=== PATIENT | male | born 1940 | race Caucasian/White ===

== ENCOUNTER 2020-04-01 10:26 | Outpatient (CLI) | payer MEDICARE, SELFPAY ==
[2020-04-01 11:11] LABS: Anion Gap 7 mmol/L (8-16); Blood Urea Nitrogen 16 mg/dL (9-20); Calcium 9.1 mg/dL (8.4-10.2); Carbon Dioxide 24 mmol/L (22-30); Chloride 108 mmol/L (98-107); Estimated Glomerular Filt Rate > 60; Glucose 99 mg/dL (75-110); Potassium 4.5 mmol/L (3.4-5.0); Sodium 139 mmol/L (137-145)
== END 2020-04-01 10:27 | disposition home or self-care (01) ==
PROVIDERS: PCP Internal Medicine Endocrinology, Diabetes & Metabolism; Visit Provider Internal Medicine Cardiovascular Disease
DX: I10 Essential (primary) hypertension (principal); Z86.79 Personal history of other diseases of the circulatory system
CPT/HCPCS: 36415; 80048

== ENCOUNTER 2020-06-26 13:28 | Outpatient (CLI) | payer MEDICARE, SELFPAY ==
[2020-06-26 14:04] LABS: Anion Gap 6 mmol/L (8-16); Blood Urea Nitrogen 20 mg/dL (9-20); Calcium 9.5 mg/dL (8.4-10.2); Carbon Dioxide 30 mmol/L (22-30); Chloride 104 mmol/L (98-107); Estimated Glomerular Filt Rate 58; Glucose 80 mg/dL (75-110); Sodium 140 mmol/L (137-145)
== END 2020-06-26 13:29 | disposition home or self-care (01) ==
LOC: ANHLAB 13:33
PROVIDERS: PCP Internal Medicine Endocrinology, Diabetes & Metabolism; Visit Provider Internal Medicine Cardiovascular Disease
DX: I10 Essential (primary) hypertension (principal)
CPT/HCPCS: 36415; 80048

== ENCOUNTER 2020-12-20 11:22 | Outpatient (CLI) | payer MEDICARE, SELFPAY ==
--- NOTE | ~2020-12-20 | XR_ITS ---
EXAMINATION: XR cervical spine 4-5V EXAM DATE: 12/20/2020 11:45 INDICATION: Cervical radiculopathy. Neck pain, left shoulder pain. TECHNIQUE: Cervical spine frontal, lateral, lateral swimmers, and open-mouth odontoid projections. C orrelation is made to neck CT 05/21/2018. FINDINGS: Moderate to severe loss of the disc height from C3 through T1. Mild diffuse loss of verteb ral body height. The vertebral bodies are aligned in the AP dimension. The odontoid process is intact . The lateral masses of C1 line up with C2. Prevertebral soft tissue and pre-dens space are within n ormal limits. Mild cervical thoracic levoscoliosis. Overall moderate to severe cervical arthritis cau sing some amount of neural foraminal stenosis. There are no bony erosions identified. IMPRESSION: 1. Moderate to severe cervical spondylosis. 2. No acute findings. Reviewed, dictated and finalized at location A.
== END 2020-12-20 11:23 | disposition home or self-care (01) ==
DX: M47.892 Other spondylosis, cervical region (principal); M25.519 Pain in unspecified shoulder
CPT/HCPCS: 72050

== ENCOUNTER 2021-04-23 08:42 | Observation (INO) | payer MEDICARE, SELFPAY ==
[2021-04-23] VITALS (9 sets, daily range): BP systolic 155–186; BP diastolic 44–92; PULSE 43–83; RESP 16–24; TEMP 36.3–36.7; O2SAT 98–100; BMI 25.9
--- NOTE | ~2021-04-23 | MR_ITS ---
EXAMINATION: MR shoulder LT wo con DATE: 04/25/2021 07:12 INDICATION: Left shoulder pain TECHNIQUE: Magnetic resonance imaging (MRI) of the left shoulder was performed without intravenous co ntrast. Sequences included axial PD-weighted FS FSE, coronal oblique PD-weighted FS FSE, coronal obli que T2-weighted FS FSE, sagittal PD-weighted FS FSE, and sagittal T1-weighted SE. COMPARISON: None. FINDINGS: Coracoacromial arch: The acromion undersurface is curved in morphology (type II). The coracoacromial ligament is normal. M oderate acromioclavicular osteoarthritis. Rotator cuff: Mild tendinopathy along the anterior supraspinatus tendon and of the subscapularis tendon, both witho ut discrete tear. The more posterior supraspinatus, infraspinatus and teres minor tendons. There is m ild fatty atrophy of the teres minor muscle belly. Biceps tendon, glenoid labrum and glenohumeral cartilage: There is a split the long head biceps tendon occurring at the exit of the intertubercular groove pote ntially represent a split tear however appearance also suggests a potential secondary attachment cont iguous with the the anterior supraspinatus tendon. There is a relatively well-defined linear tear at the base of the posterior inferior labrum. More extensive irregular degenerative tearing extending in to the inferior and anteroinferior labrum and posterior, posterosuperior and superior labrum. Normal anterosuperior sublabral foramen. Partial-thickness cartilage loss with smooth chondral surface along the superior and posterosuperior glenoid. Chondral swelling and partial-thickness fissuring without degenerative subchondral changes at the inferior to anteroinferior glenoid. Partial-thickness chondra l ulceration along the inferomedial rim of the humeral head. Fluid: Physiologic amount of fluid in the glenohumeral joint and biceps tendon sheath. No loose osteochondra l bodies. No abnormally increased fluid in the subacromial/subdeltoid bursa to suggest bursitis. Bones: Normal marrow signal with no edema, fracture or abnormal marrow replacing process. Mild cystic change at the greater tuberosity. IMPRESSION: 1. Mild glenohumeral osteoarthritis with relatively diffuse labral tear/degeneration. 2. Moderate acromioclavicular osteoarthritis. 3. Mild subscapularis and anterior supraspinatus tendinopathy without discrete tear. 4. Possible longitudinal split tear of the intra-articular long head biceps tendon versus more likely separate attachment contiguous with the anterior supraspinatus tendon with Reviewed, dictated and finalized at location A. IMPRESSION: 1. Mild glenohumeral osteoarthritis with relatively diffuse labral tear/degener ation. 2. Moderate acromioclavicular osteoarthritis. 3. Mild subscapularis and anterior supraspinatus tendinopathy without discrete tear. 4. Possible longitudinal split tear of the intra-articular long head biceps ten don versus more likely separate attachment contiguous with the anterior suprasp inatus tendon with
--- NOTE | ~2021-04-23 | XR_ITS ---
EXAMINATION: XR shoulder LT min 2V INDICATION: Left shoulder pain TECHNIQUE: Four views of the left shoulder are submitted. COMPARISON: None FINDINGS: Normal alignment. No fracture. There is mild osteoarthritis of the glenohumeral and acromio clavicular joints. Soft tissues are unremarkable. IMPRESSION: 1. No acute osseous abnormality. Reviewed, dictated and finalized at location A.
--- NOTE | 2021-04-23 09:27 | ECG_ITS ---
Measurements Intervals [place] Rate: 60 P: -70 AK: 103 QRS: -20 QRSD: 105 T: 46 QT: 429 QTc: 430 Interpretive Statements SINUS WITH INTERMITTENT ECTOPIC ATRIAL RHYTHM INCOMPLETE RIGHT BUNDLE BRANCH BLOCK VOLTAGE CRITERIA FOR LVH BASELINE WANDER- V3-V6 ABNORMAL ECG Electronically Signed On 04-23-2021 10:00:12 CDT by Sarkis Wheeler D.O.
--- NOTE | 2021-04-23 09:45 | ED.GENADULT ---
HPI - General Adult General Chief complaint: Extremity Injury, Upper Stated complaint: burning pain L shoulder x 3 days Time Seen by Provider: 04/23/21 09:18 History of Present Illness HPI narrative: Patient 80-year-old gentleman who presents the emergency department with chief complaint of left arm burning. The patient reports that he saw his primary care physician on Wednesday after he started having symptoms and his primary ordered a plain film x-ray of the left shoulder that he is scheduled to have done at 1130 today patient states that the pain got excruciating and reports that it was not improved by anything patient reports that he was diagnosed with adhesive capsulitis by his primary and is supposed to start physical therapy. The patient denies rash denies focal neurological deficit denies chest pain denies shortness of breath denies fever. Related Data Allergies Allergy/AdvReac Type Severity Reaction Status Date / Time No Known Allergies Allergy Unverified 09/16/18 11:53 Review of Systems Review of Systems: A 10 system review of systems was completed on the patient and is negative except for what is stated in the HPI. Nursing and ancillary documentation was reviewed. Exam Narrative: GENERAL: Well-appearing, well-nourished, and in no acute distress. HEAD: Normocephalic, atraumatic. EYES: PERRLA and EOMI. ENT: Nares clear, no rhinorrhea or epistaxis. Mucous membranes moist. NECK: Supple. CHEST: Clear to auscultation. No respiratory distress. HEART: Regular rate and rhythm. No murmur heard. Normal peripheral pulses. ABDOMEN: Soft, nontender, nondistended, normal active bowel sounds. EXTREMITIES: Normal range of motion. No edema. SKIN: Warm, dry, no rash. NEURO: No focal deficits. Alert and oriented x3. PSYCH: Normal mood and affect. Course Vital Signs Vital signs: Vital Signs Temperature 36.6 C 04/23/21 08:50 Pulse Rate 71 04/23/21 08:50 Respiratory Rate 22 H 04/23/21 08:50 Blood Pressure 186/74 H 04/23/21 08:50 Pulse Oximetry 98 04/23/21 08:50 Temperature 36.6 C 04/23/21 08:50 Pulse Rate 52 L 04/23/21 11:36 Respiratory Rate 18 04/23/21 11:36 Blood Pressure 167/67 H 04/23/21 11:36 Pulse Oximetry 98 09/15/21 11:36 Medical Decision Making Vital Signs Vital Signs: Vital Signs Temperature 36.6 C 04/23/21 08:50 Pulse Rate 71 04/23/21 08:50 Respiratory Rate 22 H 04/23/21 08:50 Blood Pressure 186/74 H 04/23/21 08:50 Pulse Oximetry 98 04/23/21 08:50 Temperature 36.6 C 04/23/21 08:50 Pulse Rate 52 L 04/23/21 11:36 Respiratory Rate 18 04/23/21 11:36 Blood Pressure 167/67 H 04/23/21 11:36 Pulse Oximetry 98 04/23/21 11:36 Lab Data Result diagrams: 04/23/21 09:54 04/23/21 09:54 Labs: Lab Results 04/23/21 04/23/21 04/23/21 Range/Units 09:54 09:54 09:54 WBC 8.1 (4.5-10.0) K/mm3 RBC 4.23 L (4.6-6.20) M/mm3 Hgb 13.5 L (14.0-18.0) g/dL Hct 40.0 L (42.0-52.0) % MCV 94.6 (80-100) fl MCH 31.9 (26-34) pg MCHC 33.8 (32-36) g/dl RDW 14.1 (11.5-14.5) % Plt Count 189 (150-375) k/mm3 MPV 11.0 H (7.4-10.4) fl Immature Gran % (Auto) 1.4 H (0-0.5) % Neut % (Auto) 66.9 (45.5-73.1) % Lymph % (Auto) 16.9 L (18.3-44.2) % [place] % (Auto) 11.4 H (2.6-8.5) % Eos % (Auto) 2.5 (0-4.4) % Baso % (Auto) 0.9 (0.2-1.2) % Lymph # (Auto) 1.36 (0.9-3.2) K/mm3 [place] # (Auto) 0.9 H (0.1-0.6) K/mm3 Eos # (Auto) 0.2 (0-0.3) K/mm3 Baso # (Auto) 0.1 (0.0-0.1) K/mm3 Abs Immat Gran (auto) 0.11 H (0.00-0.031) K/mm3 Absolute Neuts (auto) 5.4 (1.3-6.7) K/mm3 Absolute Nucleated RBC 0.0 (0.0-0.012) K/mm3 Nucleated RBC % 0.0 (0.0-0.2) % D-Dimer Pending Sodium 144 (137-145) mmol/L Potassium 4.0 (3.4-5.0) mmol/L Chloride 111 H (98-107) mmol/L Carbon Dioxide 21 L (22-30) mmol/L Anion Gap 12 (8-16) mmol/L B
[2021-04-23] MEDS: HYDROcodone/acetaminophen (*CRX) 5-325 MG TABLET 1 TAB PO ×2 (09:51→23:08)
[2021-04-23 10:21] LABS: Basophils Absolute Auto 0.1 K/mm3 (0.0-0.1); Basophils Percent Auto 0.9 % (0.2-1.2); Eosinophils Absolute Auto 0.2 K/mm3 (0-0.3); Eosinophils Percent Auto 2.5 % (0-4.4); Hemoglobin 13.5 g/dL (14.0-18.0); Immature Granulocyte Absolute 0.11 K/mm3 (0.00-0.031); Immature Granulocyte Percent A 1.4 % (0-0.5); Lymphocytes Absolute Auto 1.36 K/mm3 (0.9-3.2); Lymphocytes Percent Auto 16.9 % (18.3-44.2); Mean Corpuscular HGB Conc 33.8 g/dl (32-36); Mean Corpuscular Hemoglobin 31.9 pg (26-34); Mean Corpuscular Volume 94.6 fl (80-100); Monocytes Absolute Auto 0.9 K/mm3 (0.1-0.6); Monocytes Percent Auto 11.4 % (2.6-8.5); Neutrophils Absolute Auto 5.4 K/mm3 (1.3-6.7); Neutrophils Percent Auto 66.9 % (45.5-73.1); Platelet Count Result 189 k/mm3 (150-375); Red Blood Count 4.23 M/mm3 (4.6-6.20); Red Cell Distribution Width 14.1 % (11.5-14.5); White Blood Count 8.1 K/mm3 (4.5-10.0)
[2021-04-23 10:24] LABS: Alanine Aminotransferase 20 U/L (4-50); Albumin Level 4.2 g/dL (3.5-5.1); Alkaline Phosphatase 67 U/L (38-126); Anion Gap 12 mmol/L (8-16); Aspartate Amino Transferase 31 U/L (17-59); Bilirubin,Total 0.4 mg/dL (0.2-1.3); Blood Urea Nitrogen 27 mg/dL (9-20); Calcium 9.5 mg/dL (8.4-10.2); Carbon Dioxide 21 mmol/L (22-30); Chloride 111 mmol/L (98-107); Estimated CRCL calculation 49 ml/min; Estimated Glomerular Filt Rate 58; Glucose 112 mg/dL (65-110); Magnesium 2.1 mg/dL (1.6-2.3); Sodium 144 mmol/L (137-145)
[2021-04-23 10:35] LABS: Troponin I < 0.012 ng/mL (0.000-0.034)
[2021-04-23] MEDS: SODIUM CHLORIDE 0.9% IV 1,000 ML 999 ML IV CONT (10:55)
--- NOTE | 2021-04-23 10:55 | PC.NURSE ---
Patients BP and heart rate dropped down to 83/58 and 43, EDP aware and requested normal saline bolus at this time.
--- NOTE | 2021-04-23 11:24 | ECG_ITS ---
Measurements Intervals [place] Rate: 49 P: 50 DE: 155 QRS: -18 QRSD: 105 T: 37 QT: 493 QTc: 447 Interpretive Statements SINUS BRADYCARDIA WITH SINUS ARRHYTHMIA INCOMPLETE RIGHT BUNDLE BRANCH BLOCK LEFT VENTRICULAR HYPERTROPHY AND ST-T CHANGE BASELINE ARTIFACT- II, III , AVF, V2-V6 ABNORMAL ECG Electronically Signed On 04-23-2021 11:51:17 CDT by Sarkis Wheeler D.O.
[2021-04-23] MEDS: SODIUM CHLORIDE 0.9% IV 1,000 ML 125 ML IV CONT ×2 (15:02→23:07)
--- NOTE | 2021-04-23 15:18 | ADMGEN ---
This patient, Pawan Martinez, was admitted to [facility]. Patient oriented to hospital policies and general routines including ID bracelet, bed and alarms, visiting hours, pain management, procedures, bathroom and other care routines, personal items, smoking policy, room service/diet, and visiting hours. Information on how to activate the Rapid Response Team has been discussed. Patient are encouraged to report perceived risks to care and to ask questions if they do not understand what they are told or what they should do.
--- NOTE | 2021-04-23 15:33 | PM.IMHP ---
H&P: HPI History of Present Illness Date/Time: 04/23/21 15:33 this is a 80-year-old male patient who has a past medical history of atrial flutter with a cardioversion and ablation. The patient came to the emergency room with some complaints of left arm burning. The patient saw his primary care doctor on Wednesday and then his primary care physician sent him to have a an x-ray of his left shoulder that was scheduled to be done at 11:30 a.m. today. But the patient was having some excruciating pain to the left arm that he decided to come to the emergency room instead. The patient had been diagnosed with adhesive capsulitis. The patient was supposed to start physical therapy. The patient stated that he was having so much pain that he could not move the left arm. However once the received a pain pill he was able to have full range of motion to that left arm. The patient has no rash noted to the left shoulder. The patient is having point tenderness to the proximal posterior scapula area. The patient's heart rate was dropping down in the 40s. According to the ED physician the patient became dizzy and diaphoretic during that event. The patient stated that he is not on any beta-terence. The is at the bedside answering questions as she states that the patient has problems with short-term memory. He was diagnosed with dementia but was not able to tolerate Aricept. The was answer questions for me who the emergency room. The patient was falling asleep during the interview as he just received a pain pill. The patient stated that he took Tylenol at home and it did not work. The patient received Cuney and IV fluids in the emergency room. The patient is being admitted to observation status on the date of service of 04/23/2021 Chief Complaint: Left shoulder pain Review of Systems Review of Systems: ROS unobtainable: Yes unobtainable due to mental status (Patient has poor memory and the was answering questions in the emergen) [facility] Past Medical History Medical History (Updated 04/23/21 @ 15:53 by Margot Mae NP) Anxiety and depression Atrial flutter Resolved with cardioversion and ablation Dementia Unable to tolerate Aricept Hypertension TIA (transient ischemic attack) Surgical History Surgical History (Updated 04/23/21 @ 15:42 by Margot Mae NP) H/O cardiac radiofrequency ablation H/O local excision of skin lesion Family History Family History (Updated 04/23/21 @ 15:43 by Margot Mae NP) Father Kidney disease Mother Dementia Sibling Pericarditis Social History Social History (Updated 04/23/21 @ 15:44 by Margot Mae NP) Social History: The patient lives with his who is the durable power civil litigation attorney for healthcare. The tells me that they do have a living will in that the patient is a DNR she believes that this is on file here. 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 The patient is a lifelong nonsmoker does not use any alcohol or illicit drugs. They have 1 child. Smoking status: Unknown if ever smoked Alcohol intake: never Substance use: never Living arrangements: with family Occupation/Education: retired Gender identity (if verbalized by the patient): Male Sexual Orientation (if Verbalized by the Patient): Straight or Heterosexual Meds Home Medications and Allergies Home Medications Medication Instructions Recorded Confirmed Type duloxetine 60 mg PO DAILY 04/23/21 04/23/21 History gabapentin 300 mg PO DAILY 04/23/21 04/23/21 History mirtazapine 30 mg PO DAILY 04/23/21 04/23/21 History vdnpcjjkucst-iofjjvyh-xshztl 1 tablet PO DAILY 04/23/21 04/23/21 History [Centrum Silver] olanzapine 5 mg PO DAILY 04/23/21 04/23/21 History omeprazole magnesium [Acid Mortgage Clerk 20 mg PO DAILY 04/23/21 04/23/21 History (omeprazole)] rivaroxaban [Xarelto] 20 mg PO DAILY 04/23/21 04/23/21 History valsartan 40 mg PO DAILY 04/23/21 04/23/21 H
[2021-04-23] MEDS: hydrALAZINE HCL 20 MG/ML VIAL 10 MG IV PUSH ×2 (15:56→17:47)
[2021-04-23 16:00] LABS: Troponin I < 0.012 ng/mL (0.000-0.034)
--- NOTE | 2021-04-23 16:14 | PM.CNCAR ---
Assessment and Plan Assessment and plan (1) Hypertension: Code(s): I10 - Essential (primary) hypertension Status: Chronic Assessment and Plan: Continue valsartan. Avoid AV veronika agents because of his history of bradycardia although he would likely tolerate these medications at low doses. Regardless would use other agents such as amlodipine, hydralazine, hydrochlorothiazide etc. if need be. (2) Bradycardia: Code(s): R00.1 - Bradycardia, unspecified Status: Acute Assessment and Plan: He is not significantly bradycardic. He has some ectopic atrial beating. Not clearly symptomatic. Certainly episode ER can not been related to pain. Will check a 2D echocardiogram Doppler to evaluate for any structural abnormalities. Will also check a TSH and free T4 level. (3) Left shoulder pain: Code(s): M25.512 - Pain in left shoulder Status: Acute Assessment and Plan: Will defer to Orthopedic surgery/hospitalist service (4) Chronic anticoagulation: Code(s): Z79.01 - MCFP (current) use of anticoagulants Status: Acute Assessment and Plan: No bleeding problems (5) History of TIA (transient ischemic attack): Code(s): Z86.73 - Personal history of transient ischemic attack (TIA), and cerebral infarction without residual deficits Status: Acute Assessment and Plan: Presumably related to atrial flutter. On anticoagulation (6) History of atrial flutter: Code(s): Z86.79 - Personal history of other diseases of the circulatory system Status: Acute Assessment and Plan: Status post ablation History of Present Illness History of Present Illness Consult date/time: 04/23/21 16:14 Requesting physician: Domenic Wick MD Consult reason: Other (Bradycardia) Reason For Visit: burning pain L shoulder x 3 days Narrative: Reason for consultation: Bradycardia Date of service 04/23/[address] Wick History: Patient is an 80-year-old male who came to hospital because of left shoulder/burning pain in his left shoulder. It is quite severe. It is in his posterior aspect of his shoulder. It hurts to move his shoulder. It is not exertional in nature. And in fact he has no cardiac symptoms including no chest pain, shortness of breath, syncope, presyncope, paroxysmal nocturnal dyspnea, orthopnea, edema or palpitations. Reportedly though while the patient was in the ER he did have some bradycardic spells into the 30s and 40s. Review of Systems Review of Systems: All systems reviewed & are unremarkable except as noted in HPI and below Constitutional: Constitutional: Denies weakness Eyes: Eyes: Denies blurry vision ENT: Reports Normal hearing present Cardiovascular: Cardiovascular: Denies chest pain Respiratory: Respiratory: Denies dyspnea Gastrointestinal: Gastrointestinal: Denies abdominal pain Genitourinary: Genitourinary: Denies dysuria Musculoskeletal: Musculoskeletal: Reports arthralgias and Denies neck pain Integumentary/Breasts: Skin/Breast: Denies dry skin Neurologic: Denies headache(s) Psychiatric: Psychiatric: Denies anxiety Endocrine: Endocrine: Denies fatigue Hematologic/Lymphatic: Hematologic/Lymphatic: Denies easy bleeding Allergic/Immunologic: Allergic/Immunologic: Denies GI upset with certain foods PMFSH Past Medical History Medical History Anxiety and depression Atrial flutter Resolved with cardioversion and ablation Dementia Unable to tolerate Aricept Hypertension TIA (transient ischemic attack) Surgical History Surgical History H/O cardiac radiofrequency ablation H/O local excision of skin lesion Family History Family History Father Kidney disease Mother Dementia Sibling Pericarditis
[2021-04-23] MEDS: VALSARTAN 40 MG TABLET PO (16:46)
[2021-04-23] MEDS: KETOROLAC 15 MG/ML VIAL (*BKC) IV PUSH (17:09)
[2021-04-23] MEDS: RIVAROXABAN 20 MG TABLET PO (17:59)
[2021-04-23 18:49] LABS: Troponin I < 0.012 ng/mL (0.000-0.034)
[2021-04-23] MEDS: MIRTAZAPINE 30 MG TABLET PO (21:10)
[2021-04-24] VITALS (15 sets, daily range): BP systolic 143–184; BP diastolic 67–122; PULSE 61–93; RESP 13–21; TEMP 36.1–36.4; O2SAT 95–97
--- NOTE | 2021-04-24 | ECHO_ITS ---
Patient Info Name: Pawan Martinez Age: 80 years : 1940 Gender: Male Ht: 73 in Wt: 196 lbs BSA: 2.15 m2 HR: 72 bpm BP: 177 / 87 mmHg Heart Rhythm: Sinus Rhythm Technical Quality: Good Exam Date: 04/24/2021 1:23 PM Exam Location: [facility] Patient Status: Outpatient Admit Date: 04/23/2021 Staff Ordering Physician: Tamir Marcial MD Marketing Education Teacher: Brenda Joseph RDCS Attending Provider: Aashish Alberts MD Referring Physician: Aggie CHERY; Exam Type: CA echo doppler color flow Study Info Indications R00.1 - Bradycardia, unspecified Complete two-dimensional, color flow and Doppler transthoracic echocardiogram is performed. Summary 1. Complete two-dimensional, color flow and Doppler transthoracic echocardiogram is performed. 2. Left ventricular chamber dimension is normal. 3. Left ventricular systolic function is normal, estimated at 55-60%. 4. There is mildly increased left ventricular wall thickness. 5. The left ventricular diastolic function is grade I diastolic dysfunction. 6. Left atrial chamber dimension is moderately enlarged. 7. Right atrial chamber dimension is moderately enlarged. 8. There is mild aortic valve stenosis with a peak velocity of 208 cm/s, mean gradient of 10 mmHg, and aortic valve area of 1.6 cm2. 9. There is mild aortic valve regurgitation. 10. There is moderate aortic valve calcification. 11. There is mild mitral valve regurgitation. 12. There is moderate tricuspid valve regurgitation. 13. Moderate pulmonary hypertension, estimated pulmonary arterial systolic pressure is 53 mmHg. Left Ventricle Left ventricular chamber dimension is normal. Left ventricular systolic function is normal, estimated at 55-60%. There is mildly increased left ventricular wall thickness. The left ventricular diastolic function is grade I diastolic dysfunction. Right Ventricle Right ventricular chamber dimension is normal. Right ventricular systolic function is normal. Left Atria Left atrial chamber dimension is moderately enlarged. Right Atria Right atrial chamber dimension is moderately enlarged. Atrial Septum Intact interatrial septum visualized by color flow imaging. Aortic Valve The aortic valve is trileaflet. There is mild aortic valve stenosis with a peak velocity of 208 cm/s, mean gradient of 10 mmHg, and aortic valve area of 1.6 cm2. There is mild aortic valve regurgitation. There is moderate aortic valve calcification. Pulmonic Valve The pulmonic valve is normal. There is no pulmonic valve stenosis. There is trace pulmonic regurgitation. Mitral Valve The mitral valve has normal leaflets. There is no mitral valve stenosis. There is mild mitral valve regurgitation. Tricuspid Valve The tricuspid valve leaflets are normal. There is no significant tricuspid valve stenosis. There is moderate tricuspid valve regurgitation. Moderate pulmonary hypertension, estimated pulmonary arterial systolic pressure is 53 mmHg. Pericardium/Pleural The pericardium appears normal. There is no pericardial effusion. Inferior Vena Cava Normal inferior vena cava with <50% collapse upon inspiration consistent with elevated right atrial pressure, 10 mmHg. Aorta The aortic root size at the sinus of Valsalva is borderline dilated. The prox ascending aorta size is normal. Left Ventricular Outflow Tract Name Value
--- NOTE | 2021-04-24 01:34 | PC.NURSE ---
2216-Pt having difficulty urinating. HR up in the 150-160s with activity. Margot Mae RESISTOR TESTING MACHINE OPERATOR notified. Orders received.
[2021-04-24] MEDS: HYDROcodone/acetaminophen (*CRX) 5-325 MG TABLET 1 TAB PO ×3 (04:27→18:40)
[2021-04-24 06:09] LABS: Basophils Percent Auto 0.4 % (0.2-1.2); Eosinophils Percent Auto 0.4 % (0-4.4); Hematocrit 35.9 % (42.0-52.0); Immature Granulocyte Absolute 0.11 K/mm3 (0.00-0.031); Lymphocytes Absolute Auto 0.96 K/mm3 (0.9-3.2); Lymphocytes Percent Auto 8.8 % (18.3-44.2); Mean Corpuscular HGB Conc 33.4 g/dl (32-36); Mean Corpuscular Hemoglobin 31.6 pg (26-34); Mean Corpuscular Volume 94.5 fl (80-100); Mean Platelet Volume 11.2 fl (7.4-10.4); Monocytes Percent Auto 8.8 % (2.6-8.5); Neutrophils Absolute Auto 8.8 K/mm3 (1.3-6.7); Neutrophils Percent Auto 80.6 % (45.5-73.1); Platelet Count Result 187 k/mm3 (150-375); Red Cell Distribution Width 13.9 % (11.5-14.5); White Blood Count 10.9 K/mm3 (4.5-10.0)
[2021-04-24 06:36] LABS: Alanine Aminotransferase 16 U/L (4-50); Albumin Level 3.2 g/dL (3.5-5.1); Alkaline Phosphatase 56 U/L (38-126); Anion Gap 9 mmol/L (8-16); Aspartate Amino Transferase 24 U/L (17-59); Bilirubin,Total 0.5 mg/dL (0.2-1.3); Blood Urea Nitrogen 22 mg/dL (9-20); CRP 1.2 mg/dL (<1.0); Calcium 8.4 mg/dL (8.4-10.2); Carbon Dioxide 20 mmol/L (22-30); Chloride 112 mmol/L (98-107); Estimated CRCL calculation 58 ml/min; Estimated Glomerular Filt Rate > 60; Glucose 95 mg/dL (65-110); Phosphorus 2.8 mg/dL (2.5-4.5); Potassium 3.6 mmol/L (3.4-5.0); Sodium 141 mmol/L (137-145)
[2021-04-24 06:41] LABS: Lactic Acid Reflex 0.7 mmol/L (0.7-2.1)
[2021-04-24] MEDS: SODIUM CHLORIDE 0.9% IV 1,000 ML 125 ML IV CONT (08:55)
[2021-04-24] MEDS: OLANZapine 5 MG TABLET PO (08:56)
[2021-04-24] MEDS: DULoxetine HCL 60 MG CAPSULE.DR PO (08:56)
[2021-04-24] MEDS: VALSARTAN 40 MG TABLET PO (08:56)
[2021-04-24] MEDS: OPTI-GEN TAB 1 TABLET PO (08:56)
[2021-04-24] MEDS: GABAPENTIN 300 MG CAPSULE PO (08:57)
[2021-04-24] MEDS: PANTOPRAZOLE 40 MG TABLET PO (08:57)
--- NOTE | 2021-04-24 11:09 | PM.PNCARD ---
Progress Note: A&P Assessment and Plan (1) Hypertension: Code(s): I10 - Essential (primary) hypertension Status: Chronic Assessment and Plan: Continue valsartan. Avoid AV veronika agents because of his history of bradycardia although he would likely tolerate these medications at low doses. Will start amlodipine 5 mg p.o. daily (2) Bradycardia: Code(s): R00.1 - Bradycardia, unspecified Status: Acute Assessment and Plan: He is not significantly bradycardic. He has some ectopic atrial beating. Not clearly symptomatic. Certainly episode ER can not been related to pain. 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 On anticoagulation (6) History of atrial flutter: Code(s): Z86.79 - Personal history of other diseases of the circulatory system Status: Acute Assessment and Plan: Status post ablation (7) SVT (supraventricular tachycardia): Code(s): I47.1 - Supraventricular tachycardia Status: Acute Assessment and Plan: brief episodes but asymptomatic. self-limited Subjective Date/time seen: 04/24/21 11:09 Interval history: 80-year-old admitted because of left shoulder pain. He also had transient bradycardia Date of service 04/24/2021: He denies any cardiac symptoms including no chest pain, shortness breath, syncope, presyncope. He did have few bursts of SVT overnight that was asymptomatic Review of Systems Review of Systems: All systems reviewed & are unremarkable except as noted in HPI and below Constitutional: Constitutional: Denies fatigue, Denies headache(s) and Denies weakness Eyes: Eyes: Denies blurry vision ENT: Reports Normal hearing present, Denies headache(s) and Denies neck pain Cardiovascular: Cardiovascular: Denies chest pain and Denies dyspnea Respiratory: Respiratory: Denies dyspnea Gastrointestinal: Gastrointestinal: Denies abdominal pain Genitourinary: Genitourinary: Denies dysuria Musculoskeletal: Musculoskeletal: Reports arthralgias and Denies neck pain Integumentary/Breasts: Skin/Breast: Denies dry skin Neurologic: Reports Normal hearing present, Denies headache(s) and Denies weakness Psychiatric: Psychiatric: Denies anxiety Endocrine: Endocrine: Denies fatigue Hematologic/Lymphatic: Hematologic/Lymphatic: Denies easy bleeding Allergic/Immunologic: Allergic/Immunologic: Denies GI upset with certain foods Exam Narrative: Alert and oriented appears stated age Const: General: comfortable and no acute distress HENMT: General nose exam: Normal nares present Eyes: Sclera: sclerae normal Neck: Neck: supple and no JVD Chest: Other: No reproducible chest wall pain to palpation Resp: Auscultation: clear to auscultation bilaterally Cardio: Rate: regular rate Rhythm: regular rhythm GI: Inspection: normal to inspection Skin: General skin exam: normal color Neuro: Cranial nerves: Yes Normal hearing present Cognition (Neuro): normal cognition Speech: normal speech Extrem: General: normal to inspection and no edema Psych: Mental Status: mental status grossly normal Objective Data Vital Signs Vital Signs: Vital Signs - 24 hr 04/23/21 11:36 04/23/21 13:42 04/23/21 15:09 Temperature 36.7 C Pulse Rate 52 L 62 62 Respiratory Rate 18 18 16 Blood Pressure 167/67 H 179/81 H 185/92 H Pulse Oximetry 98 100 99 04/23/21 17:10 04/23/21 20:00
[2021-04-24] MEDS: amLODIPine BESYLATE 2.5 MG TABLET PO (12:28)
--- NOTE | 2021-04-24 16:19 | PM.IMPN ---
Progress Note: A&P Assessment and Plan (1) Bradycardia: Code(s): R00.1 - Bradycardia, unspecified Status: Acute Assessment and Plan: In ER the patient became symptomatic with his bradycardia and became diaphoretic and dizzy. cardiology has been consulted thank you for your recommendations Patient did have an episode of bradycardia in the 40s, and SVT asymptomatic Continue valsartan 40 mg p.o. daily add amlodipine 5 mg p.o. daily DNR but she would allow pacemaker if needed. (2) Dementia: Code(s): F03.90 - Unspecified dementia without behavioral disturbance Status: Chronic Assessment and Plan: Unable to tolerate Aricept. Remeron 30 mg p.o. at night (3) Left shoulder pain: Code(s): M25.512 - Pain in left shoulder Status: Acute Assessment and Plan: lidocaine patch. shingles without an outbreak above the skin. gabapentin 300 mg p.o. daily could consider a dosage change MRI of the left shoulder pending (4) Anxiety and depression: Code(s): F41.9 - Anxiety disorder, unspecified; F32.9 - Major depressive disorder, single episode, unspecified Status: Chronic Assessment and Plan: Continue with his home medication of duloxetine and mirtazapine Trend mood (5) Atrial flutter: Code(s): I48.92 - Unspecified atrial flutter Status: Inactive Assessment and Plan: cardioversion and ablation in the past. Continue home Xarelto Cardiology following (6) Hypertension: Code(s): I10 - Essential (primary) hypertension Status: Chronic Assessment and Plan: Current blood pressure 143/67 Continue with valsartan Trend blood pressure Blood pressures a.m. (7) DNR (do not resuscitate): Code(s): Z66 - Do not resuscitate Status: Acute Assessment and Plan: The stated that he has a son record here. Subjective Date/time seen: 04/24/21 16:19 Interval history: Mr. Lester is an 80-year-old male who is here for arm pain and bradycardia. Patient states today that he feels okay he should see frustrated with the [place] catheter. I said I can have it taken out however he stated that he did want have to have another bathroom too much with the fluids running. I did have the fluids turned off since the patient is eating okay and states that he is able to tolerate food. Patient denies having a fall. Patient is also been out of bed and doing well on his feet. Patient can move his arm with no pain and states that he had does not have any pain in it currently. Patient is currently awake and for an MRI of his shoulder. Patient denies chest pain, shortness of breath, sweats, fevers, chills. Review of Systems Review of Systems: All systems reviewed & are unremarkable except as noted in HPI and below Exam Const: General: cooperative, comfortable, no acute distress, alert, awake, Physically active, ill appearing and tired appearing Nutritional Appearance: average body habitus, thin and underweight Orientation/consciousness: oriented to person Limitations: no limitations HENMT: Head: normal to inspection, No palpable skull fracture present, normocephalic and atraumatic Ears: hearing grossly normal bilaterally and external ears normal General nose exam: Normal external nose present and Normal nares present Eyes: General: appearance normal, both eyes and all related structures Alignment and Position: alignment normal Periorbital: periorbital findings normal Eyelids: eyelids normal Conjunctivae: conjunctivae normal Pupils: Equal, round and reactive pupils present EOM: EOMs intact bilaterally Neck: Neck: normal visual inspection and full ROM Chest: Chest palpation & inspection: normal inspection of the chest Resp: Effort & Inspection: normal respiratory effort Auscultation: clear to auscultation bilaterally Percussion: percussion normal
[2021-04-24] MEDS: RIVAROXABAN 20 MG TABLET PO (17:15)
[2021-04-24] MEDS: MIRTAZAPINE 30 MG TABLET PO (21:41)
--- NOTE | 2021-04-24 22:05 | PC.NURSE ---
Day shift RN Frankie Calhoun forgot to put in order to saline lock patients IVF per PIG FURNACE OPERATOR Martin Crouch. I dc'd the IVF as ordered
[2021-04-25] VITALS (13 sets, daily range): BP systolic 126–189; BP diastolic 57–95; PULSE 58–83; RESP 12–21; TEMP 36.2–37.1; O2SAT 95–96
[2021-04-25] MEDS: HYDROcodone/acetaminophen (*CRX) 5-325 MG TABLET 1 TAB PO ×3 (01:33→14:15)
[2021-04-25 06:18] LABS: Basophils Absolute Auto 0.1 K/mm3 (0.0-0.1); Basophils Percent Auto 0.5 % (0.2-1.2); Eosinophils Absolute Auto 0.2 K/mm3 (0-0.3); Eosinophils Percent Auto 1.6 % (0-4.4); Hematocrit 34.3 % (42.0-52.0); Hemoglobin 11.9 g/dL (14.0-18.0); Immature Granulocyte Absolute 0.11 K/mm3 (0.00-0.031); Immature Granulocyte Percent A 1.1 % (0-0.5); Lymphocytes Absolute Auto 2.14 K/mm3 (0.9-3.2); Lymphocytes Percent Auto 20.6 % (18.3-44.2); Mean Corpuscular HGB Conc 34.7 g/dl (32-36); Mean Corpuscular Hemoglobin 31.9 pg (26-34); Monocytes Absolute Auto 1.1 K/mm3 (0.1-0.6); Neutrophils Absolute Auto 6.8 K/mm3 (1.3-6.7); Neutrophils Percent Auto 65.2 % (45.5-73.1); Platelet Count Result 179 k/mm3 (150-375); Red Blood Count 3.73 M/mm3 (4.6-6.20); Red Cell Distribution Width 13.8 % (11.5-14.5); White Blood Count 10.4 K/mm3 (4.5-10.0)
--- NOTE | 2021-04-25 06:42 | PC.NURSE ---
0635-Pt transported down to MRI via wheelchair
[2021-04-25 08:45] LABS: Alanine Aminotransferase 18 U/L (4-50); Albumin Level 3.4 g/dL (3.5-5.1); Alkaline Phosphatase 58 U/L (38-126); Anion Gap 7 mmol/L (8-16); Aspartate Amino Transferase 32 U/L (17-59); Bilirubin,Total 0.6 mg/dL (0.2-1.3); Blood Urea Nitrogen 20 mg/dL (9-20); Calcium 8.7 mg/dL (8.4-10.2); Carbon Dioxide 22 mmol/L (22-30); Chloride 110 mmol/L (98-107); Estimated CRCL calculation 58 ml/min; Estimated Glomerular Filt Rate > 60; Glucose 95 mg/dL (65-110); Magnesium 1.8 mg/dL (1.6-2.3); Potassium 3.4 mmol/L (3.4-5.0); Sodium 139 mmol/L (137-145)
[2021-04-25] MEDS: GABAPENTIN 300 MG CAPSULE PO (08:52)
[2021-04-25] MEDS: DULoxetine HCL 60 MG CAPSULE.DR PO (08:52)
[2021-04-25] MEDS: OLANZapine 5 MG TABLET PO (08:52)
[2021-04-25] MEDS: PANTOPRAZOLE 40 MG TABLET PO (08:52)
[2021-04-25] MEDS: amLODIPine BESYLATE 2.5 MG TABLET PO (08:52)
[2021-04-25] MEDS: OPTI-GEN TAB 1 TABLET PO (08:52)
[2021-04-25] MEDS: VALSARTAN 40 MG TABLET PO (08:52)
[2021-04-25] MEDS: LIDOCAINE 5% PATCH 1 PATCH TRANSDERM (08:52)
--- NOTE | 2021-04-25 09:14 | PM.PNCARD ---
Progress Note: A&P Assessment and Plan (1) Hypertension: Code(s): I10 - Essential (primary) hypertension Status: Chronic Assessment and Plan: Continue valsartan. Avoid AV veronika agents because of his history of bradycardia although he would likely tolerate these medications at low doses. Will start amlodipine 5 mg p.o. daily (2) Bradycardia: Code(s): R00.1 - Bradycardia, unspecified Status: Acute Assessment and Plan: He is not significantly bradycardic. He has some ectopic atrial beating. Not clearly symptomatic. Certainly episode ER could have been related to pain. 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 On anticoagulation (6) History of atrial flutter: Code(s): Z86.79 - Personal history of other diseases of the circulatory system Status: Acute Assessment and Plan: Status post ablation (7) SVT (supraventricular tachycardia): Code(s): I47.1 - Supraventricular tachycardia Status: Acute Assessment and Plan: brief episodes but asymptomatic. self-limited. None noted on telemetry last night Subjective Date/time seen: 04/25/21 09:14 Interval history: 80-year-old admitted because of left shoulder pain. He also had transient bradycardia Date of service 04/24/2021: He denies any cardiac symptoms including no chest pain, shortness breath, syncope, presyncope. He did have few bursts of SVT overnight that was asymptomatic Date of service 04/25/2021: Complaining of worsening shoulder pain. No cardiac complaints - denies palpitations, syncope, presyncope, chest pain. No shortness of breath. Review of Systems Review of Systems: All systems reviewed & are unremarkable except as noted in HPI and below Constitutional: Constitutional: Denies fatigue, Denies headache(s) and Denies weakness Eyes: Eyes: Denies blurry vision ENT: Reports Normal hearing present, Denies headache(s) and Denies neck pain Cardiovascular: Cardiovascular: Denies chest pain and Denies dyspnea Respiratory: Respiratory: Denies dyspnea Gastrointestinal: Gastrointestinal: Denies abdominal pain Genitourinary: Genitourinary: Denies dysuria Musculoskeletal: Musculoskeletal: Reports arthralgias and Denies neck pain Integumentary/Breasts: Skin/Breast: Denies dry skin Neurologic: Reports Normal hearing present, Denies headache(s) and Denies weakness Psychiatric: Psychiatric: Denies anxiety Endocrine: Endocrine: Denies fatigue Hematologic/Lymphatic: Hematologic/Lymphatic: Denies easy bleeding Allergic/Immunologic: Allergic/Immunologic: Denies GI upset with certain foods Exam Narrative: Alert and oriented appears stated age Const: General: comfortable and no acute distress HENMT: General nose exam: Normal nares present Eyes: Sclera: sclerae normal Neck: Neck: supple and no JVD Resp: Auscultation: clear to auscultation bilaterally Cardio: Rate: regular rate Rhythm: regular rhythm GI: Inspection: normal to inspection Skin: General skin exam: normal color Neuro: Cranial nerves: Yes Normal hearing present Cognition (Neuro): normal cognition Speech: normal speech Extrem: General: normal to inspection and no edema Psych: Mental Status: mental status grossly normal Objective Data Vital Signs Vital Signs: Vital Signs - 24 hr 04/24/21 10:00 04/24/21 11:51 04/24/21 12:00 Temperature 36.1 C L
[2021-04-25] MEDS: amLODIPine BESYLATE 5 MG TABLET 10 MG PO (12:25)
--- NOTE | 2021-04-25 13:07 | P.PNIM_ITS ---
Progress Note: A&P Assessment and Plan (1) Bradycardia: Code(s): R00.1 - Bradycardia, unspecified Status: Acute Assessment and Plan: * In ER the patient became symptomatic with his bradycardia and became diaphor etic and dizzy. * cardiology has been consulted thank you for your recommendations * Patient did have an episode of bradycardia in the 40s, and SVT asymptomatic * Continue valsartan 40 mg p.o. daily add amlodipine 5 mg p.o. daily * DNR but she would allow pacemaker if needed. (2) Dementia: Code(s): F03.90 - Unspecified dementia without behavioral disturbance Status: Chronic Assessment and Plan: * Unable to tolerate Aricept. * Remeron 30 mg p.o. at night (3) Left shoulder pain: Code(s): M25.512 - Pain in left shoulder Status: Acute Assessment and Plan: * lidocaine patch. * shingles without an outbreak above the skin. * gabapentin 300 mg p.o. daily could consider a dosage change * MRI of the left shoulder, showed arthritic shoulder. Talked to Dr. Lewis about findings. Patient will need to follow up with him outpatient. (4) Anxiety and depression: Code(s): F41.9 - Anxiety disorder, unspecified; F32.9 - Major depressive disorder, single episode, unspecified Status: Chronic Assessment and Plan: * Continue with his home medication of duloxetine and mirtazapine * Trend mood (5) Atrial flutter: Code(s): I48.92 - Unspecified atrial flutter Status: Inactive Assessment and Plan: * cardioversion and ablation in the past. * Continue home Xarelto * Cardiology following (6) Hypertension: Code(s): I10 - Essential (primary) hypertension Status: Chronic Assessment and Plan: * Current blood pressure 143/67 * Continue with valsartan, amlodipine upped to 5mg Daily * Trend blood pressure * Blood pressures a.m. (7) DNR (do not resuscitate): Code(s): Z66 - Do not resuscitate Status: Acute Assessment and Plan: * The stated that he has a son record here. (8) Nausea: Code(s): R11.0 - Nausea Status: Acute Assessment and Plan: * Complaints of nausea * Will add Zofran for comfort Subjective Date/time seen: 04/25/21 12:00 Interval history: Patient 80 year old male who is here for bradycardia and left shoulder pain.Patient stated that he does not feel very good today and that he just disoriented. He stated that it could be that he just getting up. He still has not been out of bed and mom was in the PT came in to get him out of bed and he refused at this time. He states that he does is given he is nauseated and his stomach hurts. They did say that he ate a little bit of food but not too much. He is weak and fatigued his appetite is good. He did state that he was not ready for his [place] catheter come out however he needs to get it out to perform a voiding trial. re-evaluation at 1:00 p.m. patient was lying in bed PT was in there again trying to get him out of bed however patient stated he just really would like to lay in bed. He said he just does not feel good he does not know why. Patient was alert oriented x3 with equal strength bilaterally. Patient denies sweats, fevers, chills, shortness of breath and chest pain. I did talk to Dr. Lewis about patient's left shoulder MRI which he said was just arthritic shoulder and that he would be ab
--- NOTE | 2021-04-25 13:07 | PM.IMPN ---
Progress Note: A&P Assessment and Plan (1) Bradycardia: Code(s): R00.1 - Bradycardia, unspecified Status: Acute Assessment and Plan: In ER the patient became symptomatic with his bradycardia and became diaphoretic and dizzy. cardiology has been consulted thank you for your recommendations Patient did have an episode of bradycardia in the 40s, and SVT asymptomatic Continue valsartan 40 mg p.o. daily add amlodipine 5 mg p.o. daily DNR but she would allow pacemaker if needed. (2) Dementia: Code(s): F03.90 - Unspecified dementia without behavioral disturbance Status: Chronic Assessment and Plan: Unable to tolerate Aricept. Remeron 30 mg p.o. at night (3) Left shoulder pain: Code(s): M25.512 - Pain in left shoulder Status: Acute Assessment and Plan: lidocaine patch. shingles without an outbreak above the skin. gabapentin 300 mg p.o. daily could consider a dosage change MRI of the left shoulder, showed arthritic shoulder. Talked to Dr. Lewis about findings. Patient will need to follow up with him outpatient. (4) Anxiety and depression: Code(s): F41.9 - Anxiety disorder, unspecified; F32.9 - Major depressive disorder, single episode, unspecified Status: Chronic Assessment and Plan: Continue with his home medication of duloxetine and mirtazapine Trend mood (5) Atrial flutter: Code(s): I48.92 - Unspecified atrial flutter Status: Inactive Assessment and Plan: cardioversion and ablation in the past. Continue home Xarelto Cardiology following (6) Hypertension: Code(s): I10 - Essential (primary) hypertension Status: Chronic Assessment and Plan: Current blood pressure 143/67 Continue with valsartan, amlodipine upped to 5mg Daily Trend blood pressure Blood pressures a.m. (7) DNR (do not resuscitate): Code(s): Z66 - Do not resuscitate Status: Acute Assessment and Plan: The stated that he has a son record here. (8) Nausea: Code(s): R11.0 - Nausea Status: Acute Assessment and Plan: Complaints of nausea Will add Zofran for comfort Subjective Date/time seen: 04/25/21 12:00 Interval history: Patient 80 year old male who is here for bradycardia and left shoulder pain.Patient stated that he does not feel very good today and that he just disoriented. He stated that it could be that he just getting up. He still has not been out of bed and mom was in the PT came in to get him out of bed and he refused at this time. He states that he does is given he is nauseated and his stomach hurts. They did say that he ate a little bit of food but not too much. He is weak and fatigued his appetite is good. He did state that he was not ready for his [place] catheter come out however he needs to get it out to perform a voiding trial. re-evaluation at 1:00 p.m. patient was lying in bed PT was in there again trying to get him out of bed however patient stated he just really would like to lay in bed. He said he just does not feel good he does not know why. Patient was alert oriented x3 with equal strength bilaterally. Patient denies sweats, fevers, chills, shortness of breath and chest pain. I did talk to Dr. Lewis about patient's left shoulder MRI which he said was just arthritic shoulder and that he would be able to see him outpatient for cortisone shots. Review of Systems Review of Systems: All systems reviewed & are unremarkable except as noted in HPI and below Exam Const: General: cooperative, comfortable, no acute distress, alert, awake, Physically active, ill appearing and tired appearing Nutritional Appearance: average body habitus, thin and underweight Orientation/consciousness: oriented to person Limitations: no limitations HENMT: Head: normal to inspection, No palpable skull fracture
[2021-04-25] MEDS: RIVAROXABAN 20 MG TABLET PO (16:45)
[2021-04-25] MEDS: MIRTAZAPINE 30 MG TABLET PO (20:51)
[2021-04-26] VITALS (14 sets, daily range): BP systolic 131–178; BP diastolic 60–82; PULSE 66–90; RESP 12–18; TEMP 36.1–36.9; O2SAT 93–97
[2021-04-26 06:26] LABS: Basophils Absolute Auto 0.1 K/mm3 (0.0-0.1); Basophils Percent Auto 0.5 % (0.2-1.2); Eosinophils Absolute Auto 0.1 K/mm3 (0-0.3); Eosinophils Percent Auto 1.4 % (0-4.4); Hematocrit 35.6 % (42.0-52.0); Hemoglobin 12.4 g/dL (14.0-18.0); Immature Granulocyte Absolute 0.09 K/mm3 (0.00-0.031); Immature Granulocyte Percent A 0.9 % (0-0.5); Lymphocytes Absolute Auto 1.96 K/mm3 (0.9-3.2); Lymphocytes Percent Auto 20.1 % (18.3-44.2); Mean Corpuscular HGB Conc 34.8 g/dl (32-36); Mean Corpuscular Hemoglobin 31.5 pg (26-34); Mean Corpuscular Volume 90.4 fl (80-100); Mean Platelet Volume 10.5 fl (7.4-10.4); Monocytes Percent Auto 10.6 % (2.6-8.5); Neutrophils Absolute Auto 6.5 K/mm3 (1.3-6.7); Neutrophils Percent Auto 66.5 % (45.5-73.1); Platelet Count Result 183 k/mm3 (150-375); Red Blood Count 3.94 M/mm3 (4.6-6.20); Red Cell Distribution Width 13.7 % (11.5-14.5); White Blood Count 9.7 K/mm3 (4.5-10.0)
[2021-04-26 06:41] LABS: Alanine Aminotransferase 24 U/L (4-50); Albumin Level 3.4 g/dL (3.5-5.1); Alkaline Phosphatase 60 U/L (38-126); Anion Gap 7 mmol/L (8-16); Aspartate Amino Transferase 43 U/L (17-59); Bilirubin,Total 0.6 mg/dL (0.2-1.3); Blood Urea Nitrogen 18 mg/dL (9-20); Calcium 8.7 mg/dL (8.4-10.2); Carbon Dioxide 25 mmol/L (22-30); Chloride 108 mmol/L (98-107); Estimated CRCL calculation 53 ml/min; Estimated Glomerular Filt Rate > 60; Glucose 95 mg/dL (65-110); Magnesium 1.9 mg/dL (1.6-2.3); Potassium 3.6 mmol/L (3.4-5.0); Sodium 140 mmol/L (137-145)
[2021-04-26] MEDS: HYDROcodone/acetaminophen (*CRX) 5-325 MG TABLET 1 TAB PO ×3 (07:29→21:20)
[2021-04-26] MEDS: LIDOCAINE 5% PATCH 1 PATCH TRANSDERM (08:30)
[2021-04-26] MEDS: OPTI-GEN TAB 1 TABLET PO (08:30)
[2021-04-26] MEDS: amLODIPine BESYLATE 5 MG TABLET PO (08:30)
[2021-04-26] MEDS: OLANZapine 5 MG TABLET PO (08:31)
[2021-04-26] MEDS: VALSARTAN 40 MG TABLET PO (08:31)
[2021-04-26] MEDS: GABAPENTIN 300 MG CAPSULE PO (08:31)
[2021-04-26] MEDS: DULoxetine HCL 60 MG CAPSULE.DR PO (08:31)
[2021-04-26] MEDS: PANTOPRAZOLE 40 MG TABLET PO (08:31)
[2021-04-26] MEDS: RIVAROXABAN 20 MG TABLET PO (17:12)
--- NOTE | 2021-04-26 17:52 | P.PNIM_ITS ---
Progress Note: A&P Assessment and Plan (1) Bradycardia: Code(s): R00.1 - Bradycardia, unspecified Status: Acute Assessment and Plan: * In ER the patient became symptomatic with his bradycardia and became diaphor etic and dizzy. * cardiology has been consulted thank you for your recommendations * Patient did have an episode of bradycardia in the 40s, and SVT asymptomatic * Continue valsartan 40 mg p.o. daily add amlodipine 5 mg p.o. daily * DNR but she would allow pacemaker if needed. * STABLE TIDAY, ASYMPTOMATIC. (2) Dementia: Code(s): F03.90 - Unspecified dementia without behavioral disturbance Status: Chronic Assessment and Plan: * Unable to tolerate Aricept. * Remeron 30 mg p.o. at night (3) Left shoulder pain: Code(s): M25.512 - Pain in left shoulder Status: Acute Assessment and Plan: * lidocaine patch. * shingles without an outbreak above the skin. * gabapentin 300 mg p.o. daily could consider a dosage change * MRI of the left shoulder pending (4) Anxiety and depression: Code(s): F41.9 - Anxiety disorder, unspecified; F32.9 - Major depressive disorder, single episode, unspecified Status: Chronic Assessment and Plan: * Continue with his home medication of duloxetine and mirtazapine * Trend mood (5) Atrial flutter: Code(s): I48.92 - Unspecified atrial flutter Status: Inactive Assessment and Plan: * cardioversion and ablation in the past. * Continue home Xarelto * Cardiology following (6) Hypertension: Code(s): I10 - Essential (primary) hypertension Status: Chronic Assessment and Plan: * Current blood pressure 140/82. * Continue with valsartan * Trend blood pressure * Blood pressures a.m. (7) DNR (do not resuscitate): Code(s): Z66 - Do not resuscitate Status: Acute Assessment and Plan: * The stated . (8) Nausea: Code(s): R11.0 - Nausea Status: Acute Assessment and Plan: compazine PRN. Subjective Date/time seen: 04/26/21 17:52 Interval history: Patient 80 year old male who is here for bradycardia and left shoulder pain. HE was diagnosed with arthritic shoulder and would benefit from cortisone shots. Review of Systems Review of Systems: All systems reviewed & are unremarkable except as noted in HPI and below ROS unobtainable: Yes unobtainable due to mental status (Patient has poor memory and the was answering questions in the emergen) ENT: Reports Normal hearing present Neurologic: Reports Normal hearing present Exam Const: General: cooperative, comfortable, no acute distress, alert, awake, Physically active, ill appearing and tired appearing Nutritional Appearance: average body habitus, thin and underweight Orientation/consciousness: oriented to person Limitations: no limitations HENMT: Head: normal to inspection, No palpable skull fracture present, normocephalic and atraumatic Ears: hearing grossly normal bilaterally and external ears normal General nose exam: Normal external nose present and Normal nares present Eyes: General: appearance normal, both eyes and all related structures Alignment and Position: alignment normal Periorbital: periorbital findings normal Eyelids: eyelids normal Conjunct
--- NOTE | 2021-04-26 17:52 | PM.IMPN ---
Progress Note: A&P Assessment and Plan (1) Bradycardia: Code(s): R00.1 - Bradycardia, unspecified Status: Acute Assessment and Plan: In ER the patient became symptomatic with his bradycardia and became diaphoretic and dizzy. cardiology has been consulted thank you for your recommendations Patient did have an episode of bradycardia in the 40s, and SVT asymptomatic Continue valsartan 40 mg p.o. daily add amlodipine 5 mg p.o. daily DNR but she would allow pacemaker if needed. STABLE TIDAY, ASYMPTOMATIC. (2) Dementia: Code(s): F03.90 - Unspecified dementia without behavioral disturbance Status: Chronic Assessment and Plan: Unable to tolerate Aricept. Remeron 30 mg p.o. at night (3) Left shoulder pain: Code(s): M25.512 - Pain in left shoulder Status: Acute Assessment and Plan: lidocaine patch. shingles without an outbreak above the skin. gabapentin 300 mg p.o. daily could consider a dosage change MRI of the left shoulder pending (4) Anxiety and depression: Code(s): F41.9 - Anxiety disorder, unspecified; F32.9 - Major depressive disorder, single episode, unspecified Status: Chronic Assessment and Plan: Continue with his home medication of duloxetine and mirtazapine Trend mood (5) Atrial flutter: Code(s): I48.92 - Unspecified atrial flutter Status: Inactive Assessment and Plan: cardioversion and ablation in the past. Continue home Xarelto Cardiology following (6) Hypertension: Code(s): I10 - Essential (primary) hypertension Status: Chronic Assessment and Plan: Current blood pressure 140/82. Continue with valsartan Trend blood pressure Blood pressures a.m. (7) DNR (do not resuscitate): Code(s): Z66 - Do not resuscitate Status: Acute Assessment and Plan: The stated . (8) Nausea: Code(s): R11.0 - Nausea Status: Acute Assessment and Plan: compazine PRN. Subjective Date/time seen: 04/26/21 17:52 Interval history: Patient 80 year old male who is here for bradycardia and left shoulder pain. HE was diagnosed with arthritic shoulder and would benefit from cortisone shots. Review of Systems Review of Systems: All systems reviewed & are unremarkable except as noted in HPI and below ROS unobtainable: Yes unobtainable due to mental status (Patient has poor memory and the was answering questions in the emergen) ENT: Reports Normal hearing present Neurologic: Reports Normal hearing present Exam Const: General: cooperative, comfortable, no acute distress, alert, awake, Physically active, ill appearing and tired appearing Nutritional Appearance: average body habitus, thin and underweight Orientation/consciousness: oriented to person Limitations: no limitations HENMT: Head: normal to inspection, No palpable skull fracture present, normocephalic and atraumatic Ears: hearing grossly normal bilaterally and external ears normal General nose exam: Normal external nose present and Normal nares present Eyes: General: appearance normal, both eyes and all related structures Alignment and Position: alignment normal Periorbital: periorbital findings normal Eyelids: eyelids normal Conjunctivae: conjunctivae normal Sclera: sclerae normal Cornea: corneas normal Pupils: Equal, round and reactive pupils present EOM: EOMs intact bilaterally Neck: Neck: normal visual inspection and full ROM Chest: Chest palpation & inspection: normal inspection of the chest Resp: Effort & Inspection: normal respiratory effort Auscultation: clear to auscultation bilaterally Percussion: percussion normal Cardio: Palpation: normal PMI Rate: bradycardic Rhythm: regular rhythm Heart sounds: S1 normal heart sound present and S2 normal heart sound present Peripheral pulses: Peripheral pulses 2+ throu
[2021-04-26] MEDS: MIRTAZAPINE 30 MG TABLET PO (21:20)
[2021-04-27] VITALS (7 sets, daily range): BP systolic 157–168; BP diastolic 80–102; PULSE 66–88; RESP 14; TEMP 36.4–36.8; O2SAT 98–99
[2021-04-27] MEDS: hydrALAZINE HCL 20 MG/ML VIAL 10 MG IV PUSH (04:55)
[2021-04-27] MEDS: HYDROcodone/acetaminophen (*CRX) 5-325 MG TABLET 1 TAB PO ×2 (04:55→07:55)
[2021-04-27] MEDS: LIDOCAINE 5% PATCH 1 PATCH TRANSDERM (08:00)
[2021-04-27] MEDS: OLANZapine 5 MG TABLET PO (08:01)
[2021-04-27] MEDS: PANTOPRAZOLE 40 MG TABLET PO (08:01)
[2021-04-27] MEDS: VALSARTAN 40 MG TABLET PO (08:01)
[2021-04-27] MEDS: DULoxetine HCL 60 MG CAPSULE.DR PO (08:01)
[2021-04-27] MEDS: OPTI-GEN TAB 1 TABLET PO (08:01)
[2021-04-27] MEDS: amLODIPine BESYLATE 5 MG TABLET PO (08:01)
[2021-04-27] MEDS: GABAPENTIN 300 MG CAPSULE PO (08:02)
--- NOTE | 2021-04-27 16:56 | PM.DS ---
DS: Admitting Diagnosis Discharge Date 04/27/21 Admitting Diagnosis Left shoulder pain DS: Discharge Diagnosis Discharge Diagnosis (1) Acute pain of left shoulder: Code(s): M25.512 - Pain in left shoulder Status: Acute (2) Bradycardia: Code(s): R00.1 - Bradycardia, unspecified Status: Acute (3) SVT (supraventricular tachycardia): Code(s): I47.1 - Supraventricular tachycardia Status: Acute DS: Summary Hospital Course Reason for hospitalization: Left shoulder pain. Hospital Course: This is a 80-year-old male patient who has a past medical history of atrial flutter with a cardioversion and ablation. The patient came to the emergency room with some complaints of left arm burning. The patient saw his primary care doctor on Wednesday prior to admission and then his primary care physician sent him to have a an x-ray of his left shoulder that was scheduled to be done at 11:30 a.m. today. But the patient was having some excruciating pain to the left arm that he decided to come to the emergency room instead. The patient had been diagnosed with adhesive capsulitis. The patient was supposed to start physical therapy. The patient stated that he was having so much pain that he could not move the left arm. However once the received a pain pill he was able to have full range of motion to that left arm. The patient has no rash noted to the left shoulder. The patient is having point tenderness to the proximal posterior scapula area. The patient's heart rate was dropping down in the 40s. According to the ED physician the patient became dizzy and diaphoretic during that event. The patient stated that he is not on any beta-terence. The is at the bedside answering questions as she states that the patient has problems with short-term memory. He was diagnosed with dementia but was not able to tolerate Aricept. The was answer questions for me who the emergency room. The patient was falling asleep during the interview as he just received a pain pill. The patient stated that he took Tylenol at home and it did not work. The patient received [place] and IV fluids in the emergency room. The patient was being admitted to observation status on the date of service of 04/23/2021. The patient was evaluated by cardiology for bradycardia in the 40s. He carries a diagnosis of atrial flutter ; he was cardioverted and ablated. HIs home xarelto was continued. Recommendation was made for his asymptomatic SVT: valsartan 40 mg p.o. daily was continued and amlodipine 5 mg p.o. daily was added. In regards to his dementia, he is unable to tolerate Aricept and was treated with remeron 30 mg p.o. at night. Left shoulder pain:he was treated with a lidocaine patch, gabapentin 300 mg p.o. daily could consider a dosage change. MRI of the shoulder was reviewed. Patient has sever arthritis and adhesive capsulitis; he will benefit from intraarticular injections. In regards to his anxiety and depression, he was started on his home medication of duloxetine and mirtazapine. HIs code status was DNR during this admission. PAtient is discharged home with pain management and after his BP regimen was updated. Status at Discharge Overall status at discharge: patient is not back to baseline Time Spent with Patient Time attestation: Total time spent providing and/or coordinating discharge services: Time spent: Less than 30 minutes Exam Const: General: cooperative, comfortable, no acute distress, alert, awake, Physically active, ill appearing and tired appearing Nutritional Appearance: average body habitus, thin and underweight Orientation/consciousness: oriented to person Limitations: no limitations HENMT: Head: normal to inspection, No palpable skull fracture present, normocephalic and atraumatic Ears: hearing grossly normal bilaterally and external ears normal General nose exam: Normal external nose present and Normal nares present Eyes: Gen
== END 2021-04-27 13:05 | disposition home health service (06) ==
LOC: ANHED 12:39 → ANHCPC 04-24 09:20
PROVIDERS: Internal Medicine Cardiovascular Disease; Nurse Practitioner; Admitting Provider Internal Medicine; Emergency Provider Emergency Medicine; PCP Internal Medicine Endocrinology, Diabetes & Metabolism; Visit Provider Internal Medicine
DX: M25.512 Pain in left shoulder (principal); M75.02 Adhesive capsulitis of left shoulder; I47.1 Supraventricular tachycardia; R00.1 Bradycardia, unspecified; I48.92 Unspecified atrial flutter; F03.90 Unspecified dementia, unspecified severity, without behavioral disturbance, psychotic disturbance, mood disturbance, and anxiety; I10 Essential (primary) hypertension; F41.8 Other specified anxiety disorders; Z79.01 Long term (current) use of anticoagulants; Z66 Do not resuscitate; Z86.73 Personal history of transient ischemic attack (TIA), and cerebral infarction without residual deficits
CPT/HCPCS: 36415; 73030; 73221; 80053; 83605; 83735; 84100; 84436; 84443; 84484; 85025; 86140; 93005; 93306; 96361; 96374; 96375; 96376; 97110; 97161; 97165; 99285; A9270; G0378; J0360; J1885; J7030

== ENCOUNTER 2022-01-08 08:19 | Outpatient (CLI) | payer MEDICARE, SELFPAY ==
--- NOTE | ~2022-01-08 | CT_ITS ---
EXAMINATION: CT abdomen pelvis wo con DATE: 01/08/2022 08:45 INDICATION: Periumbilical pain TECHNIQUE: Computed tomography (CT) of the abdomen and pelvis was performed without intravenous contr ast. The dose-length product was 557.41 mGy-cm. Automated exposure control and iterative reconstructi on technique were employed. COMPARISON: No prior studies for comparison. . FINDINGS: There is a partially calcified left lower lobe nodule measuring 2.4 x 2 cm which abuts the pleural surface. There is wedge-shaped soft tissue which is partially calcified in the right lower lo be. There are multiple areas of pleural thickening with calcifications, most likely secondary to prio r asbestos exposure. The areas of soft tissue consolidation in the lower lobes most likely represent rounded atelectasis. Borderline heart size. The liver, spleen, pancreas, adrenal glands and liver are unremarkable. There are multiple bilateral renal cysts, largest in the right kidney at the lower pole measuring 7.7 cm. T here is atherosclerosis of the aorta without aneurysm. Prostate gland is enlarged. Gallbladder is pre sent. No renal stones or hydronephrosis. No free air or free fluid. No lymphadenopathy. Nonobstructiv e bowel gas pattern. There is a fat-containing left inguinal hernia. There is a small fat-containing umbilical hernia. Mild osteoarthritis of the hips. There is moderate lumbar spondylosis with grade 1 degenerative spondylolisthesis at L4-5 secondary to facet hypertrophy. There is disc narrowing at all lumbar levels. There is a sclerotic lesion of L5, nonspecific, although statistically likely benign bone island. Recommend attention in this on subsequent examination. IMPRESSION: 1. 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 Soft tissue locali zed in the lower lobes bilaterally most likely represents rounded atelectasis, although malignancy is not entirely excluded. Follow-up CT chest and 3 months recommended. Alternatively, pet/CT scan may b e performed to assess for abnormal uptake. 2: Small fat-containing umbilical hernia present. Fat-containing left inguinal hernia. 3: Severe lumbar spondylosis with focal sclerotic lesion of L5. This is most likely benign bone [place] nd, although metastatic disease is not excluded, particularly if there is a known history of malignan cy. 4: Markedly enlarged prostate gland. Reviewed, dictated and finalized at location A. IMPRESSION: 1. Bilateral calcified pleural plaques consistent with previous asbestos exposu re. Soft tissue localized in the lower lobes bilaterally most likely represents rounded atelectasis, although malignancy is not entirely excluded. Follow-up C T chest and 3 months recommended. Alternatively, pet/CT scan may be performed t o assess for abnormal uptake. 2: Small fat-containing umbilical hernia present. Fat-containing left inguinal hernia. 3: Severe lumbar spondylosis with focal sclerotic lesion of L5. This is most l ikely benign bone island, although metastatic disease is not excluded, particul val if there is a known history of malignancy. 4: Markedly enlarged prostate gland.
== END 2022-01-08 08:20 | disposition home or self-care (01) ==
PROVIDERS: PCP Family Medicine; Visit Provider Nurse Practitioner
DX: K42.9 Umbilical hernia without obstruction or gangrene (principal); K40.90 Unilateral inguinal hernia, without obstruction or gangrene, not specified as recurrent; M47.816 Spondylosis without myelopathy or radiculopathy, lumbar region; N40.0 Benign prostatic hyperplasia without lower urinary tract symptoms
CPT/HCPCS: 74176

== ENCOUNTER 2022-02-25 00:40 | Day surgery (SDC) | payer MEDICARE, SELFPAY ==
[2022-02-13 14:00] VITALS: BMI 24.7
[2022-02-25 11:10] VITALS: BP 150/70; PULSE 75; RESP 18; TEMP 36.1; O2SAT 97; BMI 23.8
[2022-02-25] MEDS: LACTATED RINGERS 1,000 ML 150 ML IV CONT (11:24)
--- NOTE | 2022-02-25 11:44 | WPDANESEPPF ---
Anes - Initial Pre Proc Eval Procedure: Operation Date: 02/25/22 12:30 Proposed Procedures p Esophagogastroduodenoscopy & Screening Colonoscopy - Uri Cunningham MD Date/Time: 02/25/22 11:44 Surgeon: Uri Cunningham MD Pre Op Diagnosis: neoplasm screening, periumbilical pain Patient Data Age: 81 Gender: M Height: 1.85 m Weight: 82.1 kg Last Vital Signs Temp 97 F L 02/25/22 11:10 Pulse 75 02/25/22 11:10 Resp 18 02/25/22 11:10 BP 150/70 H 02/25/22 11:10 Pulse Ox 97 02/25/22 11:10 O2 Del Method Room Air 02/25/22 11:10 Allergies Allergy/AdvReac Type Severity Reaction Status Date / Time donepezil [From Aricept] AdvReac Diarrhea Verified 02/25/22 11:07 Home Medications Medication Instructions Recorded Confirmed Type duloxetine 60 mg capsule,delayed 60 mg PO DAILY 04/23/21 02/25/22 History release sprinkle gabapentin 300 mg tablet 300 mg PO DAILY 04/23/21 02/25/22 History mirtazapine 30 mg tablet 30 mg PO DAILY 04/23/21 02/25/22 History zqhieotqorbh-jycbmonn-elxaua tablet 1 tablet PO DAILY 04/23/21 02/25/22 History olanzapine 5 mg tablet 5 mg PO DAILY 04/23/21 02/25/22 History rivaroxaban 20 mg tablet (Xarelto) 20 mg PO DAILY 04/23/21 02/25/22 History amlodipine 5 mg tablet 5 mg PO DAILY #30 tabs 04/27/21 02/25/22 Rx losartan 25 mg tablet 25 mg PO DAILY 12/31/21 02/25/22 History acetaminophen 650 mg 1,300 mg PO HS 02/13/22 02/25/22 History tablet,extended release Patient hx anesthesia problems: none Family hx anesthesia problems: none Results Review: All pre-operative results and documents have been reviewed as part of the pre-operative evaluation. [facility] Past Medical History Medical History (Updated 12/31/21 @ 11:06 by Jeanette Saavedra APRN) Anxiety and depression Atrial flutter Resolved with cardioversion and ablation Dementia Unable to tolerate Aricept Hypertension Periumbilical pain TIA (transient ischemic attack) Surgical History Surgical History H/O cardiac radiofrequency ablation H/O local excision of skin lesion Family History Family History Father Kidney disease Mother Dementia Sibling Pericarditis Social History Social History Social History: The patient lives with his who is the durable power mergers and acquisitions attorney for healthcare. The tells me that they do have a living will in that the patient is a DNR she believes that this is on file here. 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 The patient is a lifelong nonsmoker does not use any alcohol or illicit drugs. They have 1 child. Smoking status: Never smoker Alcohol intake: never Substance use: never Substance use type: does not use Living arrangements: with family Gender identity (if verbalized by the patient): Male Sexual Orientation (if Verbalized by the Patient): Straight or Heterosexual Spiritual care concerns: No Anes - Eval Final PreProcedure Day of Procedure 02/25/22 11:44 Patient weight: normal Heart: regular rate and rhythm Lungs: clear to auscultation Airway: Mallampati scale class II Neurological: alert and oriented Last oral intake: >/= 8 hours ASA classification: III Emergent: no Anesthetic plan: proceed Anesthesia type and monitoring: general GIVS and standard monitoring Results Review: All pre-operative results and documents have been reviewed as part of the pre-operative evaluation. Informed Consent: The patient's anesthetic plan and its attendant risks and benefits were discussed with the patient/family/POA. Questions were solicited and answers provided to the satisfaction of the patient/family/POA.
--- NOTE | 2022-02-25 11:47 | WPDANESEPPF ---
Anes - Initial Pre Proc Eval Procedure: Operation Date: 02/25/22 12:30 Proposed Procedures p Esophagogastroduodenoscopy & Screening Colonoscopy - Uri Cunningham MD Date/Time: 02/25/22 11:47 Surgeon: rUi Cunningham MD Pre Op Diagnosis: neoplasm screening, periumbilical pain Patient Data Age: 81 Gender: M Height: 1.85 m Weight: 82.1 kg Last Vital Signs Temp 97 F L 02/25/22 11:10 Pulse 75 02/25/22 11:10 Resp 18 02/25/22 11:10 BP 150/70 H 02/25/22 11:10 Pulse Ox 97 02/25/22 11:10 O2 Del Method Room Air 02/25/22 11:10 Allergies Allergy/AdvReac Type Severity Reaction Status Date / Time donepezil [From Aricept] AdvReac Diarrhea Verified 02/25/22 11:07 Home Medications Medication Instructions Recorded Confirmed Type duloxetine 60 mg capsule,delayed 60 mg PO DAILY 04/23/21 02/25/22 History release sprinkle gabapentin 300 mg tablet 300 mg PO DAILY 04/23/21 02/25/22 History mirtazapine 30 mg tablet 30 mg PO DAILY 04/23/21 02/25/22 History aibrreeionel-duobjgou-tjbtlp tablet 1 tablet PO DAILY 04/23/21 02/25/22 History olanzapine 5 mg tablet 5 mg PO DAILY 04/23/21 02/25/22 History rivaroxaban 20 mg tablet (Xarelto) 20 mg PO DAILY 04/23/21 02/25/22 History amlodipine 5 mg tablet 5 mg PO DAILY #30 tabs 04/27/21 02/25/22 Rx losartan 25 mg tablet 25 mg PO DAILY 12/31/21 02/25/22 History acetaminophen 650 mg 1,300 mg PO HS 02/13/22 02/25/22 History tablet,extended release Patient hx anesthesia problems: none Family hx anesthesia problems: none Results Review: All pre-operative results and documents have been reviewed as part of the pre-operative evaluation. [facility] Past Medical History Medical History (Updated 12/31/21 @ 11:06 by Jeanette Saavedra APRN) Anxiety and depression Atrial flutter Resolved with cardioversion and ablation Dementia Unable to tolerate Aricept Hypertension Periumbilical pain TIA (transient ischemic attack) Surgical History Surgical History H/O cardiac radiofrequency ablation H/O local excision of skin lesion Family History Family History Father Kidney disease Mother Dementia Sibling Pericarditis Social History Social History Social History: The patient lives with his who is the durable power automatic clipper and stripper for healthcare. The tells me that they do have a living will in that the patient is a DNR she believes that this is on file here. 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 They have 1 child. Smoking status: Never smoker Alcohol intake: never Substance use: never Substance use type: does not use Living arrangements: with family Gender identity (if verbalized by the patient): Male Sexual Orientation (if Verbalized by the Patient): Straight or Heterosexual Spiritual care concerns: No Anes - Eval Final PreProcedure Day of Procedure 02/25/22 11:47 Patient weight: normal Heart: regular rate and rhythm Lungs: clear to auscultation Airway: Mallampati scale class II Neurological: alert and oriented Last oral intake: >/= 8 hours ASA classification: III Emergent: no Anesthetic plan: proceed Anesthesia type and monitoring: general GIVS and standard monitoring Results Review: All pre-operative results and documents have been reviewed as part of the pre-operative evaluation. Informed Consent: The patient's anesthetic plan and its attendant risks and benefits were discussed with the patient/family/POA. Questions were solicited and answers provided to the satisfaction of the patient/family/POA.
--- NOTE | 2022-02-25 12:00 | PM.HPGS ---
History of Present Illness History of Present Illness Consent: Risks, benefits, and alternatives have been discussed and questions answered. Patient agrees to proceed with procedure. Chief complaint: neoplasm screening, periumbilical pain Narrative: Pawan Martinez is a 81 year old male with intermittent abdominal pain, used omeprazole without much of difference, CT Scan negative to explain gi symptoms (he had other incidental findings). Last colonoscopy 12 years ago. Review of Systems Constitutional: Constitutional: Denies headache(s) and Denies weakness Eyes: Eyes: Denies blurry vision ENT: Reports Normal hearing present, Denies headache(s) and Denies neck pain Cardiovascular: Cardiovascular: Denies chest pain and Denies dyspnea Respiratory: Respiratory: Denies dyspnea Gastrointestinal: Gastrointestinal: Reports no additional gastrointestinal complaints Genitourinary: Genitourinary: Denies dysuria Musculoskeletal: Musculoskeletal: Denies neck pain Integumentary/Breasts: Skin/Breast: Denies dry skin Neurologic: Reports Normal hearing present, Denies headache(s) and Denies weakness Psychiatric: Psychiatric: Denies anxiety Endocrine: Endocrine: Denies change in body appearance Hematologic/Lymphatic: Hematologic/Lymphatic: Denies easy bleeding Allergic/Immunologic: Allergic/Immunologic: Denies urticaria PMF Past Medical History Medical History (Updated 02/25/22 @ 12:01 by Uri Cunningham MD) Anxiety and depression Atrial flutter Resolved with cardioversion and ablation Colon cancer screening Dementia Unable to tolerate Aricept Hypertension Periumbilical pain TIA (transient ischemic attack) Surgical History Surgical History H/O cardiac radiofrequency ablation H/O local excision of skin lesion Family History Family History Father Kidney disease Mother Dementia Sibling Pericarditis Social History Social History Social History: The patient lives with his who is the durable power prosecuting attorney for healthcare. The tells me that they do have a living will in that the patient is a DNR she believes that this is on file here. 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 The patient is a lifelong nonsmoker does not use any alcohol or illicit drugs. They have 1 child. Smoking status: Never smoker Alcohol intake: never Substance use: never Substance use type: does not use Living arrangements: with family Gender identity (if verbalized by the patient): Male Sexual Orientation (if Verbalized by the Patient): Straight or Heterosexual Spiritual care concerns: No Meds Home Medications and Allergies Home Medications Medication Instructions Recorded Confirmed Type duloxetine 60 mg capsule,delayed 60 mg PO DAILY 04/23/21 02/25/22 History release sprinkle gabapentin 300 mg tablet 300 mg PO DAILY 04/23/21 02/25/22 History mirtazapine 30 mg tablet 30 mg PO DAILY 04/23/21 02/25/22 History eaqdafisknnw-aoqytgva-mvoqrt tablet 1 tablet PO DAILY 04/23/21 02/25/22 History olanzapine 5 mg tablet 5 mg PO DAILY 04/23/21 02/25/22 History rivaroxaban 20 mg tablet (Xarelto) 20 mg PO DAILY 04/23/21 02/25/22 History amlodipine 5 mg tablet 5 mg PO DAILY #30 tabs 04/27/21 02/25/22 Rx losartan 25 mg tablet 25 mg PO DAILY 12/31/21 02/25/22 History acetaminophen 650 mg 1,300 mg PO HS 02/13/22 02/25/22 History tablet,extended release Allergies Allergy/AdvReac Type Severity Reaction Status Date / Time donepezil [From Aricept] AdvReac Diarrhea Verified 02/25/22 11:07 Vital Signs Vital Signs - 24 hr 02/25/22 11:10 Temperature 97 F L Pulse Rate 75 Respiratory Rate 18 Blood Pressure 150/70 H Pulse Oximetry 97 Oxygen Delivery Room Air Exam Const: Genera
--- NOTE | 2022-02-25 12:17 | SUR.OPER ---
EGD procedure completed at 1209, Colonoscopy started at 1213
[2022-02-25 12:32] VITALS: BP 111/60; PULSE 59; RESP 17; O2SAT 97
[2022-02-25 12:42] VITALS: BP 163/72; PULSE 68; RESP 23; O2SAT 100
[2022-02-25 12:52] VITALS: BP 163/72; PULSE 71; RESP 27; O2SAT 99
== END 2022-02-25 13:20 | disposition home or self-care (01) ==
PROVIDERS: PCP Family Medicine; Visit Provider Internal Medicine Gastroenterology
PROC: 0DJ08ZZ Inspection of Upper Intestinal Tract, Via Natural or Artificial Opening Endoscopic (ICD-10-PCS; CPT 43235; principal; 2022-02-25 12:30)
DX: Z12.11 Encounter for screening for malignant neoplasm of colon (principal); K64.8 Other hemorrhoids; K29.70 Gastritis, unspecified, without bleeding; F41.9 Anxiety disorder, unspecified; F32.A Depression, unspecified; I10 Essential (primary) hypertension; Z86.73 Personal history of transient ischemic attack (TIA), and cerebral infarction without residual deficits
CPT/HCPCS: 43239; G0121; 88305; J7120

== ENCOUNTER 2022-08-03 02:19 | Inpatient (IN) | payer MEDICARE, SELFPAY ==
[2022-08-03] VITALS (24 sets, daily range): BP systolic 102–138; BP diastolic 50–82; PULSE 75–164; RESP 13–20; TEMP 36.4–36.9; O2SAT 90–97; BMI 25.0; BMI 19.8
--- NOTE | ~2022-08-03 | XR_ITS ---
EXAMINATION: [id number] DATE: 08/05/2022 17:32 INDICATION: Left pleural effusion postthoracentesis TECHNIQUE: frontal view of the chest was obtained. COMPARISON: Chest CT dated 08/03/2022 FINDINGS: Persistent airspace opacities throughout the majority the left hemithorax with residual aerated porti on of the lung most prominent in the lateral mid and upper lung zones. Mild primarily reticular opaci ties at the right lower lung zone. No pneumothorax or right-sided pleural effusion. Cardiomegaly. IMPRESSION: 1. Persistent opacification of much of the left hemithorax corresponding to a still large left pleura l effusion with associated atelectasis and/or pneumonia. Only a small amount of fluid was able to be aspirated during the thoracentesis due to the complex multiloculated nature of the likely exudative l eft pleural effusion. 2. Mild reticular opacities at the right lung base which could represent atelectasis, mild pulmonary edema or pneumonia. 3. Cardiomegaly. Reviewed, dictated and finalized at location A. NO ACCOUNTANT IMPRESSION: 1. Persistent opacification of much of the left hemithorax corresponding to a s till large left pleural effusion with associated atelectasis and/or pneumonia. Only a small amount of fluid was able to be aspirated during the thoracentesis due to the complex multiloculated nature of the likely exudative left pleural e ffusion. 2. Mild reticular opacities at the right lung base which could represent atelec tasis, mild pulmonary edema or pneumonia. 3. Cardiomegaly.
--- NOTE | ~2022-08-03 | CT_ITS ---
EXAMINATION: CT cervical spine wo con DATE: 08/03/2022 03:05 INDICATION: Head injury TECHNIQUE: Computed tomography (CT) of the cervical spine was performed without intravenous contrast. Automated exposure control and iterative reconstruction technique were employed. The dose-length pro duct was 451.89 mGy-cm. COMPARISON: Cervical spine radiographs dated 12/20/[address] dated 05/21/2018 FINDINGS: 2 mm anterolisthesis C7 on T1. Normal alignment of the more cephalad cervical spine. Vertebral body h eights are normal. No fracture. Moderate to severe disc height loss at and C3-C4 and C5-C6. Severe di sc height loss at the remaining levels from C4-C5 through T2-T3. Moderate disc height loss at T3-T4 a nd mild disc height loss at C2-C3. There is multilevel moderate to severe facet and uncovertebral ost eoarthritis throughout the cervical spine at the cervicothoracic junction. This contributes to modera te neural foraminal stenosis bilaterally at C3-C4, mild to moderate severity bilaterally at C4-C5 and on the right at C5-C6 and mild at the remaining cervical levels. There is also posterior disc osteop hyte complexes resulting in mild central canal stenosis at C3-C4 through C6-C7. At the right calcaneu s at the bilateral carotid bulbs, left greater than right. Cervical soft tissues are otherwise unrema rkable. A left pleural effusion surrounds the left apex. IMPRESSION: 1. Severe cervical spondylosis without acute osseous abnormality. 2. Left pleural effusion. See separate chest CT report for further detail. Reviewed, dictated and finalized at location A. LOCK WAISTLINE JOINER
--- NOTE | ~2022-08-03 | CT_ITS ---
EXAMINATION: CT diagnostic chest wo con DATE: 08/03/2022 05:49 INDICATION: possible pneumothorax, loculated pleural effusion TECHNIQUE: Computed tomography (CT) of the chest was performed without intravenous contrast. Addition al 3D reconstructions utilizing coronal maximum intensity projection (MIP) were performed. Automated exposure control and iterative reconstruction technique were employed. The dose-length product was 23 6.10 mGy-cm. COMPARISON: CT abdomen and pelvis dated 01/08/2022 FINDINGS: Numerous foci of high attenuation in the left lower lobe and lingula and dependent aspect of the righ t lower lobe which could represent sequela of old granulomatous disease or potentially aspirated katherine um. There is a large multiloculated likely exudative left pleural effusion. There is partial collapse of each of the lobes of the left lung. There is also round atelectasis at the posterior right lower lobe with associated architectural distortion demonstrating the volume loss. No pulmonary edema, righ t pleural effusion or pneumothorax. Cardiomegaly. Prominent aortic valve calcific lesion. No pericard ial effusion. Mildly aneurysmal ascending thoracic aorta which measures up to 4.2 x 4.0 cm and tapers to 4.0 x 3.8 cm at the distal arch and 3.3 x 3.2 cm at the thoracic hiatus. Enlargement of the centr al pulmonary arteries consistent with pulmonary arterial hypertension. There is dilation of arch of t he azygos vein. No evident pathologically enlarged thoracic lymphadenopathy although evaluation is so mewhat limited by the absence of intravenous contrast. Mild bilateral gynecomastia. Bilateral renal c ysts, the largest measuring 6.5 similar at the upper pole of the right kidney. Moderate to severe tho racic spondylosis. IMPRESSION: 1. Large multiloculated likely exudative left pleural effusion with partial collapse of the left lung . 2. Small region of round atelectasis at the posterior right lower lobe. 3. Cardiomegaly with enlargement of the central pulmonary arteries consistent with pulmonary arterial hypertension. 4. Prominent aortic valve calcification with mildly aneurysmal ascending thoracic aorta measuring up to 4.2 x 4.0 cm. Reviewed, dictated and finalized at location A. STRIAL EDITOR IMPRESSION: 1. Large multiloculated likely exudative left pleural effusion with partial col lapse of the left lung. 2. Small region of round atelectasis at the posterior right lower lobe. 3. Cardiomegaly with enlargement of the central pulmonary arteries consistent w ith pulmonary arterial hypertension. 4. Prominent aortic valve calcification with mildly aneurysmal ascending thorac ic aorta measuring up to 4.2 x 4.0 cm.
--- NOTE | ~2022-08-03 | CT_ITS ---
EXAMINATION: CT brain wo con DATE: 08/03/2022 03:04 INDICATION: Fall with head injury TECHNIQUE: Computed tomography (CT) of the head was performed without intravenous contrast. Sagittal and coronal reconstructions were performed. The mA was adjusted according to patient size. Iterative reconstruction technique was employed. The dose-length product was 681.00 mGy-cm. COMPARISON: head CT dated 09/16/2018 FINDINGS: No acute intracranial hemorrhage, acute infarction or abnormal extra axial fluid collection. Symmetri c prominence of the sulci and subarachnoid spaces overlying the convexities consistent with mild to m oderate age-appropriate diffuse cerebral volume loss. Ventricles are normal and symmetric. No mass/m ass effect. Mild mucosal thickening in the paranasal sinuses. The orbits and mastoid air cells are no rmal. IMPRESSION: 1. No fracture or acute intracranial process. 2. Age-related changes including mild to moderate diffuse volume loss. Reviewed, dictated and finalized at location A. FITTER
--- NOTE | ~2022-08-03 | XR_ITS ---
Portable chest x-ray Comparison: 08/05/2022 Clinical History: Shortness of breath Findings: Extensive left lung consolidation is again present, sparing the left upper lobe/apex. Righ t lung remains essentially clear. Cardiomediastinal silhouette is stable. Bones and soft tissues are unremarkable. Impression: Extensive left lung consolidation is similar to yesterday's exam, consistent with large, loculated pl eural effusion is seen on CT dated 08/03/2022. Reviewed, dictated and finalized at [facility]. ALTY UNDERWRITER Impression: Extensive left lung consolidation is similar to yesterday's exam, consistent wi th large, loculated pleural effusion is seen on CT dated 08/03/2022.
--- NOTE | ~2022-08-03 | US_ITS ---
EXAMINATION: US thoracentesis DATE: 08/05/2022 17:38 INDICATION: Left pleural effusion TECHNIQUE: The procedure and its risks and benefits were discussed with the patient in the patient's . Potential risks discussed included bleeding, infection, and pneumothorax. The patient and the p atient's understood the risks and agreed to proceed. The skin was prepped and draped in sterile fashion. 1% lidocaine was used for local anesthesia. Under ultrasound guidance, a 5 Fr catheter with trochar was advanced into the left pleural effusion. Fluid was aspirated. The catheter was removed, a nd a dressing was applied. There were no immediate complications. FINDINGS: Ultrasound images demonstrate a large multiloculated left pleural effusion and the catheter within th e fluid. Subtly visible are multiple nearly indiscernible thin internal septations which limited the amount of fluid able to be aspirated. IMPRESSION: 1. Successful ultrasound-guided thoracentesis yielding 70 mL of opaque yellowish fluid. Reviewed, dictated and finalized at location A. ENGINEER IMPRESSION: 1. Successful ultrasound-guided thoracentesis yielding 70 mL of opaque yellowi sh fluid.
--- NOTE | 2022-08-03 03:06 | ED.FALL ---
HPI - Fall General Chief Complaint: Fall Stated Complaint: GLF, HEAD INJURY Time Seen by Provider: 08/03/22 02:24 History of Present Illness HPI Narrative: 82-year-old male who is normally alert and oriented to person presents to the emergency department for evaluation after ground-level fall. states that the patient was using his walker and his walker got caught on a rug causing the patient to fall in the hallway. states she did hear the patient fall and she called out to him and he immediately replied. Patient does not recall the fall but this is not unusual for him per his . Patient denies any pain or injury. Patient does take Xarelto and has a history of atrial flutter. Related Data Home Medications Medication Instructions Recorded Confirmed duloxetine 60 mg capsule,delayed 60 mg PO DAILY 04/23/21 02/25/22 release sprinkle gabapentin 300 mg tablet 300 mg PO DAILY 04/23/21 02/25/22 mirtazapine 30 mg tablet 30 mg PO DAILY 04/23/21 02/25/22 wvaxdrsjdfuf-ndcjtslv-oxxhvb tablet 1 tablet PO DAILY 04/23/21 02/25/22 olanzapine 5 mg tablet 5 mg PO DAILY 04/23/21 02/25/22 rivaroxaban 20 mg tablet (Xarelto) 20 mg PO DAILY 04/23/21 02/25/22 losartan 25 mg tablet 25 mg PO DAILY 12/31/21 02/25/22 acetaminophen 650 mg 1,300 mg PO HS 02/13/22 02/25/22 tablet,extended release Allergies Allergy/AdvReac Type Severity Reaction Status Date / Time donepezil [From Aricept] AdvReac Diarrhea Verified 08/03/22 02:26 Review of Systems Review of Systems: CONSTITUTIONAL: Denies fever, chills, or sweats. EYES: Denies visual changes, redness, or discharge. ENT: Denies rhinorrhea, congestion, sore throat, or otalgia. CARDIOVASCULAR: Denies chest pain, palpitations, or edema. RESPIRATORY: Denies cough or dyspnea. GASTROINTESTINAL: Denies abdominal pain, nausea, vomiting, or diarrhea. GENITOURINARY: Denies dysuria or hematuria. SKIN: Denies rash or itching. MUSCULOSKELETAL: Denies back pain, joint pain, or myalgia. NEUROLOGIC: Denies headache, numbness, or weakness. PMFSH Past Medical History Medical History (Updated 08/03/22 @ 07:38 by Estela Pappas DO) Anxiety and depression Atrial flutter Resolved with cardioversion and ablation Dementia Unable to tolerate Aricept GERD (gastroesophageal reflux disease) Hypertension TIA (transient ischemic attack) Surgical History Surgical History H/O cardiac radiofrequency ablation H/O local excision of skin lesion Family History Family History Father Kidney disease Mother Dementia Sibling Pericarditis Social History Social History Social History: The patient lives with his who is the durable power collections attorney for healthcare. The tells me that they do have a living will in that the patient is a DNR she believes that this is on file here. 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 The patient is a lifelong nonsmoker does not use any alcohol or illicit drugs. They have 1 child. Smoking status: Never smoker Alcohol intake: never Substance use: never Substance use type: does not use Gender identity (if verbalized by the patient): Male Sexual Orientation (if Verbalized by the Patient): Straight or Heterosexual Spiritual care concerns: No Exam Narrative: APPEARANCE: Somnolent but no distress HEAD: normocephalic, atraumatic. EYES: PERRLA/EOMI, conjunctivae clear. NOSE: Normal no drainage THROAT: Pharynx clear, no exudate. NECK: Supple. No adenopathy, no masses. RESPIRATORY: Airway patent, respirations nonlabored. CARDIOVASCULAR: Regular rate and rhythm without murmurs rubs or gallops. ABDOMINAL: Soft, nontender, nondistended, normal bowel sounds MUSCULOSKELETAL: Moves all extremities. Strength/ROM intact, No edema, No calf tenderness.
[2022-08-03 04:27] LABS: Basophils Absolute Auto 0.1 K/mm3 (0.0-0.1); Basophils Percent Auto 0.2 % (0.2-1.2); Eosinophils Percent Auto 0.1 % (0-4.4); Hemoglobin 10.3 g/dL (14.0-18.0); Immature Granulocyte Absolute 0.43 K/mm3 (0.00-0.031); Immature Granulocyte Percent A 1.5 % (0-0.5); Lymphocytes Percent Auto 2.5 % (18.3-44.2); Mean Corpuscular HGB Conc 33.2 g/dl (32-36); Mean Corpuscular Volume 93.4 fl (80-100); Mean Platelet Volume 9.8 fl (7.4-10.4); Monocytes Absolute Auto 1.9 K/mm3 (0.1-0.6); Monocytes Percent Auto 6.7 % (2.6-8.5); Neutrophils Absolute Auto 24.7 K/mm3 (1.3-6.7); Platelet Count Result 317 k/mm3 (150-375); Red Blood Count 3.32 M/mm3 (4.6-6.20); Red Cell Distribution Width 14.3 % (11.5-14.5); White Blood Count 27.8 K/mm3 (4.5-10.0)
[2022-08-03 04:52] LABS: Alanine Aminotransferase 23 U/L (6-50); Albumin Level 3.2 g/dL (3.5-5.1); Alkaline Phosphatase 98 U/L (38-126); Anion Gap 8 mmol/L (8-16); Aspartate Amino Transferase 39 U/L (17-59); Bilirubin,Total 0.6 mg/dL (0.2-1.3); Blood Urea Nitrogen 64 mg/dL (9-20); Calcium 8.8 mg/dL (8.4-10.2); Carbon Dioxide 20 mmol/L (22-30); Chloride 101 mmol/L (98-107); Estimated CRCL calculation 22 ml/min; Estimated Glomerular Filt Rate 23; Glucose 115 mg/dL (65-110); Potassium 4.4 mmol/L (3.4-5.0); Sodium 129 mmol/L (137-145)
[2022-08-03] MEDS: SODIUM CHLORIDE 0.9% IV 1,000 ML 999 ML IV CONT ×2 (05:19)
--- NOTE | 2022-08-03 07:34 | PM.IMHP ---
H&P: HPI History of Present Illness Date/Time: 08/03/22 07:34 Chief Complaint: s/p fall Narrative: 82 y/o M with PMH of dementia, atrial flutter on Xarelto, he uses a walker and has frequent mechanical falls, depression and anxiety, history of TIA is p/w ground level fall after he tripped over a rug with his walker and fell. He denies any pain from the fall. No chest pain or shortness of breath. No nausea, vomiting or diarrhea. No fevers or chills. In the ER, chest x-ray showed possible pneumonia versus empyema. CT scan was ordered and was concerning for loculated empyema. Vancomycin and Zosyn as well as blood cultures were all initiated. Patient did have an episode of atrial flutter and was given a dose of Cardizem. He appeared to convert into normal sinus rhythm after this, however, shortly after he was back in atrial fibrillation. A thoracentesis was recommended from the ER, however, Interventional Radiology states they were unable to do the thoracentesis because the patient is on anticoagulation. Review of Systems Review of Systems: ROS unobtainable: Yes unobtainable due to mental status PMFSH Past Medical History Medical History Anxiety and depression Atrial flutter Resolved with cardioversion and ablation Dementia Unable to tolerate Aricept GERD (gastroesophageal reflux disease) Hypertension TIA (transient ischemic attack) Surgical History Surgical History H/O cardiac radiofrequency ablation H/O local excision of skin lesion Family History Family History Father Kidney disease Mother Dementia Sibling Pericarditis Social History Social History Social History: The patient lives with his who is the durable power admitted attorneys for healthcare. The tells me that they do have a living will in that the patient is a DNR she believes that this is on file here. 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 The patient is a lifelong nonsmoker does not use any alcohol or illicit drugs. They have 1 child. Smoking status: Never smoker Second hand tobacco smoke exposure: No Alcohol intake: never Substance use: never Substance use type: does not use Lack of Transportation: No Lack of Food: Never True Current Housing: I Have Housing Concerned About Future Housing: No Difficulty Paying Gas/Electric Bills: No Difficulty Paying for Meds: No Currently Unemployed: No Education: High School Diploma/GED Difficulty w/ Childcare or Family Care: No Gender identity (if verbalized by the patient): Male Sexual Orientation (if Verbalized by the Patient): Straight or Heterosexual Spiritual care concerns: No Meds Home Medications and Allergies Home Medications Medication Instructions Recorded Confirmed Type duloxetine 60 mg capsule,delayed 60 mg PO DAILY 04/23/21 08/03/22 History release sprinkle gabapentin 300 mg tablet 300 mg PO DAILY 04/23/21 08/03/22 History mirtazapine 30 mg tablet 30 mg PO DAILY 04/23/21 08/03/22 History olanzapine 5 mg tablet 5 mg PO DAILY 04/23/21 08/03/22 History rivaroxaban 20 mg tablet (Xarelto) 20 mg PO DAILY 04/23/21 08/03/22 History amlodipine 5 mg tablet 5 mg PO DAILY #30 tabs 04/27/21 08/03/22 Rx losartan 25 mg tablet 25 mg PO DAILY 12/31/21 08/03/22 History acetaminophen 650 mg 1,300 mg PO HS 02/13/22 08/03/22 History tablet,extended release Centrum Silver 250 mcg PO DAILY 08/03/22 08/03/22 History Allergies Allergy/AdvReac Type Severity Reaction Status Date / Time donepezil [From Aricept] AdvReac Diarrhea Verified 08/03/22 02:26 Vital Signs Vital Signs - 24 hr 08/03/22 02:18 08/03/22 02:37 08/03/22 03:00 Temperature 97.9 F Pulse Rate 86 84 84 Respiratory Rate 14 14 16 Blood Press
--- NOTE | 2022-08-03 07:49 | ECG_ITS ---
Measurements Intervals [place] Rate: 141 P: OR: 0 QRS: -25 QRSD: 98 T: 36 QT: 295 QTc: 452 Interpretive Statements ATRIAL FIBRILLATION WITH RAPID VENTRICULAR RESPONSE INCOMPLETE RIGHT BUNDLE BRANCH BLOCK NONSPECIFIC ST & T-WAVE ABNORMALITY ABNORMAL ECG COMPARED TO ECG 04/23/2021 11:21:12 ATRIAL FIBRILLATION NOW PRESENT Electronically Signed On 08-03-2022 16:54:51 GUEST SERVICE HOST by Zeke Hernandez M.D.
[2022-08-03 08:03] LABS: Lactic Acid Reflex 1.8 mmol/L (0.7-2.0)
[2022-08-03 08:07] LABS: Influenza A QL RT-PCR Negative (Negative); Influenza B QL RT-PCR Negative (Negative); SARS-CoV-2 RNA PCR Negative
--- NOTE | 2022-08-03 08:10 | PC.NURSE ---
EDP Roberto notified of patient's heart rate, EKG completed.
[2022-08-03 08:21] LABS: Erythrocyte Sedimentation Rate 1 mm/hr (0-20)
[2022-08-03 08:27] LABS: INR 2.7; Prothrombin Time 27.6 Seconds (11.1-14.7)
[2022-08-03 08:28] LABS: Partial Thromboplastin Time 62.1 SECONDS (22.3-36.8)
[2022-08-03] MEDS: dilTIAZem HCl INJ 25 MG/5 ML VIAL 10 MG IV PUSH (08:34)
[2022-08-03 08:36] LABS: CRP 35.2 mg/dL (<1.0)
[2022-08-03 08:39] LABS: Amylase 39 U/L (30-110); Cholesterol 122 mg/dL (0-200); Lactate Dehydrogenase 133 U/L (120-246); Triglycerides 87 mg/dL (<150)
[2022-08-03] MEDS: SODIUM CHLORIDE 0.9% IV 1,000 ML 100 ML IV CONT ×2 (08:45→21:01)
--- NOTE | 2022-08-03 09:00 | PC.NURSE ---
Per EDP Bolaños, hold cardizem drip. Patient's heart rate 86.
--- NOTE | 2022-08-03 10:44 | PC.NURSE ---
This patient, Pawan Martinez, was admitted to IMU Room 205-02. at 09:50am Patient/family oriented to hospital policies and general routines including ID bracelet, bed and alarms, visiting hours, pain management, procedures, bathroom and other care routines, personal items, smoking policy, room service/diet, and visiting hours. Information on how to activate the Rapid Response Team has been discussed. Patient/Family are encouraged to report perceived risks to care and to ask questions if they do not understand what they are told or what they should do.
--- NOTE | 2022-08-03 11:09 | PC.NURSE ---
Ultra sound caled and stated PT PTT is to high to do thoracentesis today. Dr. Pappas notified.
--- NOTE | 2022-08-03 11:29 | PC.NURSE ---
Patient came to floor on 2L nasal canula. A&O x 4. Patient denies pain or SOB. Patient left forearm IV access was accidently removed during transport from ER by tech. Patient still has IV access in left wrist
--- NOTE | 2022-08-03 12:01 | PC.NURSE ---
Elli HR [address] Pappas. Order to start ene corbin.
[2022-08-03] MEDS: dilTIAZem 100 MG/100 ML 100 MG/100 ML BAG IV CONT (12:22)
--- NOTE | 2022-08-03 16:52 | PC.NURSE ---
Patient converted to Sinus rhythm at approximately 13:40 EKG ordered STAT. Patient converted to AFIB RVR 16:29. Dr Powell notified. New orders placed. EKG ordered STAT.
[2022-08-03] MEDS: METOPROLOL TARTRATE INJ 5 MG/5 ML VIAL IV PUSH (17:06)
--- NOTE | 2022-08-03 17:34 | PC.NURSE ---
Dr. Powell on floor. Ordered 25 Metoprolol Tartrate Q12 to start tonight. If patient HR sustains above 120 turn Cardizem drip up to 15
[2022-08-03 17:39] LABS: Basophils Percent Auto 0.1 % (0.2-1.2); Hematocrit 35.6 % (42.0-52.0); Hemoglobin 11.6 g/dL (14.0-18.0); Immature Granulocyte Percent A 1.2 % (0-0.5); Lymphocytes Absolute Auto 0.53 K/mm3 (0.9-3.2); Lymphocytes Percent Auto 2.2 % (18.3-44.2); Mean Corpuscular HGB Conc 32.6 g/dl (32-36); Mean Corpuscular Volume 95.2 fl (80-100); Mean Platelet Volume 9.9 fl (7.4-10.4); Monocytes Absolute Auto 1.8 K/mm3 (0.1-0.6); Monocytes Percent Auto 7.4 % (2.6-8.5); Neutrophils Absolute Auto 21.9 K/mm3 (1.3-6.7); Neutrophils Percent Auto 89.1 % (45.5-73.1); Nucleated Red Blood Cells Perc 0.1 % (0.0-0.2); Platelet Count Result 371 k/mm3 (150-375); Red Blood Count 3.74 M/mm3 (4.6-6.20); Red Cell Distribution Width 14.6 % (11.5-14.5); White Blood Count 24.6 K/mm3 (4.5-10.0)
[2022-08-03 17:57] LABS: Ovalocytes 1+ (NORMAL); Platelet Estimate Adequate (Adequate); Schistocytes None Seen (NORMAL)
[2022-08-03 18:03] LABS: Alanine Aminotransferase 69 U/L (6-50); Albumin Level 3.3 g/dL (3.5-5.1); Alkaline Phosphatase 293 U/L (38-126); Anion Gap 8 mmol/L (8-16); Aspartate Amino Transferase 124 U/L (17-59); Bilirubin,Total 0.6 mg/dL (0.2-1.3); Blood Urea Nitrogen 48 mg/dL (9-20); Calcium 8.6 mg/dL (8.4-10.2); Carbon Dioxide 19 mmol/L (22-30); Chloride 107 mmol/L (98-107); Estimated CRCL calculation 29 ml/min; Estimated Glomerular Filt Rate 39; Glucose 134 mg/dL (65-110); Potassium 3.8 mmol/L (3.4-5.0); Sodium 134 mmol/L (137-145)
[2022-08-03] MEDS: METOPROLOL TARTRATE 25 MG TABLET PO (21:01)
[2022-08-03] MEDS: ACETAMINOPHEN 325 MG TABLET 1300 MG PO (21:01)
[2022-08-04] VITALS (20 sets, daily range): BP systolic 114–169; BP diastolic 51–87; PULSE 68–144; RESP 20–36; TEMP 36.3–37.1; O2SAT 87–93
[2022-08-04 05:08] LABS: Basophils Absolute Auto 0.1 K/mm3 (0.0-0.1); Basophils Percent Auto 0.2 % (0.2-1.2); Hematocrit 32.2 % (42.0-52.0); Hemoglobin 10.5 g/dL (14.0-18.0); Immature Granulocyte Absolute 0.28 K/mm3 (0.00-0.031); Immature Granulocyte Percent A 1.3 % (0-0.5); Lymphocytes Absolute Auto 0.62 K/mm3 (0.9-3.2); Lymphocytes Percent Auto 2.9 % (18.3-44.2); Mean Corpuscular HGB Conc 32.6 g/dl (32-36); Mean Corpuscular Hemoglobin 30.7 pg (26-34); Mean Corpuscular Volume 94.2 fl (80-100); Monocytes Absolute Auto 1.9 K/mm3 (0.1-0.6); Monocytes Percent Auto 8.8 % (2.6-8.5); Neutrophils Absolute Auto 18.8 K/mm3 (1.3-6.7); Neutrophils Percent Auto 86.8 % (45.5-73.1); Platelet Count Result 300 k/mm3 (150-375); Red Blood Count 3.42 M/mm3 (4.6-6.20); Red Cell Distribution Width 14.4 % (11.5-14.5); White Blood Count 21.7 K/mm3 (4.5-10.0)
[2022-08-04 05:21] LABS: Alanine Aminotransferase 67 U/L (6-50); Albumin Level 2.8 g/dL (3.5-5.1); Alkaline Phosphatase 253 U/L (38-126); Anion Gap 6 mmol/L (8-16); Aspartate Amino Transferase 73 U/L (17-59); Bilirubin,Total 0.6 mg/dL (0.2-1.3); Blood Urea Nitrogen 41 mg/dL (9-20); Calcium 8.2 mg/dL (8.4-10.2); Carbon Dioxide 19 mmol/L (22-30); Chloride 110 mmol/L (98-107); Estimated CRCL calculation 41 ml/min; Estimated Glomerular Filt Rate 48; Glucose 109 mg/dL (65-110); Potassium 3.9 mmol/L (3.4-5.0); Sodium 135 mmol/L (137-145)
[2022-08-04] MEDS: dilTIAZem 100 MG/100 ML 100 MG/100 ML BAG 10 MG IV CONT (06:24)
--- NOTE | 2022-08-04 07:20 | ECG_ITS ---
Measurements Intervals [place] Rate: 111 P: DE: 0 QRS: -18 QRSD: 99 T: 31 QT: 325 QTc: 442 Interpretive Statements ATRIAL FIBRILLATION WITH RAPID VENTRICULAR RESPONSE BASELINE ARTIFACT INCOMPLETE RIGHT BUNDLE BRANCH BLOCK ABNORMAL ECG COMPARED TO ECG 08/03/2022 07:58:37 NO SIGNIFICANT CHANGES Electronically Signed On 08-04-2022 17:48:33 RANCH SUPERVISOR by Zeke Hernandez M.D.
[2022-08-04 09:15] LABS: INR 1.6; Prothrombin Time 18.2 Seconds (11.1-14.7)
[2022-08-04 09:16] LABS: Partial Thromboplastin Time 43.9 SECONDS (22.3-36.8)
[2022-08-04] MEDS: METOPROLOL TARTRATE 25 MG TABLET PO ×2 (10:04→20:43)
[2022-08-04] MEDS: amLODIPine BESYLATE 5 MG TABLET PO (10:04)
[2022-08-04] MEDS: LOSARTAN POTASSIUM 25 MG TABLET PO (10:04)
[2022-08-04] MEDS: DULoxetine HCL 60 MG CAPSULE.DR PO (10:07)
[2022-08-04] MEDS: MULTIVITAMINS /C LUTEIN (CENTRUM SILVER) TABLET *BKC 1 TAB PO (10:08)
[2022-08-04] MEDS: GABAPENTIN 300 MG CAPSULE PO (10:08)
[2022-08-04] MEDS: MIRTAZAPINE 30 MG TABLET PO (10:08)
--- NOTE | 2022-08-04 10:40 | PM.CNPUL ---
Assessment and Plan Assessment and plan (1) Loculated pleural effusion: Code(s): J90 - Pleural effusion, not elsewhere classified Status: Acute Assessment and Plan: this 82-year-old man admitted to the hospital after he fell at home. Diagnostic studies have shown leukocytosis and a large loculated pleural effusion suggestive of empyema. Patient is currently on treatment with 2 antibiotics, Zosyn and vancomycin. Patient does not look septic. He has had history of falls and an alternative diagnosis is loculated pleural effusion due to hemothorax. Review of CBC showed some drop in his hemoglobin recently. Plan: Patient will need thoracentesis regarding left loculated pleural effusion. I would discontinue both antibiotics and start the patient on Unasyn. Further recommendations depending upon the results of pleural fluid analysis. (2) Anemia: Code(s): D64.9 - Anemia, unspecified Status: Acute (3) Atrial flutter: Code(s): I48.92 - Unspecified atrial flutter Status: Chronic (4) [place] (acute kidney injury): Code(s): N17.9 - Acute kidney failure, unspecified Status: Acute (5) History of TIA (transient ischemic attack): Code(s): Z86.73 - Personal history of transient ischemic attack (TIA), and cerebral infarction without residual deficits Status: Acute (6) Anxiety and depression: Code(s): F41.9 - Anxiety disorder, unspecified; F32.9 - Major depressive disorder, single episode, unspecified Status: Chronic History of Present Illness History of Present Illness Consult date: 08/04/22 Chief complaint: [place]/Head Injury/Pneumonia/Empyema Narrative: This 82-year-old man was admitted to the hospital after he fell at home. The patient has multiple medical problems including dementia, history of atrial fibrillation on a direct anticoagulant, history of TIA, depression anxiety. Reportedly the patient who lives at home with his he fell. Prior to his fall he had no symptoms such as fever chills or increasing shortness of breath. the patient is a poor historian and also because of dementia he could not recall events that precipitated current admission. When evaluated in the emergency room he was found to have a large loculated pleural effusion on left. In addition a chest CT showed partial collapse of the left lung, small region of round atelectasis at the posterior right lower lobe, cardiomegaly with enlargement of the central pulmonary arteries consistent with pulmonary arterial hypertension. the patient also had leukocytosis with left shift and hypoxemia. He is currently on treatment with Zosyn and vancomycin. patient is a never smoker. Review of Systems Review of Systems: ROS unobtainable: Yes unobtainable due to mental status PMFSH Past Medical History Medical History Anxiety and depression Atrial flutter Resolved with cardioversion and ablation Dementia Unable to tolerate Aricept GERD (gastroesophageal reflux disease) Hypertension TIA (transient ischemic attack) Surgical History Surgical History H/O cardiac radiofrequency ablation H/O local excision of skin lesion Family History Family History Father Kidney disease Mother Dementia Sibling Pericarditis Social History Social History Social History: The patient lives with his who is the durable power managing attorney for healthcare. The tells me that they do have a living will in that the patient is a DNR she believes that this is on file here. 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 The patient is a lifelong nonsmoker does not use any alcohol or illicit drugs. They have 1 child. Smoking status: Never smoker Second hand tobacco smoke exp
--- NOTE | 2022-08-04 11:11 | PC.NURSE ---
Patient , Sara is at bedside and is requesting patient be transferred to [place], Patient medical care is primarily at [place], Contacted Dr. Pappas and spoke with family. Charge nurse notified.
--- NOTE | 2022-08-04 11:19 | PM.IMPN ---
Progress Note: A&P Assessment and Plan (1) Loculated pleural effusion: Code(s): J90 - Pleural effusion, not elsewhere classified Status: Acute Assessment and Plan: Continue antibiotics 08/04: Transfer pending to [facility] cardiothoracic surgery support due to loculated pleural effusion concerning for malignant effusion versus empyema (2) [place] (acute kidney injury): Code(s): N17.9 - Acute kidney failure, unspecified Status: Acute Assessment and Plan: likely 2/2 hypoperfusion from afib and possible infection and dehydration, monitor, cont IVF (3) Hyponatremia: Code(s): E87.1 - Hypo-osmolality and hyponatremia Status: Acute Assessment and Plan: Likely hypovolemic, reassess after IV hydration (4) Chronic anticoagulation: Code(s): Z79.01 - [facility] (current) use of anticoagulants Status: Acute Assessment and Plan: Continue Xarelto (5) GERD (gastroesophageal reflux disease): Code(s): K21.9 - Gastro-esophageal reflux disease without esophagitis Status: Acute (6) Dementia: Code(s): F03.90 - Unspecified dementia, unspecified severity, without behavioral disturbance, psychotic disturbance, mood disturbance, and anxiety Status: Chronic Assessment and Plan: Continue home meds (7) Atrial flutter: Code(s): I48.92 - Unspecified atrial flutter Status: Chronic Assessment and Plan: Monitor, appreciate cardiology consultation Diltiazem discontinued in favor of amiodarone (8) Hypertension: Code(s): I10 - Essential (primary) hypertension Status: Chronic (9) Anxiety and depression: Code(s): F41.9 - Anxiety disorder, unspecified; F32.9 - Major depressive disorder, single episode, unspecified Status: Chronic (10) Anemia: Code(s): D64.9 - Anemia, unspecified Status: Acute Assessment and Plan: Stable, monitor Plan DVT prophylaxis with xarelto GI prophylaxis not indicated Code status DNR Subjective Date/time seen: 08/04/22 11:19 Interval history: Patient is somewhat confused today. Difficult to get history. 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 He was given 5 rounds of radiation through the [facility] system. Last CT scan showed that the spots on his lungs had enlarged. At that time, a repeat CT scan in 6 weeks was ordered. No overnight events noted. No fevers. No emesis. Review of Systems Review of Systems: ROS unobtainable: Yes unobtainable due to mental status Exam Narrative: General: No acute distress, alert and oriented per baseline HEENT: Atraumatic, normocephalic, mucous membranes moist CV: Irregular irregular, S1, S2 Lungs: Clear to auscultation bilaterally, no rales or crackles noted, no wheezes, good air entry Abdomen: Soft, nontender, nondistended Extremities: Normal to inspection Skin: No rashes noted, no lesions or wounds seen Objective Data Vital Signs Vital Signs: Vital Signs - 24 hr 08/03/22 12:22 08/03/22 12:00 08/03/22 12:51 Temperature 98.3 F Pulse Rate 154 H 92 139 H Respiratory Rate 18 Blood Pressure 138/64 Pulse Oximetry 96 Oxygen Delivery Oxygen Flow Rate 08/03/22 12:00 08/03/22 12:00 08/03/22 14:00 Temperature Pulse Rate 164 H 88 Respiratory Rate Blood Pressure Pulse Oximetry 96 Oxygen Delivery Nasal Cannula Oxygen Flow Rate 3 08/03/22 16:00 08/03/22 16:00 08/03/22 16:00 Temperature 98.4 F Pulse Rate 110 H 83 Respiratory Rate 18 Blood Pressure 128/50 L Pulse Oximetry 93 96 Oxygen Delivery Nasal Cannula Oxygen Flow Rate 3 08/03/22 17:06 08/03/22 18:00 08/03/22 20:00 Temperature 98 F Pulse Rate 146 H 78 118 H Respiratory Rate 20 Blood Pressure 121/67 Pulse Oximetry 93 Oxygen Delivery Oxygen Flow Rate 08/03/22 21:01 08/03/22 20:00 08/03/22 20:00
--- NOTE | 2022-08-04 11:27 | PC.NURSE ---
Vanc Discontimued by Dr. Taylor. spoke to Ed. in pharmacy and Dr. Taylor to confirm Vancomycin is not to be given because of medication change.
--- NOTE | 2022-08-04 12:24 | PM.CNCAR ---
Assessment and Plan Assessment and plan (1) Atrial fibrillation with rapid ventricular response: Code(s): I48.91 - Unspecified atrial fibrillation Status: Acute Plan Remains in RVR on Dilt drip. Will stop Diltiazem drip and start Amiodarone. Patient needs thoracentesis, anticoagulation on hold for procedure. Since patient has a history of frequent falls and had a fall prior to presentation, would re-evaluate long-term anticoagulation in this patient. History of Present Illness History of Present Illness Consult date/time: 08/04/22 12:24 Requesting physician: Estela Pappas DO Consult reason: atrial fibrillation Reason For Visit: [place]/Head Injury/Pneumonia/Empyema Narrative: We are being consulted for atrial fibrillation with RVR. This is an 82-year-old male with a history of dementia, atrial flutter s/p ablation in the past on Xarelto, history of frequent falls, depression/anxiety, history of TIA. Patient presented with a ground level fall after tripping over a rug. Patient found to have significant leukocytosis in the ED. CT scan showing loculated empyema. Patient reportedly had an episode of atrial flutter and was given dose of Cardizem, and then converted to sinus, however, has been back in AFIB with RVR since then. Anticoagulation on hold for thoracentesis. Patient reports he is feeling short of breath. Feels palpitations. Denies chest pain. Family is at bedside, and they state they have already requested transfer to [place] since that is where he receives his care. Review of Systems Review of Systems: 12-point ROS obtained. Negative, unless stated in HPI. [facility] Past Medical History Medical History Anxiety and depression Atrial flutter Resolved with cardioversion and ablation Dementia Unable to tolerate Aricept GERD (gastroesophageal reflux disease) Hypertension TIA (transient ischemic attack) Surgical History Surgical History H/O cardiac radiofrequency ablation H/O local excision of skin lesion Family History Family History Father Kidney disease Mother Dementia Sibling Pericarditis Social History Social History Social History: The patient lives with his who is the durable power corporate attorney for healthcare. The tells me that they do have a living will in that the patient is a DNR she believes that this is on file here. 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 The patient is a lifelong nonsmoker does not use any alcohol or illicit drugs. They have 1 child. Smoking status: Never smoker Second hand tobacco smoke exposure: No Alcohol intake: never Substance use: never Substance use type: does not use Lack of Transportation: No Lack of Food: Never True Current Housing: I Have Housing Concerned About Future Housing: No Difficulty Paying Gas/Electric Bills: No Difficulty Paying for Meds: No Currently Unemployed: No Education: High School Diploma/GED Difficulty w/ Childcare or Family Care: No Gender identity (if verbalized by the patient): Male Sexual Orientation (if Verbalized by the Patient): Straight or Heterosexual Spiritual care concerns: No Meds Home Medications and Allergies Home Medications Medication Instructions Recorded Confirmed Type duloxetine 60 mg capsule,delayed 60 mg PO DAILY 04/23/21 08/03/22 History release sprinkle gabapentin 300 mg tablet 300 mg PO DAILY 04/23/21 08/03/22 History mirtazapine 30 mg tablet 30 mg PO DAILY 04/23/21 08/03/22 History olanzapine 5 mg tablet 5 mg PO DAILY 04/23/21 08/03/22 History rivaroxaban 20 mg tablet (Xarelto) 20 mg PO DAILY 04/23/21 08/03/22 History amlodipine 5 mg tablet 5 mg PO DAILY #30 tabs 04/27/21 08/03/22 Rx losartan 25 mg tablet 25 mg PO DAILY
--- NOTE | 2022-08-04 12:43 | PC.NURSE ---
Notified ultra sound thst patient is on wait list for [facility]. Dr. Pappas wants to wait on Thoracentesis until patient is transferred. Patient is Stable at this time.
[2022-08-04] MEDS: AMIODARONE 360 MG/D5W 200 ML 360 MG/200 ML BAG 33.33 MG IV CONT (13:13)
--- NOTE | 2022-08-04 16:15 | PC.NURSE ---
Spoke to patient , Sara who is the POA about transferring patient to [facility] and Sara gives consent to transport patient to [facility].
[2022-08-04] MEDS: SODIUM CHLORIDE 0.9% IV 1,000 ML 100 ML IV CONT (17:00)
[2022-08-04] MEDS: AMPICILLIN SULB 3 GM/NS 100 ML 3 GM/100 ML VIAL IVPB (18:48)
[2022-08-04] MEDS: OLANZapine 5 MG TABLET PO (18:49)
[2022-08-04] MEDS: AMIODARONE 360 MG/D5W 200 ML 360 MG/200 ML BAG 16.67 MG IV CONT (18:50)
[2022-08-04] MEDS: ACETAMINOPHEN 325 MG TABLET 1300 MG PO (20:43)
[2022-08-05] VITALS (19 sets, daily range): BP systolic 127–178; BP diastolic 50–106; PULSE 71–141; RESP 16–28; TEMP 36.3–37.2; O2SAT 89–95
[2022-08-05 05:07] LABS: Basophils Absolute Auto 0.1 K/mm3 (0.0-0.1); Basophils Percent Auto 0.2 % (0.2-1.2); Hematocrit 34.8 % (42.0-52.0); Hemoglobin 11.3 g/dL (14.0-18.0); Immature Granulocyte Absolute 0.28 K/mm3 (0.00-0.031); Immature Granulocyte Percent A 1.3 % (0-0.5); Lymphocytes Absolute Auto 0.67 K/mm3 (0.9-3.2); Lymphocytes Percent Auto 3.1 % (18.3-44.2); Mean Corpuscular HGB Conc 32.5 g/dl (32-36); Mean Corpuscular Hemoglobin 30.9 pg (26-34); Mean Corpuscular Volume 95.1 fl (80-100); Mean Platelet Volume 9.9 fl (7.4-10.4); Monocytes Percent Auto 9.1 % (2.6-8.5); Neutrophils Absolute Auto 18.9 K/mm3 (1.3-6.7); Neutrophils Percent Auto 86.3 % (45.5-73.1); Platelet Count Result 295 k/mm3 (150-375); Red Blood Count 3.66 M/mm3 (4.6-6.20); Red Cell Distribution Width 14.7 % (11.5-14.5); White Blood Count 21.9 K/mm3 (4.5-10.0)
[2022-08-05 05:24] LABS: Alanine Aminotransferase 54 U/L (6-50); Albumin Level 2.9 g/dL (3.5-5.1); Alkaline Phosphatase 232 U/L (38-126); Anion Gap 5 mmol/L (8-16); Aspartate Amino Transferase 37 U/L (17-59); Bilirubin,Total 0.4 mg/dL (0.2-1.3); Blood Urea Nitrogen 32 mg/dL (9-20); Calcium 8.2 mg/dL (8.4-10.2); Carbon Dioxide 20 mmol/L (22-30); Chloride 117 mmol/L (98-107); Estimated CRCL calculation 51 ml/min; Estimated Glomerular Filt Rate > 60; Glucose 120 mg/dL (65-110); Potassium 3.9 mmol/L (3.4-5.0); Sodium 142 mmol/L (137-145)
[2022-08-05] MEDS: AMPICILLIN SULB 3 GM/NS 100 ML 3 GM/100 ML VIAL IVPB ×4 (05:42→18:15)
[2022-08-05] MEDS: METOPROLOL TARTRATE 25 MG TABLET PO ×2 (09:24→20:30)
[2022-08-05] MEDS: GABAPENTIN 300 MG CAPSULE PO (09:24)
[2022-08-05] MEDS: LOSARTAN POTASSIUM 25 MG TABLET PO (09:24)
[2022-08-05] MEDS: amLODIPine BESYLATE 5 MG TABLET PO (09:24)
[2022-08-05] MEDS: MULTIVITAMINS /C LUTEIN (CENTRUM SILVER) TABLET *BKC 1 TAB PO (09:24)
[2022-08-05] MEDS: DULoxetine HCL 60 MG CAPSULE.DR PO (09:25)
[2022-08-05] MEDS: MIRTAZAPINE 30 MG TABLET PO (09:25)
[2022-08-05] MEDS: OLANZapine 5 MG TABLET PO (10:40)
--- NOTE | 2022-08-05 11:24 | PM.PNCARD ---
Progress Note: A&P Assessment and Plan (1) Atrial fibrillation with rapid ventricular response: Code(s): I48.91 - Unspecified atrial fibrillation Status: Acute Plan Since patient now in sinus rhythm, will stop Amiodarone drip and start oral Amiodarone 200mg QD. Continue with Metoprolol. Cardiology will sign off at this time. Call us back if needed. Subjective Date/time seen: 08/05/22 11:24 Interval history: Reason for visit: Atrial fibrillation with RVR Patient now in sinus rhythm this morning. Awaiting transfer to [place]. Still feels short of breath. Review of Systems Review of Systems: 8-point ROS obtained. Negative, unless stated in HPI. Exam Const: Other: Ill-appearing. In no acute distress. HENMT: Mouth: Yes moist mucous membranes Eyes: General: appearance normal, both eyes and all related structures Neck: Neck: supple Resp: Effort & Inspection: normal respiratory effort Other: On supplemental oxygen. Decreased breath sounds. Cardio: Rate: regular rate and tachycardic Rhythm: regular rhythm Heart sounds: no murmurs GI: GI Palp: Yes Soft to palpation and No Tenderness to palpation present (GI) Neuro: Speech: normal speech Extrem: General: normal to inspection Psych: Mental Status: mental status grossly normal Affect: normal affect Objective Data Vital Signs Vital Signs: Vital Signs - 24 hr 08/04/22 12:00 08/04/22 12:30 08/04/22 12:55 Temperature 36.7 C Pulse Rate 110 H Respiratory Rate 36 H Blood Pressure 114/59 L 114/59 L 114/59 L Pulse Oximetry 93 Oxygen Delivery Oxygen Flow Rate 08/04/22 13:13 08/04/22 12:00 08/04/22 12:00 Temperature Pulse Rate 102 H 108 H Respiratory Rate Blood Pressure 114/64 Pulse Oximetry 93 Oxygen Delivery Nasal Cannula Oxygen Flow Rate 4 08/04/22 14:00 08/04/22 16:00 08/04/22 16:00 Temperature Pulse Rate 110 H 92 Respiratory Rate Blood Pressure Pulse Oximetry 93 Oxygen Delivery Nasal Cannula Oxygen Flow Rate 4 08/04/22 16:00 08/04/22 18:00 08/04/22 18:50 Temperature 36.4 C Pulse Rate 95 96 108 H Respiratory Rate 32 H Blood Pressure 169/70 H Pulse Oximetry 87 L Oxygen Delivery Oxygen Flow Rate 08/04/22 20:00 12/27/22 20:43 08/04/22 20:00 Temperature 36.4 C Pulse Rate 114 H 114 H 92 Respiratory Rate 26 H Blood Pressure 162/87 H Pulse Oximetry 91 Oxygen Delivery Oxygen Flow Rate 08/04/22 20:00 08/04/22 22:00 08/04/22 23:54 Temperature 37.1 C Pulse Rate 98 76 106 H Respiratory Rate 26 H 20 Blood Pressure 149/51 H Pulse Oximetry 91 89 L Oxygen Delivery Nasal Cannula Oxygen Flow Rate 4 08/05/22 00:00 08/05/22 00:00 08/05/22 02:00 Temperature Pulse Rate 89 106 H 100 Respiratory Rate 20 Blood Pressure Pulse Oximetry 89 L Oxygen Delivery Nasal Cannula Oxygen Flow Rate 4 08/05/22 03:16 08/05/22 04:00 08/05/22 04:00 Temperature 37.2 C Pulse Rate 105 H 85 92 Respiratory Rate 26 H 26 H Blood Pressure 168/79 H Pulse Oximetry 91 91 Oxygen Delivery Nasal Cannula Oxygen Flow Rate 5 08/05/22 06:00 08/05/22 08:00 08/05/22 09:24 Temperature 36.3 C L Pulse Rate 92 71 141 H Respiratory Rate 24 H Blood Pressure 171/94 H Pulse Oximetry 95 Oxygen Delivery Oxygen Flow Rate 08/05/22 06:50 08/05/22 08:00 08/05/22 10:00 Temperature Pulse Rate 92 85 81 Respiratory Rate Blood Pressure 171/94 H Pulse Oximetry Oxygen Delivery Oxygen Flow Rate Intake/Output Intake/Output: Intake & Output 08/02/22 08/03/22 08/04/22 08/05/22 23:59 23:59 23:59 23:59 Intake Total 3880 1460 1300 Output Total 1140 1295 850 Balance 2740 165 450 Meds/Results Medications: Active Medications Generic Name Dose Route Start Last Admin Trade Name Freq PRN Reason Stop Dose Admin Acetaminophen 1,300 mg 08/03/22 21:00 08/04/22 20:43 Acetaminophen 325
[2022-08-05] MEDS: AMIODARONE HCL 200 MG TABLET PO (12:00)
--- NOTE | 2022-08-05 13:47 | PC.NURSE ---
Sara Martinez, of patient, reports she would like us to request records from [place] and proceed with thoracentesis here since patient is still waiting for transfer. Message left with Dr. Louis. Records request sent.
--- NOTE | 2022-08-05 14:27 | PM.IMPN ---
Progress Note: A&P Assessment and Plan (1) Loculated pleural effusion: Code(s): J90 - Pleural effusion, not elsewhere classified Status: Acute Assessment and Plan: Continue antibiotics 08/04: Transfer pending to [facility] cardiothoracic surgery support due to loculated pleural effusion concerning for malignant effusion versus empyema awaiting bed placement INR is down. While awaiting will do thoracentesis today. (2) [place] (acute kidney injury): Code(s): N17.9 - Acute kidney failure, unspecified Status: Acute Assessment and Plan: likely 2/2 hypoperfusion from afib and possible infection and dehydration, monitor, cont IVF Creatinine of 1.7 at admission improving. (3) Hyponatremia: Code(s): E87.1 - Hypo-osmolality and hyponatremia Status: Acute Assessment and Plan: Likely hypovolemic, reassess after IV hydration (4) Chronic anticoagulation: Code(s): Z79.01 - [facility] (current) use of anticoagulants Status: Acute Assessment and Plan: Continue Xarelto currently on hold for thoracentesis planned (5) GERD (gastroesophageal reflux disease): Code(s): K21.9 - Gastro-esophageal reflux disease without esophagitis Status: Acute (6) Dementia: Code(s): F03.90 - Unspecified dementia, unspecified severity, without behavioral disturbance, psychotic disturbance, mood disturbance, and anxiety Status: Chronic Assessment and Plan: Continue home meds (7) Atrial flutter: Code(s): I48.92 - Unspecified atrial flutter Status: Chronic Assessment and Plan: Elevated LFTs: Improving Monitor, appreciate cardiology consultation Diltiazem discontinued in favor of amiodarone On amiodarone drip which is being switched to oral amiodarone Back to sinus rhythm (8) Hypertension: Code(s): I10 - Essential (primary) hypertension Status: Chronic (9) Anxiety and depression: Code(s): F41.9 - Anxiety disorder, unspecified; F32.9 - Major depressive disorder, single episode, unspecified Status: Chronic (10) Anemia: Code(s): D64.9 - Anemia, unspecified Status: Acute Assessment and Plan: Stable, monitor Plan DVT prophylaxis with xarelto GI prophylaxis not indicated Code status DNR Subjective Date/time seen: 08/05/22 14:27 Interval history: Chart reviewed. Planned to be transferred to [facility] facility for CTS intervention. tachycardic this am. no fever, chils. confused. Feels about the same Review of Systems Review of Systems: All systems reviewed & are unremarkable except as noted in HPI and below Exam Narrative: General: No acute distress, alert and awake oriented to place and person not to time HEENT: Atraumatic, normocephalic, mucous membranes moist CV: Irregular irregular, S1, S2 Lungs: Coarse breath sounds bilaterally, decreased breath sound on left side Abdomen: Soft, nontender, nondistended Extremities: Normal to inspection Skin: No rashes noted, no lesions or wounds seen Objective Data Vital Signs Vital Signs: Vital Signs - 24 hr 08/04/22 16:00 08/04/22 16:00 08/04/22 16:00 Temperature 97.6 F Pulse Rate 92 95 Respiratory Rate 32 H Blood Pressure 169/70 H Pulse Oximetry 93 87 L Oxygen Delivery Nasal Cannula Oxygen Flow Rate 4 08/04/22 18:00 08/04/22 18:50 08/04/22 20:00 Temperature 97.6 F Pulse Rate 96 108 H 114 H Respiratory Rate 26 H Blood Pressure 162/87 H Pulse Oximetry 91 Oxygen Delivery Oxygen Flow Rate 08/04/22 20:43 08/04/22 20:00 08/04/22 20:00 Temperature Pulse Rate 114 H 92 98 Respiratory Rate 26 H Blood Pressure Pulse Oximetry 91 Oxygen Delivery Nasal Cannula Oxygen Flow Rate 4 08/04/22 22:00 08/04/22 23:54 08/05/22 00:00 Temperature 98.8 F Pulse Rate 76 106 H 89 Respiratory Rate 20 Blood Pressure 149/51 H Pulse Oximetry 89 L Oxygen Delivery Oxyg
[2022-08-05] MEDS: ACETAMINOPHEN 325 MG TABLET 1300 MG PO (20:30)
[2022-08-05] MEDS: SODIUM CHLORIDE 0.9% IV 1,000 ML 50 ML IV CONT (20:46)
[2022-08-05 21:58] LABS: Appearance Pleural Fluid Turbid (Clear); Color Pleural Fluid Yellow (Colorless); Pleural fluid source Pleural fluid
[2022-08-05 21:59] LABS: Lymphocytes Pleural Fluid 8 %; Macrophages Pleural Fluid 62 %; Neutrophils Pleural Fluid 30 % (0-25); RBC Pleural Fluid 865 /uL (0-0)
[2022-08-05 22:01] LABS: Nucleated Cell Pleural Fluid 36227 /uL (0-1000)
[2022-08-06] VITALS (15 sets, daily range): BP systolic 114–157; BP diastolic 60–95; PULSE 68–131; RESP 18–32; TEMP 36.3–36.8; O2SAT 90–97
[2022-08-06] MEDS: AMPICILLIN SULB 3 GM/NS 100 ML 3 GM/100 ML VIAL IVPB ×2 (00:35→05:03)
[2022-08-06 05:17] LABS: Basophils Absolute Auto 0.1 K/mm3 (0.0-0.1); Basophils Percent Auto 0.3 % (0.2-1.2); Eosinophils Percent Auto 0.1 % (0-4.4); Hematocrit 32.9 % (42.0-52.0); Hemoglobin 10.9 g/dL (14.0-18.0); Immature Granulocyte Percent A 3.2 % (0-0.5); Lymphocytes Absolute Auto 0.84 K/mm3 (0.9-3.2); Lymphocytes Percent Auto 3.8 % (18.3-44.2); Mean Corpuscular HGB Conc 33.1 g/dl (32-36); Mean Corpuscular Hemoglobin 30.9 pg (26-34); Mean Corpuscular Volume 93.2 fl (80-100); Mean Platelet Volume 10.1 fl (7.4-10.4); Monocytes Absolute Auto 1.9 K/mm3 (0.1-0.6); Monocytes Percent Auto 8.8 % (2.6-8.5); Neutrophils Absolute Auto 18.5 K/mm3 (1.3-6.7); Neutrophils Percent Auto 83.8 % (45.5-73.1); Platelet Count Result 324 k/mm3 (150-375); Red Blood Count 3.53 M/mm3 (4.6-6.20); Red Cell Distribution Width 14.8 % (11.5-14.5); White Blood Count 22.1 K/mm3 (4.5-10.0)
[2022-08-06 05:29] LABS: Alanine Aminotransferase 49 U/L (6-50); Alkaline Phosphatase 211 U/L (38-126); Anion Gap 6 mmol/L (8-16); Aspartate Amino Transferase 34 U/L (17-59); Bilirubin,Total 0.7 mg/dL (0.2-1.3); Blood Urea Nitrogen 26 mg/dL (9-20); Calcium 8.5 mg/dL (8.4-10.2); Carbon Dioxide 22 mmol/L (22-30); Chloride 114 mmol/L (98-107); Estimated CRCL calculation 51 ml/min; Estimated Glomerular Filt Rate > 60; Glucose 114 mg/dL (65-110); Magnesium 2.1 mg/dL (1.6-2.3); Potassium 3.2 mmol/L (3.4-5.0); Sodium 142 mmol/L (137-145)
[2022-08-06] MEDS: RIVAROXABAN 20 MG TABLET PO (08:07)
[2022-08-06] MEDS: MULTIVITAMINS /C LUTEIN (CENTRUM SILVER) TABLET *BKC 1 TAB PO (08:07)
[2022-08-06] MEDS: OLANZapine 5 MG TABLET PO (08:07)
[2022-08-06] MEDS: MIRTAZAPINE 30 MG TABLET PO (08:07)
[2022-08-06] MEDS: GABAPENTIN 300 MG CAPSULE PO (08:08)
[2022-08-06] MEDS: AMIODARONE HCL 200 MG TABLET PO (08:08)
[2022-08-06] MEDS: DULoxetine HCL 60 MG CAPSULE.DR PO (08:08)
[2022-08-06] MEDS: amLODIPine BESYLATE 5 MG TABLET PO (08:08)
[2022-08-06] MEDS: LOSARTAN POTASSIUM 25 MG TABLET PO (08:08)
[2022-08-06] MEDS: METOPROLOL TARTRATE 25 MG TABLET PO ×2 (08:08→20:04)
--- NOTE | 2022-08-06 10:00 | PC.NURSE ---
Respirations 32, O2 sat 92% on 7L via high flow NC. Lung sounds clear and diminished. Able to speak in sentences. Message left with Dr. Louis.
[2022-08-06 12:01] LABS: Alveolar/Arterial O2 Gradient 219.8 mmHg; Base Excess ABG -0.9 mEq/l (+/-2.0); Fractional Inspired Oxygen 45 %; PCO2 ABG 31.6 mmHg (35.0-45.0); PO2 ABG 65.1 mmHg (80.0-100.0); PO2 FiO2 Ratio Arterial Blood 1.45 %
[2022-08-06 12:03] LABS: Device NASAL CANNULA; Modified Allen's Test Pass; Site Drawn LEFT RADIAL
--- NOTE | 2022-08-06 12:15 | PM.PNPUL ---
Progress Note: A&P Assessment and Plan (1) [place] (acute kidney injury): Code(s): N17.9 - Acute kidney failure, unspecified Status: Acute (2) Atrial fibrillation with rapid ventricular response: Code(s): I48.91 - Unspecified atrial fibrillation Status: Acute (3) Dementia: Code(s): F03.90 - Unspecified dementia, unspecified severity, without behavioral disturbance, psychotic disturbance, mood disturbance, and anxiety Status: Chronic (4) Empyema: Code(s): J86.9 - Pyothorax without fistula Status: Acute Assessment and Plan: 82-year-old man with a history of dementia, atrial fibrillation presented with shortness of breath. He was found to have a large loculated pleural effusion on left, which on thoracentesis had many white cells. Fluid pH not ordered. Other fluid tests pending. Patient's oxygen needs have increased over the last 24 hours. Chest x-ray done today essentially unchanged over the last 2 days. Plan:Will switch patient to ceftriaxone 2 g, metronidazole IV and also vancomycin IV. Continue to monitor respiratory status while waiting transfer to tertiary center for thoracic evaluation and drainage of empyema. Subjective Date/time seen: 08/06/22 12:15 Patient not doing any better. Still complaining of shortness of breath. Afebrile, oxygen flow increased to 7 liters/minute via high-flow nasal cannula. Underwent left thoracentesis earlier today. Leukocytosis persist while on Unasyn IV Review of Systems Review of Systems: All systems reviewed & are unremarkable except as noted in HPI and below Exam Narrative: GENERAL APPEARANCE: Well developed, well nourished, alert and cooperative, and appears to be in [id number] respiratory distress while on supplemental oxygen SKIN: Inspection of the skin reveals no rashes, ulcerations or petechiae. HEENT: Sclerae anicteric and conjunctivae pink and moist. Extraocular movements were intact and pupils were equal, round. The oral mucosa, hard and soft palate, tongue and posterior pharynx were normal. NECK: Supple. There was no thyroid enlargement, and no tenderness, or masses were felt. CHEST: Normal AP diameter and normal contour without any kyphoscoliosis. LUNGS: Auscultation of the lungs revealed decreased breath sounds at left base posteriorly CARDIAC: There was a irregular rate and rhythm without any murmurs. ABDOMEN: Soft and nontender with normal bowel sounds. There was no organomegaly. LYMPH NODES: No lymphadenopathy was appreciated in the neck. EXTREMITIES: No cyanosis, clubbing or edema. NEUROLOGIC: Alert and oriented to time and place. Objective Data Vital Signs Vital Signs: Vital Signs - 24 hr 08/05/22 14:00 08/05/22 16:00 08/05/22 17:33 Temperature 36.3 C L Pulse Rate 86 78 104 H Respiratory Rate 22 H 16 Blood Pressure 147/61 H 144/83 H Pulse Oximetry 89 L 93 Oxygen Delivery Oxygen Flow Rate 08/05/22 17:34 08/05/22 16:00 08/05/22 18:00 Temperature Pulse Rate 108 H 109 H 116 H Respiratory Rate 17 Blood Pressure 178/106 H Pulse Oximetry 91 Oxygen Delivery Oxygen Flow Rate 08/05/22 16:00 08/05/22 20:30 08/05/22 20:00 Temperature 36.7 C Pulse Rate 90 135 H Respiratory Rate 20 Blood Pressure 138/72 Pulse Oximetry 91 90 Oxygen Delivery Nasal Cannula Oxygen Flow Rate 5 08/05/22 20:00 08/05/22 20:00 08/05/22 22:00 Temperature Pulse Rate 90 90 90 Respiratory Rate 20 Blood Pressure Pulse Oximetry 90 Oxygen Delivery Nasal Cannula Oxygen Flow Rate 5 08/05/22 23:50 08/06/22 00:00 08/06/22 00:00 Temperature 36.8 C Pulse Rate 80 80 80 Respiratory Rate 20 20 Blood Pressure 127/74 Pulse Oximetry 90 90 Oxygen Delivery Nasal Cannula Oxygen Flow Rate 5 08/06/22 04:00 08/06/22 02:00 08/06/22 04:00 Temperature 36.8 C Pulse Rate 101 H 101 H 101 H Respiratory Rate 20 Blood Pressure 157/67 H Pulse Oximetry 91 Ox
[2022-08-06] MEDS: cefTRIAXone 2 GM in SODIUM CHLORIDE 0.9% IV 100 ML 200 ML IVPB (13:31)
[2022-08-06] MEDS: metroNIDAZOLE 500 MG/ISO 100ML 500 MG/100 ML BAG 100 MG IVPB ×2 (15:50→23:55)
[2022-08-06] MEDS: WATER FOR IRRIGATION, STERILE 1,000 ML BOTTLE 1000 ML (16:51)
--- NOTE | 2022-08-06 17:47 | PM.IMPN ---
Progress Note: A&P Assessment and Plan (1) Loculated pleural effusion: Code(s): J90 - Pleural effusion, not elsewhere classified Status: Acute Assessment and Plan: Continue antibiotics 08/04: Transfer pending to [facility] for cardiothoracic surgery support due to loculated pleural effusion concerning for malignant effusion versus empyema awaiting bed placement INR is down. Status post thoracentesis with WBC count 36,000 30% neutrophils 62% macrophages. Multiple loculation was able to get opaque yellow fluid. Suggestive of empyema or complicated parapneumonic effusion. Antibiotics switched to ceftriaxone and metronidazole as discussed with Pulmonary. Discussed with radiologist Await culture Needs specific treatment with VATS needs to see CT surgery Awaiting transfer bed at outside hospital (2) [place] (acute kidney injury): Code(s): N17.9 - Acute kidney failure, unspecified Status: Acute Assessment and Plan: likely 2/2 hypoperfusion from afib and possible infection and dehydration, monitor, cont IVF Creatinine of 1.7 at admission improving. (3) Hyponatremia: Code(s): E87.1 - Hypo-osmolality and hyponatremia Status: Acute Assessment and Plan: Likely hypovolemic, reassess after IV hydration (4) Chronic anticoagulation: Code(s): Z79.01 - [facility] (current) use of anticoagulants Status: Acute Assessment and Plan: Continue Xarelto currently on hold for thoracentesis planned (5) GERD (gastroesophageal reflux disease): Code(s): K21.9 - Gastro-esophageal reflux disease without esophagitis Status: Acute (6) Dementia: Code(s): F03.90 - Unspecified dementia, unspecified severity, without behavioral disturbance, psychotic disturbance, mood disturbance, and anxiety Status: Chronic Assessment and Plan: Continue home meds (7) Atrial flutter: Code(s): I48.92 - Unspecified atrial flutter Status: Chronic Assessment and Plan: Elevated LFTs: Improving Monitor, appreciate cardiology consultation Diltiazem discontinued in favor of amiodarone On amiodarone drip which is being switched to oral amiodarone Back to sinus rhythm (8) Hypertension: Code(s): I10 - Essential (primary) hypertension Status: Chronic (9) Anxiety and depression: Code(s): F41.9 - Anxiety disorder, unspecified; F32.9 - Major depressive disorder, single episode, unspecified Status: Chronic (10) Anemia: Code(s): D64.9 - Anemia, unspecified Status: Acute Assessment and Plan: Stable, monitor Plan DVT prophylaxis with xarelto GI prophylaxis not indicated Code status DNR Subjective Date/time seen: 08/06/22 17:47 Interval history: no overnight events. still feels unwell. he feels sob. remains afebrile. heart rate fluctuating. still awaitng bed. dsicussed with over the phone. Review of Systems Review of Systems: All systems reviewed & are unremarkable except as noted in HPI and below Exam Narrative: General: No acute distress, alert and awake oriented to place and person not to time HEENT: Atraumatic, normocephalic, mucous membranes moist CV: Irregular irregular, S1, S2 Lungs: Coarse breath sounds bilaterally, decreased breath sound on left side Abdomen: Soft, nontender, nondistended Extremities: Normal to inspection Skin: No rashes noted, no lesions or wounds seen Objective Data Vital Signs Vital Signs: Vital Signs - 24 hr 08/05/22 18:00 08/05/22 20:30 08/05/22 20:00 Temperature 98.1 F Pulse Rate 116 H 90 135 H Respiratory Rate 20 Blood Pressure 138/72 Pulse Oximetry 90 Oxygen Delivery Oxygen Flow Rate Fraction of Inspired Oxygen 08/05/22 20:00 08/05/22 20:00 08/05/22 22:00 Temperature Pulse Rate 90 90 90 Respiratory Rate 20 Blood Pressure Pulse Oximetry 90 Oxygen Delivery Nasal Cannula Oxygen Flow Rate 5 Frac
[2022-08-06] MEDS: ACETAMINOPHEN 325 MG TABLET 1300 MG PO (20:03)
[2022-08-06] MEDS: SODIUM CHLORIDE 0.9% IV 1,000 ML 50 ML IV CONT (20:06)
[2022-08-07] VITALS (10 sets, daily range): BP systolic 137–155; BP diastolic 64–83; PULSE 68–133; RESP 16–24; TEMP 36.6–37; O2SAT 91–94
[2022-08-07 04:58] LABS: Basophils Absolute Auto 0.1 K/mm3 (0.0-0.1); Basophils Percent Auto 0.3 % (0.2-1.2); Eosinophils Percent Auto 0.1 % (0-4.4); Hematocrit 30.9 % (42.0-52.0); Hemoglobin 10.6 g/dL (14.0-18.0); Immature Granulocyte Absolute 0.69 K/mm3 (0.00-0.031); Immature Granulocyte Percent A 3.4 % (0-0.5); Lymphocytes Absolute Auto 0.95 K/mm3 (0.9-3.2); Lymphocytes Percent Auto 4.7 % (18.3-44.2); Mean Corpuscular HGB Conc 34.3 g/dl (32-36); Mean Corpuscular Hemoglobin 31.6 pg (26-34); Mean Corpuscular Volume 92.2 fl (80-100); Mean Platelet Volume 10.1 fl (7.4-10.4); Monocytes Absolute Auto 1.8 K/mm3 (0.1-0.6); Monocytes Percent Auto 8.7 % (2.6-8.5); Neutrophils Absolute Auto 16.9 K/mm3 (1.3-6.7); Neutrophils Percent Auto 82.8 % (45.5-73.1); Platelet Count Result 330 k/mm3 (150-375); Red Blood Count 3.35 M/mm3 (4.6-6.20); Red Cell Distribution Width 14.7 % (11.5-14.5); White Blood Count 20.4 K/mm3 (4.5-10.0)
[2022-08-07] MEDS: metroNIDAZOLE 500 MG/ISO 100ML 500 MG/100 ML BAG 100 MG IVPB ×3 (05:07→17:24)
[2022-08-07 05:09] LABS: Alanine Aminotransferase 40 U/L (6-50); Albumin Level 2.9 g/dL (3.5-5.1); Alkaline Phosphatase 185 U/L (38-126); Anion Gap 6 mmol/L (8-16); Aspartate Amino Transferase 34 U/L (17-59); Bilirubin,Total 0.6 mg/dL (0.2-1.3); Blood Urea Nitrogen 25 mg/dL (9-20); Calcium 8.3 mg/dL (8.4-10.2); Carbon Dioxide 22 mmol/L (22-30); Chloride 112 mmol/L (98-107); Estimated CRCL calculation 62 ml/min; Estimated Glomerular Filt Rate > 60; Glucose 112 mg/dL (65-110); Sodium 140 mmol/L (137-145)
[2022-08-07] MEDS: OLANZapine 5 MG TABLET PO (08:40)
[2022-08-07] MEDS: AMIODARONE HCL 200 MG TABLET PO (08:40)
[2022-08-07] MEDS: LOSARTAN POTASSIUM 25 MG TABLET PO (08:40)
[2022-08-07] MEDS: RIVAROXABAN 20 MG TABLET PO (08:40)
[2022-08-07] MEDS: MIRTAZAPINE 30 MG TABLET PO (08:40)
[2022-08-07] MEDS: METOPROLOL TARTRATE 25 MG TABLET PO (08:40)
[2022-08-07] MEDS: MULTIVITAMINS /C LUTEIN (CENTRUM SILVER) TABLET *BKC 1 TAB PO (08:40)
[2022-08-07] MEDS: GABAPENTIN 300 MG CAPSULE PO (08:40)
[2022-08-07] MEDS: DULoxetine HCL 60 MG CAPSULE.DR PO (08:40)
[2022-08-07] MEDS: amLODIPine BESYLATE 5 MG TABLET PO (08:40)
--- NOTE | 2022-08-07 11:33 | PM.PNPUL ---
Progress Note: A&P Assessment and Plan (1) CAROLINA (acute kidney injury): Code(s): N17.9 - Acute kidney failure, unspecified Status: Acute (2) Atrial fibrillation with rapid ventricular response: Code(s): I48.91 - Unspecified atrial fibrillation Status: Acute (3) Dementia: Code(s): F03.90 - Unspecified dementia, unspecified severity, without behavioral disturbance, psychotic disturbance, mood disturbance, and anxiety Status: Chronic (4) Empyema: Code(s): J86.9 - Pyothorax without fistula Status: Acute Assessment and Plan: 82-year-old man with history of dementia, atrial fibrillation presented with shortness of breath. He was found to have a large loculated pleural effusion on left, which on thoracentesis had many white cells. Fluid pH not ordered. Other fluid tests pending. Patient's oxygen needs have increased over the last 48 hours. Chest x-ray essentially unchanged. on new antibiotics since yesterday, white cell count unchanged Plan: Continue to monitor respiratory status while waiting transfer to tertiary center for evaluation by thoracic surgery and drainage of empyema. case was discussed with the hospitalist. Unclear whether General surgery could help with chest tube drainage of empyema. Subjective Date/time seen: 08/07/22 11:33 Respiratory status unchanged. Patient has no change in shortness of breath. Has been afebrile. On new antibiotics since yesterday. Leukocytosis persists. Waiting transfer to tertiary center for empyema drainage. Review of Systems Review of Systems: All systems reviewed & are unremarkable except as noted in HPI and below Exam Narrative: GENERAL APPEARANCE: Well developed, well nourished, alert and cooperative, and appears to be in [id number] respiratory distress while on supplemental oxygen SKIN: Inspection of the skin reveals no rashes, ulcerations or petechiae. HEENT: Sclerae anicteric and conjunctivae pink and moist. Extraocular movements were intact and pupils were equal, round. The oral mucosa, hard and soft palate, tongue and posterior pharynx were normal. NECK: Supple. There was no thyroid enlargement, and no tenderness, or masses were felt. CHEST: Normal AP diameter and normal contour without any kyphoscoliosis. LUNGS: Auscultation of the lungs revealed decreased breath sounds at left base posteriorly CARDIAC: There was a irregular rate and rhythm without any murmurs. ABDOMEN: Soft and nontender with normal bowel sounds. There was no organomegaly. LYMPH NODES: No lymphadenopathy was appreciated in the neck. EXTREMITIES: No cyanosis, clubbing or edema. NEUROLOGIC: Alert and oriented to time and place. Objective Data Vital Signs Vital Signs: Vital Signs - 24 hr 08/06/22 12:00 08/06/22 12:00 08/06/22 14:00 Temperature 36.3 C L Pulse Rate 84 106 H 112 H Respiratory Rate 24 H Blood Pressure 115/68 Pulse Oximetry 90 Oxygen Delivery Oxygen Flow Rate Fraction of Inspired Oxygen 08/06/22 16:00 08/06/22 12:00 08/06/22 16:00 Temperature Pulse Rate 125 H Respiratory Rate Blood Pressure Pulse Oximetry 95 96 Oxygen Delivery Nasal Cannula Nasal Cannula Oxygen Flow Rate 7 7 Fraction of Inspired Oxygen 08/06/22 16:00 08/06/22 18:00 08/06/22 20:04 Temperature 36.6 C Pulse Rate 110 H 110 H 99 Respiratory Rate 22 H Blood Pressure 137/65 Pulse Oximetry 97 Oxygen Delivery Oxygen Flow Rate Fraction of Inspired Oxygen 08/06/22 20:00 08/06/22 20:00 08/06/22 20:00 Temperature 36.5 C Pulse Rate 70 99 99 Respiratory Rate 18 18 Blood Pressure 114/84 Pulse Oximetry 93 93 Oxygen Delivery Nasal Cannula Oxygen Flow Rate 7 Fraction of Inspired Oxygen 40 08/06/22 22:00 08/06/22 23:49 08/07/22 00:00 Temperature 36.4 C Pulse Rate 99 68 87 Respiratory Rate 18 Blood Pressure 136/60 Pulse Oximetry 93 Oxygen Delivery Oxygen Flow Rate
[2022-08-07] MEDS: POTASSIUM CHLORIDE INJ 40 MEQ in SODIUM CHLORIDE 0.9% IV 500 ML 130 MEQ IVPB (11:35)
[2022-08-07] MEDS: cefTRIAXone 2 GM in SODIUM CHLORIDE 0.9% IV 100 ML 200 ML IVPB (11:42)
--- NOTE | 2022-08-07 16:48 | PC.NURSE ---
Report given to EDEL Jones at [facility]. All questions were answered. Awaiting ambulance transport.
--- NOTE | 2022-08-07 17:51 | PC.NURSE ---
Report given to [facility]. All questions were answered. Updated [facility].
--- NOTE | 2022-08-07 18:54 | PM.TDS ---
Transfer Discharge Sum: Prov Provider Date of admission: 08/03/22 06:46 Primary care physician: Uri Victor, MD Admitting clinician: Aisha Richey DO Consults: 08/03/22 Consult to Physician Routine Comment: spoke rosanna chou @ [phone]; said he'll see pt in am Consulting Provider: Brian Taylor manager call center/MD group to consult: Pulmonology Reason for consultation: Pleural effusion/empyema Has provider been notified: Yes Consult to Physician Routine Comment: spoke w office @ [phone] Consulting Provider: Zeke Hernandez manager call center/MD group to consult: hebert Reason for consultation: AFIB RVR Has provider been notified: Yes 08/04/22 Consult to Physician Routine Comment: Spoke with the and notified him of consult Consulting Provider: Kwesi Chowdhury I. manager call center/MD group to consult: oncology Reason for consultation: lung cancer with radiation? Has provider been notified: Yes 08/06/22 10:47 Consult to Respiratory Therapy PRN Reason for Consult:: Please place on Airvo prn. DS: Admitting Diagnosis Discharge Date 08/07/22 Admitting Diagnosis Shortness of breath DS: Discharge Diagnosis Discharge Diagnosis (1) Loculated pleural effusion: Code(s): J90 - Pleural effusion, not elsewhere classified Status: Acute (2) CAROL[place] (acute kidney injury): Code(s): N17.9 - Acute kidney failure, unspecified Status: Acute (3) Hyponatremia: Code(s): E87.1 - Hypo-osmolality and hyponatremia Status: Acute (4) Chronic anticoagulation: Code(s): Z79.01 - predatory animal exterminator (current) use of anticoagulants Status: Acute (5) GERD (gastroesophageal reflux disease): Code(s): K21.9 - Gastro-esophageal reflux disease without esophagitis Status: Acute (6) Dementia: Code(s): F03.90 - Unspecified dementia, unspecified severity, without behavioral disturbance, psychotic disturbance, mood disturbance, and anxiety Status: Chronic (7) Atrial flutter: Code(s): I48.92 - Unspecified atrial flutter Status: Chronic (8) Hypertension: Code(s): I10 - Essential (primary) hypertension Status: Chronic (9) Anxiety and depression: Code(s): F41.9 - Anxiety disorder, unspecified; F32.9 - Major depressive disorder, single episode, unspecified Status: Chronic (10) Anemia: Code(s): D64.9 - Anemia, unspecified Status: Acute Transfer Discharge Sum: Med Medications Active and Home Medications: Home Medications duloxetine 60 mg capsule,delayed release sprinkle 60 mg PO DAILY 04/23/21 [History Confirmed 08/03/22] gabapentin 300 mg tablet 300 mg PO DAILY 04/23/21 [History Confirmed 08/03/22] mirtazapine 30 mg tablet 30 mg PO DAILY 04/23/21 [History Confirmed 08/03/22] olanzapine 5 mg tablet 5 mg PO DAILY 04/23/21 [History Confirmed 08/03/22] rivaroxaban 20 mg tablet (Xarelto) 20 mg PO DAILY 04/23/21 [History Confirmed 08/03/22] amlodipine 5 mg tablet 5 mg PO DAILY #30 tabs 04/27/21 [Rx Confirmed 08/03/22] losartan 25 mg tablet 25 mg PO DAILY 12/31/21 [History Confirmed 08/03/22] acetaminophen 650 mg tablet,extended release 1,300 mg PO HS 02/13/22 [History Confirmed 08/03/22] Centrum Silver 250 mcg PO DAILY 08/03/22 [History Confirmed 08/03/22] Transfer Discharge Sum: Hosp Hospital Course Hospital course: Pawan Martinez is a 82 year old male who presented with ground level fall after tripped over a rock with walker. On evaluation in the ER was found to have chest x-ray with possible pneumonia versus empyema CT scan concerning for loculated effusion. He was initiated on broad-spectrum antibiotics # loculated pleural effusion: Status post thoracentesis with WBC count 36,000 30% neutrophils 62% macrophages.? Multiple loculation was able to get opaque yellow fluid.? Suggestive of empyema or complicated parapneumonic effusion.? Antibiotics switched to ceftriaxone and metronidazole as discussed with Pulmonary.? Discusse
[2022-08-09 11:46] LABS: Albumin Pleural Fluid 1.7 g/dL
[2022-08-12 18:46] LABS: Amylase, Pleural Fluid 11 U/L
[2022-08-14 21:52] LABS: Glucose Pleural Fluid <10 mg/dL; LDH Pleural Fluid 9320 U/L; Total Protein Pleural Fluid 4.2 g/dL
== END 2022-08-07 17:48 | disposition short-term general hospital (02) | DRG 178 ==
LOC: ANHED 06:46 → ANHIMU 09:10
PROVIDERS: Internal Medicine Pulmonary Disease; Student in an Organized Health Care Education/Training Program; Admitting Provider Internal Medicine; Emergency Provider Emergency Medicine; PCP Family Medicine; Visit Provider Internal Medicine
DX: J86.9 Pyothorax without fistula (principal); E87.1 Hypo-osmolality and hyponatremia; N17.9 Acute kidney failure, unspecified; I48.92 Unspecified atrial flutter; I48.91 Unspecified atrial fibrillation; I10 Essential (primary) hypertension; D64.9 Anemia, unspecified; K21.9 Gastro-esophageal reflux disease without esophagitis; R29.6 Repeated falls; F41.9 Anxiety disorder, unspecified; F32.A Depression, unspecified; F03.90 Unspecified dementia, unspecified severity, without behavioral disturbance, psychotic disturbance, mood disturbance, and anxiety; Z20.822 Contact with and (suspected) exposure to COVID-19; Z79.01 Long term (current) use of anticoagulants; Z86.73 Personal history of transient ischemic attack (TIA), and cerebral infarction without residual deficits
CPT/HCPCS: 32555; 36415; 36600; 70450; 71045; 71250; 72125; 80053; 82042; 82150; 82465; 82805; 82945; 83605; 83615; 83735; 83986; 84157; 84311; 84478; 85025; 85610; 85652; 85730; 86140; 87015; 87040; 87070; 87075; 87102; 87116; 87205; 87206; 87636; 88108; 88184; 88305; 89051; 93005; 96360; 99285; A9270; J0282; J0295; J0696; J2543; J3370; J3480; J7030; J7040

== ENCOUNTER 2022-08-28 21:32 | Inpatient (IN) | payer MEDICARE, SELFPAY ==
--- NOTE | ~2022-08-28 | XR_ITS ---
EXAMINATION: XR chest 1V portable DATE: 09/04/2022 15:40 INDICATION: Shortness of breath TECHNIQUE: frontal view of the chest was obtained. COMPARISON: Chest radiograph dated 08/28/2022 FINDINGS: Opacities in the bilateral lower lung zones. This includes small bilateral pleural effusions with flu id tracking along the right major fissure and resulting in blunting at the left costophrenic angle as well as capping the left apex. No pneumothorax. Cardiomegaly. IMPRESSION: 1. Opacities in bilateral lower lung zones which could represent atelectasis, pneumonia, pulmonary ed dean or some combination thereof. 2. Small bilateral pleural effusions, left greater than right. 3. Cardiac megalies. Reviewed, dictated and finalized at location B. TRICAL CONTROLS ENGINEER IMPRESSION: 1. Opacities in bilateral lower lung zones which could represent atelectasis, p neumonia, pulmonary edema or some combination thereof. 2. Small bilateral pleural effusions, left greater than right. 3. Cardiac megalies.
--- NOTE | ~2022-08-28 | CT_ITS ---
EXAMINATION: CT brain wo con DATE: 08/28/2022 22:36 INDICATION: Unresponsive. TECHNIQUE: Computed tomography (CT) of the head was performed without intravenous contrast. The mA wa s adjusted according to patient size. Iterative reconstruction technique was employed. The dose-lengt h product was 605.33 mGy-cm. COMPARISON: Head CT 08/03/2022, brain MRI 06/03/2018 FINDINGS: There is diffuse brain volume loss. There are scattered areas of low attenuation in the cer ebral white matter, which is within normal limits for the patient's age. There is no intracranial hem orrhage, acute infarction, or abnormal intracranial mass lesion. The ventricles are normal in size. T here is mild mucosal thickening in the paranasal sinuses. The orbits are normal. The mastoid air cell s are normal. IMPRESSION: 1. Normal aging brain. Reviewed, dictated and finalized at location A. RVISOR ORDER TAKERS IMPRESSION: 1. Normal aging brain.
--- NOTE | ~2022-08-28 | XR_ITS ---
EXAMINATION: XR chest 1V portable DATE: 08/28/2022 22:17 INDICATION: Weakness. TECHNIQUE: A single frontal view of the chest was obtained on 2 radiographs. COMPARISON: Chest single view 08/06/2022, chest CT 08/03/2022 FINDINGS: The patient is rotated to his left. There are airspace opacities in all left lung zones wit h a medial and lower lung predominance. There is a small loculated left pleural effusion. There are m ild airspace opacities in right mid and lower lung zones. There are calcified pleural plaques bilater ally, which may be seen with asbestosis exposure. No pneumothorax. Cardiomegaly is noted. IMPRESSION: 1. Small loculated left pleural effusion with interval improvement. 2. Diffuse lung disease with improvement on the left, likely predominantly atelectasis and scarring. Pneumonia cannot be excluded. 3. Cardiomegaly. Reviewed, dictated and finalized at location A. RESS DEVELOPER IMPRESSION: 1. Small loculated left pleural effusion with interval improvement. 2. Diffuse lung disease with improvement on the left, likely predominantly atel ectasis and scarring. Pneumonia cannot be excluded. 3. Cardiomegaly.
--- NOTE | ~2022-08-28 | MR_ITS ---
EXAMINATION: MR brain/brain stem wo/w con DATE: 09/02/2022 08:09 INDICATION: Altered mental status. TECHNIQUE: Magnetic resonance imaging (MRI) of the brain and brainstem was performed without and with 17 mL MultiHance intravenous contrast. COMPARISON: Head CT 09/01/2022, brain MRI 06/03/2018 FINDINGS: There is diffuse brain volume loss. There are scattered areas of nonspecific increased T2-w eighted signal intensity in the cerebral white matter, which is within normal limits for the patient' s age. There is no intracranial hemorrhage, acute infarction, or abnormal intracranial mass lesion. T he ventricles are normal in size. There is mild mucosal thickening in the ethmoid sinuses. The orbits are normal. The mastoid air cells are normal. IMPRESSION: 1. Normal aging brain. Reviewed, dictated and finalized at location A. ATRIC SOCIAL WORKER IMPRESSION: 1. Normal aging brain.
--- NOTE | ~2022-08-28 | CT_ITS ---
EXAMINATION: CT brain wo con DATE: 09/01/2022 09:29 INDICATION: Unresponsive. TECHNIQUE: Computed tomography (CT) of the head was performed without intravenous contrast. The mA wa s adjusted according to patient size. Iterative reconstruction technique was employed. The dose-lengt h product was 681.00 mGy-cm. COMPARISON: Head CT 08/28/2022 FINDINGS: There are scattered areas of low attenuation in the cerebral white matter, which is within normal limits for the patient's age. There is no intracranial hemorrhage, acute infarction, or abnorm al intracranial mass lesion. The ventricles are normal in size. The orbits are normal. There is mild mucosal thickening in the paranasal sinuses. The mastoid air cells are normal. IMPRESSION: 1. Normal aging brain. Reviewed, dictated and finalized at location A. ULAR NURSE IMPRESSION: 1. Normal aging brain.
[2022-08-28 21:32] VITALS: BP 142/66; PULSE 72; RESP 25; O2SAT 100
--- NOTE | 2022-08-28 21:38 | ECG_ITS ---
Measurements Intervals Sims Rate: 78 P: 32 NV: 152 QRS: -24 QRSD: 104 T: 47 QT: 432 QTc: 495 Interpretive Statements SINUS RHYTHM ATRIAL TRIPLET AND ATRIAL PREMATURE COMPLEX INCOMPLETE RIGHT BUNDLE BRANCH BLOCK LEFT VENTRICULAR HYPERTROPHY ABNORMAL ECG COMPARED TO ECG 08/04/2022 07:20:04 SINUS RHYTHM NOW PRESENT Electronically Signed On 08-29-2022 9:56:29 TENTMAKER by Sarkis Wheeler D.O.
[2022-08-28 21:45] VITALS: BP 134/66; PULSE 74; RESP 24; O2SAT 100
[2022-08-28 21:52] LABS: Basophils Absolute Auto 0.1 K/mm3 (0.0-0.1); Basophils Percent Auto 0.6 % (0.2-1.2); Eosinophils Percent Auto 0.4 % (0-4.4); Hematocrit 28.5 % (42.0-52.0); Hemoglobin 8.7 g/dL (14.0-18.0); Immature Granulocyte Absolute 0.16 K/mm3 (0.00-0.031); Immature Granulocyte Percent A 1.4 % (0-0.5); Lymphocytes Absolute Auto 1.54 K/mm3 (0.9-3.2); Lymphocytes Percent Auto 13.7 % (18.3-44.2); Mean Corpuscular HGB Conc 30.5 g/dl (32-36); Mean Corpuscular Hemoglobin 30.3 pg (26-34); Mean Corpuscular Volume 99.3 fl (80-100); Mean Platelet Volume 9.9 fl (7.4-10.4); Monocytes Absolute Auto 1.5 K/mm3 (0.1-0.6); Monocytes Percent Auto 13.3 % (2.6-8.5); Neutrophils Absolute Auto 7.9 K/mm3 (1.3-6.7); Neutrophils Percent Auto 70.6 % (45.5-73.1); Platelet Count Result 363 k/mm3 (150-375); Red Blood Count 2.87 M/mm3 (4.6-6.20); Red Cell Distribution Width 17.1 % (11.5-14.5); White Blood Count 11.2 K/mm3 (4.5-10.0)
[2022-08-28 21:55] LABS: Appearance Urine Cloudy (Clear); Bilirubin Urine Negative (Negative); Blood Urine 2+ (Negative); Color Urine Amber (Yellow); Glucose Urine UA Negative (Negative); Ketones Urine Negative (Negative); Leukocyte Esterase Ur 1+ LEU/UL (Negative); Nitrate Urine Negative (Negative); Protein Urine 2+ mg/dL (Negative); Specific Grav Ur 1.025 (1.001-1.035); Urobilinogen Urine 0.2 mg/dL (<2.0)
[2022-08-28 22:02] LABS: Alanine Aminotransferase 24 U/L (6-50); Alkaline Phosphatase 92 U/L (38-126); Anion Gap 2 mmol/L (8-16); Aspartate Amino Transferase 31 U/L (17-59); Bilirubin,Total 0.4 mg/dL (0.2-1.3); Blood Urea Nitrogen 25 mg/dL (9-20); Calcium 8.1 mg/dL (8.4-10.2); Carbon Dioxide 30 mmol/L (22-30); Chloride 102 mmol/L (98-107); Estimated CRCL calculation 53 ml/min; Estimated Glomerular Filt Rate > 60; Glucose 130 mg/dL (65-110); Potassium 3.8 mmol/L (3.4-5.0); Sodium 134 mmol/L (137-145)
[2022-08-28 22:12] LABS: Bacteria Urine Trace /hpf; Budding Yeast Urine Present /hpf; Mucus Urine Rare /lpf; RBC Urine >75 /hpf (0-2); WBC Urine 51-75 /hpf
[2022-08-28 22:14] LABS: Add Urine Microscopic? YES
[2022-08-28] MEDS: SODIUM CHLORIDE 0.9% IV 1,000 ML 999 ML IV CONT (22:14)
[2022-08-28 22:15] VITALS: BP 129/63; PULSE 67; RESP 24; O2SAT 100
[2022-08-28 22:29] LABS: Lactic Acid Reflex 1.7 mmol/L (0.7-2.0); Magnesium 2.3 mg/dL (1.6-2.3)
[2022-08-28 22:39] LABS: Base Excess ABG 2.4 mEq/l (+/-2.0); Fractional Inspired Oxygen 28 %; HCO3 ABG 26.9 mEq/l (22.0-26.0); Oxygen Content ABG 13.2 %vol (16.0-22.0); Oxygen Saturation ABG 97.8 % (95.0-100.0); Oxyhemoglobin 96.3 % THb (90.0-100.0); PCO2 ABG 41.3 mmHg (35.0-45.0); PO2 ABG 100.9 mmHg (80.0-100.0); Total Hemoglobin 9.6 g/dL (12.0-18.0); pH ABG 7.432 (7.350-7.450)
[2022-08-28 22:40] LABS: Device NASAL CANNULA; Modified Allen's Test Unable to perform; Site Drawn LEFT RADIAL
[2022-08-28 22:42] LABS: Troponin I < 0.012 ng/mL (0.000-0.034)
[2022-08-28 22:47] LABS: INR 1.3; Prothrombin Time 16.1 Seconds (11.1-14.7)
--- NOTE | 2022-08-28 23:05 | ED.GENADULT ---
HPI - General Adult General Chief complaint: Altered Mental Status Stated complaint: UNRESPONSIVE Time Seen by Provider: 08/28/22 21:38 History of Present Illness HPI narrative: Patient 82-year-old gentleman who presents to the emergency department with chief complaint of altered mental status. Per the nursing facility the patient is on Eliquis and was last seen normal around 6 PM this evening. They found the patient less responsive than normal and they could not really get him to wake up. They report no trauma report no fever history is limited due to patient's decreased responsive state. Related Data Home Medications Medication Instructions Recorded Confirmed duloxetine 60 mg capsule,delayed 60 mg PO DAILY 04/23/21 08/03/22 release sprinkle gabapentin 300 mg tablet 300 mg PO DAILY 04/23/21 08/03/22 mirtazapine 30 mg tablet 30 mg PO DAILY 04/23/21 08/03/22 olanzapine 5 mg tablet 5 mg PO DAILY 04/23/21 08/03/22 rivaroxaban 20 mg tablet (Xarelto) 20 mg PO DAILY 04/23/21 08/03/22 losartan 25 mg tablet 25 mg PO DAILY 12/31/21 08/03/22 acetaminophen 650 mg 1,300 mg PO HS 02/13/22 08/03/22 tablet,extended release Centrum Silver 250 mcg PO DAILY 08/03/22 08/03/22 Allergies Allergy/AdvReac Type Severity Reaction Status Date / Time donepezil [From Aricept] AdvReac Diarrhea Verified 08/03/22 02:26 Review of Systems Review of Systems: ROS unobtainable: Yes unobtainable due to medical condition PMFSH Past Medical History Medical History Anxiety and depression Atrial flutter Resolved with cardioversion and ablation Dementia Unable to tolerate Aricept GERD (gastroesophageal reflux disease) Hypertension TIA (transient ischemic attack) Surgical History Surgical History H/O cardiac radiofrequency ablation H/O local excision of skin lesion Family History Family History Father Kidney disease Mother Dementia Sibling Pericarditis Social History Social History Social History: The patient lives with his who is the durable power search engine marketing strategist for healthcare. The tells me that they do have a living will in that the patient is a DNR she believes that this is on file here. 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 The patient is a lifelong nonsmoker does not use any alcohol or illicit drugs. They have 1 child. Smoking status: Never smoker Second hand tobacco smoke exposure: No Alcohol intake: never Substance use: never Substance use type: does not use Lack of Transportation: No Lack of Food: Never True Current Housing: I Have Housing Concerned About Future Housing: No Difficulty Paying Gas/Electric Bills: No Difficulty Paying for Meds: No Currently Unemployed: No Education: High School Diploma/GED Difficulty w/ Childcare or Family Care: No Living arrangements: with family Occupation/Education: retired Gender identity (if verbalized by the patient): Male Sexual Orientation (if Verbalized by the Patient): Straight or Heterosexual Spiritual care concerns: No Exam Narrative: GENERAL: Well-appearing, well-nourished, and in no acute distress. HEAD: Normocephalic, atraumatic. EYES: PERRLA and EOMI. ENT: Nares clear, no rhinorrhea or epistaxis. Mucous membranes moist. NECK: Supple. CHEST: Clear to auscultation. No respiratory distress. HEART: Regular rate and rhythm. No murmur heard. Normal peripheral pulses. ABDOMEN: Soft, nontender, nondistended, normal active bowel sounds. EXTREMITIES: Normal range of motion. No edema. SKIN: Warm, dry, no rash. NEURO: Extremely slow to respond. Not talking he will. PSYCH: Normal mood and affect. Course Course Emergency Course: Patient is currently afebril
[2022-08-28 23:27] VITALS: BP 144/74; PULSE 69; RESP 18; O2SAT 100
[2022-08-28 23:29] LABS: Procalcitonin 0.1 ng/mL
[2022-08-28 23:31] VITALS: BP 141/64; PULSE 72; RESP 15; O2SAT 100
[2022-08-29] VITALS (7 sets, daily range): BP systolic 141–159; BP diastolic 55–75; PULSE 63–117; RESP 16–18; TEMP 36.5–36.8; O2SAT 95–100; BMI 23.5
[2022-08-29 01:15] LABS: Influenza A QL RT-PCR Negative (Negative); Influenza B QL RT-PCR Negative (Negative); RSV RNA, RT-PCR Negative (Negative); SARS-CoV-2 RNA PCR Negative
--- NOTE | 2022-08-29 02:59 | ADMGEN ---
This patient, Pawan Martinez, was admitted to Medical Room 252-01. Patient/family oriented to hospital policies and general routines including ID bracelet, bed and alarms, visiting hours, pain management, procedures, bathroom and other care routines, personal items, smoking policy, room service/diet, and visiting hours. Information on how to activate the Rapid Response Team has been discussed. Patient/Family are encouraged to report perceived risks to care and to ask questions if they do not understand what they are told or what they should do.
[2022-08-29 03:25] LABS: Troponin I < 0.012 ng/mL (0.000-0.034)
--- NOTE | 2022-08-29 04:04 | PC.NURSE ---
Pt admitted to [facility] from ER via cart at 0206 Pt nonverbal. Unresponsive. 2LNC lungs diminished. Hampton dark yellow urine...; spine redness upper back noted .. ELAINE Left upper back healing scabbed incision from front side to back with 2 sutures noted. 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 GLOBAL HEAD ADVERTISER [employer]UT[employer] no drainage- surgical incision? Called [facility] for medication/ history. Per nurse there, pt up with walker, fell x3 in past 3 couple of weeks. Poor po intake. Baseline A/O x2, lived with spouse prior to [facility] then [facility]. DNR order. Hampton was placed at [facility] for retention. Hampton removed and replaced on 2N . NPO. Safety/ fall precautions. Turn/ reposition. Hourly rounding.
--- NOTE | 2022-08-29 07:55 | PM.IMHP ---
H&P: HPI History of Present Illness Date/Time: 08/29/22 05:50 Chief Complaint: Unresponsive Narrative: 82-year-old male with past medical history of paroxysmal atrial fibrillation, advanced dementia, hypertension, depression and peripheral neuropathy who presented to the ER via EMS from [facility] due to unresponsive episode. Patient last known well was at 18:30 when nursing staff of but the patient to bed. When the rounded to give evening meds at 20:30 they found the patient unresponsive. According to residential report the patient has had increased number of falls over the last week. At the time of my evaluation the patient would not wake up. I pulled patient's eyelids up and his pupils were reactive but he still did not arouse. Patient also did not grimace or localized to noxious stimuli. Review of Systems Review of Systems: ROS unobtainable: Yes unobtainable due to mental status PMFSH Past Medical History Medical History (Updated 08/29/22 @ 08:39 by Aisha Richey DO) Anxiety and depression With history of ECT in the distant past Ascending aortic aneurysm Atrial flutter Resolved with cardioversion and ablation Dementia Unable to tolerate Aricept Empyema GERD (gastroesophageal reflux disease) Hypertension Paroxysmal atrial fibrillation On chronic anticoagulation with Eliquis Pulmonary hypertension TIA (transient ischemic attack) (2018) Surgical History Surgical History H/O cardiac radiofrequency ablation H/O local excision of skin lesion Family History Family History Father Kidney disease Mother Dementia Sibling Pericarditis Social History Social History (Updated 08/29/22 @ 08:12 by Aisha Richey DO) Social History: The patient lives with his who is the durable power family law attorney for healthcare. The tells me that they do have a living will in that the patient is a DNR she believes that this is on file here. 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 The patient is a lifelong nonsmoker does not use any alcohol or illicit drugs. They have 1 child. He now resides at [facility]. Smoking status: Never smoker Second hand tobacco smoke exposure: No Alcohol intake: never Substance use: never Substance use type: does not use Lack of Transportation: No Lack of Food: Never True Current Housing: I Have Housing Concerned About Future Housing: No Difficulty Paying Gas/Electric Bills: No Difficulty Paying for Meds: No Currently Unemployed: No Education: High School Diploma/GED Difficulty w/ Childcare or Family Care: No Living arrangements: with family Occupation/Education: retired Gender identity (if verbalized by the patient): Male Sexual Orientation (if Verbalized by the Patient): Straight or Heterosexual Spiritual care concerns: No Meds Home Medications and Allergies Home Medications Medication Instructions Recorded Confirmed Type duloxetine 60 mg capsule,delayed 60 mg PO BID 04/23/21 08/29/22 History release sprinkle gabapentin 300 mg tablet 300 mg PO TID 04/23/21 08/29/22 History mirtazapine 30 mg tablet 45 mg PO HS 04/23/21 08/29/22 History olanzapine 5 mg tablet 5 mg PO DAILY 04/23/21 08/29/22 History losartan 25 mg tablet 25 mg PO DAILY 12/31/21 08/29/22 History Centrum Silver 250 mcg PO DAILY 08/03/22 08/29/22 History acetaminophen 325 mg tablet 325 mg PO Q6H PRN Pain (Scale 08/29/22 08/29/22 History Score 1-3) amiodarone 200 mg tablet 200 mg PO DAILY 08/29/22 08/29/22 History amoxicillin 875 mg tablet 875 mg PO Q12H 08/29/22 08/29/22 History apixaban 5 mg tablet (Eliquis) 5 mg PO BID 08/29/22 08/29/22 History benzonatate 200 mg capsule 200 mg PO TID PRN Cough 08/29/22 08/29/22 History furosemide 40 mg tablet 40 mg PO DAILY 08/29/22 08/29/22 History metoprolo
[2022-08-29] MEDS: SODIUM CHLORIDE 0.9% IV 1,000 ML 100 ML IV CONT ×2 (08:39→19:09)
[2022-08-29 08:54] LABS: Hematocrit 28.4 % (42.0-52.0); Hemoglobin 8.6 g/dL (14.0-18.0); Mean Corpuscular HGB Conc 30.3 g/dl (32-36); Mean Platelet Volume 9.7 fl (7.4-10.4); Platelet Count Result 329 k/mm3 (150-375); Red Blood Count 2.87 M/mm3 (4.6-6.20); Red Cell Distribution Width 16.9 % (11.5-14.5); White Blood Count 10.1 K/mm3 (4.5-10.0)
[2022-08-29 09:05] LABS: Ammonia < 9 umol/L (9-30)
[2022-08-29 09:06] LABS: Anion Gap 1 mmol/L (8-16); Blood Urea Nitrogen 19 mg/dL (9-20); Calcium 7.9 mg/dL (8.4-10.2); Carbon Dioxide 28 mmol/L (22-30); Chloride 105 mmol/L (98-107); Estimated CRCL calculation 63 ml/min; Estimated Glomerular Filt Rate > 60; Glucose 99 mg/dL (65-110); Potassium 4.1 mmol/L (3.4-5.0); Sodium 134 mmol/L (137-145)
--- NOTE | 2022-08-29 16:45 | PM.IMPN ---
Progress Note: A&P Assessment and Plan (1) Acute alteration in mental status: Code(s): R41.82 - Altered mental status, unspecified Status: Acute Assessment and Plan: Likely due to metabolic encephalopathy from UTI complicating dementia. But currently given patient's history of paroxysmal AFib CVA could also be a possibility. CT of brain did not demonstrate any acute intracranial process. Consider related to medications. -treat for probable UTI -continue IV fluids and monitor. -f/u with EEG results -hold olanzapine (2) Acute UTI: Code(s): N39.0 - Urinary tract infection, site not specified Status: Acute Assessment and Plan: UA noted. Concerning for UTI given pyuria and encephalopathy in the setting of leukocytosis. -empiric antibiotic therapy with Rocephin. -Blood cultures and urine cultures are pending (3) Loculated pleural effusion: Code(s): J90 - Pleural effusion, not elsewhere classified Status: Acute Assessment and Plan: Patient had been transferred to [facility] for loculated pleural effusion and underwent VATS procedure -family state that the fluid was infectious -he remains on Amoxicillin for this (4) Prolonged QT interval: Code(s): R94.31 - Abnormal electrocardiogram [ECG] [EKG] Status: Acute Assessment and Plan: EKG with prolonged QTc to 495. New since last EKG. Avoid QT prolonging medications. Will hold Remeron. Repeat EKG in the morning. Discussed with Cardiology who felt Amio okay to give. Monitor. (5) Atrial fibrillation: Code(s): I48.91 - Unspecified atrial fibrillation Status: Acute Assessment and Plan: Patient does have history of AFib but is currently in sinus rhythm. EKG showing sinus mechanism. Resume home medications. Subjective Date/time seen: 08/29/22 16:45 Interval history: 82yo male with dementia and HTN here after being found unresponsive. Patient is awake, alert and mostly oriented. Hx obatined from him and family in the room. He has been having trouble standing and feels very weak; his legs give out at times. He is at rehab and making slow progress. He complains of right foot numbness and tingling. No new mediacations per family. He is still on abx for the left empyema. Exam Narrative: AF 98.2 146/55 68 16 98% ra Gen - NARD lying almost flat in bed Chest - CTA bilaterally, nml RR CV - RRR S1/S2 Abd - Soft, NT/ND, Positive BS Back - left mid back horizontal raised incision covered with thin dried eschar without drainage. Ext - No pedal edema Neuro - Alert, oriented x3 (not location). Nonfocal exam. normal sensation to the right foot but proprioception difficult to assess. Heel-nguyen dysmetric on the right. Psych - Nml mood and affect Skin - Warm and dry Objective Data Vital Signs Vital Signs: Vital Signs - 24 hr 08/28/22 21:32 08/28/22 21:45 08/28/22 22:15 Temperature Pulse Rate 72 74 67 Respiratory Rate 25 H 24 H 24 H Blood Pressure 142/66 H 134/66 129/63 Pulse Oximetry 100 100 100 Oxygen Delivery Nasal Cannula Oxygen Flow Rate 2 08/28/22 23:27 08/28/22 23:31 08/29/22 00:01 Temperature Pulse Rate 69 72 117 H Respiratory Rate 18 15 17 Blood Pressure 144/74 H 141/64 H 141/61 H Pulse Oximetry 100 100 100 Oxygen Delivery Oxygen Flow Rate 08/29/22 02:15 08/29/22 05:00 08/29/22 08:39 Temperature 98.0 F 97.7 F Pulse Rate 83 65 Respiratory Rate 18 17 18 Blood Pressure 159/64 H 151/62 H Pulse Oximetry 95 100 96 Oxygen Delivery Nasal Cannula Oxygen Flow Rate 2 08/29/22 14:00 Temperature 98.2 F Pulse Rate 68 Respiratory Rate 16 Blood Pressure 146/55 H Pulse Oximetry 98 Oxygen Delivery Oxygen Flow Rate Intake/Output Intake/Output: Intake & Output 08/26/22 08/27/22 08/28/22 08/29/22 23:59 23:59 23:59 23:59 Intake Total 1000 50 Output Total 350 Balance 1000 -300 Meds/Results Medic
[2022-08-29] MEDS: AMOXICILLIN/CLAVULANATE K 875-125 MG TAB 1 TABLET PO (19:10)
[2022-08-29] MEDS: APIXABAN 5 MG TABLET PO (19:10)
[2022-08-29] MEDS: METOPROLOL TARTRATE 25 MG TABLET PO (19:11)
[2022-08-29] MEDS: polyethylene glycoL 3350 17 GM POWD.PACK PO (20:50)
[2022-08-29] MEDS: ACETAMINOPHEN 325 MG TABLET PO (20:50)
[2022-08-30] VITALS (14 sets, daily range): BP systolic 113–154; BP diastolic 49–82; PULSE 61–94; RESP 14–20; TEMP 36.4–36.7; O2SAT 94–99
--- NOTE | 2022-08-30 03:33 | PC.NURSE ---
Pt noted to have heart rate in 130's, went to pt room, pt sweaty. Pt states he trying to have a BM. Pt turned to put on bedpan, noted hard stool at anus, unable to push out. This nurse removed several hard large impacted stool pieces. Then extremely large amount of unformed stool came out. Pt relieved, heart rate decreased. Continue to monitor
[2022-08-30] MEDS: ACETAMINOPHEN 325 MG TABLET PO (04:43)
[2022-08-30] MEDS: SODIUM CHLORIDE 0.9% IV 1,000 ML 100 ML IV CONT ×2 (04:43→14:50)
[2022-08-30 05:47] LABS: Basophils Absolute Auto 0.1 K/mm3 (0.0-0.1); Basophils Percent Auto 0.6 % (0.2-1.2); Eosinophils Percent Auto 0.1 % (0-4.4); Hematocrit 27.8 % (42.0-52.0); Hemoglobin 8.6 g/dL (14.0-18.0); Immature Granulocyte Absolute 0.15 K/mm3 (0.00-0.031); Immature Granulocyte Percent A 1.4 % (0-0.5); Lymphocytes Absolute Auto 1.05 K/mm3 (0.9-3.2); Lymphocytes Percent Auto 9.9 % (18.3-44.2); Mean Corpuscular HGB Conc 30.9 g/dl (32-36); Mean Corpuscular Volume 96.9 fl (80-100); Mean Platelet Volume 10.2 fl (7.4-10.4); Monocytes Absolute Auto 1.2 K/mm3 (0.1-0.6); Monocytes Percent Auto 11.3 % (2.6-8.5); Neutrophils Absolute Auto 8.1 K/mm3 (1.3-6.7); Neutrophils Percent Auto 76.7 % (45.5-73.1); Platelet Count Result 302 k/mm3 (150-375); Red Blood Count 2.87 M/mm3 (4.6-6.20); Red Cell Distribution Width 16.5 % (11.5-14.5); White Blood Count 10.6 K/mm3 (4.5-10.0)
[2022-08-30 06:06] LABS: Alanine Aminotransferase 29 U/L (6-50); Albumin Level 2.7 g/dL (3.5-5.1); Alkaline Phosphatase 78 U/L (38-126); Anion Gap 4 mmol/L (8-16); Aspartate Amino Transferase 32 U/L (17-59); Bilirubin,Total 0.6 mg/dL (0.2-1.3); Blood Urea Nitrogen 14 mg/dL (9-20); Carbon Dioxide 26 mmol/L (22-30); Chloride 107 mmol/L (98-107); Estimated CRCL calculation 71 ml/min; Estimated Glomerular Filt Rate > 60; Glucose 98 mg/dL (65-110); Magnesium 1.9 mg/dL (1.6-2.3); Phosphorus 2.6 mg/dL (2.5-4.5); Potassium 3.8 mmol/L (3.4-5.0); Sodium 137 mmol/L (137-145)
[2022-08-30] MEDS: AMOXICILLIN/CLAVULANATE K 875-125 MG TAB 1 TABLET PO ×2 (06:15→17:00)
[2022-08-30 06:16] LABS: Iron 42 ug/dL (49-181)
[2022-08-30 06:26] LABS: Percent Iron Saturation 25 % (20-50)
[2022-08-30 07:05] LABS: Folic Acid 15.2 ng/mL (2.76->20)
--- NOTE | 2022-08-30 08:00 | ECG_ITS ---
Measurements Intervals [place] Rate: 72 P: 37 NC: 155 QRS: -18 QRSD: 107 T: 60 QT: 458 QTc: 503 Interpretive Statements SINUS RHYTHM ATRIAL PREMATURE COMPLEXES INCOMPLETE RIGHT BUNDLE BRANCH BLOCK VOLTAGE CRITERAL FOR LVH BORDERLINE ECG COMPARED TO ECG 08/28/2022 21:46:45 NO SIGNIFICANT CHANGES Electronically Signed On 08-30-2022 9:07:55 [employer]OR [employer] by Sarkis Wheeler D.O.
[2022-08-30] MEDS: FUROSEMIDE 40 MG TABLET PO (08:07)
[2022-08-30] MEDS: APIXABAN 5 MG TABLET PO ×2 (08:07→16:54)
[2022-08-30] MEDS: SENNOSIDES 8.6 MG TABLET PO ×2 (08:07→16:56)
[2022-08-30] MEDS: GABAPENTIN 300 MG CAPSULE PO ×3 (08:08→16:54)
[2022-08-30] MEDS: AMIODARONE HCL 200 MG TABLET PO (08:08)
[2022-08-30] MEDS: DULoxetine HCL 60 MG CAPSULE.DR PO ×2 (08:08→16:54)
[2022-08-30] MEDS: MULTIVITAMINS /C LUTEIN (CENTRUM SILVER) TABLET *BKC 1 TAB PO (08:08)
[2022-08-30] MEDS: LOSARTAN POTASSIUM 25 MG TABLET PO (08:09)
[2022-08-30] MEDS: METOPROLOL TARTRATE 25 MG TABLET PO ×2 (08:09→16:54)
--- NOTE | 2022-08-30 15:33 | PM.IMPN ---
Progress Note: A&P Assessment and Plan (1) Acute alteration in mental status: Code(s): R41.82 - Altered mental status, unspecified Status: Acute Assessment and Plan: Patient found to be poorly responsive prompting this admission. Likely due to metabolic encephalopathy from UTI complicating underlying dementia. Given patient's history of paroxysmal AFib, CVA could also be a possibility. CT of brain did not demonstrate any acute intracranial process. Consider related to medications. -continue treatment for probable UTI; consider also left sided PNA -stop IV fluids and monitor. -f/u with EEG results -hold olanzapine and remeron (2) Acute UTI: Code(s): N39.0 - Urinary tract infection, site not specified Status: Acute Assessment and Plan: UA noted. Concerning for UTI given pyuria and encephalopathy in the setting of leukocytosis. -Blood cultures and urine cultures are pending -no fevers and WBC about the same -continue empiric antibiotic therapy with Rocephin. (3) Loculated pleural effusion: Code(s): J90 - Pleural effusion, not elsewhere classified Status: Acute Assessment and Plan: Patient was transferred to [facility] for loculated pleural effusion and underwent VATS procedure -family state that the fluid was infectious -CXR reviewed personally and showing a small loculated effusion -he remains on Amoxicillin for this (4) Prolonged QT interval: Code(s): R94.31 - Abnormal electrocardiogram [ECG] [EKG] Status: Acute Assessment and Plan: EKG with prolonged QTc to 495. New since last EKG. Avoid QT prolonging medications such as Remeron. Repeat EKG again showing prolonged QTc but manual measurement showing QTc more likely 440. Discussed with Cardiology who felt Amio was okay to give. No significant dysrhythmias on telemetry. Continue to monitor on telemetry for now. (5) Atrial fibrillation: Code(s): I48.91 - Unspecified atrial fibrillation Status: Acute Assessment and Plan: Patient does have history of AFib but is currently in sinus rhythm. EKG showing sinus mechanism. Continue home medications. Subjective Date/time seen: 08/30/22 15:33 Interval history: 82yo male with dementia and HTN here after being found unresponsive. No issues overnight. No chest pain or shortness breath. No nausea or vomiting. Exam Narrative: AF 126/49 63 14 99% 2L Gen - NARD lying almost flat in bed Chest - mild diffuse inspiratory and expiratory rhonchi, nml RR CV - RRR S1/S2. Tele showing occasional brief runs of probable AFib Abd - Soft, NT/ND, Positive BS GI - [place] secured draining clear yellow urine Ext - No pedal edema Neuro - Alert and approrpiate. Psych - Nml mood and affect Skin - Warm and dry Objective Data Vital Signs Vital Signs: Vital Signs - 24 hr 08/29/22 19:11 08/29/22 21:37 08/30/22 00:00 Temperature 98.2 F Pulse Rate 68 63 71 Respiratory Rate 18 Blood Pressure 141/75 H Pulse Oximetry 98 Oxygen Delivery Oxygen Flow Rate 08/30/22 04:00 08/30/22 05:10 08/30/22 08:08 Temperature 98.0 F Pulse Rate 71 94 70 Respiratory Rate 20 Blood Pressure 154/67 H Pulse Oximetry 97 Oxygen Delivery Oxygen Flow Rate 08/30/22 08:09 08/30/22 11:21 08/30/22 11:47 Temperature Pulse Rate 70 Respiratory Rate Blood Pressure Pulse Oximetry 94 Oxygen Delivery Nasal Cannula Nasal Cannula Oxygen Flow Rate 2 2 08/30/22 08:00 08/30/22 12:00 08/30/22 13:53 Temperature Pulse Rate 84 74 Respiratory Rate Blood Pressure Pulse Oximetry Oxygen Delivery Nasal Cannula Oxygen Flow Rate 2 08/30/22 08:00 08/30/22 15:11 Temperature 97.6 F Pulse Rate 63 Respiratory Rate 14 Blood Pressure 126/49 L Pulse Oximetry 99 99 Oxygen Delivery Nasal Cannula Oxygen Flow Rate 2 Intake/Output Intake/Output: Intake & Output 08/27/22
[2022-08-31] VITALS (8 sets, daily range): BP systolic 116–150; BP diastolic 57–66; PULSE 61–78; RESP 14–18; TEMP 36.3–36.7; O2SAT 94–95
[2022-08-31] MEDS: AMOXICILLIN/CLAVULANATE K 875-125 MG TAB 1 TABLET PO ×2 (05:17→17:33)
[2022-08-31 05:20] LABS: Basophils Absolute Auto 0.1 K/mm3 (0.0-0.1); Basophils Percent Auto 0.6 % (0.2-1.2); Eosinophils Percent Auto 0.3 % (0-4.4); Hematocrit 28.2 % (42.0-52.0); Immature Granulocyte Absolute 0.18 K/mm3 (0.00-0.031); Immature Granulocyte Percent A 1.8 % (0-0.5); Lymphocytes Percent Auto 10.9 % (18.3-44.2); Mean Corpuscular HGB Conc 31.9 g/dl (32-36); Mean Corpuscular Hemoglobin 30.9 pg (26-34); Mean Corpuscular Volume 96.9 fl (80-100); Monocytes Absolute Auto 1.1 K/mm3 (0.1-0.6); Neutrophils Absolute Auto 7.6 K/mm3 (1.3-6.7); Neutrophils Percent Auto 75.4 % (45.5-73.1); Platelet Count Result 289 k/mm3 (150-375); Red Blood Count 2.91 M/mm3 (4.6-6.20); Red Cell Distribution Width 16.3 % (11.5-14.5); White Blood Count 10.1 K/mm3 (4.5-10.0)
[2022-08-31 05:24] LABS: Albumin Level 2.7 g/dL (3.5-5.1); Anion Gap 5 mmol/L (8-16); Blood Urea Nitrogen 12 mg/dL (9-20); Carbon Dioxide 25 mmol/L (22-30); Chloride 103 mmol/L (98-107); Estimated CRCL calculation 71 ml/min; Estimated Glomerular Filt Rate > 60; Glucose 87 mg/dL (65-110); Magnesium 1.8 mg/dL (1.6-2.3); Potassium 3.5 mmol/L (3.4-5.0); Sodium 133 mmol/L (137-145)
--- NOTE | 2022-08-31 08:00 | ECG_ITS ---
Measurements Intervals [place] Rate: 71 P: 54 MO: 168 QRS: -24 QRSD: 108 T: 55 QT: 467 QTc: 511 Interpretive Statements SINUS RHYTHM ATRIAL AND VENTRICULAR PREMATURE COMPLEXES INCOMPLETE RIGHT BUNDLE BRANCH BLOCK DELAYED PRECORDIAL R/S TRANSITION VOLTAGE CRITERIA FOR LVH BASELINE ARTIFACT- I, III, AVR, V3 BORDERLINE ECG COMPARED TO ECG 08/30/2022 08:32:41 NO SIGNIFICANT CHANGES Electronically Signed On 08-31-2022 11:02:39 CLINICAL DOCUMENTATION SPEC by Sarkis Wheeler D.O.
[2022-08-31] MEDS: APIXABAN 5 MG TABLET PO ×2 (09:01→17:33)
[2022-08-31] MEDS: DULoxetine HCL 60 MG CAPSULE.DR PO ×2 (09:01→17:33)
[2022-08-31] MEDS: MULTIVITAMINS /C LUTEIN (CENTRUM SILVER) TABLET *BKC 1 TAB PO (09:01)
[2022-08-31] MEDS: METOPROLOL TARTRATE 25 MG TABLET PO ×2 (09:01→17:33)
[2022-08-31] MEDS: GABAPENTIN 300 MG CAPSULE PO ×3 (09:01→17:33)
[2022-08-31] MEDS: SENNOSIDES 8.6 MG TABLET PO ×2 (09:02→17:33)
[2022-08-31] MEDS: LOSARTAN POTASSIUM 25 MG TABLET PO (09:02)
[2022-08-31] MEDS: AMIODARONE HCL 200 MG TABLET PO (09:02)
--- NOTE | 2022-08-31 10:04 | PCSTNOTE ---
Please refer to the Bedside Swallow Evaluation in the EMR. Please note, silent aspiration cannot be ruled out at bedside.
--- NOTE | 2022-08-31 11:26 | PM.IMPN ---
Progress Note: A&P Assessment and Plan (1) Acute alteration in mental status: Code(s): R41.82 - Altered mental status, unspecified Status: Acute Assessment and Plan: Patient found to be poorly responsive prompting this admission. Likely due to metabolic encephalopathy from UTI complicating underlying dementia. Given patient's history of paroxysmal AFib, CVA could also be a possibility. CT of brain did not demonstrate any acute intracranial process. Consider related to medications or occult seizures. Speech therapy evaluation without concerns. Discussed with therapist. -UCx growing sandra so felt to be contaminant; consider also left sided PNA but felt less likely -EEG pending. f/u with EEG results -holding olanzapine and remeron (2) Acute UTI: Code(s): N39.0 - Urinary tract infection, site not specified Status: Acute Assessment and Plan: UA noted. Concerning for UTI given pyuria and encephalopathy in the setting of leukocytosis and chronic [place]. -Blood cultures NGTD and urine culture growing sandra albicans felt to be contaminant or colonizer -no fevers and WBC about the same -stop Rocephin. (3) Loculated pleural effusion: Code(s): J90 - Pleural effusion, not elsewhere classified Status: Acute Assessment and Plan: Patient was transferred to [facility] for loculated pleural effusion and underwent VATS procedure -family state that the fluid was infectious -CXR reviewed personally and showing a small loculated effusion -he remains on Amoxicillin for this (4) Prolonged QT interval: Code(s): R94.31 - Abnormal electrocardiogram [ECG] [EKG] Status: Acute Assessment and Plan: EKG with prolonged QTc to 495. New since last EKG. Avoid QT prolonging medications such as Remeron. Repeat EKG again showing prolonged QTc but manual measurement showing QTc more likely 440. Discussed with Cardiology who felt Amio was okay to give. No significant dysrhythmias on telemetry. Continue to monitor on telemetry for now. Hold Amio and discuss with Cards (5) Atrial fibrillation: Code(s): I48.91 - Unspecified atrial fibrillation Status: Acute Assessment and Plan: Patient does have history of AFib but is currently in sinus rhythm. EKG showing sinus mechanism. Eliquis continued. Will hold Amio. Continue home medications. Subjective Date/time seen: 08/31/22 11:26 Interval history: 82yo male with dementia and HTN here after being found unresponsive. Complains of buttock pain from lying in bed. No chest pain or shortness of breath. No nausea or vomiting. Eating okay. Denies cough. Has been weaned to room air. Exam Narrative: AF 150/59 69 16 94% ra Gen - NARD lying semi recumbent in bed Chest -scattered rhonchi otherwise clear. CV - RRR S1/S2. Tele showing PVCs Abd - Soft, NT/ND, Positive BS GI - [place] secured draining clear yellow urine Ext - No pedal edema Neuro -alert and oriented x4. Psych - Nml mood and affect Skin - Warm and dry Objective Data Vital Signs Vital Signs: Vital Signs - 24 hr 08/30/22 11:47 08/30/22 12:00 08/30/22 13:53 Temperature Pulse Rate 74 Respiratory Rate Blood Pressure Pulse Oximetry Oxygen Delivery Nasal Cannula Nasal Cannula Oxygen Flow Rate 2 2 08/30/22 15:11 08/30/22 16:54 08/30/22 16:00 Temperature 97.6 F Pulse Rate 63 76 75 Respiratory Rate 14 Blood Pressure 126/49 L Pulse Oximetry 99 Oxygen Delivery Oxygen Flow Rate 08/30/22 21:50 08/30/22 21:30 08/30/22 20:00 Temperature 98.0 F Pulse Rate 62 61 Respiratory Rate 18 Blood Pressure 113/82 Pulse Oximetry 97 97 Oxygen Delivery Nasal Cannula Oxygen Flow Rate 2 08/31/22 00:00 08/31/22 04:00 08/31/22 06:00 Temperature 98.0 F Pulse Rate 78 66 69 Respiratory Rate 16 Blood Pressure 150/59 H Pulse Oximetry 94 Oxygen Delivery Oxygen Flow Rate Intake
[2022-09-01] VITALS (10 sets, daily range): BP systolic 115–155; BP diastolic 64–87; PULSE 69–136; RESP 16–24; TEMP 36.3–36.8; O2SAT 93–97
[2022-09-01] MEDS: AMOXICILLIN/CLAVULANATE K 875-125 MG TAB 1 TABLET PO (05:21)
--- NOTE | 2022-09-01 08:53 | ECG_ITS ---
Measurements Intervals [place] Rate: 114 P: MO: 0 QRS: -20 QRSD: 102 T: 104 QT: 365 QTc: 504 Interpretive Statements ATRIAL FLUTTER/TACHYCARDIA WITH RAPID VENTRICULAR RESPONSE INCOMPLETE RIGHT BUNDLE BRANCH BLOCK NONSPECIFIC ST & T-WAVE ABNORMALITY- ANTEROLAT/HIGH LAT LEADS BASELINE ARTIFACT- I, III, AVL, AVF, V1 ABNORMAL ECG COMPARED TO ECG 08/31/2022 09:39:59 ATRIAL FLUTTER NOW PRESENT T-WAVE ABNORMALITY NOW PRESENT Electronically Signed On 09-01-2022 10:13:34 [employer]NAGER [employer] by Sarkis Wheeler D.O.
[2022-09-01 08:56] LABS: Glucose Point of Care 101 mg/dl (65-105)
--- NOTE | 2022-09-01 09:07 | PCOTNOTE ---
Pt is unavailable to be seen at this time per nursing, due to recent rapid response called and being assessed by medical staff. Will continue per POC duration/frequency tomorrow.
[2022-09-01 09:20] LABS: Basophils Absolute Auto 0.1 K/mm3 (0.0-0.1); Basophils Percent Auto 0.6 % (0.2-1.2); Eosinophils Percent Auto 0.2 % (0-4.4); Hematocrit 31.4 % (42.0-52.0); Hemoglobin 10.1 g/dL (14.0-18.0); Immature Granulocyte Absolute 0.12 K/mm3 (0.00-0.031); Immature Granulocyte Percent A 1.2 % (0-0.5); Lymphocytes Absolute Auto 1.13 K/mm3 (0.9-3.2); Lymphocytes Percent Auto 11.5 % (18.3-44.2); Mean Corpuscular HGB Conc 32.2 g/dl (32-36); Mean Corpuscular Hemoglobin 30.6 pg (26-34); Mean Corpuscular Volume 95.2 fl (80-100); Mean Platelet Volume 9.8 fl (7.4-10.4); Monocytes Absolute Auto 1.2 K/mm3 (0.1-0.6); Monocytes Percent Auto 11.8 % (2.6-8.5); Neutrophils Absolute Auto 7.3 K/mm3 (1.3-6.7); Neutrophils Percent Auto 74.7 % (45.5-73.1); Nucleated Red Blood Cells Perc 0.2 % (0.0-0.2); Platelet Count Result 324 k/mm3 (150-375); Red Cell Distribution Width 16.6 % (11.5-14.5); White Blood Count 9.8 K/mm3 (4.5-10.0)
[2022-09-01 09:21] LABS: Alveolar/Arterial O2 Gradient 49.6 mmHg; Base Excess ABG 0.8 mEq/l (+/-2.0); Device ROOM AIR; Fractional Inspired Oxygen 21 %; HCO3 ABG 23.9 mEq/l (22.0-26.0); Methemoglobin ABG 0.3 %THb (0-1.5); Modified Allen's Test Pass; Oxygen Content ABG 13.5 %vol (16.0-22.0); Oxygen Saturation ABG 93.2 % (95.0-100.0); Oxyhemoglobin 91.1 % THb (90.0-100.0); PCO2 ABG 32.8 mmHg (35.0-45.0); PO2 ABG 60.9 mmHg (80.0-100.0); Reduced Hemoglobin 8.6 %THb (0-5.0); Site Drawn RIGHT RADIAL; Total Hemoglobin 10.5 g/dL (12.0-18.0)
[2022-09-01 09:33] LABS: Lactic Acid Reflex 0.9 mmol/L (0.7-2.0)
[2022-09-01 09:33] LABS: Alanine Aminotransferase 41 U/L (6-50); Albumin Level 3.1 g/dL (3.5-5.1); Alkaline Phosphatase 95 U/L (38-126); Anion Gap 6 mmol/L (8-16); Aspartate Amino Transferase 41 U/L (17-59); Bilirubin,Total 0.6 mg/dL (0.2-1.3); Blood Urea Nitrogen 9 mg/dL (9-20); CRP 6.3 mg/dL (<1.0); Calcium 8.4 mg/dL (8.4-10.2); Carbon Dioxide 25 mmol/L (22-30); Chloride 103 mmol/L (98-107); Estimated CRCL calculation 71 ml/min; Estimated Glomerular Filt Rate > 60; Glucose 103 mg/dL (65-110); Potassium 3.8 mmol/L (3.4-5.0); Sodium 134 mmol/L (137-145)
[2022-09-01 09:36] LABS: INR 1.4; Prothrombin Time 16.8 Seconds (11.1-14.7)
[2022-09-01 09:37] LABS: Partial Thromboplastin Time 39.5 SECONDS (22.3-36.8)
[2022-09-01 09:41] LABS: Troponin I 0.018 ng/mL (0.000-0.034)
--- NOTE | 2022-09-01 09:42 | PCPTNOTE ---
RN requested for patient not to be seen today for Physical Therapy today due to him being unresponsive.
--- NOTE | 2022-09-01 10:55 | WPDNEUROLOGY ---
Neurology EEG Report General Information Date of Study: 08/31/22 TEST eeg DIAGNOSIS Altered mental status CONDITION OF RECORDING drowsy and sleep EEG NUMBER [id number] CLINICAL HISTORY patient unable to give any history EEG DESCRIPTION background rhythm consists of low to medium voltage 2 to 3 hertz per 2nd delta activity admixed with low-voltage 15 to 18 hertz per 2nd beta activity. Hyperventilation not done. Photic stimulation not done. Non paroxysmal. Nonfocal. Nonlateralizing. IMPRESSION Abnormal record due to the absence of normal background rhythm and the presence of excessive amount of delta activity , although there is no evidence of any focal slow activity or any paroxysmal discharge. Clinical correlation recommended these abnormalities are suggestive of organic or metabolic encephalopathy or else neuro degenerative process.
--- NOTE | 2022-09-01 12:50 | PM.IMPN ---
Progress Note: A&P Assessment and Plan (1) Acute alteration in mental status: Code(s): R41.82 - Altered mental status, unspecified Status: Acute Assessment and Plan: Patient found to be poorly responsive prompting this admission. Patient having probably a recurrence of these symptoms. Odd he does not respond to pain but he definitely resists eye exam. [place] most likely psych related with catatonia. -EEG on 08/31 showing abnormal record due to the absence of normal background rhythm and presence of excessive amount of delta activity, although no evidence of any focal slow activity or any paroxysmal discharge.?? -Repeat labs reviewed showing no concerning findings. -CT of brain did not demonstrate any acute intracranial process nor did the repeat CT brain today. -consider seizure with post-ictal encephalopathy but suspect more likely this is psychiatric -holding olanzapine and remeron currently -Neuro consult. Repeat exam showing no significant change. RN states she is able to fish bait picker his arm and he will hold it up. Discussed with Neuro who recommended holding Antiepileptic medications. Will check MRI of the brain. Will check EEG. IV fluids. NPO. (2) Loculated pleural effusion: Code(s): J90 - Pleural effusion, not elsewhere classified Status: Acute Assessment and Plan: Patient was transferred to [facility] for loculated pleural effusion and underwent VATS procedure -family state that the fluid was infectious -CXR reviewed personally and showing a small loculated effusion -he remains on Augmentin for this (3) Atrial fibrillation: Code(s): I48.91 - Unspecified atrial fibrillation Status: Acute Assessment and Plan: Patient does have history of AFib and is now in AFib/RVR. EKG reviewed personally showing AFib/flutter. (cardiology agrees with this assessment). Continue eliquis. Will resume Amio (hasn't missed a dose so this is not the etiology of recurrent AFib) . Continue home medications. (4) Prolonged QT interval: Code(s): R94.31 - Abnormal electrocardiogram [ECG] [EKG] Status: Acute Assessment and Plan: EKG with prolonged QTc to 495. New since last EKG. Avoid QT prolonging medications such as Remeron. Repeat EKG showing AFib and prolonged QTc but manual measurement showing QTc more likely 420. Resume telemetry since now in AFib. (5) Acute UTI: Code(s): N39.0 - Urinary tract infection, site not specified Status: Acute Assessment and Plan: UA noted. Concerning for UTI given pyuria and encephalopathy in the setting of leukocytosis and chronic [place]. -Blood cultures NGTD and urine culture growing sandra albicans felt to be contaminant or colonizer -no fevers and WBC about the same -Rocephin stopped Subjective Date/time seen: 09/01/22 12:50 Interval history: 82yo male with dementia and HTN here after being found unresponsive. Called to the room for rapid response due to patient being unresponsive. Patient was sitting in the chair became unresponsive. Eyes were open but unfocused. He was moved to the bed which is where I found the patient on my arrival. He was sitting at the side of the bed unassisted. He was able to follow commands to lay down. He would not respond to pain or voice when supine. He did resist the pupil exam however. Review of Systems Review of Systems: ROS unobtainable: Yes unobtainable due to mental status Exam Narrative: AF 128/86 119 24 93% ra Gen - NARD lying semi recumbent in bed Chest - L>R inspiratory crackles in the flanks. CV - tachycardic and irregular. Abd - Soft. Nondistended. Positive bowel sounds. No apparent tenderness. GI - [place] secured draining clear yellow urine Ext - No pedal edema Neuro - up going toes. pupils reactive. He resists eye exam. when eyes slightly open, he responds to confrontation. no response to pain. delayed gag. 1+ patella DTRs Skin - Warm
--- NOTE | 2022-09-01 13:08 | WPDNEURCNPN ---
Assessment and Plan Assessment and plan (1) Seizures: Code(s): R56.9 - Unspecified convulsions Status: Acute Plan 1 rule out seizures 2 general medical problems with UTI cardiac abnormalities, with atrial fibrillation, hypertension and on dementia. Repeat CT scan is negative and negative for RSV and a SARS-CoV-2 it also negative for influenza a and continue the medication as such and obtain the EEG for further recommendations Consult date: 09/02/22 HPI: Pawan Martinez is a 82 year old male admitted to [facility] through the emergency room on August 29, 2022 where he was brought with chief complaints of change in the mental status from the detention. Patient had been on Eliquis was seen normal around 6:00 p.m. in the evening they were having difficulties in getting him awake though there was no documented trauma and his medications included duloxetine 60 mg daily gabapentin 300 mg daily mirtazapine 30 mg daily or lens a pain 5 mg daily rivaroxaban 20 mg daily losartan 25 mg daily, documented to be allergic to donepezil and documented to have the diagnosis of anxiety with depression, atrial flutter, dementia, and hypertension, also history of radiofrequency ablation, no history of smoking, drinking, and initial exam in the ER otherwise nonfocal, found to have abnormal UA, negative CT scan of the head, small loculated pleural effusion on chest x-ray negative except cardiomegaly and patient has been continued on apixaban 5 mg twice a day with initiation of the augment PMFSH Past Medical History Medical History (Updated 09/02/22 @ 09:14 by Henry Foy MD) Anxiety and depression With history of ECT in the distant past Ascending aortic aneurysm Atrial flutter Resolved with cardioversion and ablation Dementia Unable to tolerate Aricept Empyema GERD (gastroesophageal reflux disease) Hypertension Paroxysmal atrial fibrillation On chronic anticoagulation with Eliquis Pulmonary hypertension TIA (transient ischemic attack) (2018) Surgical History Surgical History H/O cardiac radiofrequency ablation H/O local excision of skin lesion Family History Family History Father Kidney disease Mother Dementia Sibling Pericarditis Social History Social History (Updated 08/29/22 @ 08:12 by Aisha Richey DO) Social History: The patient lives with his who is the durable power deputy commonwealth's attorney for healthcare. The tells me that they do have a living will in that the patient is a DNR she believes that this is on file here. The patient is retired from working in the [employer] for [employer] The patient is a lifelong nonsmoker does not use any alcohol or illicit drugs. They have 1 child. He now resides at [facility]. Smoking status: Never smoker Second hand tobacco smoke exposure: No Alcohol intake: never Substance use: never Substance use type: does not use Lack of Transportation: No Lack of Food: Never True Current Housing: I Have Housing Concerned About Future Housing: No Difficulty Paying Gas/Electric Bills: No Difficulty Paying for Meds: No Currently Unemployed: No Education: High School Diploma/GED Difficulty w/ Childcare or Family Care: No Living arrangements: with family Occupation/Education: retired Gender identity (if verbalized by the patient): Male Sexual Orientation (if Verbalized by the Patient): Straight or Heterosexual Spiritual care concerns: No Meds Home Medications and Allergies Home Medications Medication Instructions Recorded Confirmed Type duloxetine 60 mg capsule,delayed 60 mg PO BID 04/23/21 08/29/22 History release sprinkle gabapentin 300 mg tablet 300 mg PO TID 04/23/21 08/29/22 History mirtazapine 30 mg tablet 45 mg PO HS 04/23/21 08/29/22 History olanzapine 5 mg tablet 5 mg PO DAILY 04/23/2108/10
[2022-09-01] MEDS: DEXTROSE 5%/0.9% SOD CHL 1,000 ML 70 ML IV CONT (18:40)
[2022-09-02] VITALS (19 sets, daily range): BP systolic 110–178; BP diastolic 63–102; PULSE 58–150; RESP 16–44; TEMP 36.4–36.9; O2SAT 94–96
--- NOTE | 2022-09-02 03:37 | PC.NURSE ---
Dr. Cobb was up on the floor and I asked if he could take a look at the patient due to his elevated HR in 130s and a sepsis alert that appeared. Provider looked at the pt and reviewed his rhythm on the compliance monitor. He said findings are expected and no further intervention is needed. Will continue to monitor vitals.
--- NOTE | 2022-09-02 08:25 | PM.IMPN ---
Progress Note: A&P Assessment and Plan (1) Acute alteration in mental status: Code(s): R41.82 - Altered mental status, unspecified Status: Acute Assessment and Plan: Appreciate neuro consult, possible psych etiology to symptoms, catatonia? MRI, EEG Check TSH, B12, folate, vitamin D (2) Loculated pleural effusion: Code(s): J90 - Pleural effusion, not elsewhere classified Status: Acute Assessment and Plan: Continue Augmentin, records pending from [place] (3) Atrial fibrillation: Code(s): I48.91 - Unspecified atrial fibrillation Status: Acute Assessment and Plan: Rate controlled AFib, continue Eliquis, monitor (4) Prolonged QT interval: Code(s): R94.31 - Abnormal electrocardiogram [ECG] [EKG] Status: Acute Assessment and Plan: Monitor telemetry, repeat EKG pending (5) Acute UTI: Code(s): N39.0 - Urinary tract infection, site not specified Status: Acute Assessment and Plan: Currently on Augmentin, do not suspect current UTI Plan DVT prophylaxis with Eliquis GI prophylaxis not indicated Code status DNR Subjective Date/time seen: 09/02/22 08:25 Interval history: 82yo male with dementia and HTN here after being found unresponsive. No overnight events noted. No chest pain or shortness of breath. No nausea, vomiting or diarrhea. No fevers or chills. Patient is still somewhat confused. Review of Systems Review of Systems: 12 point review of systems was assessed and was negative except as noted in the HPI Exam Narrative: General: No acute distress, slowed cognition noted HEENT: Atraumatic, normocephalic, mucous membranes moist CV: Regular rate and rhythm, S1, S2 Lungs: Clear to auscultation bilaterally, no rales or crackles noted, no wheezes, good air entry Abdomen: Soft, nontender, nondistended Extremities: Normal to inspection Skin: No rashes noted, no lesions or wounds seen Objective Data Vital Signs Vital Signs: Vital Signs - 24 hr 09/01/22 08:45 09/01/22 09:08 09/01/22 13:32 Temperature 97.6 F 98.3 F Pulse Rate 131 H 119 H 73 Respiratory Rate 24 H 20 Blood Pressure 115/86 128/86 148/68 H Pulse Oximetry 94 93 96 Oxygen Delivery 09/01/22 14:26 09/01/22 16:00 09/01/22 12:00 Temperature 97.3 F L Pulse Rate 136 H 80 Respiratory Rate 20 Blood Pressure 115/86 142/87 H Pulse Oximetry 96 Oxygen Delivery 09/01/22 16:00 09/01/22 19:48 09/01/22 21:00 Temperature 97.7 F Pulse Rate 69 71 Respiratory Rate 16 Blood Pressure 150/84 H Pulse Oximetry 95 Oxygen Delivery Room Air 09/01/22 23:24 09/01/22 20:00 09/02/22 00:00 Temperature 97.8 F Pulse Rate 98 71 95 Respiratory Rate 20 Blood Pressure 155/64 H Pulse Oximetry 97 Oxygen Delivery 09/02/22 02:05 09/02/22 03:49 09/02/22 04:00 Temperature 98.4 F 97.8 F Pulse Rate 130 H 150 H 125 H Respiratory Rate 24 H 16 Blood Pressure 144/88 H 140/96 H Pulse Oximetry 94 96 Oxygen Delivery Room Air Intake/Output Intake/Output: Intake & Output 08/30/22 08/31/22 09/01/22 09/02/22 23:59 23:59 23:59 23:59 Intake Total 2510 780 420 0 Output Total 1900 1500 1750 150 Balance 610 -720 -1330 -150 Meds/Results Medications: Active Medications Generic Name Dose Route Start Last Admin Trade Name Juanq PRN Reason Stop Dose Admin Acetaminophen 325 mg 08/29/22 18:02 08/30/22 04:43 Acetaminophen 325 Mg Tablet PO 325 mg Q6H PRN Administration Pain (Scale Score 1-3) Amiodarone HCl 200 mg 08/30/22 09:00 08/31/22 09:02 Amiodarone Hcl 200 Mg Tablet PO 200 mg DAILY ZANDER Administration Amoxicillin/Clavulanate Potassium 1 tablet 08/29/22 18:00 09/02/22 06:13 Amoxicillin/Clavulanate K 875-125 Mg Tab PO 09/06/22 18:01 Not Given Q12H ZANDER Apixaban 5 mg 08/29/22 18:05 09/01/22 17:59 Apixaban 5 Mg Tablet PO Not Given BID ZANDER Duloxetine HCl 60
--- NOTE | 2022-09-02 08:28 | PCPTNOTE ---
Attempted to see patient for PT, however patient's blood pressure manually 178/102 and heart rate increasing to 130s supine in bed. Patient not appropriate for therapy at this time.
[2022-09-02] MEDS: AMIODARONE HCL 200 MG TABLET PO (09:41)
[2022-09-02] MEDS: APIXABAN 5 MG TABLET PO ×2 (09:41→17:08)
[2022-09-02] MEDS: GABAPENTIN 300 MG CAPSULE PO ×3 (09:41→17:08)
[2022-09-02] MEDS: DULoxetine HCL 60 MG CAPSULE.DR PO ×2 (09:41→17:07)
[2022-09-02] MEDS: LOSARTAN POTASSIUM 25 MG TABLET PO (09:41)
[2022-09-02] MEDS: OLANZapine 5 MG TABLET PO (09:42)
[2022-09-02] MEDS: METOPROLOL TARTRATE 25 MG TABLET PO ×2 (09:42→17:07)
[2022-09-02] MEDS: MULTIVITAMINS /C LUTEIN (CENTRUM SILVER) TABLET *BKC 1 TAB PO (09:42)
[2022-09-02] MEDS: SENNOSIDES 8.6 MG TABLET PO ×2 (09:42→17:08)
--- NOTE | 2022-09-02 10:26 | WPDNEUROPN ---
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 and his speech was not dysphasic and not dysarthric follow the instructions fairly well will cancel the EEG start him on Keppra 500 mg q.12 hours and fall Objective Data Vital Signs Vital Signs: Vital Signs - 24 hr 09/01/22 13:32 09/01/22 14:26 09/01/22 16:00 Temperature 36.8 C 36.3 C L Pulse Rate 73 136 H Respiratory Rate 20 20 Blood Pressure 148/68 H 115/86 142/87 H Pulse Oximetry 96 96 Oxygen Delivery 09/01/22 12:00 09/01/22 16:00 09/01/22 19:48 Temperature 36.5 C Pulse Rate 80 69 71 Respiratory Rate 16 Blood Pressure 150/84 H Pulse Oximetry 95 Oxygen Delivery 09/01/22 21:00 09/01/22 23:24 09/01/22 20:00 Temperature 36.6 C Pulse Rate 98 71 Respiratory Rate 20 Blood Pressure 155/64 H Pulse Oximetry 97 Oxygen Delivery Room Air 09/02/22 00:00 09/02/22 02:05 09/02/22 03:49 Temperature 36.9 C 36.6 C Pulse Rate 95 130 H 150 H Respiratory Rate 24 H 16 Blood Pressure 144/88 H 140/96 H Pulse Oximetry 94 96 Oxygen Delivery Room Air 09/02/22 04:00 09/02/22 08:30 09/02/22 09:41 Temperature 36.7 C Pulse Rate 125 H 126 H 135 H Respiratory Rate 20 Blood Pressure 178/102 H Pulse Oximetry 95 Oxygen Delivery 09/02/22 09:42 09/02/22 09:30 Temperature Pulse Rate 135 H Respiratory Rate 44 H Blood Pressure Pulse Oximetry Oxygen Delivery Room Air Intake/Output Intake/Output: Intake & Output 08/30/22 08/31/22 09/01/22 09/02/22 23:59 23:59 23:59 23:59 Intake Total 2510 780 420 0 Output Total 1900 1500 1750 150 Balance 610 -687 -2640 -150 Meds/Results Medications: Active Medications Generic Name Dose Route Start Last Admin Trade Name Freq PRN Reason Stop Dose Admin Acetaminophen 325 mg 08/29/22 18:02 08/30/22 04:43 Acetaminophen 325 Mg Tablet PO 325 mg Q6H PRN Administration Pain (Scale Score 1-3) Amiodarone HCl 200 mg 08/30/22 09:00 09/02/22 09:41 Amiodarone Hcl 200 Mg Tablet PO 200 mg DAILY ZANDER Administration Amoxicillin/Clavulanate Potassium 1 tablet 08/29/22 18:00 09/02/22 06:13 Amoxicillin/Clavulanate K 875-125 Mg Tab PO 09/06/22 18:01 Not Given Q12H ZANDER Apixaban 5 mg 08/29/22 18:05 09/02/22 09:41 Apixaban 5 Mg Tablet PO 5 mg BID ZANDER Administration Duloxetine HCl 60 mg 08/30/22 09:00 09/02/22 09:41 Duloxetine Hcl 60 Mg Capsule.Dr PO 60 mg BID ZANDER Administration Gabapentin 300 mg 08/30/22 09:00 09/02/22 09:41 Gabapentin 300 Mg Capsule PO 09/29/22 08:59 300 mg TID ZANDER Administration Dextrose/Sodium Chloride 1,000 mls @ 70 mls/hr 09/01/22 17:30 09/01/22 18:40 Dextrose 5% Sodium Chloride 0.9% IV CONT 70 mls/hr .[id number] ZANDER Administration Losartan Potassium 25 mg 08/30/22 09:00 09/02/22 09:41 Losartan Potassium 25 Mg Tablet PO 25 mg DAILY ZANDER Administration Metoprolol Tartrate 25 mg 08/29/22 18:05 09/02/22 09:42 Metoprolol Tartrate 25 Mg Tablet PO 25 mg BID ZANDER Administration Multivitamins/Minerals 1 tab 08/30/22 09:00 09/02/22 09:42 Multivitamins /C Lutein (Centrum Silver) Tablet *Bkc PO 09/29/22 08:59 1 tab DAILY ZANDER Administration Olanzapine 5 mg 09/02/22 09:00 09/02/22 09:42 Olanzapine 5 Mg Tablet PO 5 mg DAILY ZANDER Administration Polyethylene Glycol 17 gm 08/29/22 18:02 08/29/22 20:50 Polyethylene Glycol 3350 17 Gm Powd.Pack PO 17 gm DAILY PRN Administration Constipation Senna 8.6 mg 08/30/22 09:00 09/02/22 09:42 Sennosides 8.6 Mg Tablet PO 09/29/22 08:59 8.6 mg BID ZANDER Administration Radiology Results: ITS Impressions Chest X-Ray 08/28/22 22:18 IMPRESSION: 1. Small loculated left pleural effusion with interval improvement. 2. Diffuse lung disease with improvement on the left, li
[2022-09-02] MEDS: DEXTROSE 5%/0.9% SOD CHL 1,000 ML 70 ML IV CONT (11:53)
--- NOTE | 2022-09-02 12:13 | ECG_ITS ---
Measurements Intervals [place] Rate: 76 P: 27 [place]: 129 QRS: -17 QRSD: 101 T: 43 QT: 485 QTc: 548 Interpretive Statements SINUS RHYTHM FREQUENT ATRIAL PREMATURE COMPLEXES INCOMPLETE RIGHT BUNDLE BRANCH BLOCK LEFT VENTRICULAR HYPERTROPHY PROLONGED QT INTERVAL ABNORMAL ECG COMPARED TO ECG 09/01/2022 08:59:02 SINUS RHYTHM NOW PRESENT PROLONGED QT INTERVAL NOW PRESENT Electronically Signed On 09-02-2022 14:59:40 BUSINESS CONTINUITY SPECIALIST by Sarkis Wheeler D.O.
[2022-09-02 12:32] LABS: Basophils Percent Auto 0.3 % (0.2-1.2); Eosinophils Percent Auto 0.1 % (0-4.4); Hematocrit 32.4 % (42.0-52.0); Hemoglobin 10.5 g/dL (14.0-18.0); Immature Granulocyte Percent A 1.6 % (0-0.5); Lymphocytes Absolute Auto 1.02 K/mm3 (0.9-3.2); Lymphocytes Percent Auto 8.3 % (18.3-44.2); Mean Corpuscular HGB Conc 32.4 g/dl (32-36); Mean Corpuscular Hemoglobin 30.6 pg (26-34); Mean Corpuscular Volume 94.5 fl (80-100); Mean Platelet Volume 9.9 fl (7.4-10.4); Monocytes Absolute Auto 1.1 K/mm3 (0.1-0.6); Monocytes Percent Auto 9.3 % (2.6-8.5); Neutrophils Absolute Auto 9.9 K/mm3 (1.3-6.7); Neutrophils Percent Auto 80.4 % (45.5-73.1); Nucleated Red Blood Cells Perc 0.2 % (0.0-0.2); Platelet Count Result 391 k/mm3 (150-375); Red Blood Count 3.43 M/mm3 (4.6-6.20); Red Cell Distribution Width 16.9 % (11.5-14.5); White Blood Count 12.3 K/mm3 (4.5-10.0)
[2022-09-02 12:42] LABS: Alanine Aminotransferase 46 U/L (6-50); Albumin Level 3.2 g/dL (3.5-5.1); Alkaline Phosphatase 91 U/L (38-126); Anion Gap 3 mmol/L (8-16); Aspartate Amino Transferase 44 U/L (17-59); Bilirubin,Total 0.7 mg/dL (0.2-1.3); Blood Urea Nitrogen 8 mg/dL (9-20); Calcium 8.3 mg/dL (8.4-10.2); Carbon Dioxide 26 mmol/L (22-30); Chloride 101 mmol/L (98-107); Estimated CRCL calculation 80 ml/min; Estimated Glomerular Filt Rate > 60; Glucose 136 mg/dL (65-110); Potassium 3.9 mmol/L (3.4-5.0); Sodium 130 mmol/L (137-145)
[2022-09-02] MEDS: AMOXICILLIN/CLAVULANATE K 875-125 MG TAB 1 TABLET PO (17:08)
--- NOTE | 2022-09-02 22:20 | PC.NURSE ---
PT TALKING AND MOVING ALL EXTREMITIES AT THIS TIME. FOLLOWS COMMANDS.
[2022-09-03] VITALS (13 sets, daily range): BP systolic 137–151; BP diastolic 65–87; PULSE 62–114; RESP 16–22; TEMP 35.9–37.1; O2SAT 93–98
[2022-09-03] MEDS: DEXTROSE 5%/0.9% SOD CHL 1,000 ML 70 ML IV CONT ×2 (02:30→17:38)
[2022-09-03 05:28] LABS: Basophils Absolute Auto 0.1 K/mm3 (0.0-0.1); Basophils Percent Auto 0.7 % (0.2-1.2); Eosinophils Percent Auto 0.3 % (0-4.4); Hemoglobin 9.6 g/dL (14.0-18.0); Mean Corpuscular Hemoglobin 30.8 pg (26-34); Mean Corpuscular Volume 96.2 fl (80-100); Mean Platelet Volume 9.9 fl (7.4-10.4); Monocytes Absolute Auto 1.1 K/mm3 (0.1-0.6); Monocytes Percent Auto 10.5 % (2.6-8.5); Neutrophils Absolute Auto 7.3 K/mm3 (1.3-6.7); Neutrophils Percent Auto 72.5 % (45.5-73.1); Platelet Count Result 342 k/mm3 (150-375); Red Blood Count 3.12 M/mm3 (4.6-6.20); Red Cell Distribution Width 16.9 % (11.5-14.5)
[2022-09-03] MEDS: AMOXICILLIN/CLAVULANATE K 875-125 MG TAB 1 TABLET PO ×2 (05:44→17:40)
[2022-09-03 05:48] LABS: Alanine Aminotransferase 42 U/L (6-50); Albumin Level 3.2 g/dL (3.5-5.1); Alkaline Phosphatase 86 U/L (38-126); Anion Gap 2 mmol/L (8-16); Aspartate Amino Transferase 35 U/L (17-59); Bilirubin,Total 0.5 mg/dL (0.2-1.3); Blood Urea Nitrogen 7 mg/dL (9-20); Calcium 8.3 mg/dL (8.4-10.2); Carbon Dioxide 27 mmol/L (22-30); Chloride 103 mmol/L (98-107); Estimated CRCL calculation 71 ml/min; Estimated Glomerular Filt Rate > 60; Glucose 109 mg/dL (65-110); Potassium 3.2 mmol/L (3.4-5.0); Sodium 132 mmol/L (137-145)
[2022-09-03 06:25] LABS: Vitamin D 25 Hydroxy 26.6 ng/mL
--- NOTE | 2022-09-03 07:47 | PM.IMPN ---
Progress Note: A&P Assessment and Plan (1) Acute alteration in mental status: Code(s): R41.82 - Altered mental status, unspecified Status: Acute Assessment and Plan: Appreciate neuro consult, possible psych etiology to symptoms, catatonia? MRI WNL EEG pending TSH WNL, B12 and folate pending Could be 2/2 fungal UTI? (2) Loculated pleural effusion: Code(s): J90 - Pleural effusion, not elsewhere classified Status: Acute Assessment and Plan: Continue Augmentin, records pending from [place] (3) Atrial fibrillation: Code(s): I48.91 - Unspecified atrial fibrillation Status: Acute Assessment and Plan: Rate controlled AFib, continue Eliquis, monitor (4) Prolonged QT interval: Code(s): R94.31 - Abnormal electrocardiogram [ECG] [EKG] Status: Acute Assessment and Plan: Monitor telemetry, still with prolonged QT on repeat ECG Cardio consult pending (5) Acute UTI: Code(s): N39.0 - Urinary tract infection, site not specified Status: Acute Assessment and Plan: Currently on Augmentin, do not suspect current UTI Urine culture came back positive for CFU >100K for sandra, start fluconazole 200 mg daily x 2 weeks (6) Hypokalemia: Code(s): E87.6 - Hypokalemia Status: Acute Assessment and Plan: 3.2 this morning, replete with 40 mEq po and recheck (7) Hyponatremia: Code(s): E87.1 - Hypo-osmolality and hyponatremia Status: Acute Assessment and Plan: improved to 132 from 130 yesterday (8) Vitamin D deficiency: Code(s): E55.9 - Vitamin D deficiency, unspecified Status: Acute Assessment and Plan: replete with vitamin D3 1000 IU daily and recheck in 6-12 weeks outpatient Plan DVT prophylaxis with Eliquis GI prophylaxis not indicated Code status DNR Subjective Date/time seen: 09/03/22 07:47 Interval history: 82yo male with dementia and HTN here after being found unresponsive. No overnight events noted. No chest pain or shortness of breath. No nausea, vomiting or diarrhea. No fevers or chills. Patient is still slowed a bit and states he still feels weak and tired. Review of Systems Review of Systems: 12 point review of systems was assessed and was negative except as noted in the HPI Exam Narrative: General: No acute distress, frail, chronically ill appearance, somewhat confused HEENT: Atraumatic, normocephalic, mucous membranes moist CV: Regular rate and rhythm, S1, S2, no murmur Lungs: Clear to auscultation bilaterally, no rales or crackles noted, no wheezes, good air entry Abdomen: Soft, nontender, nondistended Extremities: Normal to inspection Skin: No rashes noted, no lesions or wounds seen Objective Data Vital Signs Vital Signs: Vital Signs - 24 hr 09/02/22 08:30 09/02/22 09:41 09/02/22 09:42 Temperature 98.1 F Pulse Rate 126 H 135 H 135 H Respiratory Rate 20 Blood Pressure 178/102 H Pulse Oximetry 95 Oxygen Delivery 09/02/22 09:30 09/02/22 10:55 09/02/22 11:57 Temperature 97.5 F L Pulse Rate 113 H Respiratory Rate 44 H 38 H 32 H Blood Pressure 122/80 Pulse Oximetry 96 Oxygen Delivery Room Air 09/02/22 08:31 09/02/22 08:25 09/02/22 08:37 Temperature Pulse Rate 134 H 120 H 145 H Respiratory Rate Blood Pressure Pulse Oximetry Oxygen Delivery 09/02/22 12:04 09/02/22 16:00 09/02/22 16:00 Temperature 98.0 F Pulse Rate 118 H 73 74 Respiratory Rate 28 H Blood Pressure 137/63 Pulse Oximetry 95 Oxygen Delivery 09/02/22 17:07 09/02/22 19:49 09/02/22 23:46 Temperature 97.5 F L 97.7 F Pulse Rate 80 74 58 L Respiratory Rate 20 17 Blood Pressure 140/68 110/69 Pulse Oximetry 95 94 Oxygen Delivery 09/02/22 20:00 09/03/22 00:00 09/03/22 03:46 Temperature 98.1 F Pulse Rate 74 104 H 84 Respiratory Rate 18 Blood Pressure 150/68 H Pulse Oximetry 94 Oxygen
[2022-09-03] MEDS: LOSARTAN POTASSIUM 25 MG TABLET PO (08:22)
[2022-09-03] MEDS: AMIODARONE HCL 200 MG TABLET PO (08:22)
[2022-09-03] MEDS: SENNOSIDES 8.6 MG TABLET PO ×2 (08:22→17:40)
[2022-09-03] MEDS: METOPROLOL TARTRATE 25 MG TABLET PO ×2 (08:22→17:40)
[2022-09-03] MEDS: MULTIVITAMINS /C LUTEIN (CENTRUM SILVER) TABLET *BKC 1 TAB PO (08:22)
[2022-09-03] MEDS: GABAPENTIN 300 MG CAPSULE PO ×3 (08:22→17:40)
[2022-09-03] MEDS: APIXABAN 5 MG TABLET PO ×2 (08:22→17:39)
[2022-09-03] MEDS: DULoxetine HCL 60 MG CAPSULE.DR PO ×2 (08:22→17:39)
[2022-09-03] MEDS: FLUCONAZOLE 100 MG TABLET 200 MG PO (08:33)
[2022-09-03] MEDS: POTASSIUM CHLORIDE 20 MEQ TABLET 40 MEQ PO (08:33)
[2022-09-03] MEDS: CHOLECALCIFEROL 1,000 UNITS TABLET 1000 UNITS PO (08:33)
[2022-09-03] MEDS: CALCIUM CARBONATE (TUMS) 500 MG (200 MG ELEMENTAL) PO (09:10)
--- NOTE | 2022-09-03 09:45 | PCSTNOTE ---
Attempted to perform bedside swallow eval; pt refused. Will try again.
--- NOTE | 2022-09-03 10:35 | PM.CNCAR ---
Assessment and Plan Assessment and plan (1) Atrial fibrillation: Code(s): I48.91 - Unspecified atrial fibrillation Status: Acute (2) Acute alteration in mental status: Code(s): R41.82 - Altered mental status, unspecified Status: Acute (3) Atrial flutter: Code(s): I48.92 - Unspecified atrial flutter Status: Chronic (4) History of TIA (transient ischemic attack): Code(s): Z86.73 - Personal history of transient ischemic attack (TIA), and cerebral infarction without residual deficits Status: Acute Plan EKG obtained 09/02 showed QTc of 548, however, upon manual calculation of his QT, it is appropriate at around 458msec. At this time, there is no concern for significant QT prolongation. Would continue with Amiodarone 200mg QD for now to maintain his atrial fibrillation. If patient does develop significant QT prolongation, then would need to stop his Amiodarone. He is on antibiotics, which would also predispose him to QT prolongation. Recommend to keep his electrolytes optimized. Will obtain another EKG tomorrow morning to follow up on his QT. History of Present Illness History of Present Illness Consult date/time: 09/03/22 10:35 Requesting physician: Estela Pappas, Consult reason: Other (QT prolongation) Reason For Visit: UTI,Altered Mental Status Narrative: We are consulted for QT prolongation. This is an 82-year-old male with a history of paroxysmal atrial fibrillation, history of atrial flutter s/p ablation in the past, advanced dementia, hypertension, depression, history of non-small cell lung cancer s/p radiation therapy in the past, history of TIA. Patient was admitted here back in July for loculated pleural effusion and ended up being transferred to [facility] for VATs evaluation. We had seen him at that time for atrial fibrillation with RVR and started him on Amiodarone which controlled his AFIB and converted him back to sinus. Over at [place], he underwent thoractomy with decortication pleural biopsy and bronchoscopy. They did obtain cardiology consult over there, who did continue his Amiodarone. Echocardiogram over there showed normal LV systolic function, no pericardial effusion, mdoerate aortic valve stenosis, mild mtiral regurgitation, and mild tricuspid regurgitation. His RVSF was normal. He was discharged from [place] on 08/24. Of note, his biopsy results showed no evidence of malignancy. Did show inflammation. Patient was admitted here on 08/29 after an unresponsive episode at his care home. He is currently being worked up for altered mental status. EKG obtained yesterday showed prolonged QTc, for which we are consulted. Patient gives very limited history. He says he feels bad overall. Denies any chest pain, palpitations, shortness of breath. Telemetry showed he had some atrial fibrillation earlier in the hospital, but now in sinus rhythm with PACs. Review of Systems Review of Systems: 12-point ROS obtained. Negative, unless stated in HPI. [facility] Past Medical History Medical History Anxiety and depression With history of ECT in the distant past Ascending aortic aneurysm Atrial flutter Resolved with cardioversion and ablation Dementia Unable to tolerate Aricept Empyema GERD (gastroesophageal reflux disease) Hypertension Paroxysmal atrial fibrillation On chronic anticoagulation with Eliquis Pulmonary hypertension TIA (transient ischemic attack) (2018) Surgical History Surgical History H/O cardiac radiofrequency ablation H/O local excision of skin lesion Family History Family History Father Kidney disease Mother Dementia Sibling Pericarditis Social History Social History Social History: The patient lives with his w
--- NOTE | 2022-09-03 12:31 | WPDNEUROPN ---
Subjective Date/time seen: 09/03/22 12:31 Interval history: 82 years old being followed for encephalopathy since yesterday has made significant improvement awake alert follow the instruction moves upper and lower extremities and there is no obvious cranial nerves deficits treatment will be continued as such Objective Data Vital Signs Vital Signs: Vital Signs - 24 hr 09/02/22 16:00 09/02/22 16:00 09/02/22 17:07 Temperature 36.7 C Pulse Rate 73 74 80 Respiratory Rate 28 H Blood Pressure 137/63 Pulse Oximetry 95 Oxygen Delivery 09/02/22 19:49 09/02/22 23:46 09/02/22 20:00 Temperature 36.4 C L 36.5 C Pulse Rate 74 58 L 74 Respiratory Rate 20 17 Blood Pressure 140/68 110/69 Pulse Oximetry 95 94 Oxygen Delivery 09/03/22 00:00 09/03/22 03:46 09/03/22 04:00 Temperature 36.7 C Pulse Rate 104 H 84 114 H Respiratory Rate 18 Blood Pressure 150/68 H Pulse Oximetry 94 Oxygen Delivery 09/03/22 08:00 09/03/22 08:00 09/03/22 08:00 Temperature 36.5 C Pulse Rate 114 H 79 79 Respiratory Rate 16 16 Blood Pressure 149/82 H Pulse Oximetry 96 96 Oxygen Delivery Room Air 09/03/22 09:17 09/03/22 12:00 09/03/22 12:00 Temperature 36.2 C L 36.3 C L Pulse Rate 68 65 76 Respiratory Rate 18 22 H Blood Pressure 139/65 147/86 H Pulse Oximetry 98 97 Oxygen Delivery Intake/Output Intake/Output: Intake & Output 08/31/22 09/01/22 09/02/22 09/03/22 23:59 23:59 23:59 23:59 Intake Total 957 278 1800 1000 Output Total 1500 1412 498 6414 Balance -720 -9000 440 -150 Meds/Results Medications: Active Medications Generic Name Dose Route Start Last Admin Trade Name Freq PRN Reason Stop Dose Admin Acetaminophen 325 mg 08/29/22 18:02 08/30/22 04:43 Acetaminophen 325 Mg Tablet PO 325 mg Q6H PRN Administration Pain (Scale Score 1-3) Amiodarone HCl 200 mg 08/30/22 09:00 09/03/22 08:22 Amiodarone Hcl 200 Mg Tablet PO 200 mg DAILY ZANDER Administration Amoxicillin/Clavulanate Potassium 1 tablet 08/29/22 18:00 09/03/22 05:44 Amoxicillin/Clavulanate K 875-125 Mg Tab PO 09/06/22 18:01 1 tablet Q12H ZANDER Administration Apixaban 5 mg 08/29/22 18:05 09/03/22 08:22 Apixaban 5 Mg Tablet PO 5 mg BID ZANDER Administration Calcium Carbonate 200 mg 09/02/22 16:51 09/03/22 09:10 Calcium Carbonate (Tums) 500 Mg (200 Mg Elemental) PO 200 mg Q6H PRN Administration Indigestion Duloxetine HCl 60 mg 08/30/22 09:00 09/03/22 08:22 Duloxetine Hcl 60 Mg Capsule.Dr PO 60 mg BID ZANDER Administration Fluconazole 200 mg 09/03/22 09:00 09/03/22 08:33 Fluconazole 100 Mg Tablet PO 09/17/22 09:00 200 mg QAM ZANDER Administration Gabapentin 300 mg 08/30/22 09:00 09/03/22 08:22 Gabapentin 300 Mg Capsule PO 09/29/22 08:59 300 mg TID ZANDER Administration Dextrose/Sodium Chloride 1,000 mls @ 70 mls/hr 09/01/22 17:30 09/03/22 02:30 Dextrose 5% Sodium Chloride 0.9% IV CONT 70 mls/hr .[id number] ZANDER Administration Losartan Potassium 25 mg 08/30/22 09:00 09/03/22 08:22 Losartan Potassium 25 Mg Tablet PO 25 mg DAILY ZANDER Administration Metoprolol Tartrate 25 mg 08/29/22 18:05 09/03/22 08:22 Metoprolol Tartrate 25 Mg Tablet PO 25 mg BID ZANDER Administration Multivitamins/Minerals 1 tab 08/30/22 09:00 09/03/22 08:22 Multivitamins /C Lutein (Centrum Silver) Tablet *Bkc PO 09/29/22 08:59 1 tab DAILY ZANDER Administration Olanzapine 5 mg 09/02/22 09:00 09/02/22 09:42 Olanzapine 5 Mg Tablet PO 5 mg DAILY ZANDER Administration Polyethylene Glycol 17 gm 08/29/22 18:02 08/29/22 20:50 Polyethylene Glycol 3350 17 Gm Powd.Pack PO 17 gm DAILY PRN Administration Constipation Senna 8.6 mg 08/30/22 09:00 09/03/22 08:22 Sennosides 8.6 Mg Tablet PO 09/29/22 08:59 8.6 mg BID ZANDER Administration Vitamin D 1,000 units 09/03/22 09:00 09/03/22 08:33 Cholecalciferol 1,000
--- NOTE | 2022-09-03 13:31 | PC.NURSE ---
On 09/03/22, the student, [Marya Gould], provided care and completed [facility] documentation on this patient. I have reviewed the student's documentation and agree with the findings.
--- NOTE | 2022-09-03 13:41 | PCSTNOTE ---
Please refer to the Bedside Swallow Evaluation in the EMR. Please note, silent aspiration cannot be ruled out at bedside.
[2022-09-03 14:56] LABS: Folic Acid 17.6 ng/mL (2.76->20)
[2022-09-04] VITALS (14 sets, daily range): BP systolic 124–139; BP diastolic 45–96; PULSE 58–114; RESP 16–18; TEMP 36.4–36.7; O2SAT 95–97
[2022-09-04] MEDS: AMOXICILLIN/CLAVULANATE K 875-125 MG TAB 1 TABLET PO ×2 (05:43→17:08)
[2022-09-04] MEDS: DEXTROSE 5%/0.9% SOD CHL 1,000 ML 70 ML IV CONT ×2 (05:43→20:24)
[2022-09-04 06:08] LABS: Basophils Absolute Auto 0.1 K/mm3 (0.0-0.1); Basophils Percent Auto 0.6 % (0.2-1.2); Eosinophils Percent Auto 0.3 % (0-4.4); Hematocrit 30.2 % (42.0-52.0); Hemoglobin 9.6 g/dL (14.0-18.0); Immature Granulocyte Absolute 0.14 K/mm3 (0.00-0.031); Immature Granulocyte Percent A 1.4 % (0-0.5); Lymphocytes Absolute Auto 1.43 K/mm3 (0.9-3.2); Lymphocytes Percent Auto 14.3 % (18.3-44.2); Mean Corpuscular HGB Conc 31.8 g/dl (32-36); Mean Corpuscular Hemoglobin 30.6 pg (26-34); Mean Corpuscular Volume 96.2 fl (80-100); Mean Platelet Volume 10.4 fl (7.4-10.4); Monocytes Absolute Auto 1.1 K/mm3 (0.1-0.6); Monocytes Percent Auto 10.9 % (2.6-8.5); Neutrophils Absolute Auto 7.2 K/mm3 (1.3-6.7); Neutrophils Percent Auto 72.5 % (45.5-73.1); Nucleated Red Blood Cells Perc 0.2 % (0.0-0.2); Platelet Count Result 307 k/mm3 (150-375); Red Blood Count 3.14 M/mm3 (4.6-6.20); Red Cell Distribution Width 17.1 % (11.5-14.5)
[2022-09-04 06:40] LABS: Alanine Aminotransferase 36 U/L (6-50); Albumin Level 2.8 g/dL (3.5-5.1); Alkaline Phosphatase 83 U/L (38-126); Anion Gap 4 mmol/L (8-16); Aspartate Amino Transferase 28 U/L (17-59); Bilirubin,Total 0.5 mg/dL (0.2-1.3); Blood Urea Nitrogen 5 mg/dL (9-20); Calcium 8.1 mg/dL (8.4-10.2); Carbon Dioxide 24 mmol/L (22-30); Chloride 108 mmol/L (98-107); Estimated CRCL calculation 80 ml/min; Estimated Glomerular Filt Rate > 60; Glucose 106 mg/dL (65-110); Potassium 3.6 mmol/L (3.4-5.0); Sodium 136 mmol/L (137-145)
--- NOTE | 2022-09-04 07:00 | ECG_ITS ---
Measurements Intervals [place] Rate: 69 P: 13 [place]: 178 QRS: -20 QRSD: 104 T: 92 QT: 465 QTc: 501 Interpretive Statements SINUS RHYTHM ATRIAL COUPLET AND ATRIAL PREMATURE COMPLEX INCOMPLETE RIGHT BUNDLE BRANCH BLOCK NONSPECIFIC ST & T-WAVE ABNORMALITY- HIGH LATERAL LEADS PROLONGED QT INTERVAL BASELINE ARTIFACT- I, II, III, AVF ABNORMAL ECG COMPARED TO ECG 09/02/2022 14:38:33 ST-WAVE ABNORMALITY NOW PRESENT Electronically Signed On 09-04-2022 11:01:21 [employer] SPRINKL[employer] INSTALLER by Sarkis Wheeler D.O.
[2022-09-04] MEDS: GABAPENTIN 300 MG CAPSULE PO ×3 (08:24→16:14)
[2022-09-04] MEDS: DULoxetine HCL 60 MG CAPSULE.DR PO ×2 (08:24→16:14)
[2022-09-04] MEDS: METOPROLOL TARTRATE 25 MG TABLET PO ×2 (08:24→16:14)
[2022-09-04] MEDS: FLUCONAZOLE 100 MG TABLET 200 MG PO (08:24)
[2022-09-04] MEDS: LOSARTAN POTASSIUM 25 MG TABLET PO (08:24)
[2022-09-04] MEDS: APIXABAN 5 MG TABLET PO ×2 (08:25→16:13)
[2022-09-04] MEDS: SENNOSIDES 8.6 MG TABLET PO ×2 (08:25→16:14)
[2022-09-04] MEDS: AMIODARONE HCL 200 MG TABLET PO (08:25)
[2022-09-04] MEDS: CHOLECALCIFEROL 1,000 UNITS TABLET 1000 UNITS PO (08:25)
[2022-09-04] MEDS: MULTIVITAMINS /C LUTEIN (CENTRUM SILVER) TABLET *BKC 1 TAB PO (08:25)
--- NOTE | 2022-09-04 10:53 | PM.IMPN ---
Progress Note: A&P Assessment and Plan (1) Acute alteration in mental status: Code(s): R41.82 - Altered mental status, unspecified Status: Acute Assessment and Plan: Appreciate neuro consult, possible psych etiology to symptoms, catatonia? MRI WNL EEG pending TSH WNL, B12 and folate pending Could be 2/2 fungal UTI? (2) Loculated pleural effusion: Code(s): J90 - Pleural effusion, not elsewhere classified Status: Acute Assessment and Plan: Continue Augmentin, records pending from [place] Repeat CXR prior to d/c, f/u with pulm/CT surgery for empyema monitoring (3) Atrial fibrillation: Code(s): I48.91 - Unspecified atrial fibrillation Status: Acute Assessment and Plan: Rate controlled AFib, continue Eliquis, monitor (4) Prolonged QT interval: Code(s): R94.31 - Abnormal electrocardiogram [ECG] [EKG] Status: Acute Assessment and Plan: Appreciate cardio consult, no further workup needed (5) Acute UTI: Code(s): N39.0 - Urinary tract infection, site not specified Status: Acute Assessment and Plan: Urine culture came back positive for CFU >100K for sandra, start fluconazole 200 mg daily x 2 weeks Indwelling carranza from urinary retention during admission at [place], will leave carranza in and f/u urology outpatient (6) Hypokalemia: Code(s): E87.6 - Hypokalemia Status: Acute Assessment and Plan: 3.2 this morning, replete with 40 mEq po and recheck (7) Hyponatremia: Code(s): E87.1 - Hypo-osmolality and hyponatremia Status: Acute Assessment and Plan: Improved to 132 from 130 yesterday (8) Vitamin D deficiency: Code(s): E55.9 - Vitamin D deficiency, unspecified Status: Acute Assessment and Plan: Replete with vitamin D3 1000 IU daily and recheck in 6-12 weeks outpatient Plan DVT prophylaxis with Eliquis GI prophylaxis not indicated Code status DNR Subjective Date/time seen: 09/04/22 10:53 Interval history: 82yo male with dementia and HTN here after being found unresponsive. No overnight events noted. No chest pain or shortness of breath. No nausea, vomiting or diarrhea. No fevers or chills. Patient is still slowed a bit and states he still feels weak and tired. Review of Systems Review of Systems: 12 point review of systems was assessed and was negative except as noted in the HPI Exam Narrative: General: No acute distress, frail, chronically ill appearance, somewhat confused HEENT: Atraumatic, normocephalic, mucous membranes moist CV: Regular rate and rhythm, S1, S2, no murmur Lungs: Clear to auscultation bilaterally, no rales or crackles noted, no wheezes, good air entry Abdomen: Soft, nontender, nondistended Extremities: Normal to inspection Skin: No rashes noted, no lesions or wounds seen Objective Data Vital Signs Vital Signs: Vital Signs - 24 hr 09/03/22 12:00 09/03/22 12:00 09/03/22 12:51 Temperature 97.4 F L 96.7 F L Pulse Rate 65 76 66 Respiratory Rate 22 H 18 Blood Pressure 147/86 H 137/73 Pulse Oximetry 97 97 Oxygen Delivery 09/03/22 15:57 09/03/22 16:00 09/03/22 17:32 Temperature 97.8 F Pulse Rate 69 80 Respiratory Rate 17 Blood Pressure 151/73 H Pulse Oximetry 93 96 Oxygen Delivery Room Air 09/03/22 19:40 09/03/22 20:00 09/03/22 20:00 Temperature 97.9 F Pulse Rate 62 64 Respiratory Rate 16 Blood Pressure 145/66 H Pulse Oximetry 97 Oxygen Delivery Room Air 09/03/22 23:58 09/04/22 00:00 09/04/22 04:00 Temperature 98.7 F Pulse Rate 64 68 68 Respiratory Rate 16 Blood Pressure 141/87 H Pulse Oximetry 96 Oxygen Delivery 09/04/22 04:55 09/04/22 08:24 09/04/22 08:25 Temperature 97.9 F Pulse Rate 67 110 H 110 H Respiratory Rate 16 Blood Pressure 133/75 Pulse Oximetry 95 Oxygen Delivery 09/04/22 08:20 09/04/22 08:20 Temperature Pulse Rate
--- NOTE | 2022-09-04 13:54 | PCPTNOTE ---
Attempted to see patient for PT, however patient refused due to patient reporting left arm pain at 3/10. RN aware.
--- NOTE | 2022-09-04 15:52 | PM.DS ---
DS: Admitting Diagnosis Discharge Date 09/04/22 Admitting Diagnosis Unresponsive episode DS: Discharge Diagnosis Discharge Diagnosis (1) Acute alteration in mental status: Code(s): R41.82 - Altered mental status, unspecified Status: Acute Assessment and Plan: Appreciate neuro consult, possible psych etiology to symptoms, catatonia? MRI WNL EEG pending TSH WNL, B12 and folate pending Could be 2/2 fungal UTI? (2) Loculated pleural effusion: Code(s): J90 - Pleural effusion, not elsewhere classified Status: Acute Assessment and Plan: Continue Augmentin, records pending from [facility] Repeat CXR prior to d/c, f/u with pulm/CT surgery for empyema monitoring (3) Atrial fibrillation: Code(s): I48.91 - Unspecified atrial fibrillation Status: Acute Assessment and Plan: Rate controlled AFib, continue Eliquis, monitor (4) Prolonged QT interval: Code(s): R94.31 - Abnormal electrocardiogram [ECG] [EKG] Status: Acute Assessment and Plan: Appreciate cardio consult, no further workup needed (5) Acute UTI: Code(s): N39.0 - Urinary tract infection, site not specified Status: Acute Assessment and Plan: Urine culture came back positive for CFU >100K for sandra, start fluconazole 200 mg daily x 2 weeks Indwelling carranza from urinary retention during admission at [facility], will leave carranza in and f/u urology outpatient (6) Hypokalemia: Code(s): E87.6 - Hypokalemia Status: Acute Assessment and Plan: 3.2 this morning, replete with 40 mEq po and recheck (7) Hyponatremia: Code(s): E87.1 - Hypo-osmolality and hyponatremia Status: Acute Assessment and Plan: Improved to 132 from 130 yesterday (8) Vitamin D deficiency: Code(s): E55.9 - Vitamin D deficiency, unspecified Status: Acute Assessment and Plan: Replete with vitamin D3 1000 IU daily and recheck in 6-12 weeks outpatient Plan DVT prophylaxis with Eliquis GI prophylaxis not indicated Code status DNR DS: Summary Hospital Course Hospital Course: 82-year-old male with past medical history of paroxysmal atrial fibrillation, advanced dementia, hypertension, depression and peripheral neuropathy who presented to the ER via EMS from [facility] due to unresponsive episode.? Patient last known well was at 18:30 when nursing staff of but the patient to bed.? When the rounded to give evening meds at 20:30 they found the patient unresponsive.? According to [facility]p report the patient has had increased number of falls over the last week.? At the time of my evaluation the patient would not wake up.? I pulled patient's eyelids up and his pupils were reactive but he still did not arouse.? Patient also did not grimace or localized to noxious stimuli. TSH, B12 and folate were all within normal limits. Urinalysis was abnormal and culture ended up showing yeast. The patient was started on course of fluconazole 200 mg daily for 2 weeks. LFTs within normal limits. He did have some hypokalemia, this was repleted and normalized. His hyponatremia improved during his stay as well with little intervention. This was thought to be secondary to hypovolemia due to decreased p.o. intake. Patient also noted to have vitamin-D deficiency and was started on daily D3 at a 1000 IU daily, this will need to be rechecked in 6-12 weeks outpatient. Neurology was consulted and an EEG and MRI were ordered and unremarkable. Neurology thought the etiology of the patient's unresponsive episode was secondary to possible infection. Patient did recently have an extensive stay for a loculated pleural effusion/empyema where he had 2 chest tubes placed at [facility] and was discharged with a Carranza catheter due to urinary retention and Augmentin for the empyema. Cardiology was consulted for QT prolongation noted on EKG. They recommended continuing his am
[2022-09-05] VITALS (11 sets, daily range): BP systolic 112–164; BP diastolic 50–88; PULSE 57–94; RESP 18–28; TEMP 36.7–36.9; O2SAT 95–96
[2022-09-05 05:16] LABS: Basophils Absolute Auto 0.1 K/mm3 (0.0-0.1); Basophils Percent Auto 0.9 % (0.2-1.2); Eosinophils Percent Auto 0.3 % (0-4.4); Hematocrit 29.1 % (42.0-52.0); Hemoglobin 9.1 g/dL (14.0-18.0); Immature Granulocyte Absolute 0.13 K/mm3 (0.00-0.031); Immature Granulocyte Percent A 1.3 % (0-0.5); Lymphocytes Absolute Auto 1.84 K/mm3 (0.9-3.2); Lymphocytes Percent Auto 18.2 % (18.3-44.2); Mean Corpuscular HGB Conc 31.3 g/dl (32-36); Mean Corpuscular Hemoglobin 30.3 pg (26-34); Mean Platelet Volume 10.1 fl (7.4-10.4); Monocytes Absolute Auto 1.2 K/mm3 (0.1-0.6); Monocytes Percent Auto 12.1 % (2.6-8.5); Neutrophils Absolute Auto 6.8 K/mm3 (1.3-6.7); Neutrophils Percent Auto 67.2 % (45.5-73.1); Platelet Count Result 283 k/mm3 (150-375); Red Cell Distribution Width 17.2 % (11.5-14.5); White Blood Count 10.1 K/mm3 (4.5-10.0)
[2022-09-05 05:33] LABS: Alanine Aminotransferase 34 U/L (6-50); Albumin Level 2.8 g/dL (3.5-5.1); Alkaline Phosphatase 86 U/L (38-126); Anion Gap 3 mmol/L (8-16); Aspartate Amino Transferase 26 U/L (17-59); Bilirubin,Total 0.5 mg/dL (0.2-1.3); Blood Urea Nitrogen 6 mg/dL (9-20); Calcium 7.9 mg/dL (8.4-10.2); Carbon Dioxide 22 mmol/L (22-30); Chloride 106 mmol/L (98-107); Estimated CRCL calculation 71 ml/min; Estimated Glomerular Filt Rate > 60; Glucose 101 mg/dL (65-110); Potassium 3.4 mmol/L (3.4-5.0); Sodium 131 mmol/L (137-145)
[2022-09-05] MEDS: AMOXICILLIN/CLAVULANATE K 875-125 MG TAB 1 TABLET PO (05:46)
[2022-09-05] MEDS: SENNOSIDES 8.6 MG TABLET PO (08:43)
[2022-09-05] MEDS: METOPROLOL TARTRATE 25 MG TABLET PO (08:43)
[2022-09-05] MEDS: MULTIVITAMINS /C LUTEIN (CENTRUM SILVER) TABLET *BKC 1 TAB PO (08:43)
[2022-09-05] MEDS: APIXABAN 5 MG TABLET PO (08:43)
[2022-09-05] MEDS: LOSARTAN POTASSIUM 25 MG TABLET PO (08:43)
[2022-09-05] MEDS: CHOLECALCIFEROL 1,000 UNITS TABLET 1000 UNITS PO (08:44)
[2022-09-05] MEDS: AMIODARONE HCL 200 MG TABLET PO (08:44)
[2022-09-05] MEDS: FLUCONAZOLE 100 MG TABLET 200 MG PO (08:44)
[2022-09-05] MEDS: DULoxetine HCL 60 MG CAPSULE.DR PO (08:44)
[2022-09-05] MEDS: GABAPENTIN 300 MG CAPSULE PO ×2 (08:44→12:03)
[2022-09-05 11:53] LABS: EDCOVIDSCREEN Negative (Negative)
== END 2022-09-05 16:37 | DRG 698 ==
LOC: ANHED 23:26 → ANH2MED 08-29 00:48
PROVIDERS: Internal Medicine; Admitting Provider Internal Medicine; Emergency Provider Emergency Medicine; PCP Family Medicine; Visit Provider Student in an Organized Health Care Education/Training Program
DX: T83.511A Infection and inflammatory reaction due to indwelling urethral catheter, initial encounter (principal); G93.41 Metabolic encephalopathy; B37.49 Other urogenital candidiasis; J90 Pleural effusion, not elsewhere classified; E87.1 Hypo-osmolality and hyponatremia; I48.20 Chronic atrial fibrillation, unspecified; I10 Essential (primary) hypertension; I71.40 Abdominal aortic aneurysm, without rupture, unspecified; I27.20 Pulmonary hypertension, unspecified; E87.6 Hypokalemia; E55.9 Vitamin D deficiency, unspecified; K21.9 Gastro-esophageal reflux disease without esophagitis; G62.9 Polyneuropathy, unspecified; R40.4 Transient alteration of awareness; R29.6 Repeated falls; R94.31 Abnormal electrocardiogram [ECG] [EKG]; F03.90 Unspecified dementia, unspecified severity, without behavioral disturbance, psychotic disturbance, mood disturbance, and anxiety; F41.9 Anxiety disorder, unspecified; F32.A Depression, unspecified; Z20.822 Contact with and (suspected) exposure to COVID-19; Z66 Do not resuscitate; Z86.73 Personal history of transient ischemic attack (TIA), and cerebral infarction without residual deficits; Z79.01 Long term (current) use of anticoagulants
CPT/HCPCS: 36415; 36600; 70450; 70553; 71045; 80048; 80053; 80069; 81001; 82140; 82306; 82375; 82607; 82728; 82746; 82805; 82948; 83050; 83540; 83550; 83605; 83735; 84100; 84145; 84443; 84484; 85025; 85027; 85610; 85730; 86140; 87040; 87086; 87088; 87106; 87426; 87637; 92610; 93005; 95816; 96361; 96365; 97110; 97116; 97161; 97165; 97530; 97535; 99285; A9270; A9577; C9803; G0378; J0696; J7030; J7042

== ENCOUNTER 2022-12-14 14:17 | Outpatient (NON) | payer MEDICARE, SELFPAY | END 2022-12-14 14:18 | disposition home or self-care (01) | LOC: ANHLAB 14:18 | PROVIDERS: PCP Family Medicine; Visit Provider Nurse Practitioner | DX: C44.329 Squamous cell carcinoma of skin of other parts of face (principal) | CPT/HCPCS: 88305; 88331 ==

== ENCOUNTER 2023-02-12 16:57 | Emergency (ER) | payer MEDICARE, SELFPAY ==
[2023-02-12] VITALS (10 sets, daily range): BP systolic 173–215; BP diastolic 57–84; PULSE 52–71; RESP 15–19; TEMP 36.6; O2SAT 98–100
--- NOTE | 2023-02-12 17:40 | ED.GENADULT ---
HPI - General Adult General Chief complaint: Urogenital-Male Stated complaint: no urinary output after carranza cath in place Time Seen by Provider: 02/12/23 17:22 Source: patient Mode of arrival: EMS Limitations: no limitations History of Present Illness HPI narrative: This is a 82-year-old male with PMH of A-fib, HTN who presents to the ED via EMS from [place] with Carranza catheter problems. Apparently he has been having urinary retention ever since a Carranza catheter was placed around 11 AM today. Patient states that he has had a burning pain in the penis for the past 2 to 3 weeks. When asked about scrotal pain he states he is unable to tell me. Denies scrotal swelling. Denies penile swelling. Denies hematuria. He states it does burn when he pees. He is unable to tell me why they placed a Carranza catheter at the [facility] today. Denies fevers, chills, abdominal pain, nausea, vomiting, flank pain. Related Data Home Medications Medication Instructions Recorded Confirmed duloxetine 60 mg capsule,delayed 60 mg PO BID 04/23/21 08/29/22 release sprinkle gabapentin 300 mg tablet 300 mg PO TID 04/23/21 08/29/22 losartan 25 mg tablet 25 mg PO DAILY 12/31/21 08/29/22 Centrum Silver 250 mcg PO DAILY 08/03/22 08/29/22 acetaminophen 325 mg tablet 325 mg PO Q6H PRN Pain (Scale 08/29/22 08/29/22 Score 1-3) amiodarone 200 mg tablet 200 mg PO DAILY 08/29/22 08/29/22 apixaban 5 mg tablet (Eliquis) 5 mg PO BID 08/29/22 08/29/22 benzonatate 200 mg capsule 200 mg PO TID PRN Cough 08/29/22 08/29/22 metoprolol tartrate 25 mg tablet 25 mg PO BID 08/29/22 08/29/22 polyethylene glycol 3350 17 gram 17 g PO DAILY PRN Constipation 08/29/22 08/29/22 oral powder packet sennosides 8.6 mg capsule (senna) 8.6 mg PO BID 08/29/22 08/29/22 Allergies Allergy/AdvReac Type Severity Reaction Status Date / Time donepezil [From Aricept] AdvReac Diarrhea Verified 08/03/22 02:26 PMFSH Past Medical History Medical History Anxiety and depression With history of ECT in the distant past Ascending aortic aneurysm Atrial flutter Resolved with cardioversion and ablation Dementia Unable to tolerate Aricept Empyema GERD (gastroesophageal reflux disease) Hypertension Paroxysmal atrial fibrillation On chronic anticoagulation with Eliquis Pulmonary hypertension TIA (transient ischemic attack) (2018) Surgical History Surgical History H/O cardiac radiofrequency ablation H/O local excision of skin lesion Family History Family History Father Kidney disease Mother Dementia Sibling Pericarditis Social History Social History Social History: The patient lives with his who is the durable power contracts attorney for healthcare. The tells me that they do have a living will in that the patient is a DNR she believes that this is on file here. 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 The patient is a lifelong nonsmoker does not use any alcohol or illicit drugs. They have 1 child. He now resides at [facility]. Smoking status: Never smoker Second hand tobacco smoke exposure: No Alcohol intake: never Substance use: never Substance use type: does not use Lack of Transportation: No Lack of Food: Never True Current Housing: I Have Housing Concerned About Future Housing: No Difficulty Paying Gas/Electric Bills: No Difficulty Paying for Meds: No Currently Unemployed: No Education: High School Diploma/GED Difficulty w/ Childcare or Family Care: No Living arrangements: with family Occupation/Education: retired Gender identity (if verbalized by the patient): Male Sexual Orientation (if Verbalized by the Patient): Straight or Heterosexual Spiritual care concerns: No
[2023-02-12 18:40] LABS: Basophils Absolute Auto 0.1 K/mm3 (0.0-0.1); Basophils Percent Auto 0.6 % (0.2-1.2); Eosinophils Absolute Auto 0.1 K/mm3 (0-0.3); Eosinophils Percent Auto 0.5 % (0-4.4); Hematocrit 34.1 % (42.0-52.0); Hemoglobin 10.9 g/dL (14.0-18.0); Immature Granulocyte Absolute 0.06 K/mm3 (0.00-0.031); Immature Granulocyte Percent A 0.5 % (0-0.5); Lymphocytes Absolute Auto 1.66 K/mm3 (0.9-3.2); Lymphocytes Percent Auto 13.6 % (18.3-44.2); Mean Corpuscular Hemoglobin 32.2 pg (26-34); Mean Corpuscular Volume 100.6 fl (80-100); Mean Platelet Volume 10.7 fl (7.4-10.4); Monocytes Absolute Auto 1.5 K/mm3 (0.1-0.6); Monocytes Percent Auto 11.8 % (2.6-8.5); Neutrophils Absolute Auto 8.9 K/mm3 (1.3-6.7); Platelet Count Result 189 k/mm3 (150-375); Red Blood Count 3.39 M/mm3 (4.6-6.20); Red Cell Distribution Width 15.2 % (11.5-14.5); White Blood Count 12.2 K/mm3 (4.5-10.0)
[2023-02-12 18:56] LABS: Alanine Aminotransferase 24 U/L (6-50); Albumin Level 3.6 g/dL (3.5-5.1); Alkaline Phosphatase 62 U/L (38-126); Anion Gap 6 mmol/L (8-16); Aspartate Amino Transferase 31 U/L (17-59); Bilirubin,Total 0.3 mg/dL (0.2-1.3); Blood Urea Nitrogen 22 mg/dL (9-20); Calcium 8.8 mg/dL (8.4-10.2); Carbon Dioxide 29 mmol/L (22-30); Chloride 105 mmol/L (98-107); Estimated CRCL calculation 35 ml/min; Estimated Glomerular Filt Rate 45; Glucose 85 mg/dL (65-110); Potassium 4.4 mmol/L (3.4-5.0); Sodium 140 mmol/L (137-145)
--- NOTE | 2023-02-12 19:05 | PC.NURSE ---
Pt's systolic blood pressure right around 200. RN to bedside to check on patient, calm and at rest. Pt denies any headache or chest pain. Reports he is still having some pain to genital area but that it is much better than it was. Visitors at bedside state patient is at his baseline mental status. Pt unsure of home meds, on med list it appears he takes metoprolol in the evenings. Provider made aware of patient's asymptomatic HTN. Plan to medicate.
[2023-02-12 19:09] LABS: Appearance Urine Clear (Clear); Bacteria Urine None Seen /hpf; Bilirubin Urine Negative (Negative); Blood Urine 3+ (Negative); Color Urine Dark Yellow (Yellow); Glucose Urine UA Negative (Negative); Hyaline Casts Urine Present /lpf; Ketones Urine Trace mg/dL (Negative); Leukocyte Esterase Ur 2+ LEU/UL (Negative); Nitrate Urine Negative (Negative); Protein Urine Trace mg/dL (Negative); RBC Urine >100 /hpf (0-2); Specific Grav Ur 1.026 (1.001-1.035); Squamous Epithelial Cell Urine None seen /hpf (Few); WBC Urine 51-100 /hpf; pH Urine 5.5 (5.0-9.0)
[2023-02-12 19:13] LABS: Add Urine Microscopic? YES
--- NOTE | 2023-02-12 19:26 | PC.NURSE ---
Report received from EDEL Lee. Assumed care of patient at this time.
[2023-02-12] MEDS: METOPROLOL TARTRATE 25 MG TABLET PO (19:38)
[2023-02-12] MEDS: CEFDINIR 300 MG CAPSULE PO (19:38)
== END 2023-02-12 20:10 ==
PROVIDERS: Emergency Provider Physician Assistant; PCP Family Medicine
DX: T83.098A Other mechanical complication of other urinary catheter, initial encounter (principal); N39.0 Urinary tract infection, site not specified; I48.0 Paroxysmal atrial fibrillation; I10 Essential (primary) hypertension; F03.90 Unspecified dementia, unspecified severity, without behavioral disturbance, psychotic disturbance, mood disturbance, and anxiety; J43.9 Emphysema, unspecified; I27.20 Pulmonary hypertension, unspecified; K21.9 Gastro-esophageal reflux disease without esophagitis; F41.9 Anxiety disorder, unspecified; F32.A Depression, unspecified; Z86.73 Personal history of transient ischemic attack (TIA), and cerebral infarction without residual deficits; Z79.01 Long term (current) use of anticoagulants; Y84.6 Urinary catheterization as the cause of abnormal reaction of the patient, or of later complication, without mention of misadventure at the time of the procedure
CPT/HCPCS: 36415; 51702; 80053; 81001; 85025; 87086; 99283; A9270

== ENCOUNTER 2023-02-13 08:08 | Emergency (ER) | payer MEDICARE, SELFPAY ==
--- NOTE | 2023-02-13 08:05 | PC.NURSE ---
dried blood cleansed from penis and scrotum. new depends placed. pt redressed. waiting ems arrival for transport back to [facility]. pt sleeping on stretcher with no distress noted.
[2023-02-13 08:07] VITALS: BP 182/64; PULSE 55; RESP 16; TEMP 36.7; O2SAT 97
--- NOTE | 2023-02-13 08:15 | ED.MALEGU ---
HPI - Male Genitourinary General Chief complaint: Urogenital-Male Stated complaint: penile pain Time Seen by Provider: 02/13/23 08:08 History of Present Illness HPI Narrative: Patient is an 82-year-old male presenting with pain in his penis. Patient is coming from a nursing facility. Patient was seen here yesterday with Hampton catheter problems. He was noted at that time that the nursing facility had inserted a Hampton catheter and inflated the balloon inside his urethra. The Hampton was exchanged yesterday and was draining clear urine. Patient states that he woke up in the middle of the night tonight with pain in his penis. States it took the nursing facility 2 hours to give him a pain pill though once he took it he states his pain was significantly improved and he was able to sleep. Sounds like they would not give him another pain pill so EMS was called. On arrival, he complains of some blood in his depends and penile burning. No abdominal pain or vomiting or fevers. Denies further complaints. Related Data Home Medications Medication Instructions Recorded Confirmed duloxetine 60 mg capsule,delayed 60 mg PO BID 04/23/21 08/29/22 release sprinkle gabapentin 300 mg tablet 300 mg PO TID 04/23/21 08/29/22 losartan 25 mg tablet 25 mg PO DAILY 12/31/21 08/29/22 Centrum Silver 250 mcg PO DAILY 08/03/22 08/29/22 acetaminophen 325 mg tablet 325 mg PO Q6H PRN Pain (Scale 08/29/22 08/29/22 Score 1-3) amiodarone 200 mg tablet 200 mg PO DAILY 08/29/22 08/29/22 apixaban 5 mg tablet (Eliquis) 5 mg PO BID 08/29/22 08/29/22 benzonatate 200 mg capsule 200 mg PO TID PRN Cough 08/29/22 08/29/22 metoprolol tartrate 25 mg tablet 25 mg PO BID 08/29/22 08/29/22 polyethylene glycol 3350 17 gram 17 g PO DAILY PRN Constipation 08/29/22 08/29/22 oral powder packet sennosides 8.6 mg capsule (senna) 8.6 mg PO BID 08/29/22 08/29/22 Allergies Allergy/AdvReac Type Severity Reaction Status Date / Time donepezil [From Aricept] AdvReac Diarrhea Verified 02/13/23 08:42 Review of Systems Review of Systems: All systems reviewed & are unremarkable except as noted in HPI and below PMFSH Past Medical History Medical History Anxiety and depression With history of ECT in the distant past Ascending aortic aneurysm Atrial flutter Resolved with cardioversion and ablation Dementia Unable to tolerate Aricept Empyema GERD (gastroesophageal reflux disease) Hypertension Paroxysmal atrial fibrillation On chronic anticoagulation with Eliquis Pulmonary hypertension TIA (transient ischemic attack) (2018) Surgical History Surgical History H/O cardiac radiofrequency ablation H/O local excision of skin lesion Family History Family History Father Kidney disease Mother Dementia Sibling Pericarditis Social History Social History Social History: The patient lives with his who is the durable power personal injury attorney for healthcare. The tells me that they do have a living will in that the patient is a DNR she believes that this is on file here. 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 The patient is a lifelong nonsmoker does not use any alcohol or illicit drugs. They have 1 child. He now resides at [facility]. Smoking status: Never smoker Second hand tobacco smoke exposure: No Alcohol intake: never Substance use: never Substance use type: does not use Lack of Transportation: No Lack of Food: Never True Current Housing: I Have Housing Concerned About Future Housing: No Difficulty Paying Gas/Electric Bills: No Difficulty Paying for Meds: No Currently Unemployed: No Education: High School Diploma/GED Difficulty w/ Childcare or Family Care: No Living arra
[2023-02-13 10:28] VITALS: BP 182/73; PULSE 54; RESP 16
== END 2023-02-13 11:06 | disposition home or self-care (01) ==
PROVIDERS: Emergency Provider Emergency Medicine; PCP Family Medicine
DX: N39.0 Urinary tract infection, site not specified (principal); S37.30XA Unspecified injury of urethra, initial encounter; T83.028A Displacement of other urinary catheter, initial encounter; F03.90 Unspecified dementia, unspecified severity, without behavioral disturbance, psychotic disturbance, mood disturbance, and anxiety; I10 Essential (primary) hypertension; I48.0 Paroxysmal atrial fibrillation; Z86.73 Personal history of transient ischemic attack (TIA), and cerebral infarction without residual deficits; Z79.01 Long term (current) use of anticoagulants; X58.XXXA Exposure to other specified factors, initial encounter
CPT/HCPCS: 99282

== ENCOUNTER 2024-11-06 18:48 | Inpatient (IN) | payer MEDICARE, SELFPAY ==
--- NOTE | ~2024-11-06 | CT_ITS ---
History: Fall. Head injury PROCEDURE: CT head without contrast. COMPARISON: 09/01/2022 TECHNIQUE: Axial imaging of the head performed from the skull base to the vertex without IV contrast. Sagittal a nd coronal reformations obtained. DLP: 605 mGy-cm FINDINGS: The ventricles are enlarged. The dilatation of the ventricles is proportional to the degree of sulcal prominence, not uncommon in the senescent brain. Decreased attenuation is identified within the periventricular white matter, likely secondary to micr ovascular ischemic disease, in a patient of this age. There is no mass, mass effect or midline shift. There is no abnormal extra-axial fluid collection or intracranial hemorrhage. Visualized paranasal sinuses are clear. The mastoid air cells are well aerated. No acute displaced fractures within the overlying cranium. Impression: No acute intracranial hemorrhage or suspicious mass effect. Reviewed, dictated and finalized at location A. Impression: No acute intracranial hemorrhage or suspicious mass effect.
--- NOTE | ~2024-11-06 | XR_ITS ---
CHEST RADIOGRAPH, PA AND LATERAL CLINICAL HISTORY: dizziness . COMPARISON: 09/04/2022 TECHNIQUE: PA and lateral views of the chest. FINDINGS The cardiomediastinal silhouette is obscured. Patchy opacification of the right middle lobe for which an early infiltrate is suspected. Significant air opacification of the (likely) stomach beneath the left hemidiaphragm, an interval judd nge from prior. The remainder of the lungs are otherwise clear. IMPRESSION: Possible early infiltrate within the right middle lobe. Additional findings, as detailed above. Reviewed, dictated and finalized at location A.
[2024-11-06 18:49] VITALS: BP 91/56; PULSE 56; RESP 16; TEMP 36.7; O2SAT 97
--- OUTSIDE RECORDS SUMMARY | 2024-11-06 18:50 | XMS_ITS | Continuity of Care Document ---
Author Name Auto Generated, Auto Generated Organization [employer] Support Name Relationship Address Phone Sara Martinez [employer] [address] [place] [address] MartinezAlanon Emergency Contact [address] [place] [address] MartinezSolo oswald Son [address] [place] [address] JuanDimpleAna Paula Sister [address] [place] [id number] Pawan Martinez [employer] Responsible Democrat c/o Sara Hernandez, [address] [place] [address] Unavailable Pawan Martinez Self c/o Sara Lester [address], [address] [place] [address] Unavailable Sara Martinez Emergency Contact [address] [place] [address] Sara Martinez [facility] [address] [place] [address] Juan Sara Spouse [address] [place] [address] Ana Paula Martinez Emergency Contact [address] [place] [address] Summary Purpose Consult/Referral Allergies, Adverse Reactions, Alerts Type Description/Agent Code Date Allergy Active Date Allergy Inactivated Date of Last Reaction Adverse Reactions Severity Status Comments Source of Information [facility] Medic ation Ingre dient donepezil Active Patient History Medications Medications Prescription Date Begun Date Discontinued Status Associated Diagnoses Ordering Provider Auvelity 45 mg-105 mg tablet, extended release 1 tablet 1 Time Daily 10/11/19 25 Active MD Jean Claude Oneil gabapentin 400 mg capsule 1 capsule 4 Times Daily 09/21/19 25 Active MD Jean Claude Oneil acetaminophen 325 mg tablet 2 TABLETS 3 Times Daily 09/13/19 25 Active MD Travon Rojas acetaminophen 325 mg tablet 2 TABLETS PRN Every 6 Hours 09/11/19 25 Active MD Travon Rojas OLANZapine 10 mg tablet 1 tab 1 Time Daily 07/04/20 24 Active MD Travon Rojas polyethylene glycoL 3350 17 gram/dose oral powder 17 gram PRN 1 Time Daily 04/16/20 24 Active MD Travon Rojas Eliquis 5 mg tablet 1 tablet 2 Times Daily 03/24/20 24 Active MD Travon Rojas tamsulosin 0.4 mg capsule 1 cap 2 Times Daily 03/12/20 24 Active MD Travon Rojas lisinopriL 10 mg tablet 1 tab 1 Time Daily 12/21/19 24 Active MD Travon Rojas senna 8.6 mg tablet 1 tablet 1 Time Daily 10/01/19 24 Active MD Travon Rojas Blood Pressure Kit 1 2 Times Monthly 08/09/19 24 Active MD Travon Rojas atorvastatin 40 mg tablet 1 tab 1 Time Daily 08/07/20 23 Active MD Travon Rojas DULoxetine 60 mg capsule,delayed release 1 CAP 2 Times Daily 08/06/20 23 Active MD Travon Rojas finasteride 5 mg tablet 1 tab 1 Time Daily 08/06/20 23 Active MD Travon Rojas amiodarone 100 mg tablet 1 tablet 1 Time Daily 08/06/20 23 Active MD Travon Rojas mirtazapine 30 mg tablet 1 tab 1 Time Daily 08/06/20 23 Active MD Travon Rojas ergocalciferol (vitamin D2) 1,250 mcg (50,000 unit) capsule 1 1 Time Weekly 08/06/20 23 Active MD Travon Rojas Conditions/Problems Problem/Diagnosis Awareness of Diagnosis Code (ICD-10) Onset Date (Start Date) Resolution Date (End Date) Status Source Comments 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 11/15/19 24 Active MD Travon Duncan GENERALIZED ANXIETY DISORDER F41.1 11/10/19 24 Active MD Travon Duncan UNSPECIFIED DEMENTIA, UNSPECIFIED SEVERITY, WITH ANXIETY F03.94 11/10/19 24 07/25/2024 Resolved Marshal garza MD Travon HEMOTHORAX J94.2 11/02/19 24 07/25/2024 Resolved Marshal garza MD Travon BENIGN PROSTATIC HYPERPLASIA WITH LOWER URINARY TRACT SYMPTOMS N40.1 10/29/19 24 Active Marshal garza MD Travon SPONDYLOSIS WITHOUT MYELOPATHY OR RADICULOPATHY, CERVICAL REGION M47.812 08/06/20 23 Active Marshal garza MD Travon MAJOR DEPRESSIVE DISORDER, SINGLE EPISODE, UNSPECIFIED F32.9 08/06/20 23 08/10/2023 Resolved MD Travon Duncan CANDIDIASIS OF SKIN AND NAIL B37.2 07/13/20 23 Active Marshal garza MD Travon MUSCLE WEAKNESS (GENERALIZED) M62.81 04/09/20 23 08/10/2023 Resolved MD Travon Duncan WEAKNESS R53.1 04/08/20 23 08/10/2023 Resolved MD Travon Duncan VITAMIN D DEFICIENCY, UNSPECIFIED E55.9 03/23/20 23 Active Marshal garza MD Travon MIXED HYPERLIPIDEMIA E78.2 03/20/20 23 Active Marshal garza MD Travon BENIGN PROSTATIC HYPERPLASIA WITHOUT LOWER URINARY TRACT SYMPTOMS N40.0 03/20/20 23 11/26/2023 Resolved MD Travon Duncan UNSPECIFIED DEMENTIA, UNSPECIFIED SEVERITY, WITH OTHER BEHAVIORAL DISTURBANCE F03.918 03/20/20 23 08/10/2023 Resolved MD Travon Duncan MAJOR DEPRESSIVE DISORDER, RECURRENT, SEVERE WITH PSYCHOTIC SYMPTOMS F33.3 03/05/20 23 11/26/2023 Resolved Marshal garza MD Travon PERSONAL HISTORY OF OTHER MEDICAL TREATMENT Z92.89 03/05/20 Active Marshal garza MD Travon ECT ACUTE KIDNEY FAILURE, UNSPECIFIED N17.9 03/05/20 23 06/07/2023 Resolved MD Travon Duncan SUICIDAL IDEATIONS R45.851 03/05/20 23 08/10/2023 Resolved MD Travon Duncan UNSPECIFIED DEMENTIA, UNSPECIFIED SEVERITY, WITH MOOD DISTURBANCE F03.93 03/05/20 23 Active MD Abena Duncann MAJOR DEPRESSIVE DISORDER, RECURRENT SEVERE WITHOUT PSYCHOTIC FEATURES F33.2 03/05/20 23 Active MD Travon Duncan OTHER SPECIFIED DISORDERS OF PENIS N48.89 01/28/20 23 08/10/2023 Resolved MD Travon Duncan INTERCOSTAL PAIN R07.82 01/12/20 23 08/10/2023 Resolved MD Travon Duncan CANDIDIASIS OF SKIN AND NAIL B37.2 12/01/19 23 01/13/2023 Resolved MD Travon Duncan RASH AND OTHER NONSPECIFIC SKIN ERUPTION R21 12/01/19 23 01/13/2023 Resolved MD Travon Duncan ABNORMAL WEIGHT GAIN R63.5 11/05/19 23 07/07/2023 Resolved Marshal garza MD Travon PERSONAL HISTORY OF COVID-19 Z86.16 10/27/19 23 Active Marshal garza MD Travon COVID-19 U07.1 10/27/19 23 01/13/2023 Resolved MD Travon Duncan ACUTE UPPER RESPIRATORY INFECTION, UNSPECIFIED J06.9 10/26/19 23 10/25/2022 Resolved MD Travon Duncan MAJOR DEPRESSIVE DISORDER, SINGLE EPISODE, UNSPECIFIED F32.9 09/05/19 23 06/07/2023 Resolved MD Travon Duncan OTHER UROGENITAL CANDIDIASIS B37.49 09/05/19 23 08/10/2023 Resolved MD Travon Duncan UNSPECIFIED URINARY INCONTINENCE R32 09/05/19 23 Active MD Abena Duncann URINARY TRACT INFECTION, SITE NOT SPECIFIED N39.0 08/29/19 23 08/10/2023 Resolved MD Travon Duncan PLEURAL EFFUSION, NOT ELSEWHERE CLASSIFIED J90 08/29/19 23 08/10/2023 Resolved MD Travon Duncan ELEVATED WHITE BLOOD CELL COUNT, UNSPECIFIED D72.829 08/26/19 23 08/10/2023 Resolved MD Travon Duncan UNSPECIFIED FALL, SUBSEQUENT ENCOUNTER W19.XXXD 08/25/19 23 08/10/2023 Resolved MD Travon Duncan HYPERTENSIVE CHRONIC KIDNEY DISEASE WITH STAGE 1 THROUGH STAGE 4 CHRONIC KIDNEY DISEASE, OR UNSPECIFIED CHRONIC KIDNEY DISEASE I12.9 08/24/19 Active Marshal garza MD Travon CHRONIC KIDNEY DISEASE, STAGE 3A N18.31 08/24/19 Active Marshal garza MD Travon UNSPECIFIED DEMENTIA, UNSPECIFIED SEVERITY, WITHOUT BEHAVIORAL DISTURBANCE, PSYCHOTIC DISTURBANCE, MOOD DISTURBANCE, AND ANXIETY F03.90 08/24/19 23 08/10/2023 Resolved Marshal garza MD Travon OTHER SPONDYLOSIS, CERVICAL REGION M47.892 08/24/19 Active Marshal garza MD Travon SPONDYLOSIS WITHOUT MYELOPATHY OR RADICULOPATHY, LUMBAR REGION M47.816 08/24/19 Active Marshal garza MD Travon PAIN IN LEFT SHOULDER M25.512 08/24/19 23 08/10/2023 Resolved Marshal garza MD Travon OTHER INTERVERTEBRAL DISC DEGENERATION, LUMBAR REGION M51.36 08/24/19 23 05/08/2024 Resolved Marshal garza MD Travon CHRONIC PAIN SYNDROME G89.4 08/24/19 Active Marshal garza MD Travon UNSPECIFIED HEARING LOSS, BILATERAL H91.93 08/24/19 Active Marshal garza MD Travon SLOW TRANSIT CONSTIPATION K59.01 08/24/19 Active Marshal garza MD Travon HOG SAWYER (CURRENT) USE OF OPIATE ANALGESIC Z79.891 08/24/19 Active Marshal garza MD Travon MCC (CURRENT) USE OF ANTICOAGULANTS Z79.01 08/24/19 Active Marshal garza MD Travon ESSENTIAL (PRIMARY) HYPERTENSION I10 08/24/19 23 08/25/2022 Resolved Marshal garza MD Travon BIPOLAR DISORDER, UNSPECIFIED F31.9 08/24/19 Active Marshal garza MD Travon MAJOR DEPRESSIVE DISORDER, RECURRENT, UNSPECIFIED F33.9 08/24/19 Active Marshal garza MD Travon RETENTION OF URINE, UNSPECIFIED R33.9 08/24/19 Active Marshal garza MD Travon PAROXYSMAL ATRIAL FIBRILLATION I48.0 08/24/19 Active Marshal garza MD Travon OTHER SPECIFIED POSTPROCEDURAL STATES Z98.890 08/24/19 Active Marshal garza MD Travon OTHER INTERVERTEBRAL DISC DEGENERATION, LUMBAR REGION WITH DISCOGENIC BACK PAIN ONLY M51.360 08/24/19 23 Active Marshal garza MD Travon PERSONAL HISTORY OF OTHER DISEASES OF THE CIRCULATORY SYSTEM Z86.79 08/07/20 22 Active Marshal garza MD Travon R00.1 ACUTE RESPIRATORY FAILURE WITH HYPOXIA J96.01 08/05/20 22 08/10/2023 Resolved Marshal garza MD Travon ACUTE PULMONARY EDEMA J81.0 08/05/20 22 08/10/2023 Resolved Marshal garza MD Travon PRESENCE OF UROGENITAL IMPLANTS Z96.0 08/03/20 22 09/24/2022 Resolved Marshal garza MD Travon ENCOUNTER FOR SURGICAL AFTERCARE FOLLOWING SURGERY ON THE RESPIRATORY SYSTEM Z48.813 08/03/20 22 08/10/2023 Resolved Marshal garza MD Travon PYOTHORAX WITHOUT FISTULA J86.9 08/03/20 22 08/10/2023 Resolved Marshal garza MD Travon PERSONAL HISTORY OF IRRADIATION Z92.3 04/20/20 22 Active Marshal garza MD Travon MALIGNANT NEOPLASM OF LOWER LOBE, 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 03/31/20 22 Active Marshal garza MD Travon SPONDYLOSIS WITHOUT MYELOPATHY OR RADICULOPATHY, SACRAL AND SACROCOCCYGEAL REGION M47.818 09/23/19 22 Active Marshal garza MD Travon SACROCOCCYGEAL DISORDERS, NOT ELSEWHERE CLASSIFIED M53.3 09/23/19 22 08/10/2023 Resolved Marshal garza MD Travon LOW BACK PAIN, UNSPECIFIED M54.50 09/23/19 22 08/10/2023 Resolved Marshal garza MD Travon PERSONAL HISTORY OF TRANSIENT ISCHEMIC ATTACK (TIA), AND CEREBRAL INFARCTION WITHOUT RESIDUAL DEFICITS Z86.73 05/13/20 21 Active Marshal garza MD Travon GASTRO-ESOPHAGEAL REFLUX DISEASE WITHOUT ESOPHAGITIS K21.9 10/18/19 21 Active Marshal garza MD Travon Procedures No Known Procedures Immunizations Vaccine Administration Date Status Comirnaty (12y up)(P F) 30 mcg/0.3 mL intramuscular syringe 06/04/2024 Administered Fluad Triv (65y up)(P F) 45 mcg (15 mcg x 3)/0.5 mL IM syringe 05/18/2024 Administered
--- OUTSIDE RECORDS SUMMARY | 2024-11-06 18:50 | XMS_ITS | Encounter Summary ---
Author Organization [facility] Address [address] [place] [address] Care Team Providers Care Wing Commander Name Role Phone Uri Victor MD Primary Care Provider [phone] Encounter Details Date Type Department Care Team (Late st Contact Info) Description 03/17/2022 Lab Requisition [facility] DermPath Lab [address] [place] [id number] Magdiel Sequeira MD [address] [place] [address] Social History Tobacco Use Types Packs/Day Years Used Date Smoking Tobacco: Never Assessed Sex and Gender Information Value Date Recorded Sex Assigned at Not on file Gender Identity Not on file Sexual Orientation Not on file documented as of this encounter Plan of Treatment Not on file documented as of this encounter Procedures Procedure Name Priority Date/Time Associated Diagnosis Comments DERMATOPATHOLOGY Routine 03/17/2022 12:0 0 AM CDT documented in this encounter Results * DERMATOPATHOLOGY (03/17/2022 12:00 AM CDT) Case Report Dermatopathology Report Case: [id number] Authorizing Provider: Magdiel Sequeira MD Collected: 03/17/2022 12:00 AM Ordering Location: [facility] DermPath Lab Received: 03/17/2022 04:14 PM Pathologist: Lucie Faustin MD Specimens: A) - Skin, right lateral brow B) - Skin, right scalp 5:30 PM CDT DERMATOPATHOLOGY LABORATORY Final Diagnosis Specimen A. SKIN, right lateral brow: VERRUCA VULGARIS (B07.8) OVERLYING CUTANEOUS HORN (L85.8) Specimen B. SKIN, right scalp: BASAL CELL CARCINOMA, NODULAR TYPE (C44.41) 2 5:30 PM T DERMATOPATHOLOGY LABORATORY Clinical History A: SCCA vs. AK. Path# [id number] B: R/O BCCA. Path# [id number] 2 5:30 PM CDT DERMATOPATHOLOGY LABORATORY Gross Description Specimen A: Received is one formalin filled container labeled with the patient's name and designated right lateral brow. The specimen consists of a shave biopsy measuring [id number]. Jar 0. Specimen B: Received is one formalin filled container labeled with the patient's name and designated right scalp. The specimen consists of a shave biopsy measuring [id number]. Jar 0. 2 5:30 PM CDT DERMATOPATHOLOGY LABORATORY Microscopic Description Specimen A. SKIN, right lateral brow: There is digitated epidermal hyperplasia, hypergranulosis, vacuolated granular layer cells, and compact hyperorthokeratosis . There is a column of marked compact hyperkeratosis. Specimen B. SKIN, right scalp: Within the dermis there are aggregates of basaloid cells with a high nuclear to cytoplasmic ratio and peripheral palisading. 2 5:30 PM CDT DERMATOPATHOLOGY LABORATORY Disclaimer An external and internal positive and negative controls are appropriate for the histochemical, immunohistochemical and immunofluorescence stain(s) in this case (if any), except where stated explicitly. The performance characteristics of the stain(s) cited in this report were developed and its performance characteristic determined by the Dermatopathology Laboratory at [facility], directed by Dr. Marco Faustin. These tests need not be, and therefore are not, approved by the [place] Food and Drug Administration. The tests are used for clinical purposes. Billing Codes Specimen Charges Stain Charges 28758 24049 1 1 2 5:30 PM CDT DERMATOPATHOLOGY LABORATORY Embedded Images 2 5:30 PM CDT DERMATOPATHOLOGY LABORATORY Pathology/Cytology TISSUE SPECIMEN FROM SKIN / Unknown 03/17/2022 03/17/2022 4:14 PM CDT Miscellaneous samples (specimen) TISSUE SPECIMEN FROM SKIN / Unknown 03/17/2022 03/17/2022 4:14 PM CDT Magdiel Sequeira MD LAB - PATHOLOGY/CYTO LOGY ORDERABLES DERMATOPATHOLOGY LABORATORY [facility] - Department of Dermatology [facility] [address] [place] [address], [address] [phone] documented in this encounter Visit Diagnoses Not on filedocumented in this encounter Care Teams Wing Commander Relationship Specialty Start Date End Date Uri Victor MD [address] [phone] PCP - General 03/09/22 documented as of this encounter
--- OUTSIDE RECORDS SUMMARY | 2024-11-06 18:50 | XMS_ITS | Clinical Summary ---
Author Organization [facility] Address [address] [facility] [place] [address] Care Team Providers Care Forensic Anthropologist Name Role Phone Uri Victor MD Primary Care Provider [phone] Source Comments [facility],non-owned Affiliates and Associated Physician Practices is amultiple site organization consisting of ambulatory clinics and hospital sitesin [place], [place], [place] and [place]. This disclosure is being madepursuant to the Care Everywhere program and may not contain all information available regarding this patient. Last updated 18.[facility] Allergies Active Allergy Reactions Criticality Noted Date Comments Donepezil Nausea and/or Vomiting Low 03/04/2016 Medications * Be aware that medications may not be up to date on this document. Alwaysverify current medications with the patient. 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 0 03/20/2023 Active DULoxetine (Cymbalta) 60 MG capsuleIndications :Musculoskeletal Pain Take 1 (one) capsule by mouth 2 times daily Reasons: Musculoskeletal Pain 60 capsule 26 03/20/2023 5 Active gabapentin (Neurontin) 300 MG capsuleIndications :Neuropathic Pain Take 1 (one) capsule by mouth 3 times daily Reasons: Neuropathic Pain 90 capsule 26 03/20/2023 Active sennosides (Senokot) 8.6 MG tabletIndications: Bowel Evacuation Take 1 (one) tablet by mouth 2 times daily as needed Reasons: Evacuation of Material from the Bowel 03/20/2023 Active traMADol (Ultram) 50 MG tabletIndications: Chronic Pain Take 1 (one) tablet by mouth every 8 hours as needed Reasons: Chronic Pain 12 tablet 03/20/2023 Active finasteride (Proscar) 5 MG tabletIndications: Benign Prostatic Hypertrophy Take 1 (one) tablet by mouth once daily Reasons: Benign Enlargement of Prostate 03/20/2023 Active atorvastatin (Lipitor) 40 MG tabletIndications: Hyperlipidemia Take 1 (one) tablet by mouth at bedtime Reasons: High Amount of Fats in the Blood 03/20/2023 Active tamsulosin (Flomax) 0.4 MG capsuleIndications :Bladder Dysfunction Take 1 (one) capsule by mouth 2 times daily At the same time every day after a meal. Reasons: Dysfunction of the Urinary Bladder 03/20/2023 Active acetaminophen (Tylenol) 500 MG tabletIndications: Fever,Pain Take 2 (two) tablets by mouth every 6 hours as needed Maximum allowable Acetaminophen amount = 4 Grams (4000 mg) / 24 hours. Reasons: Fever, Pain 03/20/2023 Active Active Problems Problem Noted Date Diagnosed Date Severe episode of recurrent major depressive disorder, with psychotic features 03/03/2023 Severe recurrent major depre ssion without psychotic features 02/22/2023 [place] (acute kidney injury) 02/22/2023 Family History Medical History Relation Name Comments Other - Cardiac Brother Other - Cardiac Father Dementia Mother Relation Name Status Comments Brother Father Mother Social History Tobacco Use Types Packs/Day Years Used Date Smoking Tobacco: Unknown Tobacco Cessation:Counseling Given: Not Answered Alcohol Use Standard Drinks/Week Comments Never 0 (1 standard drink = 0.6 oz pur e alcohol) AUDIT-C Answer Date Recorded Q1: How often do you have a drink containing alc ohol? Never 03/05/2023 Q2: How many drinks containi ng alcohol do you have on a typical day when you are drinking? Patient declined 03/05/2023 Q3: How often do you have si x or more drinks on one occasion? Never 03/05/2023 Overall Financial Resource Strain (CARDIA) Answe r Date Recorded How hard is it for you to pa y for the very basics like food, housing, medical care, and heating? Patient declined 03/05/2023 PHQ-2 Answer Date Recorded PHQ2 TOTAL SCORE 3 02/22/2023 [facility] - Occupational Stress Questionnaire Answer Date Recorded Do you feel stress - tense, restless, nervous, or anxious, or unable to sleep at night because your mind is troubled all the time - these days? Not at all 03/05/2023 Hunger Vital Sign Answer Date Recorded Within the past 12 months, y ou worried that your food would run out before you got the money to buy more. Never true 03/05/20 Within the past 12 months, t he food you bought just didn't last and you didn't have money to get more. Never true 03/05/2023 PRAPARE - Transportation Answer Date Re corded In the past 12 months, has l ack of transportation kept you from medical appointments or from getting medications? No 02/07 In the past 12 months, has l ack of transportation kept you from meetings, work, or from getting things needed for daily living? No 03/05/2023 Housing Stability Vital Sign Answer Elder e Recorded In the last 12 months, was t here a time when you were not able to pay the mortgage or rent on time? Patient refused 03/05/20 In the last 12 months, how many places have you lived? 1 03/05/2023 In the last 12 months, was t here a time when you did not have a steady place to sleep or slept in a alf (including now)? No 03/05/2023 Sex and Gender Information Value Date Recorded Sex Assigned at Not on file Gender Identity Not on file Sexual Orientation Not on file Last Filed Vital Signs Vital Sign Reading Time Taken Comments Blood Pressure 107/44 03/19/2023 8:22 PM CDT Pulse 71 03/19/2023 8:22 PM CDT Temperature 36.8 C (98.3 F) 03/19/2023 8:22 PM CDT Respiratory Rate 17 03/19/2023 8:22 PM CDT Oxygen Saturation 96% 03/19/2023 8:22 PM CDT Inhaled Oxygen Concentration - - Weight 86.2 kg (190 lb) 03/19/2023 5:58 AM CDT Height 185.4 cm (6' 1 ) 03/19/2023 5:58 AM CDT Body Mass Index 25.07 03/19/2023 5:58 AM CDT Plan of Treatment Health Maintenance Due Date Last Done Comments MEDICARE AWV 12 MONTHS 1939 DTAP/TDAP/TD VACCINES (1 - Tdap) 1958 PNEUMOCOCCAL VACCINE 50+ (1 of 1 - PCV) 1989 ZOSTER VACCINE (1 of 2) 1989 Respiratory Syncytial Virus (RSV) Vaccine Pt: or over 60 yrs (1 - 1-dose 75+ series) 2014 COVID-19 VACCINE ( - season) 2024 05/22/2022, 12/24/2021, 07/07/2021, Additional history exists INFLUENZA VACCINE (#1) 2024 , 06/25/2021, 05/09/2021, Additional history exists DEPRESSION SCREENING 08/09/2024 03/03/2023 HEPATITIS B VACCINE Aged Out No longe r eligible based on patient's age to complete this topic HIB VACCINE Aged Out No longer eligi ble based on patient's age to complete this topic HPV VACCINE Aged Out No longer eligi ble based on patient's age to complete this topic MENINGOCOCCAL (Group B) VACCINE SHARED DECISION-MAKING Aged Out No longer eligible based on patient's age to complete this topic MENINGOCOCCAL GROUPS A/C/Y/W VACCINE Aged Out No longer eligible based on patient's age to complete this topic Advance Directives * Full Code (Latest Code Status on File) Date Activated Date Inactivated Comments 03/05/2023 10:16 AM 03/20/2023 1:28 PM * Full Code Date Activated Date Inactivated Comments 02/22/2023 4:26 PM 03/05/2023 9:16 AM Care Teams Forensic Anthropologist Relationship Specialty Start Date End Date Uri Victor MD [address] [place] [phone] PCP - General 03/09/22
--- OUTSIDE RECORDS SUMMARY | 2024-11-06 18:50 | XMS_ITS | Continuity of Care Document ---
Author Organization [facility] Address [address] [place] [address] [address] [place] [address] Phone Care Team Providers Care Sociology Research Assistant Name Role Phone Doisy, Edward Unavailable Unavailable Advance Directives Directive Yes / No Effective Date File Name No Information Encounters Encounter Description Practice Location Reason(s) For Visit Diagnoses Date Provider Providers Copied on Encounter Formerly [facility], [address], [place], [place], [id number], [place] tel:[phone] [facility] No Information [address] Edward. [address] , [address], [place], [address], [place]. tel:[phone] Family History Family Member Type Diagnosis Age At Onset No Information Payers Payer name Insurance type Covered constitution party ID Authoriza tion(s) No Information Social History Type Description Quantity Date Captured Comments Sex Male Smoking Status No Information Chief Complaint And Reason For Visit No Information Reason For Referral Reason For Referral No Information History Of Present Illness Encounter Date Complaint History Of Prese nt Illness No Information Functional Status Date Functional Assessmen t No Information Instructions Date Instruction Additional Infor mation No Information Assessments Type Assessment Date No Information Patient Care Teams Name Effective Dates (start - stop) Status Members No Information
--- OUTSIDE RECORDS SUMMARY | 2024-11-06 18:50 | XMS_ITS | Clinical Summary ---
Author Organization [facility] Address [address] [place] [address] Care Team Providers Care Nuclear Power Reactor Operator Name Role Phone Jean Claude Oneil MD Unavailable [phone] Ron Harding MD PhD Unavailable + [phone] Fernie Sherman MD Unavailable [phone] Serjio Sequeira MD Unavailable [phone] Facundo Smiley MD Unavailable [phone] Travon Rojas MD Primary Care Provider + [phone] Allergies Active Allergy Reactions Criticality Noted Date Comments Donepezil Nausea & Vomiting Low 03/04/[address] (CYMBALTA) 60 mg capsuleIndicati ons:major depressive disorder Take 1 capsule (60 mg total) by mouth 2 (two) times a day 60 capsule 2 1 Active gabapentin (NEURONTIN) 300 mg capsuleIndicati ons:Postherpeti c Neuralgia Take 1 capsule (300 mg total) by mouth 3 (three) times a day 90 capsule 2 1 Active polyethylene glycol (MIRALAX) 17 gram packetIndicatio ns:constipation Take 1 packet (17 g total) by mouth daily as needed for constipation 30 packet 3 Active apixaban (ELIQUIS) 5 mg tablet 2 (two) times a day 3 Active senna (SENOKOT) 8.6 mg tablet 3 Active nystatin powder 3 Active tamsulosin (FLOMAX) 0.4 mg extended release capsule 3 Active atorvastatin (LIPITOR) 40 mg tablet Take 1 tablet (40 mg total) by mouth nightly 3 Active finasteride (PROSCAR) 5 mg tablet 3 Active OLANZapine (ZyPREXA) 10 mg tablet 3 Active traMADoL (ULTRAM) 50 mg tablet Take 1 tablet (50 mg total) by mouth every 8 (eight) hours as needed 3 Active ERGOCALCIFEROL, VITAMIN D2, ORAL Take 1,250 mg by mouth once a week Active clotrimazole 1 % cream Apply topically 2 (two) times a day Active amiodarone (PACERONE) 100 mg tablet 4 Active mirtazapine (REMERON) 30 mg tablet 4 Active acetaminophen (TYLENOL) 500 mg tablet Take 1 tablet (500 mg total) by mouth every 6 (six) hours as needed for pain Active calcium carbonate-mag hydroxid 1,000-200 mg tablet,chewable Take by mouth Active lisinopriL (PRINIVIL,ZESTR IL) 10 mg tablet Take 1 tablet (10 mg total) by mouth daily 4 Active Active Problems Patient Care Coordination No te Formatting of this note migh t be different from the original. Referring provider: Dr. Victor Mr. Pawan Martinez is an 81-year-old with a lung nodule. He initially presented with symptoms of periumbilical pain. On 01/08/2022 the patient underwent a CT of the abdomen and pelvis without contrast which noted a partially calcified nodule in the left lower lung measuring 2.4 x 2 cm which abuts the pleural surface. There is a wedge-shaped soft tissue which is partially calcified in the right lower lobe. There are multiple areas of pleural thickening with calcifications, likely secondary to prior asbestos exposure. There were small fat containing umbilical hernia present as well as a fat containing left inguinal hernia. There was severe lumbar spondylosis with focal sclerotic lesion of L5. This is most likely a benign bone island. There is a markedly enlarged prostate gland. On 02/19/2022 the patient underwent a PET scan which showed a 2.8 cm left lower lobe lung nodule with a maximum SUV of 6.1. There is no evidence of veronika or distant metastatic disease. There was chronic bibasilar pulmonary parenchymal scarring without significant FDG uptake. There was an Ectatic ascending aorta. There was focal uptake in the right maxilla associated with a periapical lucency at a tooth root, in keeping with odontogenic inflammatory activity. Finally there was marked prostatomegaly. Patient has a history of atrial flutter and is status post cardioversion and ablation in the past. Patient is a never smoker. Patient is scheduled for pulmonary function testing prior to his appointment today. Patient presents today for further surgical evaluation. Problem Noted Date Diagnosed Date PAF (paroxysmal atrial fibrillation) 04/01/2023 Nonrheumatic aortic valve stenosis 04/01/2023 Chronic anticoagulation 04/01/2023 Pre-syncope 04/01/2023 Atrial fibrillation with RVR 08/08/2022 Assessment & Plan (11/21/2022 3:05 PM CDT): Rate controlled today Continuing Eliquis, amiodarone Empyema 08/07/2022 Disc degeneration, lumbar 04/07/2022 Malignant neoplasm of lower lobe, left bronchus or lung 03/31/2022 Cancer Staging:Clinical stage from 03/31/2022:Stage IA3(cT1c, cN0, cM0) - Signed by Ron Harding MD PhD on 03/31/2022 Spondylosis of lumbar region without myelopathy or radiculopathy 02/03/2022 Pleural plaque 01/26/2022 Assessment & Plan (01/26/2022 7:21 PM CDT): Pleural plaques noted on recent CT. Will elect to try and get PET instead of reimaging in 3 months, as there was an area in the lumbar spine that might need further characterization Left hip pain 01/26/2022 Assessment & Plan (01/26/2022 7:21 PM CDT): Hip pain not controlled. Will advise contacting ortho and pain management given lack of improvement with PT and cortisone shot. Reticent to prescribe opioids. Gabapentin will continue. May go back to tylenol arthritis PRN as well Sacroiliitis 11/12/2021 Encounter for Medicare annual wellness exam 10/09 Assessment & Plan (11/06/2021 6:16 PM CDT): A yearly Medicare Annual Wellness Visit has been performed today. Pawan Martinez is up to date on screening tests. He is in need of None- no screening indicated at this time- these have been ordered. He is not up to date on needed preventative vaccinations; He is in need of Tdap/Td. These have been ordered/arranged unless otherwise indicated. Blood pressure looks controlled next As far as epigastric pain, we will have him go to omeprazole to 40 mg daily. If not improving, we will go ahead and have him see odd piece checker Reviewed medications, continuing current regimen Labs as ordered Low back pain 09/23/2021 Sacrococcygeal disorders, not elsewhere classifi ed 09/23/2021 History of TIA (transient ischemic attack) 05/13 Assessment & Plan (05/13/2021 2:37 PM CDT): H/o TIA in 2018. - continue home Xarelto 20 mg daily for stroke prevention Shoulder pain, left 05/13/2021 Assessment & Plan (05/26/2021 5:24 PM CDT): Reports constant L shoulder and occasional L-sided neck pain since 04/21. Diagnosed with shingles and started on valacyclovir on 04/30. Pain has been unrelieved by home meds (lido patch, gabapentin, tizanidine, tramadol), and was also on a steroid taper recently. No rash seen currently. Although patient had shingles/rash, there may be a component of psychogenic component to his pain, as he has had previous episode of unexplained groin pain that was thought to be delusional or psychogenic in nature. -gabapentin 300 mg TID -Cymbalta 60 mg BID -Voltaren gel -Tylenol PRN -Lidocaine patch PRN CAROLINA (acute kidney injury) 05/13/2021 Assessment & Plan (05/17/2021 1:28 PM CDT): Cr 1.51 on admission. Most recent Cr 1.1 on 10/2020. Likely pre-renal in setting of poor PO intake. Cr improved to 1.29 after 1L NS bolus. Depression, major, recurrent 05/12/2021 Assessment & Plan (05/26/2021 5:25 PM CDT): Patient has longstanding history of depression, with 5 hospitalizations and at least 2 ECT series (2000, 2004) with good response. During one episode, patient had unexplained groin pain that led to depression and SI, and ECT helped with his pain. Thus, pain was thought to be delusional or psychogenic in nature, and was started on olanzapine 20 mg. This admission, he was brought to the hospital by his for SI via walking into traffic and admitted for ongoing SI. Has progressively worsening depressed mood and evidence of neurovegetative symptoms (minimal oral intake, reduced psychomotor activity, anhedonia, poor concentration) since 04/21, when L shoulder and neck pain began. Pain has been unrelieved by multiple meds. Patient's current psychiatric symptoms are centered around his pain. Chart review indicates he was thought to have shingles (s/p valacyclovir) and has image-confirmed osteoarthritis and labral tear. There is no doubt patient has real pain from these physical pathologies, but there is concern for overlying psychogenic component due to similar previous episode of unexplained groin pain and resolution with ECT treatment. Because of this, his severe depression, acute SI, and minimal oral intake prior to admission, we would like treat both his depression and potential psychogenic pain with ECT. Patient's ECT treatment has been delayed due to fluctuating capacity. Although there is potential for delirium, patient has had intact attention (ex: has been able to do serial 7's) and has been A&Ox4 throughout his entire stay. With regards to his cognition, the patient's main cognitive deficits center around his depression diagnosis (he does not remember his past hospitalizations or previous ECT treatments). Outside of this, patient's short term and snf memory seem mainly intact. 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 There may not actually be an issue with the patient's ability to consent, and maybe he just hasn't been able to hear the risks/benefits clearly. The patient is hard of hearing and does not wear hearing aids; we would recommend providers make sure the patient is fully engaged and speak loudly to him when discussing ECT risks/benefits. Patient's first ECT treatment yesterday went well. Patient has demonstrated significant improvement during his hospital stay. Today, he denies depressed mood, but appears more dysthymic than yesterday. We will plan on second ECT today, and will plan on discharge on Wednesday. We will touch base with the to make sure she is agreeable with his discharge. -continue home olanzapine 5 mg nightly -continue home mirtazapine to 45 mg nightly -continue cymbalta 60 mg BID -ECT today -Patient will continue to receive outpatient ECT this Wednesday and Wednesday, for a total of [address] Oneil will decide after this is patient needs to continue with ECT. -suicide precautions Cervical spondylosis 05/09/2021 Assessment & Plan (05/09/2021 10:33 AM CDT): Tizanidine 2mg PRN (use, safety, s/e reviewed) Heat prn Continue PT Has tramadol PRN for pain and uses gabapentin at night. Gastroesophageal reflux disease without esophagi tis 10/17/2020 Bipolar 1 disorder 10/17/2020 HTN (hypertension) 09/30/2017 Assessment & Plan (11/21/2022 3:05 PM CDT): BP is controlled Continuing metoprolol Assessment & Plan (05/02/2022 11:11 AM CDT): Hydration is inadequate. Admittedly, water intake is low so I suggest trying a flavoring like 'Vic water enhancer' to make the water more palatable. Aim for 6 glasses a day at least. 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 Continue home Xarelto. TIA (transient ischemic attack) 05/13/2021 05/13/2021 Assessment & Plan (05/13/2021 3:05 AM CDT): H/o TIA in 2018. Continue home Xarelto for stroke prevention. Immunizations Immunization Administration Dates Next Due Influenza, Trivalent, High D ose, Split, Preservative Free, Intramuscular 2015 Influenza, Trivalent, IM (MDV) 05/01/2013 Influenza, Unspecified 04/27/2022,2020,05/23/2020(Defer red: Patient Refused) Pfizer SARS-CoV-2 Monovalent Vaccination (12+ Yrs) PURPLE 07/07/2021,09/26/2020,09/05/2020 Pneumococcal Conjugate PCV 13 05/11/2014 Pneumococcal Polysaccharide PPV23 04/09/2020 ZOSTER Recombinant 08/04/2019,04/21/2019 Surgical History Surgery Date Site/Laterality Comments BACK SURGERY Back Surgery - (Added by SYEDA Conv) CARDIOVERSION CARDIAC ELECTROPHYSIOLOGY ST UDY AND ABLATION COLONOSCOPY SKIN LESION EXCISION Medical History Medical History Date Comments Other specified postprocedural states S/P ECT (electroconvulsive therapy) - (Added by TW Conv) Hypertension Depression TIA (transient ischemic attack) x 1 Atrial flutter (HCC) Skin cancer Anxiety Dementia (HCC) GERD (gastroesophageal reflux disease) Cataract Heart disease Stroke (HCC) TIA 06/02/2018 Family History Medical History Relation Name Comments Coronary artery disease Brother Fami ly history of coronary artery disease - (Added by TW Conv) Heart attack Father brother Kidney disease Father brother Dementia Mother Mental illness Other Depression Paternal Grandfather father Relation Name Status Comments Brother Father brother Mother Other Paternal Grandfather father Social History Tobacco Use Types Packs/Day Years Used Date Smoking Tobacco: Never Smokeless Tobacco: Never Tobacco Cessation:Counseling Given: Not Answered Humiliation, Afraid, Rape, and Kick questionnair e Answer Date Recorded Within the last year, have y ou been afraid of your partner or ex-partner? No 05/13/2021 Within the last year, have y ou been humiliated or emotionally abused in other ways by your partner or ex-partner? No Within the last year, have y ou been kicked, hit, slapped, or otherwise physically hurt by your partner or ex-partner? No 05/13/2021 Within the last year, have y ou been raped or forced to have any kind of sexual activity by your partner or ex-partner? No 05/13/2021 Social Connection and Isolation Panel [NHANES] A nswer Date Recorded In a typical week, how many times do you talk on the phone with family, friends, or neighbors? Three times a week 05/13/20 How often do you get togethe r with friends or relatives? Once a week 05/13/2021 How often do you attend chur or hoahaoism services? 1 to 4 times per year 05/13/2021 Do you belong to any clubs o r organizations such as protestant groups, unions, fraternal or athletic groups, or school groups? No 05/13/2021 How often do you attend meet ings of the clubs or organizations you belong to? Never 05/13/2021 Are you , , di vorced, , never , or living with a partner? 05/13/2021 AUDIT-C Answer Date Recorded Q1: How often do you have a drink containing alcohol? Never 08/08/2022 Q2: How many drinks containi ng alcohol do you have on a typical day when you are drinking? Patient does not drink 2 Q3: How often do you have si x or more drinks on one occasion? Never 08/08/2022 Overall Financial Resource Strain (CARDIA) Answe r Date Recorded How hard is it for you to pa y for the very basics like food, housing, medical care, and heating? Not hard at all 05/13/2021 PHQ-2 Answer Date Recorded PHQ-2 Total Score (If total score is 3 or more points, staff should administer the PHQ-9) 0 11/19/2022 [facility] - Occupational Stress Questionnaire Answer Date Recorded Do you feel stress - tense, restless, nervous, or anxious, or unable to sleep at night because your mind is troubled all the time - these days? Only a little 11/06/2021 Exercise Vital Sign Answer Date Recorde d On average, how many days pe r week do you engage in moderate to strenuous exercise (like a brisk walk)? 0 days 05/13/2021 On average, how many minutes do you engage in exercise at this level? 0 min 05/13/2021 Hunger Vital Sign Answer Date Recorded Within the past 12 months, y ou worried that your food would run out before you got the money to buy more. Never true 05/13/20 21 Within the past 12 months, t he food you bought just didn't last and you didn't have money to get more. Never true 05/13/2021 PRAPARE - Transportation Answer Date Re corded In the past 12 months, has l ack of transportation kept you from medical appointments or from getting medications? No 12/2020 In the past 12 months, has l ack of transportation kept you from meetings, work, or from getting things needed for daily living? No 05/13/2021 Housing Stability Vital Sign Answer Elder e Recorded In the last 12 months, was t here a time when you were not able to pay the mortgage or rent on time? No 05/13/2021 In the last 12 months, how many places have you lived? 1 05/13/2021 In the last 12 months, was t here a time when you did not have a steady place to sleep or slept in a alf (including now)? No 05/13/2021 Education Answer Date Recorded What is the highest level of school you have completed or the highest degree you have received? 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 Not on file Not on file Not on file Obstetrics History Last Filed Vital Signs Vital Sign Reading Time Taken Comments Blood Pressure 112/48 08/03/2024 2:13 PM COLORING ROOM WORKER Pulse 70 08/03/2024 2:13 PM COLORING ROOM WORKER Temperature 36.4 C (97.5 F) 08/03/2024 2:13 PM COLORING ROOM WORKER Respiratory Rate 16 08/03/2024 2:13 PM COLORING ROOM WORKER Oxygen Saturation 96% 08/03/2024 2:13 PM COLORING ROOM WORKER Inhaled Oxygen Concentration - - Weight 93.5 kg (206 lb 3.2 oz) 08/03/2024 2:13 P M COLORING ROOM WORKER Height 182.9 cm (6') 03/23/2024 11:38 AM CDT Body Mass Index 27.97 03/23/2024 11:38 AM CDT Plan of Treatment Health Maintenance Due Date Last Done Comments DTaP/Tdap/Td Vaccine (1 - Tdap) 1951 Hepatitis B Screening 1958 Well Visit 65+ 11/06/2022 11/06/2021, 10/17/2020 Depression Screening 11/20/2023 11/19/2022, 07/29/2022, 07/09/2022, Additional history exists Fall Risk Assessment 11/20/2023 11/19/2022, 08/24/2022, 07/23/2022, Additional history exists Covid-19 Vaccine (2023-2 5 season) 2024 07/07/2021, 09/26/2020, 09/05/2020 Zoster Vaccine Completed 08/04/2019, 04/21/2019 Pneumococcal vaccine 65+ Completed 04/09/2020, 10/2013 Influenza Vaccine Completed 05/18/2024, , 05/09/2021, Additional history exists Insurance MEDICARE [facility] MEDICARE MEDICARE [facility] MEDICARE [facility] MEDICARE SUPPLEMENT Advance Directives For more information, please contact: [phone] Documents on File Type Date Recorded Patient Office Assistance Expl anation ADVANCE DIRECTIVE 08/16/2022 6:27 PM POLST - Phys Order for PT Preferences * LIMITED - No CPR (Latest Code Status on File) Date Activated Date Inactivated Comments 08/13/2022 2:51 PM 08/24/2022 6:16 PM Question Answer Comments Discussed with the following attending physician : Rodriguez * Full Code Date Activated Date Inactivated Comments 08/12/2022 4:52 PM 08/13/2022 2:51 PM * LIMITED - No CPR Date Activated Date Inactivated Comments 08/08/2022 12:28 AM 08/12/2022 4:52 PM Question Answer Comments Provide aggressive medical m anagement before a full cardiopulmonary arrest occurs. Use antibiotics, IV Fluids, and medical treatment unless specifically selected below: No intubation * Full Code Date Activated Date Inactivated Comments 08/07/2022 11:38 PM 08/08/2022 12:28 AM * Full Code Date Activated Date Inactivated Comments 06/02/2021 5:50 AM 06/03/2021 4:49 AM Care Teams Nuclear Power Reactor Operator Relationship Specialty Start Date End Date Travon Rojas MD [address] [place] [address] PCP - General Family Medicine 01/06/24 Jean Claude Oneil MD Referring Physician Psychiatry 11/06/21 Ron Harding MD PhD [address] [place] [id number] Radiation Oncologist Radiation Oncology 03/31/22 Fernie Sherman MD [id number] [place] [address] Referring Physician Thoracic Surgery 03/31/22 Serjio Sequeira MD [address] [place] [address] Referring Physician Dermatology 04/29/22 Facundo Smiley MD [address] [address] Referring Physician Cardiology 04/29/22
--- OUTSIDE RECORDS SUMMARY | 2024-11-06 18:50 | XMS_ITS | Encounter Summary ---
Author Organization [facility] Address [address] [place] [address] Phone Care Team Providers Care Power Regulator Name Role Phone Huan Jones MD Primary Care Provider + Uri Victor MD Primary Care Provider [phone] Jean Claude Oneil MD Unavailable [phone] Ron Harding MD PhD Unavailable + [phone] eFrnie Sherman MD Unavailable [phone] Serjio Sequeira MD Unavailable [phone] Facundo Smiley MD Unavailable [phone] Pa Covlin MD Primary Care Provider [phone] Travon Rojas MD Primary Care Provider + [phone] Encounter Details Date Type Department Care Team (Late st Contact Info) Description 11/23/2019 Telephone [facility] Cardiology [address] [facility] [address] [place] [address] [place] [address] Facundo Smiley MD [address] [facility] [address] [place] [address] Social History Tobacco Use Types Packs/Day Years Used Date Smoking Tobacco: Never Smokeless Tobacco: Never Sex and Gender Information Value Date Recorded Sex Assigned at Not on file 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 Gender Identity Male 03/26/2021 4:36 PM CDT Sexual Orientation Straight 03/26/2021 4: 36 PM CDT documented as of this encounter Miscellaneous Notes * Telephone Encounter - Chica Dickerson - 11/23/2019 9:58 AM CDT documented in this encounter Plan of Treatment Not on file documented as of this encounter Visit Diagnoses Not on filedocumented in this encounter Care Teams Power Regulator Relationship Specialty Start Date End Date Huan Jones MD [address] [facility] [address] [place] [address] PCP - General 10/21/16 11/05/21 Uri Victor MD [address] [place] [address] PCP - General Family Medicine 11/06/21 03/31/23 Pa Colvin MD [address] [facility] [address] [place] [address] PCP - General Family Medicine 04/01/23 01/05/24 Travon Rojas MD [address] [address] PCP - General Family Medicine 01/06/24 Jean Claude Oneil MD [address] [place], [place] [id number] Referring Physician Psychiatry 11/06/21 Ron Harding MD PhD [address] [place] [address] Radiation Oncologist Radiation Oncology 03/31/22 Fernie Sherman MD [address] [facility] [id number] [place] [address] Referring Physician Thoracic Surgery 03/31/22 Serjio Sequeira MD [address] [facility] [place] [address] Referring Physician Dermatology 04/29/22 Facundo Smiley MD [address] [address] Referring Physician Cardiology 04/29/22 documented as of this encounter
--- OUTSIDE RECORDS SUMMARY | 2024-11-06 18:50 | XMS_ITS | Encounter Summary ---
Author Organization [facility] Address [address] [facility] [place] [address] Care Team Providers Care Dredge Pipe Operator Name Role Phone Uri Victor MD Primary Care Provider [phone] Encounter Details Date Type Department Care Team (Late st Contact Info) Description 11/17/2022 Lab Requisition [facility] DermPath Lab [address] [place] [address] Magdiel Sequeira MD [address] [facility] [place] [address] Social History Tobacco Use Types Packs/Day Years Used Date Smoking Tobacco: Never Assessed Sex and Gender Information Value Date Recorded Sex Assigned at Not on file Gender Identity Not on file Sexual Orientation Not on file documented as of this encounter Plan of Treatment Not on file documented as of this encounter Procedures Procedure Name Priority Date/Time Associated Diagnosis Comments DERMATOPATHOLOGY Routine 11/17/2022 12:0 0 AM CDT documented in this encounter Results * DERMATOPATHOLOGY (11/17/2022 12:00 AM CDT) Case Report Dermatopathology Report Case: [id number] Authorizing Provider: Magdiel Sequeira MD Collected: 11/17/2022 12:00 AM Ordering Location: [facility] DermPath Lab Received: 11/17/2022 04:36 PM Pathologist: Lucie Faustin MD Specimen: Skin, right lower sideburn 4:45 PM CDT DERMATOPATHOLOGY LABORATORY Final Diagnosis Specimen A. 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 The specimen consists of a shave biopsy measuring 10x8x2 mm. Jar 0. 3 4:45 PM CDT DERMATOPATHOLOGY LABORATORY Microscopic Description Specimen A. SKIN, right lower sideburn: Arising in the epidermis and extending into the dermis there are irregularly shaped aggregates of keratinocytes showing evidence of premature cornification. 3 4:45 PM CDT DERMATOPATHOLOGY LABORATORY Disclaimer An external and internal positive and negative controls are appropriate for the histochemical, immunohistochemical and immunofluorescence stain(s) in this case (if any), except where stated explicitly. The performance characteristics of the stain(s) cited in this report were developed and its performance characteristic determined by the Dermatopathology Laboratory at [facility], directed by Dr. Marco Faustin. These tests need not be, and therefore are not, approved by the [place] Food and Drug Administration. The tests are used for clinical purposes. Billing Codes Specimen Charges Stain Charges 40310 1 3 4:45 PM CDT DERMATOPATHOLOGY LABORATORY Embedded Images 3 4:45 PM CDT DERMATOPATHOLOGY LABORATORY Pathology/Cytolog y TISSUE SPECIMEN FROM SKIN / Unknown 11/17/2022 11/17/2022 4:36 PM CDT Magdiel Sequeira MD LAB - PATHOLOGY/CYTO LOGY ORDERABLES DERMATOPATHOLOGY LABORATORY [facility] - Department of Dermatology [address], [address] [phone] documented in this encounter Visit Diagnoses Not on filedocumented in this encounter Care Teams Dredge Pipe Operator Relationship Specialty Start Date End Date Uri Victor MD [address] [place] [address] [address] [place] [address] PCP - General 03/09/22 documented as of this encounter
--- OUTSIDE RECORDS SUMMARY | 2024-11-06 18:50 | XMS_ITS | Referral Summary ---
Author Organization [facility] Address [address] [place] [address] Care Team Providers Care Planner/Scheduler Name Role Phone Jean Claude Oneil MD Unavailable [phone] Ron Harding MD PhD Unavailable [phone] Fernie Sherman MD Unavailable [phone] Serjio Sequeira MD Unavailable [phone] Facundo Smiley MD Unavailable [phone] Travon Rojas MD Primary Care Provider + [phone] Allergies Active Allergy Reactions Criticality Noted Date [...] will go ahead and have him see coal deliverer Reviewed medications, continuing current regimen Labs as [...] Outside of this, patient's short term and prison memory seem mainly intact. Because of this [...] Pneumococcal Polysaccharide PPV23 04/09/2020 ZOSTER Recombinant 08/04/2019,04/21/2019 Social History Tobacco Use Types Packs/Day Years [...] 05/13/2021 How often do you attend chur ch or episcopalian services? 1 to 4 times per year 05/13/2021 Do you belong to any clubs o r organizations such as sikhism groups, unions, fraternal or athletic groups, or [...] you are drinking? Patient does not drink Q3: How often do you have si [...] staff should administer the PHQ-9) 0 11/19/2022 [facility] - Occupational Stress Questionnaire Answer Date Recorded [...] place to sleep or slept in a fpc (including now)? No 05/13/2021 Education Answer Date Recorded What is the highest level of school you have completed or the highest degree you have received? 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 Answer Date of Assessment Author No 05/13/2021 3:05 PM CDT Teena Tse LCSW * Are you blind or do you have serious difficulty seeing, even when wearing glasses? Answer Date of Assessment Author No 05/13/2021 3:05 PM CDT Teena Tse LCSW * Do you have serious difficulty walking or climbing stairs? Answer Date of Assessment Author Yes 05/13/2021 3:05 PM CDTeena Correa LCSW * Do you have serious difficulty dressing or bathing? Answer Date of Assessment Author No 05/13/2021 3:05 PM CDT Teena Tse LCSW * Because of a physical, mental, or emotional condition, do you have serious difficulty doing errandsalone such as visiting the doctor? Answer Date of Assessment Author Yes 05/13/2021 3:05 PM CDT Teena Tse LCSW Mental Status * Because of a physical, mental, or emotional condition, do you have serious difficulty concentrating, remembering, or making decisions? (5 years old or older) Answer Entry Date Author Yes 05/13/2021 3:05 PM CDTeena Correa LCSW Plan of Treatment Not on file Insurance MEDICARE [facility] MEDICARE MEDICARE [facility] MEDICARE [facility] MEDICARE SUPPLEMENT Advance Directives For more information, please contact: [phone] Documents on File Type Date Recorded Patient Channel Manager Expl anation ADVANCE DIRECTIVE 08/16/2022 6:27 PM [...] 5:50 AM 06/03/2021 4:49 AM Care Teams Planner/Scheduler Relationship Specialty Start Date End Date Travon Rojas MD [address] [place] [address] PCP - General Family Medicine 01/06/24 Jean Claude Oneil MD Referring Physician Psychiatry 11/06/21 Ron Harding MD PhD [address] [place] [address] Radiation Oncologist Radiation Oncology 03/31/22 Fernie Sherman MD [address] [facility] [address] [place] [address] Referring Physician Thoracic Surgery 03/31/22 Serjio Sequeira MD [address] [place] [address] Referring Physician Dermatology 04/29/22 Facundo Smiley MD [address] [address] Referring Physician Cardiology 04/29/22
--- OUTSIDE RECORDS SUMMARY | 2024-11-06 18:50 | XMS_ITS ---
Author Organization [facility] Address [address] [place] [address] Care Team Providers Care Office Bookkeeper Name Role Phone Jean Claude Oneil MD Unavailable [phone] Ron Harding MD PhD Unavailable [phone] Fernie Sherman MD Unavailable [phone] Serjio Sequeira MD Unavailable [phone] Facundo Smiley MD Unavailable [phone] Travon Rojas MD Primary Care Provider + [phone] Active Problems Patient Care Coordination No te [...] will go ahead and have him see train brake operator Reviewed medications, continuing current regimen Labs as [...] Outside of this, patient's short term and penitentiary memory seem mainly intact. Because of this [...] so I suggest trying a flavoring like 'Kennan water enhancer' to make the water more [...] examination 09/09 Abnormal PET of left lung Current Treatment and Therapy Plans No current plan information found. Other Current Plans ECT THERAPY PLAN* Plan Start Date:05/14/2021 Plan Provider:Skylar Bee MD Linked Problems Bipolar 1 disorder (HCC) Treatment Medications No medications scheduled. Past Treatment and Therapy Plans No past plan information found. Radiation Treatments * Course [id number]/14/2022 - 04/20/2022 Treatment Period Energy Fraction Dose Fractions Total Dose Plans Planned SBRT L 04/14/2022 - 04/20/2022 1,100 5 / 5,500 Reference Points Delivered SBRT L 04/14/2022 - 04/20/2022 5,500 Lifetime Dose Tracking * Chemical Lifetime Dose Automatic Entry Manual Entr y Fluoro Time 0.121 minutes 0.121 minutes 0 minutes Air kerma at the reference point (Ka,r) 1.938 mGy 1 .938 mGy 0 mGy DLP 801 mGycm 801 mGycm 0 mGycm Resolved Problems Problem Noted Date Diagnosed Date Resolved Date Family history of atrial flutter 05/13/2021 05/13/2021 Assessment & Plan (05/13/2021 3:05 AM CDT): S/p ablation. Continue home Xarelto. TIA (transient ischemic attack) 05/13/2021 05/13/2021 Assessment & Plan (05/13/2021 3:05 AM CDT): H/o TIA in 2018. Continue home Xarelto for stroke prevention.
--- NOTE | 2024-11-06 19:25 | ECG_ITS ---
Test Date: 2024-11-06 20:22:12 Measurements Intervals [place] Rate: 58 P: 45 OR: 180 QRS: -19 QRSD: 114 T: 25 QT: 448 QTc: 441 Interpretive Statements SINUS BRADYCARDIA INCOMPLETE RIGHT BUNDLE BRANCH BLOCK VOLTAGE CRITERIA FOR LLEFT VENTRICULAR HYPERTROPHY BASELINE ARTIFACT- I, II, III, AVR, AVL ,AVF, V1-V6 BORDERLINE ECG No previous ECG available for comparison Electronically Signed On 11-07-2024 06:03:40 CDT by Sarkis Wheeler D.O.
--- OUTSIDE RECORDS SUMMARY | 2024-11-06 19:49 | XMS_ITS | Continuity of Care Document ---
Author Organization [facility] Address [address] [place] [address] [address] [place] [address] Phone Care Team Providers Care Marketing And Promotions Manager Name Role Phone Doisy, Edward Unavailable Unavailable Advance Directives Directive Yes / No Effective Date File Name No Information Encounters Encounter Description Practice Location Reason(s) For Visit Diagnoses Date Provider Providers Copied on Encounter [facility], [address], [place], [place], [id number], [place] tel:[phone] [facility] No Information [address] Edward. [address] , [address], [place], [address], [place]. tel:[phone] Family History Family Member Type Diagnosis Age At Onset No Information Payers Payer name Insurance type Covered green party ID Authoriza tion(s) No Information Social [...]
--- OUTSIDE RECORDS SUMMARY | 2024-11-06 19:49 | XMS_ITS | Encounter Summary ---
Author Organization [facility] Address [address] [place] [address] Phone Care Team Providers Care Marketing Sales Supervisor Name Role Phone Huan Jones MD Primary Care Provider + Uri Victor MD Primary Care Provider [phone] Jean Claude Oneil MD Unavailable [phone] Ron Harding MD PhD Unavailable + [phone] Fernie Sherman MD Unavailable [phone] Serjio Sequeira MD Unavailable [phone] Facundo Smiley MD Unavailable [phone] Pa Colvin MD Primary Care Provider [phone] Travon Rjoas MD Primary Care Provider + [phone] Encounter Details Date Type Department Care Team (Late st Contact Info) Description 11/23/2019 Telephone [facility] Cardiology [address] [facility] [address]th [place] [address] [place] [address] Facundo Smiley MD [address] [facility] [address] [place] [address] Social History Tobacco Use Types Packs/Day Years Used Date Smoking Tobacco: Never Smokeless Tobacco: Never Sex and Gender Information Value Date Recorded Sex Assigned at Not on file 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 Gender Identity Male 03/26/2021 4:36 PM CDT Sexual Orientation Straight 03/26/2021 4: 36 PM CDT documented as of this encounter Miscellaneous Notes * Telephone Encounter - Chica Dickerson - 11/23/2019 9:58 AM CDT documented in this encounter Plan of Treatment Not on file documented as of this encounter Visit Diagnoses Not on filedocumented in this encounter Care Teams Marketing Sales Supervisor Relationship Specialty Start Date End Date Huan Jones MD [address] [place] [address] PCP - General 10/21/16 11/05/21 Uri Victor MD [address] [place] [address] PCP - General Family Medicine 11/06/21 03/31/23 Pa Colvin MD [address] [place] [address] PCP - General Family Medicine 04/01/23 01/05/24 Travon Rojas MD [address] [place] [address] PCP - General Family Medicine 01/06/24 Jean Claude Oneil MD [address] [place], [place] [address] Referring Physician Psychiatry 11/06/21 Ron Harding MD PhD [address] [place] [address] Radiation Oncologist Radiation Oncology 03/31/22 Fernie Sherman MD [address] [facility] [address] [place] [address] Referring Physician Thoracic Surgery 03/31/22 Serjio Sequeira MD [address] [facility] [place] [address] Referring Physician Dermatology 04/29/22 Facundo Smiley MD [address] [address] Referring Physician Cardiology 04/29/22 documented as of this encounter
--- OUTSIDE RECORDS SUMMARY | 2024-11-06 19:49 | XMS_ITS | Encounter Summary ---
Author Organization [facility] Address [address] [facility] [place] [address] Care Team Providers Care Electrical Accessories Ii Assembler Name Role Phone Uri Victor MD Primary Care Provider [phone] Encounter Details Date Type Department Care Team (Late st Contact Info) Description 11/17/[address] [facility] DermPath Lab [address] [place] [address] Magdiel Sequeira MD [address] [facility] [place] [address] Social History Tobacco Use Types Packs/Day Years [...] AM CDT) Case Report Dermatopathology Report Case: [id number] Authorizing Provider: Magdiel Sequeira MD Collected: 11/17/2022 12:00 AM Ordering Location: [facility] DermPath Lab Received: 11/17/2022 04:36 PM Pathologist: Lucie Faustin MD Specimen: Skin, right lower sideburn 4:45 PM CDT DERMATOPATHOLOGY LABORATORY Final Diagnosis Specimen A. SKIN, right lower sideburn: SQUAMOUS CELL CARCINOMA, WELL DIFFERENTIATED (C44.329) 3 4:45 PM CDT DERMATOPATHOLOGY LABORATORY Clinical History SCCA vs SK Path#[id number] 3 4:45 PM CDT DERMATOPATHOLOGY LABORATORY Gross [...] characteristic determined by the Dermatopathology Laboratory at [facility], directed by Dr. Marco Faustin. These tests need not be, and therefore are not, approved by the [place] Food and Drug Administration. The tests are used for clinical purposes. Billing Codes Specimen Charges Stain Charges 75532 1 3 4:45 PM CDT DERMATOPATHOLOGY LABORATORY Embedded Images 3 4:45 PM CDT DERMATOPATHOLOGY LABORATORY Pathology/Cytolog y TISSUE SPECIMEN FROM SKIN / Unknown 11/17/2022 11/17/2022 4:36 PM CDT Magdiel Sequeira MD LAB - PATHOLOGY/CYTO LOGY ORDERABLES DERMATOPATHOLOGY LABORATORY [facility] - Department of Dermatology [address], [address] [phone] documented in this encounter Visit Diagnoses Not on filedocumented in this encounter Care Teams Electrical Accessories Ii Assembler Relationship Specialty Start Date End Date Uri Victor MD [address] [place] [address] [address] [place] [address] PCP - General 03/09/22 documented as of this encounter
--- OUTSIDE RECORDS SUMMARY | 2024-11-06 19:49 | XMS_ITS ---
Author Name Travon Rojas Address [address] ([employer]) [place] [address] Phone [phone] [facility] Address [address] [place] [address] Phone [phone] Care Team Providers Care Health Screener Name Role Phone Travon Rojas Unavailable [phone] Jean Claude Oneil Unavailable [phone] Functional Status No Results Mental Status No Results Allergies and Intolerances Name Onset Date Reaction Severity donepezil (Allergy) WedAug 24 15:21:00 EST 2022 Encounters Program Name Primary Diagnosis Admission Date/Time Dis charge Date/Time Assisted Living Area Unspecified dementi a, unspecified severity, with mood disturbance WedAug 06 06:56:00 EST 2022 Immunizations Name Dates Status influenza, trivalent, adjuvanted WedMay 19 01:0 0:00 EDT 2023 Completed COVID-19, mRNA, LNP-S, PF, t ris-sucrose, 30 mcg/0.3 mL WedJun 04 01:00:00 EDT 2023 Completed Moderna -WedSep 08 01:00:00 EST 2024 Com pleted Medications Medication Directions Start Date End Date Auvelity 45 mg-105 mg tablet, extended release 1 tablet TABLET,IMMED, EXTENDED RELEASE, BIPHASIC Oral 1 Time Daily Indication: major depressive disorder LIME KILN OPERATOR supervision x1 WedOct 10 01:00:00 EST 2024 gabapentin 400 mg capsule 1 capsule CAPS ULE Oral 4 Times Daily Indication: NEUROPATHY LIME KILN OPERATOR supervision x1, x2, x3, x4 WedSep 21 01:00:00 EST 2024 acetaminophen 325 mg tablet 2 TABLETS TA BLET Oral 3 Times Daily Indication: painCNA Supervision x1 x2 x4 WedSep 13 12:00:00 EST 2024 acetaminophen 325 mg tablet 2 TABLETS TA BLET Oral PRN Every 6 Hours Indication: pain WedSep 11 15:00:00 EST 2024 OLANZapine 10 mg tablet 1 tab TABLET Ora l 1 Time Daily Indication: Major depressive disorder, recurrent, severe with psychotic symptoms LIME KILN OPERATOR Supervision x4 WedJul 04 13:31:00 EST 2023 Comirnaty (12y up)(PF) 30 mcg/0.3 mL intramuscular syringe 0.3ml SYRINGE (ML) Intramuscular 1 Time Daily for 1 Day Indication: covid vaccine WedJun 04 01:00:00 EDT 2023Jun 05 00:59:00 EDT 2023 Blood Pressure Kit na KIT Other 2 Times Daily for 3 Days Indication: covid vaccine WedJun 04 01:00:00 EDT 2023Jun 04 14:17:00 EDT 2023 Blood Pressure Kit na KIT Other 2 Times Daily for 3 Days Indication: covid vaccine WedJun 04 01:00:00 EDT 2023Jun 07 00:59:00 EDT 2023 Fluad Triv (65y up)(PF) 45 mcg (15 mcg x 3)/0.5 mL IM syringe 1 SYRINGE (ML) Intramuscular 1 Time Daily for 1 Day Indication: vaccine WedMay 18 01:00:00 EDT 2023May 19 00:59:00 EDT 2023 polyethylene glycoL 3350 17 gram/dose oral powder 17 gram POWDER (GRAM) Oral PRN 1 Time Daily Indication: constipation WedApr 16 13:00:00 EDT 2023 Eliquis 5 mg tablet 1 tablet TABLET Oral 2 Times Daily Indication: anticoagulant [employer] OPERATOR supervision x1, x4Pangela Marcial MD WedMar 24 01:00:00 EDT 2023 tamsulosin 0.4 mg capsule 1 cap CAPSULE Oral 2 Times Daily Indication: urinary dysfunction L[employer] K[employer] OPERATOR Supervision x1 x4 WedMar 12 12:51:00 EDT 2023 Blood Pressure Kit 1 KIT Other 2 Times Daily for 5 Days Indication: LIME KILN OPERATOR obtain Vital Signs WedJan 28 16:53:00 EDT 2023Feb 02 16:52:00 EDT 2023 Blood Pressure Cuff 1 EACH Other 1 Time Daily for 12 Days Indication: vital signs LIME KILN OPERATOR to obtain WedJan 12 01:00:00 EDT 2023Jan 24 00:59:00 EDT 2023 lisinopriL 10 mg tablet 1 tab TABLET Ora l 1 Time Daily Indication: HTN x1 LIME KILN OPERATOR admin WedDecember 20 01:00:00 EDT 2023 Blood Pressure Cuff 1 EACH Other 2 Times Daily for 6 Days Indication: vital signs LIME KILN OPERATOR to obtain Blood pressure and pulse WedDecember 13 15:00:00 EDT 2023December 19 14:59:00 EDT 2023 omeprazole 20 mg capsule,delayed release 1 cap CAPSULE,DELAYED RELEASE (ENTERIC COATED) Oral 2 Times Daily Indication: stomach pain LIME KILN OPERATOR supervision x1 x4 WedOct 28 01:00:00 EDT 2023Oct 29 14:43:00 EDT 2023 Calcium Antacid 200 mg (as calcium carbonate 500 mg) chewable tablet 200 mg calcium (500 mg) 1 tab TABLET,CHEWABLE Oral PRN Every 6 Hours Indication: Indigestion Indigestion WedOct 19 06:00:00 EDT 2023Mar 27 12:14:00 EDT 2023 magnesium citrate oral solution 300 ml SOLUTION, ORAL Oral PRN Every 24 Hours Indication: constipation 1/2 bottle every 24 hours and if no BM, can give other 1/2 bottle the following day Wed 01:00:00 EST 2023Mar 27 12:14:00 EDT 2023 bisacodyL 10 mg rectal suppository 1 suppository SUPPOSITORY, RECTAL Rectal PRN Indication: For: Constipation as needed Give 1 suppository rectally every 24 hours PRN for constipation WedOct 02 07:30:00 EST 2023Mar 27 12:14:00 EDT 2023 magnesium citrate oral solution 300 ml SOLUTION, ORAL Oral PRN Every 24 Hours for 2 Days Indication: constipation 1/2 bottle every 24 hours and if no BM, can give other 1/2 bottle the following day WedOct 01 09:00:00 EST 2023Oct 03 08:59:00 EST 2023 polyethylene glycoL 3350 17 gram/dose oral powder 17 gram POWDER (GRAM) Oral PRN 1 Time Daily Indication: constipation constipation WedOct 01 09:00:00 EST 2023Mar 27 12:14:00 EDT 2023 senna 8.6 mg tablet 1 tablet TABLET Oral 1 Time Daily Indication: constipation constipation WedOct 01 09:00:00 EST 2023 Eliquis 5 mg tablet 5 mg TABLET Oral 2 T imes Daily Indication: Blood thinner LIME KILN OPERATOR Supervision x1 x4 WedAug 14 18:53:00 EST 2023Nov 24 16:17:00 EDT 2023 gabapentin 300 mg capsule 1 CAP CAPSULE Oral 3 Times Daily Indication: NEUROPATHY LIME KILN OPERATOR supervision x1 x2 x4 WedAug 06 14:00:00 EST 2022Sep 20 20:11:00 EST 2024 DULoxetine 60 mg capsule,delayed release 1 CAP CAPSULE,DELAYED RELEASE (ENTERIC COATED) Oral 2 Times Daily Indication: DEPRESSION / ANXIETY LIME KILN OPERATOR supervision x1x4 WedAug 06 14:00:00 EST 2022 atorvastatin 40 mg tablet 1 tab TABLET O ral 1 Time Daily Indication: hyperlipidemia LIME KILN OPERATOR Supervision x4 WedAug 07 07:00:00 EST 2022 finasteride 5 mg tablet 1 tab TABLET Ora l 1 Time Daily Indication: BPH LIME KILN OPERATOR Supervision x1 WedAug 06 14:00:00 EST 2022 acetaminophen 500 mg tablet 2 tabs TABLE T Oral PRN Every 6 Hours Indication: pain. WedAug 06 07:00:00 EST 2022Mar 27 12:14:00 EDT 2023 tamsulosin 0.4 mg capsule 1 cap CAPSULE Oral 2 Times Daily Indication: urinary dysfunction LIME KILN OPERATOR Supervision x2 x4 WedAug 06 14:00:00 EST 2022Mar 12 12:52:00 EDT 2023 ergocalciferol (vitamin D2) 1,250 mcg (50,000 unit) capsule 1 CAPSULE Oral 1 Time Weekly Indication: deficiency LIME KILN OPERATOR Supervision X1 WedAug 06 07:00:00 EST 2022 amiodarone 100 mg tablet 1 tablet TABLET Oral 1 Time Daily Indication: irregular heartbeat LIME KILN OPERATOR Supervision x1 WedAug 06 14:00:00 EST 2022 mirtazapine 30 mg tablet 1 tab TABLET Or al 1 Time Daily Indication: dx appetite LIME KILN OPERATOR Supervision x4 WedAug 06 14:00:00 EST 2022 OLANZapine 10 mg tablet 1 tab TABLET Ora l 1 Time Daily Indication: Major depressive disorder, recurrent, severe with psychotic symptoms LIME KILN OPERATOR Supervision x4 WedAug 06 14:00:00 EST 2022Jul 04 13:33:00 EST 2023 Lotrimin AF (clotrimazole) 1 % topical cream as directed CREAM (GRAM) Topical PRN 2 Times Daily Indication: rash apply to affected areas as needed WedAug 06 07:00:00 EST 2022Mar 27 12:14:00 EDT 2023 Eliquis 5 mg tablet 5 mg TABLET Oral 1 T alycia Daily Indication: Blood thinner LIME KILN OPERATOR Supervision x1 WedAug 06 14:00:00 EST 2022Aug 14 18:54:00 EST 2023 Blood Pressure Kit 1 KIT Other 2 Times Monthly Indication: LIME KILN OPERATOR obtain Vital Signs WedAug 09 01:00:00 EST 2023 Eliquis 5 mg tablet 5 mg TABLET Oral 1 T alycia Daily Indication: Blood thinner WedJul 20 10:30:00 EST 2022Aug 06 01:00:00 EST 2022 Eliquis 5 mg tablet 2 TABLET Oral 2 Time s Daily Indication: Blood thinner WedJul 13 11:45:00 EST 2022Jul 13 11:50:00 EST 2022 Eliquis 5 mg tablet 5 mg TABLET Oral 2 T imes Daily Indication: Blood thinner WedJul 13 11:45:00 EST 2022Jul 13 17:13:00 EST 2022 Lotrimin AF (clotrimazole) 1 % topical cream as directed CREAM (GRAM) Topical 2 Times Daily for 14 Days Indication: rash apply to affected areas to left chest and upper back WedJul 13 12:00:00 2022Jul 27 11:59:00 EST 2022 Lotrimin AF (clotrimazole) 1 % topical cream as directed CREAM (GRAM) Topical PRN 2 Times Daily Indication: rash apply to affected areas as needed WedJul 22 07:00:00 EST 2022Aug 06 01:00:00 EST 2022 Eliquis 5 mg tablet 5 mg TABLET Oral 2 T imes Daily Indication: Blood thinner WedJul 13 16:00:00 EST 2022Jul 20 10:28:00 EST 2022 nystatin 100,000 unit/gram topical ointment as directed OINTMENT (GRAM) Topical 2 Times Daily Indication: . cleanse penis and scrotum with soap and water and apply nystatin ointment UTH WedJul 02 09:00:00 EST 2022Aug 06:00:00 EST 2022 OLANZapine 10 mg tablet 1 tab TABLET Ora l 1 Time Daily Indication: Major depressive disorder, recurrent, severe with psychotic symptoms WedApr 15 15:47:00 EDT 2022Aug 06:00:00 EST 2022 mirtazapine 30 mg tablet 1 tab TABLET Or al 1 Time Daily Indication: dx appetite dx appetite WedApr 09:00:00 EDT 2022Aug 06:00:00 EST 2022 OLANZapine 10 mg tablet 1 tab TABLET Ora l 1 Time Daily Indication: Major depressive disorder, recurrent, severe with psychotic symptoms WedApr 09:00:00 EDT 2022 Carol Apr 15 15:48:00 EDT 2022 ALPRAZolam 0.25 mg tablet 1 tab TABLET O ral PRN 2 Times Daily Indication: anxiety WedApr 07 09:00:00 EDT 2022May 01 23:48:00 EDT 2022 amiodarone 100 mg tablet 1 tablet TABLET Oral 1 Time Daily Indication: irregular heartbeat WedApr 01 04:30:00 EDT 2022Aug 06:00:00 EST 2022 ergocalciferol (vitamin D2) 1,250 mcg (50,000 unit) capsule 1 CAPSULE Oral 1 Time Weekly Indication: deficiency WedMar 31 08:00:00 EDT 2022Aug 06:00:00 EST 2022 Eliquis 5 mg tablet 1 tab TABLET Oral 2 Times Daily for 5 Days Indication: Blood thinner / Clot Prevention WedMar 29 15:57:00 EDT 2022Mar 29 16:01:00 EDT 2022 Eliquis 5 mg tablet 2 TABLET Oral 2 Time s Daily Indication: Blood thinner WedApr 06 08:00:00 EDT 2022Jul 13 11:49:00 EST 2022 Eliquis 5 mg tablet 1 tab TABLET Oral 2 Times Daily for 4 Days Indication: Blood thinner / Clot Prevention WedMar 29 16:00:00 EDT 2022Mar 29 16:02:00 EDT 2022 Eliquis 5 mg tablet 1 tab TABLET Oral 2 Times Daily for 5 Days Indication: Blood thinner / Clot Prevention WedMar 29 16:01:00 EDT 2022Apr 03 16:00:00 EDT 2022 atorvastatin 40 mg tablet 1 tab TABLET O ral 1 Time Daily Indication: hyperlipidemia WedMar 20 21:00:00 EDT 2022Aug 06 01:00:00 EST 2022 finasteride 5 mg tablet 1 tab TABLET Ora l 1 Time Daily Indication: BPH WedMar 20 09:00:00 EDT 2022Aug 06 01:00:00 EST 2022 traMADoL 50 mg tablet 1 tab TABLET Oral PRN Every 8 Hours Indication: pain WedMar 20 13:00:00 EDT 2022Aug 06 01:00:00 EST 2022 acetaminophen 500 mg tablet 2 tabs TABLE T Oral PRN Every 6 Hours Indication: pain. WedMar 20 13:00:00 EDT 2022Aug 06 01:00:00 EST 2022 tamsulosin 0.4 mg capsule 1 cap CAPSULE Oral 2 Times Daily Indication: urinary dysfunction Sat Mar 20 21:00:00 EDT 2022Aug 06 01:00:00 EST 2022 HYDROcodone 5 mg-acetaminophen 325 mg tablet 1 TABLET Oral PRN 2 Times Daily Indication: moderate to severe pain WedFeb 18 09:00:00 EDT 2022Mar 20 15:03:00 EDT 2022 HYDROcodone 5 mg-acetaminophen 325 mg tablet 1 TABLET Oral PRN (Max 2 Doses) for 1 Day Indication: pain PRN BID WedFeb 17 18:00:00 EDT 2022Feb 18 17:59:00 EDT 2022 cefdinir 300 mg capsule 1 CAPSULE Oral E very 12 Hours for 7 Days Indication: UTI WedFeb 12 21:00:00 EDT 2022Feb 15 11:25:00 EDT 2022 OLANZapine 5 mg tablet 2 tabs TABLET Ora l 1 Time Daily Indication: anxiety WedFeb 04 15:54:00 EDT 2022Mar 20 15:03:00 EDT 2022 ALPRAZolam 0.25 mg tablet 1 tab TABLET O ral PRN 2 Times Daily Indication: anxiety WedFeb 04 15:55:00 EDT 2022Apr 07 14:35:00 EDT 2022 ketorolac 0.5 % eye drops 1 gtts DROPS R ight Eye 3 Times Daily for 2 Days Indication: surgery WedFeb 09 01:00:00 EDT 2022Feb 08 15:41:00 EDT 2022 prednisoLONE acetate 1 % eye drops,suspension 1 gtts SUSPENSION, DROPS(FINAL DOSAGE FORM)(ML) Right Eye 3 Times Daily for 21 Days Indication: after surgery WedFeb 11 13:00:00 EDT 2022Feb 08 15:41:00 EDT 2022 prednisoLONE acetate 1 % eye drops,suspension 1 gtts SUSPENSION, DROPS(FINAL DOSAGE FORM)(ML) Left Eye 3 Times Daily for 21 Days Indication: after surgery WedFeb 25 13:00:00 EDT 2022Feb 08 15:41:00 EDT 2022 OLANZapine 5 mg tablet 1 tablet TABLET O ral 1 Time Daily Indication: anxiety WedJan 30 11:30:00 EDT 2022Feb 04 15:55:00 EDT 2022 acetaminophen 325 mg tablet 650 mg TABLE T Oral 3 Times Daily Indication: pain WedJan 11 18:00:00 EDT 2022Mar 20 15:19:00 EDT 2022 mirtazapine 30 mg tablet 1 tab TABLET Or al 1 Time Daily Dx: Depression WedJanuary 04 11:00:00 EDT 2022Mar 20 15:03:00 EDT 2022 Vaseline jelly, topical as directed JELL Y (GRAM) Topical 1 Time Daily Indication: wound care cleanse right side of face with soap and water, apply vaseline daily and PRN WedDecember 15 09:00:00 EDT 2022December 24 12:00:00 EDT 2022 DULoxetine 60 mg capsule,delayed release 1 CAP CAPSULE,DELAYED RELEASE (ENTERIC COATED) Oral 2 Times Daily Indication: DEPRESSION / ANXIETY WedDecember 14 15:16:00 EDT 2022Aug 06 01:00:00 EST 2022 clotrimazole 1 % topical cream as directed CREAM (GRAM) Topical 2 Times Daily Indication: rash apply to rash on chest BID until healed WedNov 30 19:00:00 EDT 2022December 24 07:48:00 EDT 2022 predniSONE 20 mg tablet 40 mg TABLET Ora l 1 Time Daily for 3 Days Indication: covid WedOct 28 07:00:00 EDT 2022Oct 31 06:59:00 EDT 2022 predniSONE 20 mg tablet 20 mg TABLET Ora l 1 Time Daily for 3 Days Indication: covid WedOct 31 07:00:00 EDT 2022Nov 03 06:59:00 EDT 2022 predniSONE 10 mg tablet 10 mg TABLET Ora l 1 Time Daily for 3 Days Indication: maria r WedNov 03 07:00:00 EDT 2022Nov 06 06:59:00 EDT 2022 predniSONE 5 mg tablet 5 mg TABLET Oral 1 Time Daily for 3 Days Indication: maria r WedNov 06 07:00:00 EDT 2022Nov 09 06:59:00 EDT 2022 zinc sulfate 50 mg zinc (220 mg) tablet 220 mg TABLET Oral 2 Times Daily for 14 Days Indication: maria r WedOct 26 15:00:00 EDT 2022Nov 09 14:59:00 EDT 2022 Vitamin C 1,000 mg tablet 1,000 mg TABLE T Oral 1 Time Daily for 14 Days Indication: maria r WedOct 26 15:00:00 EDT 2022Nov 09 14:59:00 EDT 2022 cholecalciferol (vitamin D3) 25 mcg (1,000 unit) tablet 1,000 units TABLET Oral 1 Time Daily for 21 Days Indication: maria r WedOct 26 15:00:00 EDT 2022Nov 16 14:59:00 EDT 2022 Lagevrio 200 mg capsule (EUA) 800 mg CAPSULE Oral Every 12 Hours for 5 Days Indication: maria r GarciaOct 27 07:00:00 EDT 2022Nov 01 06:59:00 EDT 2022 cholecalciferol (vitamin D3) 25 mcg (1,000 unit) tablet 1 tab TABLET Oral 1 Time Daily for 10 Days Indication: Supplement WedSep 25 11:11:00 EST 2022Oct 05 11:10:00 EST 2022 OLANZapine 2.5 mg tablet 1 tab TABLET Or al 1 Time Daily for 10 Days Indication: Agitation / Mood WedSep 25 11:15:00 EST 2022 Mon Oct 05 11:14:00 EST 2022 gabapentin 300 mg capsule 1 cap CAPSULE Oral 3 Times Daily Indication: Neuropathy WedSep 25 11:16:00 EST 2022Aug 06 01:00:00 EST 2022 DULoxetine 60 mg capsule,delayed release 1 CAP CAPSULE,DELAYED RELEASE (ENTERIC COATED) Oral 2 Times Daily Indication: DEPRESSION / ANXIETY WedSep 25 11:16:00 EST 2022December 14 15:17:00 EDT 2022 Centrum Silver 0.4 mg-300 mcg-250 mcg tablet 1 tab TABLET Oral 1 Time Daily Indication: Supplement Fri Feb 17 11:17:00 EST 2022Mar 20 15:03:00 EDT 2022 amiodarone 200 mg tablet 1 TAB TABLET Or al 1 Time Daily Indication: IRREGULAR HEARTBEAT Fri Feb 17 11:18:00 EST 2022Apr 01 16:43:00 EDT 2022 Eliquis 5 mg tablet 1 tab TABLET Oral 2 Times Daily Indication: Blood thinner / Clot Prevention Wedb 17 11:18:00 EST 2022Mar 29 15:58:00 EDT 2022 metoprolol tartrate 25 mg tablet 1 TAB TABLET Oral 2 Times Daily Indication: HTN Fri Feb 17 11:19:00 EST 2022 Sat Mar 20 15:03:00 EDT 2022 mirtazapine 30 mg tablet 1 tab TABLET Or al 1 Time Daily Indication: Insomnia Wedb 17 11:20:00 EST 2022January 04 11:52:00 EDT 2022 megestroL 400 mg/10 mL (40 mg/mL) oral suspension 10mL SUSPENSION, ORAL (FINAL DOSE FORM) Oral 1 Time Daily Indication: appetite stimulant Fri Feb 17 11:21:00 EST 2022Oct 26 15:54:00 EDT 2022 Stool Softener 100 mg tablet 1 cap TABLET Oral 2 Times Daily Indication: Constipation Fri Feb 17 11:22:00 EST 2022Nov 19 12:16:00 EDT 2022 tamsulosin 0.4 mg capsule 1 cap CAPSULE Oral 1 Time Daily Indication: BHP Fri Feb 17 11:23:00 EST 2022 Fri Sep 14:38:00 EDT 2022 tamsulosin 0.4 mg capsule 1 cap CAPSULE Oral 1 Time Daily Indication: BHP Mon Feb 13 17:47:00 EST 2022 Fri Feb 17 11:24:00 EST 2022 docusate sodium 100 mg capsule 1 cap CAPSULE Oral 2 Times Daily Indication: Constipation Fri Feb 10 19:49:00 EST 2022 Fri Feb 17 11:23:00 EST 2022 megestroL 400 mg/10 mL (40 mg/mL) oral suspension 20mL SUSPENSION, ORAL (FINAL DOSE FORM) Oral 1 Time Daily for 7 Days Indication: appetite stimulant Fri Feb 10 07:00:00 EST 2022 Fri Feb 17 06:59:00 EST 2022 megestroL 400 mg/10 mL (40 mg/mL) oral suspension 10mL SUSPENSION, ORAL (FINAL DOSE FORM) Oral 1 Time Daily Indication: appetite stimulant WedSep 25 07:00:00 EST 2022Sep 25 11:22:00 EST 2022 nystatin 100,000 unit/gram topical powder as directed POWDER (GRAM) Topical 2 Times Daily Indication: yeast apply nystatin powder to groin BID until healed for redness WedSep 17 01:00:00 EST 2022Aug 06 01:00:00 EST 2022 mirtazapine 30 mg tablet 1 tab TABLET Or al 1 Time Daily Indication: Insomnia WedSep 14 17:02:00 EST 2022Sep 25 11:21:00 EST 2022 losartan 25 mg tablet 1 TAB TABLET Oral 1 Time Daily Indication: HTN Wedb 17:13:00 EST 2022 Mon b 06 17:16:00 EST 2022 losartan 25 mg tablet 1 tab TABLET Oral 1 Time Daily HOLD if SBP is < 110 and/or DBP < 60 Mon Sep 14 17:16:00 EST 2022 Mon b 06 19:31:00 EST 2022 levoFLOXacin 500 mg tablet 1 tab TABLET Oral 1 Time Daily for 7 Days Indication: PNA Sun Sep 13 09:00:00 EST 2022 Sun Sep 20 08:59:00 EST 2022 senna 8.6 mg tablet 1 tab TABLET Oral DE N 2 Times Daily Indication: Constipation WedSep 10 14:05:00 EST 2022Aug 06 01:00:00 EST 2022 amoxicillin 875 mg-potassium clavulanate 125 mg tablet 1 TAB TABLET Oral Every 12 Hours for 4 Days Indication: UTI Indication: UTI Sat Sep 05 09:00:00 EST 2022Sep 09 08:59:00 EST 2022 amoxicillin 875 mg-potassium clavulanate 125 mg tablet 1 TAB TABLET Oral Every 12 Hours for 4 Days Indication: BACTERIAL INFECTION Sat Sep 05 17:30:00 EST 2022Sep 07 13:05:00 EST 2022 cholecalciferol (vitamin D3) 25 mcg (1,000 unit) tablet 1 tab TABLET Oral 1 Time Daily for 30 Days Indication: Supplement Sat Sep 05 17:30:00 EST 2022Sep 25 11:15:00 EST 2022 fluconazole 100 mg tablet 2 tabs TABLET Oral Every Morning for 12 Days Indication: Fungal / Yeast Infection Sat Sep 05 17:30:00 EST 2022Sep 17 17:29:00 EST 2022 OLANZapine 2.5 mg tablet 1 tab TABLET Or al 1 Time Daily for 30 Days Indication: Agitation / Mood Sat Sep 05 17:30:00 EST 2022Sep 25 11:16:00 EST 2022 gabapentin 300 mg capsule 1 cap CAPSULE Oral 3 Times Daily Indication: Neuropathy Sat Sep 05 17:30:00 EST 2022Sep 25 11:17:00 EST 2022 DULoxetine 60 mg capsule,delayed release 1 CAP CAPSULE,DELAYED RELEASE (ENTERIC COATED) Oral 2 Times Daily Indication: DEPRESSION / ANXIETY Sat Sep 05 17:30:00 EST 2022Sep 25 11:17:00 EST 2022 losartan 25 mg tablet 1 TAB TABLET Oral 1 Time Daily Indication: HTN Sat Sep 05 17:30:00 EST 2022Sep 14 17:15:00 EST 2022 Centrum Silver 0.4 mg-300 mcg-250 mcg tablet 1 tab TABLET Oral 1 Time Daily Indication: Supplement Sat Sep 05 17:30:00 EST 2022Sep 25 11:18:00 EST 2022 amiodarone 200 mg tablet 1 TAB TABLET Or al 1 Time Daily Indication: IRREGULAR HEARTBEAT Sat Sep 05 17:30:00 EST 2022Sep 25 11:18:00 EST 2022 ClearLax 17 gram/dose oral powder 17 grams (1 capful) POWDER (GRAM) Oral PRN 1 Time Daily Indication: CONSTIPATION (Stir & Dissolve 17 grams (1 capful) in 4 - 8 oz of water/juice, then drink as directed) Sat Sep 05 17:30:00 EST 2022Mar 20 15:03:00 EDT 2022 acetaminophen 325 mg tablet 1 tab TABLET Oral PRN Every 6 Hours Indication: PAIN (scale score 1-3) *(Do NOT exceed 3gm/day APAP from all sources)*(Use Caution with other APAP products)* Sat Sep 05 17:30:00 EST 2022Jan 11 18:48:00 EDT 2022 Eliquis 5 mg tablet 1 tab TABLET Oral 2 Times Daily Indication: Blood thinner / Clot Prevention Sat Sep 05 17:30:00 EST 2022Sep 25 11:19:00 EST 2022 benzonatate 200 mg capsule 1 CAP CAPSULE Oral PRN 3 Times Daily Indication: COUGH Sat Sep 05 17:30:00 EST 2022Mar 20 15:03:00 EDT 2022 metoprolol tartrate 25 mg tablet 1 TAB TABLET Oral 2 Times Daily Indication: HTN WedSep 05 17:30:00 EST 2022Sep 25 11:20:00 EST 2022 senna 8.6 mg tablet 1 tab TABLET Oral 2 Times Daily Indication: Constipation WedSep 05 17:30:00 EST 2022 Carol Sep 10 14:06:00 EST 2022 Jens-Gest Antacid 200 mg calcium (500 mg) chewable tablet 1 tab TABLET,CHEWABLE Oral PRN Every 6 Hours Indication: Indigestion WedSep 05 17:30:00 EST 2022Mar 20 15:03:00 EDT 2022 Stimulant Laxative Plus 8.6 mg-50 mg tablet 1 tab TABLET Oral 2 Times Daily Indication: Constipation WedAug 27 14:44:00 EST 2022Sep 05 17:18:00 EST 2022 QUEtiapine ER 50 mg tablet,extended release 24 hr 1 tab TABLET, EXTENDED RELEASE 24 HR Oral 1 Time Daily Indication: Mood/Agitation WedAug 27 22:18:00 EST 2022Aug 27 23:18:00 EST 2022 Eliquis 5 mg tablet 1 tab TABLET Oral 2 Times Daily Indication: a-fib WedAug 28 01:00:00 EST 2022Sep 05 17:18:00 EST 2022 OLANZapine 5 mg tablet 1 tab TABLET Oral 1 Time Daily Indication: mood/agitation WedAug 28 21:00:00 EST 2022Sep 05 17:18:00 EST 2022 acetaminophen 325 mg tablet 1 tab TABLET Oral PRN Every 6 Hours Indication: PAIN *(Do NOT exceed 3gm/day APAP from all sources)*(Use Caution with other APAP products)* WedAug 24 15:30:00 EST 2022Aug 24 18:28:00 EST 2022 amiodarone 200 mg tablet 1 TAB TABLET Or al 1 Time Daily Indication: IRREGULAR HEARTBEAT WedAug 24 15:30:00 EST 2022Aug 24 18:28:00 EST 2022 amoxicillin 875 mg-potassium clavulanate 125 mg tablet 1 TAB TABLET Oral 2 Times Daily for 14 Days Indication: BACTERIAL INFECTION WedAug 24 15:15:00 EST 2022Aug 24 18:28:00 EST 2022 benzonatate 200 mg capsule 1 CAP CAPSULE Oral PRN 3 Times Daily Indication: COUGH WedAug 24 15:15:00 EST 2022Aug 24 18:28:00 EST 2022 DULoxetine 60 mg capsule,delayed release 1 CAP CAPSULE,DELAYED RELEASE (ENTERIC COATED) Oral 2 Times Daily Indication: DEPRESSION / ANXIETY WedAug 24 15:15:00 EST 2022Aug 24 18:28:00 EST 2022 furosemide 40 mg tablet 1 TAB TABLET Ora l 1 Time Daily for 7 Days Indication: EDEMA WedAug 24 15:15:00 EST 2022Aug 24 18:28:00 EST 2022 gabapentin 300 mg capsule 1 CAP CAPSULE Oral 3 Times Daily Indication: NEUROPATHY WedAug 24 15:15:00 EST 2022Aug 24 18:28:00 EST 2022 losartan 25 mg tablet 1 TAB TABLET Oral 1 Time Daily Indication: HTN WedAug 24 15:15:00 EST 2022Aug 24 18:28:00 EST 2022 metoprolol tartrate 25 mg tablet 1 TAB TABLET Oral 2 Times Daily Indication: HTN WedAug 24 15:15:00 EST 2022Aug 24 18:28:00 EST 2022 mirtazapine 45 mg tablet 1 tab TABLET Or al Hour Of Sleep Indication: DEPRESSION WedAug 24 15:15:00 EST 2022Aug 24 18:28:00 EST 2022 OLANZapine 5 mg tablet 1 TAB TABLET Oral Hour Of Sleep Indication: MOOD / AGITATION WedAug 24 15:15:00 EST 2022Aug 24 18:28:00 EST 2022 oxyCODONE 5 mg tablet 1 TAB TABLET Oral PRN Every 8 Hours Indication: PAIN WedAug 24 15:15:00 EST 2022Aug 24 18:28:00 EST 2022 polyethylene glycoL 3350 17 gram/dose oral powder 17 grams (1 capful) POWDER (GRAM) Oral PRN 1 Time Daily Indication: CONSTIPATION (Stir & Dissolve 17 grams (1 capful) in 4 - 8 oz of water/juice, then drink as directed) WedAug 24 15:15:00 EST 2022Aug 24 18:28:00 EST 2022 Xarelto 20 mg tablet 1 TAB TABLET Oral E very Evening Indication: BLOOD THINNER / CLOT PREVENTION(Take daily, WITH DINNER) WedAug 24 15:15:00 EST 2022Aug 24 18:28:00 EST 2022 CertaVite Senior 0.4 mg-300 mcg-250 mcg tablet 1 tab TABLET Oral 1 Time Daily Indication: SUPPLEMENT WedAug 24 15:15:00 EST 2022Aug 24 18:28:00 EST 2022 acetaminophen 325 mg tablet 1 tab TABLET Oral PRN Every 6 Hours Indication: PAIN *(Do NOT exceed 3gm/day APAP from all sources)*(Use Caution with other APAP products)* WedAug 24 18:00:00 EST 2022Sep 05 17:18:00 EST 2022 amiodarone 200 mg tablet 1 TAB TABLET Or al 1 Time Daily Indication: IRREGULAR HEARTBEAT WedAug 24 18:00:00 EST 2022Sep 05 17:18:00 EST 2022 amoxicillin 875 mg-potassium clavulanate 125 mg tablet 1 TAB TABLET Oral 2 Times Daily for 14 Days Indication: BACTERIAL INFECTION WedAug 24 18:00:00 EST 2022Sep 05 17:18:00 EST 2022 benzonatate 200 mg capsule 1 CAP CAPSULE Oral PRN 3 Times Daily Indication: COUGH WedAug 24 18:00:00 EST 2022Sep 05 17:18:00 EST 2022 DULoxetine 60 mg capsule,delayed release 1 CAP CAPSULE,DELAYED RELEASE (ENTERIC COATED) Oral 2 Times Daily Indication: DEPRESSION / ANXIETY WedAug 24 18:00:00 EST 2022Sep 05 17:18:00 EST 2022 furosemide 40 mg tablet 1 TAB TABLET Ora l 1 Time Daily for 7 Days Indication: EDEMA WedAug 24 18:00:00 EST 2022Aug 31 17:59:00 EST 2022 gabapentin 300 mg capsule 1 CAP CAPSULE Oral 3 Times Daily Indication: NEUROPATHY WedAug 24 18:00:00 EST 2022Sep 05 17:18:00 EST 2022 losartan 25 mg tablet 1 TAB TABLET Oral 1 Time Daily Indication: HTN WedAug 24 18:00:00 EST 2022Sep 05 17:18:00 EST 2022 metoprolol tartrate 25 mg tablet 1 TAB TABLET Oral 2 Times Daily Indication: HTN WedAug 24 18:00:00 EST 2022Sep 05 17:18:00 EST 2022 mirtazapine 45 mg tablet 1 tab TABLET Or al Hour Of Sleep Indication: DEPRESSION WedAug 24 18:00:00 EST 2022Sep 05 17:18:00 EST 2022 OLANZapine 5 mg tablet 1 TAB TABLET Oral Hour Of Sleep Indication: MOOD / AGITATION WedAug 24 18:00:00 EST 2022 Carol Aug 27 22:18:00 EST 2022 oxyCODONE 5 mg tablet 1 TAB TABLET Oral PRN Every 8 Hours Indication: PAIN WedAug 24 18:00:00 2022Sep 05 17:18:00 2022 polyethylene glycoL 3350 17 gram/dose oral powder 17 grams (1 capful) POWDER (GRAM) Oral PRN 1 Time Daily Indication: CONSTIPATION (Stir & Dissolve 17 grams (1 capful) in 4 - 8 oz of water/juice, then drink as directed) WedAug 24 18:00:00 2022Sep 05 17:18:00 2022 Xarelto 20 mg tablet 1 TAB TABLET Oral E very Evening Indication: BLOOD THINNER / CLOT PREVENTION(Take daily, WITH DINNER) WedAug 24 18:00:00 2022 Carol Aug 27 23:16:00 2022 CertaVite Senior 0.4 mg-300 mcg-250 mcg tablet 1 tab TABLET Oral 1 Time Daily Indication: SUPPLEMENT WedAug 24 18:00:00 2022Sep 05 17:18:00 2022 TUBErsoL 5 tub. unit/0.1 mL intradermal injection solution 0.1 ml VIAL (ML) Intradermal 1 Time Weekly for 2 Weeks Indication: TB Test 1st injection on admission, then one week after. Read between 48 and 72 hours WedAug 24 18:00:00 2022Sep 05 17:18:00 2022 TUBErsoL 5 tub. unit/0.1 mL intradermal injection solution Read Results VIAL (ML) Other 1 Time Weekly for 2 Weeks Indication: TB Test Read results between 48-72 hours after 1st and 2nd (1 week apart). If positive do chest x-ray. WedAug 24 18:00:00 2022Sep 05 17:18:00 2022 Problems Active Concerns * Spondylosis without myelopathy or radiculopathy, sacral and sacrococcygeal region* Code: * Start Date: WedSep 17 00:00:00 EST 2021 * End Date: * Text: * Malignant neoplasm of lower lobe, left bronchus or lung* Code: * Start Date: WedAug 24 00:00:00 2022 * End Date: * Text: * Bipolar disorder, unspecified* Code: * Start Date: WedAug 24 00:00:00 EST 2022 * End Date: * Text: * Major depressive disorder, recurrent, unspecified* Code: * Start Date: WedAug 24 00:00:00 2022 * End Date: * Text: * Personal history of transient ischemic attack (TIA), and cerebral infarction without residual deficits* Code: * Start Date: WedAug 24 00:00:00 2022 * End Date: * Text: * Paroxysmal atrial fibrillation* Code: * Start Date: WedAug 24 00:00:00 2022 * End Date: * Text: * Other specified postprocedural states* Code: * Start Date: WedAug 24 00:00:00 2022 * End Date: * Text: * Retention of urine, unspecified* Code: * Start Date: WedAug 24 00:00:00 2022 * End Date: * Text: * Hypertensive chronic kidney disease with stage 1 through stage 4 chronic kidney disease, or unspecified chronic kidney disease* Code: * Start Date: WedAug 24 00:00:00 2022 * End Date: * Text: * Chronic kidney disease, stage 3a* Code: * Start Date: WedAug 24 00:00:00 2022 * End Date: * Text: * Other spondylosis, cervical region* Code: * Start Date: WedAug 24 00:00:00 2022 * End Date: * Text: * Spondylosis without myelopathy or radiculopathy, lumbar region* Code: * Start Date: WedAug 24 00:00:00 2022 * End Date: * Text: * Chronic pain syndrome* Code: * Start Date: WedAug 24 00:00:00 2022 * End Date: * Text: * Unspecified hearing loss, bilateral* Code: * Start Date: WedAug 24 00:00:00 2022 * End Date: * Text: * Slow transit constipation* Code: * Start Date: WedAug 24 00:00:00 2022 * End Date: * Text: * 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* Code: * Start Date: WedAug 24 00:00:00 2022 * End Date: * Text: * 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* Code: * Start Date: WedAug 24 00:00:00 2022 * End Date: * Text: * Unspecified urinary incontinence* Code: * Start Date: WedSep 05 00:00:00 2022 * End Date: * Text: * Personal history of COVID-19* Code: * Start Date: WedSep 05 00:00:00 EST 2022 * End Date: * Text: * Personal history of other medical treatment* Code: * Start Date: WedMar 20 00:00:00 EDT 2022 * End Date: * Text: * Personal history of other diseases of the circulatory system* Code: * Start Date: WedAug 07 00:00:00 EST 2021 * End Date: * Text: * Mixed hyperlipidemia* Code: * Start Date: WedMar 20 00:00:00 EDT 2022 * End Date: * Text: * Vitamin D deficiency, unspecified* Code: * Start Date: WedMar 20 00:00:00 EDT 2022 * End Date: * Text: * Candidiasis of skin and nail* Code: * Start Date: WedJul 13 00:00:00 EST 2022 * End Date: * Text: * Personal history of irradiation* Code: * Start Date: WedApr 20 00:00:00 EDT 2021 * End Date: * Text: * Spondylosis without myelopathy or radiculopathy, cervical region* Code: * Start Date: WedAug 06 00:00:00 EST 2022 * End Date: * Text: * Unspecified dementia, unspecified severity, with mood disturbance* Code: * Start Date: WedMar 05 00:00:00 EDT 2022 * End Date: * Text: * Moderate protein-calorie malnutrition* Code: * Start Date: WedNov 14 00:00:00 EDT 2023 * End Date: * Text: * Gastro-esophageal reflux disease without esophagitis* Code: * Start Date: WedAug 06 00:00:00 EST 2022 * End Date: * Text: * Benign prostatic hyperplasia with lower urinary tract symptoms* Code: * Start Date: WedOct 28 00:00:00 EDT 2023 * End Date: * Text: * Generalized anxiety disorder* Code: * Start Date: WedNov 09 00:00:00 EDT 2023 * End Date: * Text: * Major depressive disorder, recurrent severe without psychotic features* Code: * Start Date: WedMar 05 00:00:00 EDT 2022 * End Date: * Text: * Other intervertebral disc degeneration, lumbar region with discogenic back pain only* Code: * Start Date: WedMay 09 00:00:00 EDT 2023 * End Date: * Text: Resolved Concerns * Problem Other intervertebral disc degeneration, lumbar region* Code: * Start Date: WedAug 24 00:00:00 EST 2022 * End Date: WedMay 08 00:00:00 EDT 2023 * Problem Major depressive disorder, recurrent, severe with psychotic symptoms* Code: * Start Date: WedMar 20 00:00:00 EDT 2022 * End Date: WedNov 25 00:00:00 EDT 2023 * Problem Benign prostatic hyperplasia without lower urinary tract symptoms* Code: * Start Date: [facility] Mar 20 00:00:00 EDT 2022 * End Date: WedNov 25 00:00:00 EDT 2023 * Problem Hemothorax* Code: * Start Date: WedAug 06 00:00:00 EST 2022 * End Date: WedJul 25 00:00:00 EST 2023 * Problem Unspecified dementia, unspecified severity, with anxiety* Code: * Start Date: WedAug 06 00:00:00 EST 2022 * End Date: WedJul 25 00:00:00 EST 2023 Vital Signs Vital Sign Measurement Date Systolic Blood Pressure 149.00 mm[Hg] [facility] Oct 21 19:53:15 EDT 2024 Diastolic Blood Pressure 60.00 mm[Hg] [facility] Oct 21 19:53:15 EDT 2024 Body weight 202.80 [lb_av] [facility] Oct 21 19:53 :15 EDT 2024 Heart Rate 60.00 /min [facility] Oct 21 19:53 :15 EDT 2024 Body temperature 97.60 [degF] [facility] Oct 21 19:5 3:15 EDT 2024 Respiratory rate 18.00 /min [facility] Oct 21 19:5 3:15 EDT 2024 Systolic Blood Pressure 169.00 mm[Hg] [facility] Oct 07 21:50:35 EST 2024 Diastolic Blood Pressure 61.00 mm[Hg] [facility] Oct 07 21:50:35 EST 2024 Body weight 195.60 [lb_av] [facility] Oct 07 21:50 :35 EST 2024 Heart Rate 66.00 /min [facility] Oct 07 21:50 :35 EST 2024 Body temperature 97.40 [degF] [facility] Oct 07 21:5 0:35 EST 2024 Respiratory rate 18.00 /min [facility] Oct 07 21:5 0:35 EST 2024 Systolic Blood Pressure 126.00 mm[Hg] [facility] Sep 23 19:34:26 EST 2024 Diastolic Blood Pressure 63.00 mm[Hg] Sat Feb 15 19:34:26 EST 2024 Body weight 201.60 [lb_av] Sat Feb 15 19:34 :26 EST 2024 Heart Rate 65.00 /min Sat Feb 15 19:34 :26 EST 2024 Body temperature 97.70 [degF] Sat Feb 15 19:3 4:26 EST 2024 Respiratory rate 18.00 /min Sat Feb 15 19:3 4:26 EST 2024 Systolic Blood Pressure 159.00 mm[Hg] [facility] Feb 13 08:39:45 EST 2024 Diastolic Blood Pressure 76.00 mm[Hg] Carol Feb 13 08:39:45 EST 2024 Heart Rate 54.00 /min Carol Feb 13 08:39 :45 EST 2024 Body temperature 97.20 [degF] [facility] Feb 13 08:3 9:45 EST 2024 Respiratory rate 18.00 /min Carol Feb 13 08:3 9:45 EST 2024 Pulse Oximetry 94.00 % [facility] Feb 13 08:39 :45 EST 2024 Systolic Blood Pressure 119.00 mm[Hg] [facility] Feb 19:52:42 EST 2024 Diastolic Blood Pressure 53.00 mm[Hg] [facility] Feb 19:52:42 EST 2024 Body weight 198.20 [lb_av] [facility] Feb 19:52 :42 EST 2024 Heart Rate 55.00 /min [facility] Feb 19:52 :42 EST 2024 Body temperature 97.50 [degF] [facility] Feb 19:5 2:42 EST 2024 Respiratory rate 18.00 /min [facility] Feb 19:5 2:42 EST 2024 Systolic Blood Pressure 106.00 mm[Hg] WedSep 08 14:48:00 EST 2024 Diastolic Blood Pressure 44.00 mm[Hg] WedSep 08 14:48:00 EST 2024 Heart Rate 72.00 /min WedSep 08 14:48 :00 EST 2024 Pulse Oximetry 99.00 % WedSep 08 14:48 :00 EST 2024 Body temperature 97.30 [degF] WedSep 08 14:4 8:00 EST 2024 Respiratory rate 18.00 /min WedSep 08 14:4 8:00 EST 2024 Systolic Blood Pressure 134.00 mm[Hg] WedSep 08 13:00:00 EST 2024 Diastolic Blood Pressure 58.00 mm[Hg] WedSep 08 13:00:00 EST 2024 Heart Rate 63.00 /min WedSep 08 13:00 :00 EST 2024 Body temperature 97.80 [degF] WedSep 08 13:0 0:00 EST 2024 Respiratory rate 18.00 /min WedSep 08 13:0 0:00 EST 2024 Pulse Oximetry 99.00 % WedSep 08 13:00 :00 EST 2024 Systolic Blood Pressure 106.00 mm[Hg] WedAug 23 18:46:51 EST 2024 Diastolic Blood Pressure 55.00 mm[Hg] WedAug 23 18:46:51 EST 2024 Body weight 204.60 [lb_av] WedAug 23 18:46 :51 EST 2024 Heart Rate 77.00 /min WedAug 23 18:46 :51 EST 2024 Body temperature 97.30 [degF] WedAug 23 18:4 6:51 EST 2024 Respiratory rate 18.00 /min WedAug 23 18:4 6:51 EST 2024 Systolic Blood Pressure 145.00 mm[Hg] WedAug 09 20:21:02 EST 2024 Diastolic Blood Pressure 63.00 mm[Hg] WedAug 09 20:21:02 EST 2024 Body weight 205.00 [lb_av] WedAug 09 20:21 :02 EST 2024 Heart Rate 59.00 /min WedAug 09 20:21 :02 EST 2024 Body temperature 97.90 [degF] WedAug 09 20:2 1:02 EST 2024 Respiratory rate 18.00 /min WedAug 09 20:2 1:02 EST 2024 Systolic Blood Pressure 131.00 mm[Hg] WedJul 23 21:57:07 EST 2023 Diastolic Blood Pressure 57.00 mm[Hg] WedJul 23 21:57:07 EST 2023 Body weight 207.00 [lb_av] WedJul 23 21:57 :07 EST 2023 Heart Rate 61.00 /min WedJul 23 21:57 :07 EST 2023 Body temperature 97.70 [degF] WedJul 23 21:5 7:07 EST 2023 Respiratory rate 18.00 /min WedJul 23 21:5 7:07 EST 2023 Systolic Blood Pressure 153.00 mm[Hg] WedJul 09 20:44:59 EST 2023 Diastolic Blood Pressure 68.00 mm[Hg] WedJul 09 20:44:59 EST 2023 Body weight 203.00 [lb_av] WedJul 09 20:44 :59 EST 2023 Heart Rate 56.00 /min WedJul 09 20:44 :59 EST 2023 Body temperature 97.80 [degF] WedJul 09 20:4 4:59 EST 2023 Respiratory rate 18.00 /min WedJul 09 20:4 4:59 EST 2023 Body Height 73.00 [in_i] WedJul 04 12:08 :58 EST 2023 Systolic Blood Pressure 112.00 mm[Hg] WedJun 23 18:04:18 EST 2023 Diastolic Blood Pressure 52.00 mm[Hg] WedJun 23 18:04:18 EST 2023 Body weight 200.00 [lb_av] WedJun 23 18:04 :18 EST 2023 Heart Rate 60.00 /min WedJun 23 18:04 :18 EST 2023 Body temperature 97.90 [degF] WedJun 23 18:0 4:18 EST 2023 Respiratory rate 18.00 /min WedJun 23 18:0 4:18 EST 2023 Systolic Blood Pressure 141.00 mm[Hg] WedJun 09 19:48:44 EDT 2023 Diastolic Blood Pressure 60.00 mm[Hg] WedJun 09 19:48:44 EDT 2023 Body weight 199.60 [lb_av] WedJun 09 19:48 :44 EDT 2023 Heart Rate 61.00 /min WedJun 09 19:48 :44 EDT 2023 Body temperature 98.40 [degF] WedJun 09 19:4 8:44 EDT 2023 Respiratory rate 16.00 /min WedJun 09 19:4 8:44 EDT 2023 Body temperature 97.60 [degF] WedJun 06 20:0 4:00 EDT 2023 Body temperature 97.60 [degF] WedJun 06 09:2 6:12 EDT 2023 Body temperature 98.20 [degF] WedJun 05 19:3 1:01 EDT 2023 Body temperature 97.20 [degF] WedJun 05 11:0 5:38 EDT 2023 Body temperature 97.70 [degF] WedJun 04 18:2 1:16 EDT 2023 Body temperature 98.10 [degF] WedJun 04 14:1 7:23 EDT 2023 Systolic Blood Pressure 103.00 mm[Hg] WedMay 23 20:30:26 EDT 2023 Diastolic Blood Pressure 50.00 mm[Hg] WedMay 23 20:30:26 EDT 2023 Body weight 198.60 [lb_av] WedMay 23 20:30 :26 EDT 2023 Heart Rate 60.00 /min WedMay 23 20:30 :26 EDT 2023 Body temperature 97.90 [degF] WedMay 23 20:3 0:26 EDT 2023 Respiratory rate 18.00 /min May 23 20:3 0:26 EDT 2023 Body temperature 98.00 [degF] [place] May 21 11:4 7:53 EDT 2023 Body temperature 97.70 [degF] Sat May 20 16:0 5:02 EDT 2023 Body temperature 97.70 [degF] Sat May 20 14:2 7:15 EDT 2023 Body temperature 97.30 [degF] [facility] May 19 16:5 8:35 EDT 2023 Body temperature 97.30 [degF] [facility] May 19 11:0 2:25 EDT 2023 Systolic Blood Pressure 108.00 mm[Hg] WedMay 09 21:27:07 EDT 2023 Diastolic Blood Pressure 44.00 mm[Hg] May 09 21:27:07 EDT 2023 Body weight 194.00 [lb_av] May 09 21:27 :07 EDT 2023 Heart Rate 65.00 /min WedMay 09 21:27 :07 EDT 2023 Body temperature 96.60 [degF] May 09 21:2 7:07 EDT 2023 Respiratory rate 18.00 /min May 09 21:2 7:07 EDT 2023 Systolic Blood Pressure 126.00 mm[Hg] [place] Sep 19:46:39 EDT 2023 Diastolic Blood Pressure 47.00 mm[Hg] Sun Sep 19:46:39 EDT 2023 Body weight 194.80 [lb_av] Sun Sep 19:46 :39 EDT 2023 Respiratory rate 22.00 /min Sun Sep 19:4 6:39 EDT 2023 Heart Rate 55.00 /min Sun Sep 15 19:46 :39 EDT 2023 Body temperature 97.50 [degF] Sun Sep 19:4 6:39 EDT 2023 Systolic Blood Pressure 116.00 mm[Hg] Sun Sep 19:58:44 EDT 2023 Diastolic Blood Pressure 56.00 mm[Hg] [place] Apr 09 19:58:44 EDT 2023 Body weight 192.00 [lb_av] [place] Apr 09 19:58 :44 EDT 2023 Heart Rate 57.00 /min [place] Apr 09 19:58 :44 EDT 2023 Body temperature 97.90 [degF] [facility] 19:5 8:44 EDT 2023 Respiratory rate 18.00 /min [facility] 19:5 8:44 EDT 2023 Systolic Blood Pressure 119.00 mm[Hg] [place] Mar 23 20:30:55 EDT 2023 Diastolic Blood Pressure 59.00 mm[Hg] [facility] Mar 23 20:30:55 EDT 2023 Body weight 197.60 [lb_av] [facility] Mar 23 20:30 :55 EDT 2023 Heart Rate 52.00 /min [place] Mar 23 20:30 :55 EDT 2023 Body temperature 97.50 [degF] [facility] Mar 23 20:3 0:55 EDT 2023 Respiratory rate 18.00 /min [facility] Mar 23 20:3 0:55 EDT 2023 Systolic Blood Pressure 119.00 mm[Hg] [facility] Mar 23 20:22:25 EDT 2023 Diastolic Blood Pressure 59.00 mm[Hg] [facility] Mar 23 20:22:25 EDT 2023 Heart Rate 52.00 /min WedMar 23 20:22 :25 EDT 2023 Body temperature 97.50 [degF] [facility] Mar 23 20:2 2:25 EDT 2023 Respiratory rate 18.00 /min WedMar 23 20:2 2:25 EDT 2023 Pulse Oximetry 95.00 % Carol Mar 23 20:22 :25 EDT 2023 Systolic Blood Pressure 110.00 mm[Hg] [place] Mar 09 20:04:42 EDT 2023 Diastolic Blood Pressure 56.00 mm[Hg] [facility] Mar 09 20:04:42 EDT 2023 Body weight 194.40 [lb_av] WedMar 09 20:04 :42 EDT 2023 Heart Rate 56.00 /min WedMar 09 20:04 :42 EDT 2023 Body temperature 97.30 [degF] [facility] Mar 09 20:0 4:42 EDT 2023 Respiratory rate 18.00 /min WedMar 09 20:0 4:42 EDT 2023 Systolic Blood Pressure 135.00 mm[Hg] WedFeb 20 20:25:41 EDT 2023 Diastolic Blood Pressure 69.00 mm[Hg] WedFeb 20 20:25:41 EDT 2023 Body weight 198.20 [lb_av] WedFeb 20 20:25 :41 EDT 2023 Heart Rate 80.00 /min WedFeb 20 20:25 :41 EDT 2023 Body temperature 98.00 [degF] WedFeb 20 20:2 5:41 EDT 2023 Respiratory rate 18.00 /min WedFeb 20 20:2 5:41 EDT 2023 Systolic Blood Pressure 128.00 mm[Hg] WedFeb 14 19:53:19 EDT 2023 Diastolic Blood Pressure 75.00 mm[Hg] WedFeb 14 19:53:19 EDT 2023 Heart Rate 89.00 /min WedFeb 14 19:53 :19 EDT 2023 Systolic Blood Pressure 164.00 mm[Hg] WedFeb 14 10:42:12 EDT 2023 Diastolic Blood Pressure 71.00 mm[Hg] WedFeb 14 10:42:12 EDT 2023 Heart Rate 56.00 /min WedFeb 14 10:42 :12 EDT 2023 Systolic Blood Pressure 134.00 mm[Hg] WedFeb 06 22:05:56 EDT 2023 Diastolic Blood Pressure 70.00 mm[Hg] WedFeb 06 22:05:56 EDT 2023 Body weight 195.00 [lb_av] WedFeb 06 22:05 :56 EDT 2023 Heart Rate 60.00 /min WedFeb 06 22:05 :56 EDT 2023 Body temperature 97.20 [degF] WedFeb 06 22:0 5:56 EDT 2023 Respiratory rate 18.00 /min WedFeb 06 22:0 5:56 EDT 2023 Systolic Blood Pressure 146.00 mm[Hg] WedFeb 02 08:55:18 EDT 2023 Diastolic Blood Pressure 71.00 mm[Hg] WedFeb 02 08:55:18 EDT 2023 Heart Rate 55.00 /min WedFeb 02 08:55 :18 EDT 2023 Systolic Blood Pressure 125.00 mm[Hg] WedFeb 01 20:33:07 EDT 2023 Diastolic Blood Pressure 67.00 mm[Hg] WedFeb 01 20:33:07 EDT 2023 Heart Rate 60.00 /min WedFeb 01 20:33 :07 EDT 2023 Systolic Blood Pressure 137.00 mm[Hg] WedFeb 01 09:46:23 EDT 2023 Diastolic Blood Pressure 71.00 mm[Hg] WedFeb 01 09:46:23 EDT 2023 Heart Rate 56.00 /min WedFeb 01 09:46 :23 EDT 2023 Systolic Blood Pressure 135.00 mm[Hg] WedJan 31 08:53:26 EDT 2023 Diastolic Blood Pressure 62.00 mm[Hg] WedJan 31 08:53:26 EDT 2023 Heart Rate 57.00 /min WedJan 31 08:53 :26 EDT 2023 Systolic Blood Pressure 148.00 mm[Hg] Wed [place] 24 19:33:34 EDT 2023 Diastolic Blood Pressure 54.00 mm[Hg] Wed [place] 24 19:33:34 EDT 2023 Heart Rate 76.00 /min Wed [place] 24 19:33 :34 EDT 2023 Systolic Blood Pressure 160.00 mm[Hg] Wed [place] 24 08:53:47 EDT 2023 Diastolic Blood Pressure 67.00 mm[Hg] Wed [place] 24 08:53:47 EDT 4 Heart Rate 60.00 /min Mon [place] 24 08:53 :47 EDT 2023 Systolic Blood Pressure 150.00 mm[Hg] Sun [place] 23 20:28:46 EDT 2023 Diastolic Blood Pressure 60.00 mm[Hg] Sun [place] 23 20:28:46 EDT 2023 Heart Rate 50.00 /min Sun [place] 23 20:28 :46 EDT 2023 Systolic Blood Pressure 160.00 mm[Hg] Sun [place] 23 10:34:50 EDT 2023 Diastolic Blood Pressure 59.00 mm[Hg] Sun [place] 23 10:34:50 EDT 2023 Heart Rate 50.00 /min Sun [place] 23 10:34 :50 EDT 2023 Systolic Blood Pressure 164.00 mm[Hg] Sat [place] 22 18:41:38 EDT 2023 Diastolic Blood Pressure 67.00 mm[Hg] Sat [place] 22 18:41:38 EDT 2023 Heart Rate 58.00 /min Sat [place] 22 18:41 :38 EDT 2023 Systolic Blood Pressure 121.00 mm[Hg] Mon [place] 17 09:20:04 EDT 2023 Diastolic Blood Pressure 50.00 mm[Hg] Mon [place] 17 09:20:04 EDT 2023 Heart Rate 65.00 /min Mon [place] 17 09:20 :04 EDT 2023 Systolic Blood Pressure 114.00 mm[Hg] Sun [place] 16 09:57:31 EDT 2023 Diastolic Blood Pressure 54.00 mm[Hg] Sun [place] 16 09:57:31 EDT 2023 Heart Rate 58.00 /min Sun [place] 16 09:57 :31 EDT 2023 Systolic Blood Pressure 107.00 mm[Hg] Sat [place] 15 18:09:37 EDT 2023 Diastolic Blood Pressure 42.00 mm[Hg] Sat [place] 15 18:09:37 EDT 2023 Body weight 195.60 [lb_av] Sat [place] 15 18:09 :37 EDT 2023 Heart Rate 67.00 /min Sat [place] 15 18:09 :37 EDT 2023 Body temperature 97.40 [degF] Sat [place] 15 18:0 9:37 EDT 2023 Respiratory rate 18.00 /min Sat [place] 15 18:0 9:37 EDT 2023 Systolic Blood Pressure 105.00 mm[Hg] Sat [place] 15 10:35:58 EDT 2023 Diastolic Blood Pressure 49.00 mm[Hg] Sat [place] 15 10:35:58 EDT 2023 Heart Rate 57.00 /min Sat [place] 15 10:35 :58 EDT 2023 Systolic Blood Pressure 125.00 mm[Hg] Fri [place] 14 11:18:14 EDT 2023 Diastolic Blood Pressure 58.00 mm[Hg] Wed [place] 14 11:18:14 EDT 2023 Heart Rate 58.00 /min Wed [place] 14 11:18 :14 EDT 2023 Systolic Blood Pressure 164.00 mm[Hg] [place] 13 08:42:45 EDT 2023 Diastolic Blood Pressure 80.00 mm[Hg] Wed 13 08:42:45 EDT 2023 Heart Rate 69.00 /min Wed 13 08:42 :45 EDT 2023 Systolic Blood Pressure 148.00 mm[Hg] Wed 12 08:52:33 EDT 2023 Diastolic Blood Pressure 66.00 mm[Hg] Wed 12 08:52:33 EDT 2023 Heart Rate 58.00 /min Wed 12 08:52 :33 EDT 2023 Systolic Blood Pressure 173.00 mm[Hg] Tue [place] 11 08:47:47 EDT 2024 Diastolic Blood Pressure 84.00 mm[Hg] WedJan 17 08:47:47 EDT 2023 Heart Rate 58.00 /min WedJan 17 08:47 :47 EDT 2023 Systolic Blood Pressure 203.00 mm[Hg] WedJan 16 08:26:39 EDT 2023 Diastolic Blood Pressure 96.00 mm[Hg] WedJan 16 08:26:39 EDT 2023 Heart Rate 80.00 /min WedJan 16 08:26 :39 EDT 2023 Systolic Blood Pressure 184.00 mm[Hg] Sun Jan 15 08:26:17 EDT 2023 Diastolic Blood Pressure 72.00 mm[Hg] Sun Jan 15 08:26:17 EDT 2023 Heart Rate 65.00 /min Sun Jan 15 08:26 :17 EDT 2023 Systolic Blood Pressure 142.00 mm[Hg] Sat Jan 08 08:57:13 EDT 2023 Diastolic Blood Pressure 59.00 mm[Hg] Wed 08 08:57:13 EDT 2023 Heart Rate 62.00 /min Wed 08 08:57 :13 EDT 2023 Systolic Blood Pressure 144.00 mm[Hg] WedJan 13 08:27:13 EDT 2023 Diastolic Blood Pressure 60.00 mm[Hg] WedJan 13 08:27:13 EDT 2023 Heart Rate 54.00 /min WedJan 13 08:27 :13 EDT 2023 Systolic Blood Pressure 112.00 mm[Hg] WedJan 12 09:54:00 EDT 2023 Diastolic Blood Pressure 50.00 mm[Hg] WedJan 12 09:54:00 EDT 2023 Heart Rate 83.00 /min WedJan 12 09:54 :00 EDT 2023 Systolic Blood Pressure 152.00 mm[Hg] WedJan 11 13:57:58 EDT 2023 Diastolic Blood Pressure 69.00 mm[Hg] WedJan 11 13:57:58 EDT 2023 Heart Rate 67.00 /min WedJan 11 13:57 :58 EDT 2023 Systolic Blood Pressure 149.00 mm[Hg] WedJan 10 10:33:29 EDT 2023 Diastolic Blood Pressure 78.00 mm[Hg] WedJan 10 10:33:29 EDT 2023 Heart Rate 60.00 /min WedJan 10 10:33 :29 EDT 2023 Systolic Blood Pressure 138.00 mm[Hg] Sat Jan 01 19:12:52 EDT 2023 Diastolic Blood Pressure 78.00 mm[Hg] WedJan 07 19:12:52 EDT 2023 Body weight 197.00 [lb_av] WedJan 07 19:12 :52 EDT 2023 Heart Rate 76.00 /min WedJan 07 19:12 :52 EDT 2023 Body temperature 98.20 [degF] WedJan 07 19:1 2:52 EDT 2023 Respiratory rate 20.00 /min WedJan 07 19:1 2:52 EDT 2023 Systolic Blood Pressure 140.00 mm[Hg] WedDecember 21 19:16:23 EDT 2023 Diastolic Blood Pressure 80.00 mm[Hg] WedDecember 21 19:16:23 EDT 2023 Body weight 194.00 [lb_av] WedDecember 21 19:16 :23 EDT 2023 Heart Rate 71.00 /min WedDecember 21 19:16 :23 EDT 2023 Body temperature 98.30 [degF] WedDecember 21 19:1 6:23 EDT 2023 Respiratory rate 18.00 /min WedDecember 21 19:1 6:23 EDT 2023 Systolic Blood Pressure 154.00 mm[Hg] WedDecember 21 10:45:16 EDT 2023 Diastolic Blood Pressure 78.00 mm[Hg] WedDecember 21 10:45:16 EDT 2023 Heart Rate 71.00 /min WedDecember 21 10:45 :16 EDT 2023 Systolic Blood Pressure 158.00 mm[Hg] WedDecember 20 11:42:13 EDT 2023 Diastolic Blood Pressure 72.00 mm[Hg] WedDecember 20 11:42:13 EDT 2023 Heart Rate 60.00 /min WedDecember 20 11:42 :13 EDT 2023 Systolic Blood Pressure 0.00 mm[Hg] WedDecember 19 10:13:48 EDT 2023 Diastolic Blood Pressure 0.00 mm[Hg] WedDecember 19 10:13:48 EDT 2023 Heart Rate 0.00 /min WedDecember 19 10:13 :48 EDT 2023 Systolic Blood Pressure 132.00 mm[Hg] WedDecember 18 19:19:55 EDT 2023 Diastolic Blood Pressure 76.00 mm[Hg] WedDecember 18 19:19:55 EDT 2023 Heart Rate 80.00 /min WedDecember 18 19:19 :55 EDT 2023 Systolic Blood Pressure 212.00 mm[Hg] WedDecember 18 10:09:07 EDT 2023 Diastolic Blood Pressure 86.00 mm[Hg] WedDecember 18 10:09:07 EDT 2023 Heart Rate 68.00 /min WedDecember 18 10:09 :07 EDT 2023 Systolic Blood Pressure 146.00 mm[Hg] WedDecember 17 19:20:12 EDT 2023 Diastolic Blood Pressure 78.00 mm[Hg] WedDecember 17 19:20:12 EDT 2023 Heart Rate 84.00 /min WedDecember 17 19:20 :12 EDT 2023 Systolic Blood Pressure 123.00 mm[Hg] WedDecember 17 09:15:36 EDT 2023 Diastolic Blood Pressure 73.00 mm[Hg] WedDecember 17 09:15:36 EDT 2023 Heart Rate 90.00 /min WedDecember 17 09:15 :36 EDT 2023 Systolic Blood Pressure 168.00 mm[Hg] WedDecember 16 19:14:41 EDT 2023 Diastolic Blood Pressure 80.00 mm[Hg] WedDecember 16 19:14:41 EDT 2023 Heart Rate 76.00 /min WedDecember 16 19:14 :41 EDT 2023 Systolic Blood Pressure 193.00 mm[Hg] WedDecember 16 09:33:26 EDT 2023 Diastolic Blood Pressure 84.00 mm[Hg] WedDecember 16 09:33:26 EDT 2023 Heart Rate 69.00 /min WedDecember 16 09:33 :26 EDT 2023 Systolic Blood Pressure 119.00 mm[Hg] WedDecember 15 20:03:56 EDT 2023 Diastolic Blood Pressure 55.00 mm[Hg] WedDecember 15 20:03:56 EDT 2023 Heart Rate 63.00 /min WedDecember 15 20:03 :56 EDT 2023 Systolic Blood Pressure 180.00 mm[Hg] WedDecember 15 08:41:40 EDT 2023 Diastolic Blood Pressure 90.00 mm[Hg] WedDecember 15 08:41:40 EDT 2023 Heart Rate 72.00 /min WedDecember 15 08:41 :40 EDT 2023 Systolic Blood Pressure 125.00 mm[Hg] WedDecember 14 20:59:12 EDT 2023 Diastolic Blood Pressure 64.00 mm[Hg] WedDecember 14 20:59:12 EDT 2023 Heart Rate 61.00 /min WedDecember 14 20:59 :12 EDT 2023 Systolic Blood Pressure 178.00 mm[Hg] WedDecember 14 09:09:18 EDT 2023 Diastolic Blood Pressure 76.00 mm[Hg] WedDecember 14 09:09:18 EDT 2023 Heart Rate 68.00 /min WedDecember 14 09:09 :18 EDT 2023 Systolic Blood Pressure 105.00 mm[Hg] WedDecember 13 21:03:40 EDT 2023 Diastolic Blood Pressure 54.00 mm[Hg] WedDecember 13 21:03:40 EDT 2023 Heart Rate 72.00 /min WedDecember 13 21:03 :40 EDT 2023 Systolic Blood Pressure 101.00 mm[Hg] WedDecember 13 11:06:15 EDT 2023 Diastolic Blood Pressure 50.00 mm[Hg] WedDecember 13 11:06:15 EDT 2023 Heart Rate 66.00 /min WedDecember 13 11:06 :15 EDT 2023 Systolic Blood Pressure 144.00 mm[Hg] WedDecember 07 19:26:25 EDT 2023 Diastolic Blood Pressure 57.00 mm[Hg] WedDecember 07 19:26:25 EDT 2023 Body weight 193.20 [lb_av] WedDecember 07 19:26 :25 EDT 2023 Heart Rate 74.00 /min WedDecember 07 19:26 :25 EDT 2023 Body temperature 98.10 [degF] WedDecember 07 19:2 6:25 EDT 2023 Respiratory rate 18.00 /min WedDecember 07 19:2 6:25 EDT 2023 Systolic Blood Pressure 126.00 mm[Hg] WedNov 24 01:00:00 EDT 2023 Diastolic Blood Pressure 57.00 mm[Hg] WedNov 24 01:00:00 EDT 2023 Heart Rate 55.00 /min Carol Nov 24 01:00 :00 EDT 2023 Body weight 188.00 [lb_av] WedNov 24 01:00 :00 EDT 2023 Body temperature 97.90 [degF] WedNov 24 01:0 0:00 EDT 2023 Respiratory rate 18.00 /min WedNov 24 01:0 0:00 EDT 2023 Pulse Oximetry 94.00 % WedNov 24 01:00 :00 EDT 2023 Reason for Referral Past Medical History Resolved Concerns * Problem Sacrococcygeal disorders, not elsewhere classified* Code: * Start Date: WedSep 17 00:00:00 EST 2021 * End Date: WedAug 10 00:00:00 EST 2023 * Problem Low back pain, unspecified* Code: * Start Date: WedSep 17 00:00:00 EST 2021 * End Date: WedAug 10 00:00:00 EST 2023 * Problem Encounter for surgical aftercare following surgery on the respiratory system* Code: * Start Date: WedAug 24 00:00:00 EST 2022 * End Date: WedAug 10 00:00:00 EST 2023 * Problem Pyothorax without fistula* Code: * Start Date: WedAug 24 00:00:00 EST 2022 * End Date: WedAug 10 00:00:00 EST 2023 * Problem Pleural effusion, not elsewhere classified* Code: * Start Date: WedAug 24 00:00:00 EST 2022 * End Date: WedAug 10 00:00:00 EST 2023 * Problem Presence of urogenital implants* Code: * Start Date: WedAug 24 00:00:00 EST 2022 * End Date: WedSep 24 00:00:00 EST 2022 * Problem Essential (primary) hypertension* Code: * Start Date: WedAug 24 00:00:00 EST 2022 * End Date: WedAug 25 00:00:00 EST 2022 * Problem Acute respiratory failure with hypoxia* Code: * Start Date: WedAug 24 00:00:00 EST 2022 * End Date: WedAug 10 00:00:00 EST 2023 * Problem Acute pulmonary edema* Code: * Start Date: WedAug 24 00:00:00 EST 2022 * End Date: WedAug 10 00:00:00 EST 2023 * Problem Unspecified fall, subsequent encounter* Code: * Start Date: WedAug 24 00:00:00 EST 2022 * End Date: WedAug 10 00:00:00 EST 2023 * Problem Unspecified dementia, unspecified severity, without behavioral disturbance, psychotic disturbance, mood disturbance, and anxiety* Code: * Start Date: WedAug 24 00:00:00 EST 2022 * End Date: WedAug 10 00:00:00 EST 2023 * Problem Pain in left shoulder* Code: * Start Date: WedAug 24 00:00:00 EST 2022 * End Date: WedAug 10 00:00:00 EST 2023 * Problem Other intervertebral disc degeneration, lumbar region* Code: * Start Date: WedAug 24 00:00:00 EST 2022 * End Date: WedMay 08 00:00:00 EDT 2023 * Problem Elevated white blood cell count, unspecified* Code: * Start Date: WedAug 26 00:00:00 EST 2022 * End Date: WedAug 10 00:00:00 EST 2023 * Problem Urinary tract infection, site not specified* Code: * Start Date: WedSep 05 00:00:00 EST 2022 * End Date: WedAug 10 00:00:00 EST 2023 * Problem Major depressive disorder, single episode, unspecified* Code: * Start Date: WedSep 05 00:00:00 EST 2022 * End Date: WedJun 07 00:00:00 EDT 2022 * Problem Other urogenital candidiasis* Code: * Start Date: WedSep 05 00:00:00 EST 2022 * End Date: WedAug 10 00:00:00 EST 2023 * Problem COVID-19* Code: * Start Date: WedOct 26 00:00:00 EDT 2022 * End Date: WedJan 13 00:00:00 EDT 2022 * Problem Acute upper respiratory infection, unspecified* Code: * Start Date: WedOct 25 00:00:00 EDT 2022 * End Date: WedOct 25 00:00:00 EDT 2022 * Problem Abnormal weight gain* Code: * Start Date: WedSep 05 00:00:00 EST 2022 * End Date: WedJul 07 00:00:00 EST 2022 * Problem Candidiasis of skin and nail* Code: * Start Date: WedNov 30 00:00:00 EDT 2022 * End Date: WedJan 13 00:00:00 EDT 2022 * Problem Rash and other nonspecific skin eruption* Code: * Start Date: WedNov 30 00:00:00 EDT 2022 * End Date: WedJan 13 00:00:00 EDT 2022 * Problem Intercostal pain* Code: * Start Date: WedSep 05 00:00:00 EST 2022 * End Date: WedAug 10 00:00:00 EST 2023 * Problem Other specified disorders of penis* Code: * Start Date: WedSep 05 00:00:00 EST 2022 * End Date: WedAug 10 00:00:00 EST 2023 * Problem Major depressive disorder, recurrent, severe with psychotic symptoms* Code: * Start Date: WedMar 20 00:00:00 EDT 2022 * End Date: WedNov 25 00:00:00 EDT 2023 * Problem Acute kidney failure, unspecified* Code: * Start Date: WedMar 20 00:00:00 EDT 2022 * End Date: WedJun 07 00:00:00 EDT 2022 * Problem Suicidal ideations* Code: * Start Date: WedMar 20 00:00:00 EDT 2022 * End Date: WedAug 10 00:00:00 EST 2023 * Problem Unspecified dementia, unspecified severity, with other behavioral disturbance* Code: * Start Date: WedMar 20 00:00:00 EDT 2022 * End Date: WedAug 10 00:00:00 EST 2023 * Problem Benign prostatic hyperplasia without lower urinary tract symptoms* Code: * Start Date: WedMar 20 00:00:00 EDT 2022 * End Date: WedNov 25 00:00:00 EDT 2023 * Problem Weakness* Code: * Start Date: WedMar 20 00:00:00 EDT 2022 * End Date: WedAug 10 00:00:00 EST 2023 * Problem Muscle weakness (generalized)* Code: * Start Date: WedMar 20 00:00:00 EDT 2022 * End Date: WedAug 10 00:00:00 EST 2023 * Problem Major depressive disorder, single episode, unspecified* Code: * Start Date: WedAug 06 00:00:00 EST 2022 * End Date: WedAug 10 00:00:00 EST 2023 * Problem Hemothorax* Code: * Start Date: WedAug 06 00:00:00 EST 2022 * End Date: WedJul 25 00:00:00 EST 2023 * Problem Unspecified dementia, unspecified severity, with anxiety* Code: * Start Date: WedAug 06 00:00:00 EST 2022 * End Date: WedJul 25 00:00:00 EST 2023
--- OUTSIDE RECORDS SUMMARY | 2024-11-06 19:49 | XMS_ITS | Encounter Summary ---
Author Organization [facility] Address [address] [place] [address] Care Team Providers Care Dive Master Name Role Phone Uri Victor MD Primary Care Provider [phone] Encounter Details Date Type Department Care Team (Late st Contact Info) Description 03/17/2022 Lab Requisition [facility] [address] [id number] Magdiel Sequeira MD [address] [address] [address] Social History Tobacco Use Types Packs/Day Years [...] AM CDT) Case Report Dermatopathology Report Case: [id number] Authorizing Provider: Magdiel Sequeira MD Collected: 03/17/2022 12:00 AM Ordering Location: [facility] Received: 03/17/2022 04:14 PM Pathologist: [...] Clinical History A: SCCA vs. AK. Path# [id number] B: R/O BCCA. Path# [id number] 2 5:30 PM CDT DERMATOPATHOLOGY LABORATORY Gross Description Specimen A: Received is one formalin filled container labeled with the patient's name and designated right lateral brow. The specimen consists of a shave biopsy measuring [id number]. Jar 0. Specimen B: Received is one formalin filled container labeled with the patient's name and designated right scalp. The specimen consists of a shave biopsy measuring [id number]. Jar 0. 2 5:30 PM CDT DERMATOPATHOLOGY [...] characteristic determined by the Dermatopathology Laboratory at [facility], directed by Dr. Marco Faustin. These tests need not be, and therefore are not, approved by the [place] Food and Drug Administration. The tests are used for clinical purposes. Billing Codes Specimen Charges Stain Charges 89509 36596 1 1 2 5:30 PM CDT DERMATOPATHOLOGY LABORATORY Embedded Images 2 5:30 PM CDT DERMATOPATHOLOGY LABORATORY Pathology/Cytology TISSUE SPECIMEN FROM SKIN / Unknown 03/17/2022 03/17/2022 4:14 PM CDT Miscellaneous samples (specimen) TISSUE SPECIMEN FROM SKIN / Unknown 03/17/2022 03/17/2022 4:14 PM CDT Magdiel Sequeira MD LAB - PATHOLOGY/CYTO LOGY ORDERABLES DERMATOPATHOLOGY LABORATORY [facility] - Department of Dermatology [facility] [address] [place] [address], [address] [phone] documented in this encounter Visit Diagnoses Not on filedocumented in this encounter Care Teams Dive Master Relationship Specialty Start Date End Date Uri Victor MD [address] [phone] PCP - General 03/09/22 documented as of this encounter
--- OUTSIDE RECORDS SUMMARY | 2024-11-06 19:49 | XMS_ITS | Referral Summary ---
Author Organization [facility] Address [address] [place] [address] Care Team Providers Care Flat Locker Name Role Phone Jean Claude Oneil MD Unavailable [phone] Ron Harding MD PhD Unavailable + [phone] Fernie Sherman MD Unavailable [phone] Serjio Sequeira MD Unavailable [phone] Facundo Smiley MD Unavailable [phone] Travon Rojas MD Primary Care Provider + [phone] Allergies Active Allergy Reactions Criticality Noted Date [...] will go ahead and have him see lead technical writer Reviewed medications, continuing current regimen Labs as [...] Outside of this, patient's short term and half-way memory seem mainly intact. Because of this [...] often do you attend chur ch or restoration services? 1 to 4 times per year 05/13/2021 Do you belong to any clubs o r organizations such as yarsanism groups, unions, fraternal or athletic groups, or [...] staff should administer the PHQ-9) 0 11/19/2022 [facility] - Occupational Stress Questionnaire Answer Date [...] place to sleep or slept in a [facility] (including now)? No 05/13/2021 Education Answer Date Recorded What is the highest level of school you have completed or the highest degree you have received? 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 Not on file Not on file Not on file Last Filed Vital Signs Vital Sign Reading Time Taken Comments Blood Pressure 112/48 08/03/2024 2:13 PM SECONDARY SPANISH TEACHER Pulse 70 08/03/2024 2:13 PM SECONDARY SPANISH TEACHER Temperature 36.4 C (97.5 F) 08/03/2024 2:13 PM SECONDARY SPANISH TEACHER Respiratory Rate 16 08/03/2024 2:13 PM SECONDARY SPANISH TEACHER Oxygen Saturation 96% 08/03/2024 2:13 PM SECONDARY SPANISH TEACHER Inhaled Oxygen Concentration - - Weight 93.5 kg (206 lb 3.2 oz) 08/03/2024 2:13 P M SECONDARY SPANISH TEACHER Height 182.9 cm (6') 03/23/2024 11:38 AM [...] Not on file Insurance MEDICARE [facility] MEDICARE MEDICARE [facility] MEDICARE [facility] MEDICARE SUPPLEMENT Advance Directives For more information, please contact: [phone] Documents on File Type Date Recorded Patient Bottom Presser Expl anation ADVANCE DIRECTIVE 08/16/2022 6:27 PM [...] 5:50 AM 06/03/2021 4:49 AM Care Teams Flat Locker Relationship Specialty Start Date End Date Travon Rojas MD [address] [place] [address] PCP - General Family Medicine 01/06/24 Jean Claude Oneil MD Referring Physician Psychiatry 11/06/21 Ron Harding MD PhD [address] [place] [id number] Radiation Oncologist Radiation Oncology 03/31/22 Fenrie Sherman MD [address] [facility] [address] [place] [address] Referring Physician Thoracic Surgery 03/31/22 Serjio Sequeira MD [address] [place] [place] [address] Referring Physician Dermatology 04/29/22 Facundo Smiley MD [address] [address] Referring Physician Cardiology 04/29/22
--- OUTSIDE RECORDS SUMMARY | 2024-11-06 19:49 | XMS_ITS ---
Author Organization [facility] Address [address] [place] [address] Care Team Providers Care General Activities Therapist Name Role Phone Jean Claude Oneil MD Unavailable [phone] Ron Harding MD PhD Unavailable + [phone] Fernie Sherman MD Unavailable [phone] Serjio Sequeira MD Unavailable [phone] Facundo Smiley MD Unavailable [phone] Travon Rojas MD Primary Care Provider + [phone] Active Problems Patient Care Coordination No te [...] will go ahead and have him see wiping rag washer Reviewed medications, continuing current regimen Labs as [...] Outside of this, patient's short term and assisted memory seem mainly intact. Because of this [...] so I suggest trying a flavoring like '[place] water enhancer' to make the water more [...]
--- OUTSIDE RECORDS SUMMARY | 2024-11-06 19:49 | XMS_ITS | Clinical Summary ---
Author Organization [facility] Address [address] [facility] [place] [address] Care Team Providers Care Division Engineer Name Role Phone Uri Victor MD Primary Care Provider [phone] Source Comments [facility],non-owned Affiliates and Associated Physician Practices is amultiple site organization consisting of ambulatory clinics and hospital sitesin [place], [place], [place]. This disclosure is being madepursuant to the Care Everywhere program and may not contain all information available regarding this patient. Last updated 18.[facility] Allergies Active Allergy Reactions Criticality Noted Date Comments Donepezil Nausea and/or Vomiting Low 03/04/2016 Medications * Be aware that medications may not be up to date on this document. Alwaysverify current medications with the patient. Medication Sig Dispensed Refills Start Date End Date Status nystatin (Mycostatin) 887830 UNIT/GM powder Apply 10,000 Units to affected [...] Date Recorded PHQ2 TOTAL SCORE 3 02/22/2023 [employer] [facility] - Occupational Stress [...] place to sleep or slept in a jail (including now)? No 03/05/2023 Sex and Gender [...] 4:26 PM 03/05/2023 9:16 AM Care Teams Division Engineer Relationship Specialty Start Date End Date Uri Victor MD [address] [place] [phone] PCP - General 03/09/22
--- OUTSIDE RECORDS SUMMARY | 2024-11-06 19:49 | XMS_ITS | Clinical Summary ---
Author Organization [facility] Address [address] [place] [address] Care Team Providers Care Plan Coordinator Name Role Phone Jean Claude Oneil MD Unavailable [phone] Ron Harding MD PhD Unavailable + [phone] Fernie Sherman MD Unavailable [phone] Serjio Sequeira MD Unavailable [phone] Facundo Smiley MD Unavailable [phone] Travon Rojas MD Primary Care Provider + [phone] Allergies Active Allergy Reactions Criticality Noted Date [...] will go ahead and have him see branch account manager Reviewed medications, continuing current regimen Labs as [...] How often do you attend chur or yazdanism services? 1 to 4 times per year 05/13/2021 Do you belong to any clubs o r organizations such as orthodox groups, unions, fraternal or athletic groups, or [...] staff should administer the PHQ-9) 0 11/19/2022 [facility] - Occupational Stress [...] place to sleep or slept in a [facility] (including now)? No 05/13/2021 Education Answer Date Recorded What is the highest level of school you have completed or the highest degree you have received? 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 Not on file Not on file Obstetrics History Last Filed Vital Signs Vital Sign Reading Time Taken Comments Blood Pressure 112/48 08/03/2024 2:13 PM MEDICAL BILLING ASSISTANT Pulse 70 08/03/2024 2:13 PM MEDICAL BILLING ASSISTANT Temperature 36.4 C (97.5 F) 08/03/2024 2:13 PM MEDICAL BILLING ASSISTANT Respiratory Rate 16 08/03/2024 2:13 PM MEDICAL BILLING ASSISTANT Oxygen Saturation 96% 08/03/2024 2:13 PM MEDICAL BILLING ASSISTANT Inhaled Oxygen Concentration - - Weight 93.5 kg (206 lb 3.2 oz) 08/03/2024 2:13 P M MEDICAL BILLING ASSISTANT Height 182.9 cm (6') 03/23/2024 11:38 AM [...] , 05/09/2021, Additional history exists Insurance MEDICARE [facility] MEDICARE MEDICARE [facility] MEDICARE [facility] MEDICARE SUPPLEMENT Advance Directives For more information, please contact: [phone] Documents on File Type Date Recorded Patient Top Installer Expl anation ADVANCE DIRECTIVE 08/16/2022 6:27 PM [...] 5:50 AM 06/03/2021 4:49 AM Care Teams Plan Coordinator Relationship Specialty Start Date End Date Travon Rojas MD [address] [place] [address] PCP - General Family Medicine 01/06/24 Jean Claude Oneil MD Referring Physician Psychiatry 11/06/21 Ron Harding MD PhD [address] [place] [id number] Radiation Oncologist Radiation Oncology 03/31/22 Fernie Sherman MD [id number] [place] [address] Referring Physician Thoracic Surgery 03/31/22 Serjio Sequeira MD [address] [facility] [place] [address] Referring Physician Dermatology 04/29/22 Facundo Smiley MD [address] [address] Referring Physician Cardiology 04/29/22
--- NOTE | 2024-11-06 20:06 | PC.NURSE ---
1st iv attempt unsuccessful. edp at bedside for lac repair. RN to attempt iv after lac repair completed.
--- NOTE | 2024-11-06 20:16 | ED_ITS ---
HPI - General Adult General Chief complaint: Wound/Laceration Stated complaint: dizzy and fell today, wound to L. elbow Time Seen by Provider: 11/06/24 19:21 History of Present Illness HPI narrative: Patient is an 84-year-old male who presents ER after having a dizzy spell causing him to fall. He has a laceration to his left elbow. Denies hitting his head or losing consciousness but he does have dementia. He is on Eliquis. Has history of lung cancer and underwent radiation. He is now monitored with CT scans. Denies chest pain or vomiting. reports he has been having some cough. Initial blood pressure low. Related Data Home Medications ?Medication ?Instructions ?Recorded ?Confirmed ?Last Taken ?Type duloxetine 60 mg capsule,delayed 60 mg PO BID 04/23/21 07/12/24 Unknown History release sprinkle gabapentin 300 mg tablet 300 mg PO TID 04/23/21 07/12/24 Unknown History losartan 25 mg tablet 25 mg PO DAILY 12/31/21 07/12/24 Unknown History Centrum Silver 250 mcg PO DAILY 08/03/22 07/12/24 Unknown History acetaminophen 325 mg tablet 325 mg PO Q6H PRN Pain (Scale 08/29/22 07/12/24 Unknown History Score 1-3) amiodarone 200 mg tablet 200 mg PO DAILY 08/29/22 07/12/24 Unknown History apixaban 5 mg tablet (Eliquis) 5 mg PO BID 08/29/22 07/12/24 Unknown History benzonatate 200 mg capsule 200 mg PO TID PRN Cough 08/29/22 07/12/24 Unknown History metoprolol tartrate 25 mg tablet 25 mg PO BID 08/29/22 07/12/24 Unknown History polyethylene glycol 3350 17 gram 17 g PO DAILY PRN Constipation 08/29/22 07/12/24 Unknown History oral powder packet sennosides 8.6 mg capsule (senna) 8.6 mg PO BID 08/29/22 07/12/24 Unknown History Allergies Allergy/AdvReac Type Severity Reaction Status Date / Time donepezil (From Aricept) AdvReac Diarrhea Verified 02/13/23 08:42 Review of Systems 2 Review of Systems: ROS unobtainable: Yes unobtainable due to mental status [facility] Past Medical History Medical History (Updated 11/06/24 @ 22:02 by Abdoul Mathew MD) Lung cancer Chronic kidney disease Ascending aortic aneurysm Pulmonary hypertension Paroxysmal atrial fibrillation On chronic anticoagulation with Eliquis Empyema GERD (gastroesophageal reflux disease) Hypertension Anxiety and depression With history of ECT in the distant past TIA (transient ischemic attack) (2018) Dementia Unable to tolerate Aricept Atrial flutter Resolved with cardioversion and ablation Surgical History Surgical History H/O local excision of skin lesion H/O cardiac radiofrequency ablation Family History Family History Father Kidney disease Mother Dementia Sibling Pericarditis Social History Social History Social History: The patient lives with his who is the durable power workers compensation defense attorney for healthcare. The tells me that they do have a living will in that the patient is a DNR she believes that this is on file here. 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 The patient is a lifelong nonsmoker does not use any alcohol or illicit drugs. They have 1 child. He now resides at [facility]. Smoking status: Never smoker Second hand tobacco smoke exposure: No Alcohol intake: never Substance use: never Substance use type: does not use Lack of Transportation: No Lack of Food: Never True Current Housing: I Have Housing Concerned About Future Housing: No Difficulty Paying Gas/Electric Bills: No Difficulty Paying for Meds: No Currently Unemployed: No Education: High School Diploma/GED Difficulty w/ Childcare or Family Care: No Living arrangements: with family Occupation/Education: retired Gender identity (if verbalized by the patient): Male Sexual Orientation (if Verbalized by the Patient): Straight or Heterosexual Spiritual care concerns: No Exam 2 Narrative: GENERAL: Well-appearing, well-nourished, and in no acute distress. HEAD: Normocephalic, atraumatic. EYES: PERRL and EOMI. ENT: Mucous membranes moist. CHEST: Clear to auscultation. No respiratory distress. HEART: Bradycardic regular. Normal peripheral pulses. ABDOMEN: Soft, nontender, nondistended. EXTREMITIES: Normal range of motion. No edema. SKIN: Warm, dry, no rash. 3 cm flap laceration left elbow with additional 1 cm laceration in the central part of the flap. NEURO: Alert and oriented x2. PSYCH: Normal mood and affect. Course Course Emergency Course: In the retina with significantly elevated from previous. does not know baseline. X-ray with possible developing pneumonia and patient has Aleve white count with cough. Recommend admission for IV fluid and IV antibiotics. Will contact hospitalist service. Vital Signs Vital signs: Vital Signs Temperature 98.1 F 11/06/24 18:49 Pulse Rate 56 L 11/06/24 18:49 Respiratory Rate 16 11/06/24 18:49 Blood Pressure 91/56 L 11/06/24 18:49 Pulse Oximetry 97 11/06/24 18:49 Oxygen Delivery Room Air 11/06/24 18:49 Temperature 98.1 F 11/06/24 18:49 Pulse Rate 56 L 11/06/24 18:49 Respiratory Rate 16 11/06/24 18:49 Blood Pressure 91/56 L 11/06/24 18:49 Pulse Oximetry 97 11/06/24 18:49 Oxygen Delivery Room Air 11/06/24 18:49 Procedures Laceration Laceration 1: Date: 11/06/24 Time: 20:18 Site: other (elbow) Side (If applicable): left Size (cm): 3 Description: flap Depth: simple, single layer Local Anesthetic: lidocaine 1% and with epi Amount of anesthesia used (mL): 4 Pre-repair: irrigated ====== Skin Level ====== Skin layer closed with: nylon Size (cm): 3-0 Number of sutures: 4 Technique: simple, interrupted ====== Subcutaneous Layer ====== ====== Muscle Layer ====== ====== Tendon Layer ====== Laceration 2: Date: 11/06/24 Time: 20:18 Site: other (elbow) Side (If applicable): left Size (cm): 1 Description: linear Depth: simple, single layer Local Anesthetic: lidocaine 1% and with epi Pre-repair: wound explored and irrigated ====== Skin Level ====== Skin layer closed with: nylon Size (cm): 3-0 Number of sutures: 1 Technique: simple, interrupted ====== Subcutaneous Layer ====== ====== Muscle Layer ====== ====== Tendon Layer ====== Medical Decision Making Vital Signs Vital Signs: Vital Signs Temperature 98.1 F 11/06/24 18:49 Pulse Rate 56 L 11/06/24 18:49 Respiratory Rate 16 11/06/24 18:49 Blood Pressure 91/56 L 11/06/24 18:49 Pulse Oximetry 97 11/06/24 18:49 Oxygen Delivery Room Air 11/06/24 18:49 Temperature 98.1 F 11/06/24 18:49 Pulse Rate 56 L 11/06/24 18:49 Respiratory Rate 16 11/06/24 18:49 Blood Pressure 91/56 L 11/06/24 18:49 Pulse Oximetry 97 11/06/24 18:49 Oxygen Delivery Room Air 11/06/24 18:49 Lab Data 11/06/24 20:30 11/06/24 20:30 Labs: Lab Results 11/06/24 Range/Units 20:30 WBC 12.4 H (4.5-10.0) K/mm3 RBC 3.74 L (4.6-6.20) M/mm3 Hgb 11.7 L (14.0-18.0) g/dL Hct 36.2 L (42.0-52.0) % MCV 96.8 (80-100) fl MCH 31.3 (26-34) pg MCHC 32.3 (32-36) g/dl RDW 19.1 H (11.5-14.5) % Plt Count 166 (150-375) k/mm3 MPV 11.1 H (7.4-10.4) fl Immature Gran % (Auto) 0.6 H (0-0.5) % Neut % (Auto) 67.6 (45.5-73.1) % Lymph % (Auto) 13.9 L (18.3-44.2) % [place] % (Auto) 14.5 H (2.6-8.5) % Eos % (Auto) 3.0 (0-4.4) % Baso % (Auto) 0.4 (0.2-1.2) % Lymph # (Auto) 1.72 (0.9-3.2) K/mm3 [place] # (Auto) 1.8 H (0.1-0.6) K/mm3 Eos # (Auto) 0.4 H (0-0.3) K/mm3 Baso # (Auto) 0.1 (0.0-0.1) K/mm3 Abs Immat Gran (auto) 0.08 H (0.00-0.031) K/mm3 Absolute Neuts (auto) 8.4 H (1.3-6.7) K/mm3 Absolute Nucleated RBC 0.020 H (0.0-0.012) K/mm3 Nucleated RBC % 0.2 (0.0-0.2) % Sodium 140 (137-145) mmol/L Potassium 5.1 H (3.4-5.0) mmol/L Chloride 106 (98-107) mmol/L Carbon Dioxide 24 (22-30) mmol/L Anion Gap 10 (4-12) mmol/L BUN 33 H D (9-20) mg/dL Creatinine 2.51 H (0.7-1.3) mg/dL Estim Creat Clear Calc 22 ml/min Estimated GFR 25 L (59 - ) Glucose 111 H (65-110) mg/dL Calcium 9.2 (8.4-10.2) mg/dL Troponin I 0.013 (0.000-0.034) ng/mL Imaging Data Radiologist's impression: ITS Impressions Head CT 11/06/24 19:59 Impression: No acute intracranial hemorrhage or suspicious mass effect. Chest X-Ray 11/06/24 20:12 IMPRESSION: Possible early infiltrate within the right middle lobe. Additional findings, as detailed above. Discharge Plan Discharge Clinical Impression: Acute on chronic kidney failure, Pneumonia, Elbow laceration Patient Disposition: Still a Patient Condition: Stable Patient Language: Kazakh Prescriptions: No Action losartan 25 mg tablet 25 mg PO DAILY gabapentin 300 mg Tablet 300 mg PO TID duloxetine 60 mg Capsule, Delayed Rel Sprinkle 60 mg PO BID Centrum Silver 250 mcg PO DAILY acetaminophen 325 mg Tablet 325 mg PO Q6H PRN (Reason: Pain (Scale Score 1-3)) polyethylene glycol 3350 17 gram Powder In Packet 17 g PO DAILY PRN (Reason: Constipation) amiodarone 200 mg Tablet 200 mg PO DAILY benzonatate 200 mg Capsule 200 mg PO TID PRN (Reason: Cough) metoprolol tartrate 25 mg Tablet 25 mg PO BID senna 8.6 mg Capsule 8.6 mg PO BID Eliquis 5 mg Tablet 5 mg PO BID fluconazole [Diflucan] 100 mg Tablet 200 mg PO QAM 12 Days Qty: 24 0RF calcium carbonate 500 mg calcium (1,250 mg) Tablet,Chewable 200 mg PO Q6H PRN (Reason: Indigestion) Qty: 30 0RF cholecalciferol (vitamin D3) [Vitamin D3] 25 mcg (1,000 unit) Tablet 1,000 units PO DAILY 30 Days Qty: 30 0RF amoxicillin-pot clavulanate 875-125 mg tablet 1 tablet PO Q12H 4 Days Qty: 8 0RF olanzapine [Zyprexa] 2.5 mg tablet 2.5 mg PO DAILY 30 Days Qty: 30 0RF cefdinir 300 mg capsule 300 mg PO Q12H 7 Days Qty: 14 0RF atorvastatin 40 mg tablet 40 mg PO DAILY Qty: 30 0RF Follow-up/Referrals: Travon Rojas MD [Primary Care Provider] -
[2024-11-06] MEDS: TETANUS,DIPHTHERIA,AC PERTUSSIS ADULT (0.5 ML) BOOSTRIX IM (20:33)
[2024-11-06] MEDS: LIDO 1%/EPINEPHRINE 1:100,000 20 ML VIAL 4 ML INFILTRATE (20:33)
[2024-11-06] MEDS: SODIUM CHLORIDE 0.9% IV 1,000 ML 999 ML IV CONT (20:34)
[2024-11-06 20:36] LABS: Basophils Absolute Auto 0.1 K/mm3 (0.0-0.1); Basophils Percent Auto 0.4 % (0.2-1.2); Eosinophils Absolute Auto 0.4 K/mm3 (0-0.3); Hematocrit 36.2 % (42.0-52.0); Hemoglobin 11.7 g/dL (14.0-18.0); Immature Granulocyte Absolute 0.08 K/mm3 (0.00-0.031); Immature Granulocyte Percent A 0.6 % (0-0.5); Lymphocytes Absolute Auto 1.72 K/mm3 (0.9-3.2); Lymphocytes Percent Auto 13.9 % (18.3-44.2); Mean Corpuscular HGB Conc 32.3 g/dl (32-36); Mean Corpuscular Hemoglobin 31.3 pg (26-34); Mean Corpuscular Volume 96.8 fl (80-100); Mean Platelet Volume 11.1 fl (7.4-10.4); Monocytes Absolute Auto 1.8 K/mm3 (0.1-0.6); Monocytes Percent Auto 14.5 % (2.6-8.5); Neutrophils Absolute Auto 8.4 K/mm3 (1.3-6.7); Neutrophils Percent Auto 67.6 % (45.5-73.1); Nucleated Red Blood Cells Perc 0.2 % (0.0-0.2); Platelet Count Result 166 k/mm3 (150-375); Red Blood Count 3.74 M/mm3 (4.6-6.20); Red Cell Distribution Width 19.1 % (11.5-14.5); White Blood Count 12.4 K/mm3 (4.5-10.0)
[2024-11-06 20:46] LABS: Anion Gap 10 mmol/L (4-12); Blood Urea Nitrogen 33 mg/dL (9-20); Calcium 9.2 mg/dL (8.4-10.2); Carbon Dioxide 24 mmol/L (22-30); Chloride 106 mmol/L (98-107); Estimated CRCL calculation 22 ml/min; Estimated Glomerular Filt Rate 25; Glucose 111 mg/dL (65-110); Potassium 5.1 mmol/L (3.4-5.0); Sodium 140 mmol/L (137-145)
[2024-11-06 21:02] LABS: Troponin I 0.013 ng/mL (0.000-0.034)
--- NOTE | 2024-11-06 22:17 | PC.NURSE ---
Pt just had blood cultures drawn and sent down to lab. Started IV rocephin at 2217.
[2024-11-06] MEDS: LORazepam INJ (*CRX) 2 MG/ML VIAL 0.5 MG IV PUSH (22:21)
[2024-11-06] MEDS: SODIUM CHLORIDE 0.9% IV 1,000 ML 125 ML IV CONT (22:22)
[2024-11-06] MEDS: AZITHROMYCIN 500 MG/NS 250 ML 500 MG/250 ML BAG 250 MG IVPB (22:39)
[2024-11-06 22:58] LABS: Influenza A QL RT-PCR Negative (Negative); Influenza B QL RT-PCR Negative (Negative); RSV RNA, RT-PCR Negative (Negative); SARS-CoV-2 RNA PCR Negative (Negative)
[2024-11-06 23:47] VITALS: BMI 26.9
--- NOTE | 2024-11-06 23:50 | P.HP_ITS ---
H&P: HPI History of Present Illness Date/Time: 11/06/24 23:50 Chief Complaint: Fall with elbow wound Narrative: 84-year-old male with a past medical history of dementia, bipolar disorder, paroxysmal atrial fibrillation on chronic anticoagulation, lung cancer, CVA, essential hypertension, and BPH with urinary retention who presented to the ER ambulating with his walker due to fall [facility]. The patient reported that he got up and became lightheaded and fell. The patient himself denies any symptoms except for pain in his left elbow which was lacerated. Laceration was sutured in the ER. The patient is alert oriented to person place and time but is a poor historian regarding events that brought him into the hospital. The patient's initial blood pressure in the ER was low but improved markedly with 1 L fluid bolus. The patient is usually hypertensive with blood pressures in the 160s to 180s according to prior hospital stays. His reported the patient had been having some cough. He denies any having any chest pain, palpitations, nausea or vomiting. He reports that his last bowel movement was after admission to the hospital. His abdomen is distended. He denies feeling as if he needs to urinate. Review of Systems 2 Review of Systems: 12 systems were reviewed with pertinent positives and negatives per HPI. Except as documented in the HPI, all other systems were reviewed and are negative. [facility] Past Medical History Medical History (Updated 11/07/24 @ 05:07 by Aisha Richey DO) Aortic stenosis Diastolic dysfunction Echo April 2021 EF to 55-60, grade 1 diastolic dysfunction, moderate biatrial enlargement, mild aortic stenosis SVT (supraventricular tachycardia) Atrial flutter Resolved with cardioversion and ablation Empyema lung July 2022 Prolonged QT interval Seizures Vitamin D deficiency Lung cancer Chronic kidney disease Ascending aortic aneurysm Pulmonary hypertension Moderate on echo from April 2021 RVSP 53 Paroxysmal atrial fibrillation On chronic anticoagulation with Eliquis GERD (gastroesophageal reflux disease) Hypertension Anxiety and depression With history of ECT in the distant past TIA (transient ischemic attack) (2017) Dementia Unable to tolerate Aricept Surgical History Surgical History (Updated 11/07/24 @ 05:09 by Aisha Richey DO) Status post cataract extraction of both eyes with insertion of intraocular lens History of exploratory thoracotomy (07/2022) Left side due to empyema H/O local excision of skin lesion H/O cardiac radiofrequency ablation Family History Family History Father Kidney disease Mother Dementia Sibling Pericarditis Social History Social History (Updated 11/07/24 @ 02:04 by Aisha Richey DO) Social History: He is . His lives in [facility]. He lives in [facility]. 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 The patient is a lifelong nonsmoker does not use any alcohol or illicit drugs. They have 1 child. Code status: DNR/DNI Healthcare power of senior trial attorney: Norah () Smoking status: Never smoker Second hand tobacco smoke exposure: No Alcohol intake: never Substance use: never Substance use type: does not use Do You Feel Safe in your Home?: Yes Lack of Transportation: No Lack of Food: Never True Current Housing: I Have Housing Concerned About Future Housing: No Difficulty Paying Gas/Electric Bills: No Difficulty Paying for Meds: No Currently Unemployed: No Education: High School Diploma/GED Difficulty w/ Childcare or Family Care: No Living arrangements: with family Occupation/Education: retired Gender identity (if verbalized by the patient): Male Sexual Orientation (if Verbalized by the Patient): Straight or Heterosexual Spiritual care concerns: No Meds Home Medications and Allergies Home Medications ?Medication ?Instructions ?Recorded ?Confirmed ?Type duloxetine 60 mg capsule,delayed 60 mg PO BID 04/23/21 07/12/24 History release sprinkle gabapentin 300 mg tablet 300 mg PO TID 04/23/21 07/12/24 History losartan 25 mg tablet 25 mg PO DAILY 12/31/21 07/12/24 History Centrum Silver 250 mcg PO DAILY 08/03/22 07/12/24 History acetaminophen 325 mg tablet 325 mg PO Q6H PRN Pain (Scale 08/29/22 07/12/24 History Score 1-3) amiodarone 200 mg tablet 200 mg PO DAILY 08/29/22 07/12/24 History apixaban 5 mg tablet (Eliquis) 5 mg PO BID 08/29/22 07/12/24 History benzonatate 200 mg capsule 200 mg PO TID PRN Cough 08/29/22 07/12/24 History metoprolol tartrate 25 mg tablet 25 mg PO BID 08/29/22 07/12/24 History polyethylene glycol 3350 17 gram 17 g PO DAILY PRN Constipation 08/29/22 07/12/24 History oral powder packet sennosides 8.6 mg capsule (senna) 8.6 mg PO BID 08/29/22 07/12/24 History amoxicillin 875 mg-potassium 1 tablet PO Q12H 4 days #8 tabs 09/04/22 07/12/24 Rx clavulanate 125 mg tablet calcium carbonate 200 mg (0.4 x 500 mg calcium 09/04/22 07/12/24 Rx (1,250 mg)) PO Q6H PRN Indigestion #30 tabs cholecalciferol (vitamin D3) 25 1,000 units PO DAILY 30 days #30 09/04/22 07/12/24 Rx mcg (1,000 unit) tablet (Vitamin tabs D3) fluconazole 100 mg tablet 200 mg (2 x 100 mg) PO QAM 12 days 09/04/22 07/12/24 Rx (Diflucan) #24 tabs olanzapine 2.5 mg tablet (Zyprexa) 2.5 mg PO DAILY 1 month #30 tabs 09/04/22 07/12/24 Rx cefdinir 300 mg capsule 300 mg PO Q12H 1 week #14 caps 02/12/23 07/12/24 Rx atorvastatin 40 mg tablet 40 mg PO DAILY #30 tabs 08/10/23 07/12/24 Rx Allergies Allergy/AdvReac Type Severity Reaction Status Date / Time donepezil (From Aricept) AdvReac Diarrhea Verified 02/13/23 08:42 Vital Signs Vital Signs - 24 hr 11/06/24 18:49 Temperature 98.1 F Pulse Rate 56 L Respiratory Rate 16 Blood Pressure 91/56 L Pulse Oximetry 97 Oxygen Delivery Room Air Exam 2 Narrative: Weight 92.5 kg BMI 26.9 Const: Other: No acute distress, well-developed well-nourished, appears stated age HENMT: Other: Mucous membranes are tacky, crowded posterior oropharynx, no oral pharyngeal erythema, head is normocephalic atraumatic Eyes: Other: Pupils are equal and reactive with bilateral lens replacements noted Neck: Other: No JVD, no lymphadenopathy, trachea midline Resp: Other: Clear to auscultation bilaterally, no increased work of breathing Cardio: Other: Regular rate, occasional irregular beat, 2+ bilateral radial pedal pulses, 2/6 systolic murmur GI: Other: Distended, nontender, normoactive bowel sounds : Other: Continent of urine, Skin: Other: Repaired Laceration to the left elbow with overlying dressing clean dry and intact Neuro: Other: Patient is alert oriented x3, speech is clear, mild facial asymmetry on the right, 4/5 core checker strength on the right, no with acute changes in sensation, extraocular movements intact Extrem: Other: 4/5 strength right core checker, 5/5 strength le ft core checker, 5/5 strength bilateral lower extremity straight leg raise, no clubbing, cyanosis or edema, moves all extremities equally Psych: Other: Cooperative, flat affect, otherwise difficult to assess H&P: Results Labs Labs: Laboratory Tests 11/06/24 20:30 11/06/24 20:30 11/06/24 11/06/24 20:30 22:14 WBC 12.4 H RBC 3.74 L Hgb 11.7 L Hct 36.2 L MCV 96.8 MCH 31.3 MCHC 32.3 RDW 19.1 H Plt Count 166 MPV 11.1 H Immature Gran % (Auto) 0.6 H Neut % (Auto) 67.6 Lymph % (Auto) 13.9 L [place] % (Auto) 14.5 H Eos % (Auto) 3.0 Baso % (Auto) 0.4 Lymph # (Auto) 1.72 [place] # (Auto) 1.8 H Eos # (Auto) 0.4 H Baso # (Auto) 0.1 Abs Immat Gran (auto) 0.08 H Absolute Neuts (auto) 8.4 H Absolute Nucleated RBC 0.020 H Nucleated RBC % 0.2 Sodium 140 Potassium 5.1 H Chloride 106 Carbon Dioxide 24 Anion Gap 10 BUN 33 H D Creatinine 2.51 H Estim Creat Clear Calc 22 Estimated GFR 25 L Glucose 111 H Calcium 9.2 Troponin I 0.013 Influenza A (RT-PCR) Negative Influenza B (RT-PCR) Negative RSV (RT-PCR) Negative SARS-CoV-2 RNA (RT-PCR) Negative Impressions Head CT 11/06/24 19:59 Impression: No acute intracranial hemorrhage or suspicious mass effect. Chest X-Ray 11/06/24 20:12 IMPRESSION: Possible early infiltrate within the right middle lobe. Additional findings, as detailed above. EKG: Sinus bradycardia rate 58 incomplete right bundle-branch block voltage criteria for LVH, QTC 441 All imaging and EKGs personally reviewed and interpreted. And unless stated otherwise agree with radiologic and cardiology interpretation. Assessment and Plan Assessment and plan (1) Elbow laceration: Qualifiers: Encounter type: initial encounter Laterality: left Qualified Code(s): S51.012A - Laceration without foreign body of left elbow, initial encounter Code(s): S51.019A - Laceration without foreign body of unspecified elbow, initial encounter Status: Acute (2) Pneumonia: Qualifiers: Laterality: right Lung location: middle lobe of lung Pneumonia type: d ue to unspecified organism Qualified Code(s): J18.9 - Pneumonia, unspecified organism Code(s): J18.9 - Pneumonia, unspecified organism Status: Acute (3) Acute on chronic kidney failure: Qualifiers: Acute renal failure type: unspecified Chronic kidney disease stage: s tage 3 (moderate) Chronic kidney disease stage 3 subtype: stage 3a (GFR 45-59) Qualified Code(s): N17.9 - Acute kidney failure, unspecified; N18.31 - Chronic kidney disease, stage 3a Code(s): N17.9 - Acute kidney failure, unspecified; N18.9 - Chronic kidney disease, unspecified Status: Acute (4) Acute hyperkalemia: Code(s): E87.5 - Hyperkalemia Status: Acute Assessment and Plan: Mild just above normal with potassium of 5 point due to decreased excretion (5) Fall: Qualifiers: Encounter type: initial encounter Qualified Code(s): W19.XXXA - Unspecified fall, initial encounter Code(s): W19.XXXA - Unspecified fall, initial encounter Status: Acute Plan He the patient has laceration that was sutured by ER provider. I did not remove the dressing to evaluate the wound dressing was clean dry and intact. Patient did receive updated tetanus vaccine. Patient has been placed on fall precautions. Given the patient's reported lightheadedness was position changes will check orthostatic blood pressures. Patient has sinus bradycardia which is chronic and unchanged from baseline. The patient has acute kidney injury on chronic kidney disease with potassium just above the cutoff for abnormal. Patient likely had some hypovolemia given relative hypotension given the patient's chronic uncontrolled essential hypertension. Blood pressures have improved. Although urine specimen had not been collected turns out patient has been urinating in the toilet. He refuses to allow nursing staff to collect urine and will not use the urinal. Postobstructive uropathy seems less likely as patient's postvoid residual was 10 mL. Will continue fluids overnight but will stop in a.m. and repeat BMP. Patient does have findings on x-ray consistent with pneumonia he does have a mild leukocytosis. He has been started on empiric antibiotic therapy with Rocephin and azithromycin. Will repeat CBC in a.m.. Patient is unable to provide an accurate record of his medications and is in assisted living so cannot obtain have record of medications from the facility. Nursing Will attempt to contact family in a.m.. Patient has been admitted as observation status. Quality VTE Prophylaxis VTE prophylaxis: pharmacologic ordered (Eliquis but will renally dose) Hospitalist MIPS Advance Care Plan I have confirmed that the patient's Advanced Care Plan is present, code status is documented, or surrogate decision maker is listed in patient medical record.: Yes Medication Reconciliation I have utilized all available resources to obtain, update and review the patients current medications (includes all prescriptions, OTC, herbals, cannabis, and nutritional supplements).: Yes
--- NOTE | 2024-11-06 23:52 | ADMGEN ---
This patient, Pawan Martinez, was admitted to 3 Med Surg Room 314-02. Patient/family oriented to hospital policies and general routines including ID bracelet, bed and alarms, visiting hours, pain management, procedures, bathroom and other care routines, personal items, smoking policy, room service/diet, and visiting hours. Information on how to activate the Rapid Response Team has been discussed. Patient/Family are encouraged to report perceived risks to care and to ask questions if they do not understand what they are told or what they should do.
[2024-11-07] VITALS: BP 180/84; PULSE 56; RESP 16; TEMP 36.2; O2SAT 98
[2024-11-07 00:37] VITALS: PULSE 56; RESP 16; O2SAT 98
[2024-11-07 05:20] VITALS: BP 180/79; PULSE 61; RESP 20; TEMP 35.8; O2SAT 97
[2024-11-07 08:15] LABS: Add Urine Microscopic? YES; Appearance Urine Clear (Clear); Bacteria Urine None Seen /hpf; Bilirubin Urine Negative (Negative); Blood Urine Negative (Negative); Color Urine Yellow (Yellow); Glucose Urine UA Negative (Negative); Ketones Urine Negative (Negative); Leukocyte Esterase Ur 1+ LEU/UL (Negative); Need Manual Microscopic Reviewed; Nitrate Urine Negative (Negative); Non Pathogenic Casts 0-2; Protein Urine Trace mg/dL (Negative); RBC Urine 0-2 /hpf (0-2); Specific Grav Ur 1.017 (1.001-1.035); Squamous Epithelial Cell Urine None Seen /hpf (Few); WBC Urine 0-5 /hpf (0-3); pH Urine 5.5 (5.0-9.0)
[2024-11-07] MEDS: APIXABAN 2.5 MG TABLET PO ×2 (08:45→20:20)
[2024-11-07] MEDS: SODIUM CHLORIDE 0.9% IV 1,000 ML 125 ML IV CONT (08:45)
[2024-11-07 10:10] LABS: Basophils Percent Auto 0.4 % (0.2-1.2); Eosinophils Absolute Auto 0.2 K/mm3 (0-0.3); Eosinophils Percent Auto 1.5 % (0-4.4); Hematocrit 34.8 % (42.0-52.0); Hemoglobin 11.1 g/dL (14.0-18.0); Immature Granulocyte Absolute 0.04 K/mm3 (0.00-0.031); Immature Granulocyte Percent A 0.4 % (0-0.5); Lymphocytes Absolute Auto 0.84 K/mm3 (0.9-3.2); Mean Corpuscular HGB Conc 31.9 g/dl (32-36); Mean Corpuscular Hemoglobin 30.8 pg (26-34); Mean Corpuscular Volume 96.7 fl (80-100); Mean Platelet Volume 11.3 fl (7.4-10.4); Monocytes Absolute Auto 1.1 K/mm3 (0.1-0.6); Monocytes Percent Auto 10.6 % (2.6-8.5); Neutrophils Absolute Auto 8.3 K/mm3 (1.3-6.7); Neutrophils Percent Auto 79.1 % (45.5-73.1); Platelet Count Result 158 k/mm3 (150-375); Red Cell Distribution Width 18.8 % (11.5-14.5); White Blood Count 10.5 K/mm3 (4.5-10.0)
[2024-11-07 10:26] LABS: Alanine Aminotransferase 16 U/L (6-50); Albumin Level 3.7 g/dL (3.5-5.1); Alkaline Phosphatase 75 U/L (38-126); Anion Gap 10 mmol/L (4-12); Aspartate Amino Transferase 21 U/L (17-59); Bilirubin,Total 0.5 mg/dL (0.2-1.3); Blood Urea Nitrogen 27 mg/dL (9-20); Calcium 8.9 mg/dL (8.4-10.2); Carbon Dioxide 21 mmol/L (22-30); Chloride 112 mmol/L (98-107); Estimated CRCL calculation 36 ml/min; Estimated Glomerular Filt Rate 43; Glucose 130 mg/dL (65-110); Magnesium 2.1 mg/dL (1.6-2.3); Potassium 4.4 mmol/L (3.4-5.0); Sodium 143 mmol/L (137-145)
--- NOTE | 2024-11-07 12:10 | P.PNIM_ITS ---
Progress Note: A&P Assessment and Plan (1) Elbow laceration: Qualifiers: Encounter type: initial encounter Laterality: left Qualified Code(s): S51.012A - Laceration without foreign body of left elbow, initial encounter Code(s): S51.019A - Laceration without foreign body of unspecified elbow, initial encounter Status: Acute Assessment and Plan: * Dressing wrapped with no drainage. Sutures to lacerations. * Pain control. (2) Pneumonia: Qualifiers: Laterality: right Lung location: middle lobe of lung Pneumonia type: due to unspecified organism Qualified Code(s): J18.9 - Pneumonia, unspecified organism Code(s): J18.9 - Pneumonia, unspecified organism Status: Acute Assessment and Plan: * Azithromycin 500 mg IVPB daily and Ceftriaxone 1 gram IVPB daily. * Duoneb q 6 PRN. * WBC improving 12.4>10.5. (3) Acute on chronic kidney failure: Qualifiers: Acute renal failure type: unspecified Chronic kidney disease stage: stage 3 (moderate) Chronic kidney disease stage 3 subtype: stage 3a (GFR 45-59) Qualified Code(s): N17.9 - Acute kidney failure, unspecified; N18.31 - Chronic kidney disease, stage 3a Code(s): N17.9 - Acute kidney failure, unspecified; N18.9 - Chronic kidney disease, unspecified Status: Acute Assessment and Plan: * Creatinine improving from 2.51>1.53. * Received IV Normal saline. * Monitor levels. (4) Fall: Qualifiers: Encounter type: initial encounter Qualified Code(s): W19.XXXA - Unspecified fall, initial encounter Code(s): W19.XXXA - Unspecified fall, initial encounter Status: Acute Assessment and Plan: * PT/OT Subjective Date/time seen: 11/07/24 12:10 Interval history: Patient reports that he was feeling dizzy when he got up at times but that has improved. Patient reports feeling weak lately. Patient denies chest pain, palpitations, headache, dizziness, nausea, or vomiting. Patient reports pain in left elbow is an 8 with frequent throbbing. Patient reports that he received stitches. Review of Systems Review of Systems: All systems reviewed & are unremarkable except as noted in HPI and below Exam Const: General: no acute distress and uncomfortable Resp: Effort & Inspection: normal respiratory effort Auscultation: clear to auscultation bilaterally Cardio: Rate: regular rate Rhythm: regular rhythm GI: GI Palp: Yes Soft to palpation Auscultation: normal bowel sounds Neuro: Speech: normal speech Extrem: General: no pedal edema Psych: Mental Status: mental status grossly normal Affect: normal affect Objective Data Vital Signs Vital Signs: Vital Signs - 24 hr 11/06/24 18:49 11/07/24 00:00 11/07/24 00:37 Temperature 98.1 F 97.2 F L Pulse Rate 56 L 56 L 56 L Respiratory Rate 16 16 16 Blood Pressure 91/56 L 180/84 H Pulse Oximetry 97 98 98 Oxygen Delivery Room Air Room Air 11/07/24 05:20 Temperature 96.5 F L Pulse Rate 61 Respiratory Rate 20 Blood Pressure 180/79 H Pulse Oximetry 97 Oxygen Delivery Intake/Output Intake/Output: Intake & Output 11/04/24 11/05/24 11/06/24 11/07/24 23:59 23:59 23:59 23:59 Intake Total 1300 1290 Output Total 300 Balance 1300 990 Meds/Results Medications: Active Medications Generic Name Dose Route Start Last Admin Trade Name Freq PRN Reason Stop Dose Admin Acetaminophen 650 mg 11/06/24 21:57 Acetaminophen 325 Mg Tablet PO Q4H PRN Mild Pain (1-3) or Fever Hydrocodone Bitart/Acetaminophen 1 tab 11/06/24 21:57 Hydrocodone/Acetaminophen (*Crx) 5-325 Mg Tablet PO Q4H PRN Pain Rated 4-6 Apixaban 2.5 mg 11/07/24 09:00 11/07/24 08:45 Apixaban 2.5 Mg Tablet PO 2.5 mg Q12HR ZANDER Administration Ceftriaxone Sodium 1 gm in 50 mls @ 100 mls/hr 11/07/24 22:00 11/07/24 00:17 Rocephin 1 Gm/Ns 50 Ml IVPB Not Given Q24H ZANDER Azithromycin 500 mg in 250 mls @ 250 mls/hr 11/07/24 22:00 11/07/24 00:17 Zithromax IVPB Not Given Q24H ZANDER Sodium Chloride 1,000 mls @ 125 mls/hr 11/06/24 22:00 11/07/24 08:45 Normal Saline Iv IV CONT 125 mls/hr .Q8H ZANDER Administration Ondansetron HCl 4 mg 11/06/24 21:57 Ondansetron Inj 4 Mg/2 Ml Vial IV PUSH Q4H PRN Nausea Radiology Results: ITS Impressions Head CT 11/06/24 19:59 Impression: No acute intracranial hemorrhage or suspicious mass effect. Chest X-Ray 11/06/24 20:12 IMPRESSION: Possible early infiltrate within the right middle lobe. Additional findings, as detailed above. Labs Labs: Laboratory Results - last 24 hr 11/06/24 11/06/24 11/07/24 20:30 22:14 06:36 WBC 12.4 H RBC 3.74 L Hgb 11.7 L Hct 36.2 L MCV 96.8 MCH 31.3 MCHC 32.3 RDW 19.1 H Plt Count 166 MPV 11.1 H Immature Gran % (Auto) 0.6 H Neut % (Auto) 67.6 Lymph % (Auto) 13.9 L [place] % (Auto) 14.5 H Eos % (Auto) 3.0 Baso % (Auto) 0.4 Lymph # (Auto) 1.72 [place] # (Auto) 1.8 H Eos # (Auto) 0.4 H Baso # (Auto) 0.1 Abs Immat Gran (auto) 0.08 H Absolute Neuts (auto) 8.4 H Absolute Nucleated RBC 0.020 H Nucleated RBC % 0.2 Sodium 140 Potassium 5.1 H Chloride 106 Carbon Dioxide 24 Anion Gap 10 BUN 33 H D Creatinine 2.51 H Estim Creat Clear Calc 22 Estimated GFR 25 L Glucose 111 H Calcium 9.2 Magnesium Total Bilirubin AST ALT Alkaline Phosphatase Troponin I 0.013 Total Protein Albumin Urine Color Yellow Urine Appearance Clear Urine pH 5.5 Ur Specific [place]ber[place] 1.017 Urine Protein Trace Urine Glucose (UA) Negative Urine Ketones Negative Ur Blood (Man) Negative Urine Nitrate Negative Urine Bilirubin Negative Urine Urobilinogen 1.0 Add Ur Microanalysis Reviewed Leukocyte Esterase Rfl 1+ H Urine RBC 0-2 Urine WBC 0-5 Ur Squamous Epith Cells None seen Urine Bacteria None seen Urine Casts 0-2 Influenza A (RT-PCR) Negative Influenza B (RT-PCR) Negative RSV (RT-PCR) Negative SARS-CoV-2 RNA (RT-PCR) Negative 11/07/24 09:59 WBC 10.5 H RBC 3.60 L Hgb 11.1 L Hct 34.8 L MCV 96.7 MCH 30.8 MCHC 31.9 L RDW 18.8 H Plt Count 158 MPV 11.3 H Immature Gran % (Auto) 0.4 Neut % (Auto) 79.1 H Lymph % (Auto) 8.0 L [place] % (Auto) 10.6 H Eos % (Auto) 1.5 Baso % (Auto) 0.4 Lymph # (Auto) 0.84 L [place] # (Auto) 1.1 H Eos # (Auto) 0.2 Baso # (Auto) 0.0 Abs Immat Gran (auto) 0.04 H Absolute Neuts (auto) 8.3 H Absolute Nucleated RBC 0.000 Nucleated RBC % 0.0 Sodium 143 Potassium 4.4 Chloride 112 H Carbon Dioxide 21 L Anion Gap 10 BUN 27 H Creatinine 1.53 H Estim Creat Clear Calc 36 Estimated GFR 43 L Glucose 130 H Calcium 8.9 Magnesium 2.1 Total Bilirubin 0.5 AST 21 ALT 16 Alkaline Phosphatase 75 Troponin I Total Protein 6.0 L Albumin 3.7 Urine Color Urine Appearance Urine pH Ur Specific [place] Urine Protein Urine Glucose (UA) Urine Ketones Ur Blood (Man) Urine Nitrate Urine Bilirubin Urine Urobilinogen Add Ur Microanalysis Leukocyte Esterase Rfl Urine RBC Urine WBC Ur Squamous Epith Cells Urine Bacteria Urine Casts Influenza A (RT-PCR) Influenza B (RT-PCR) RSV (RT-PCR) SARS-CoV-2 RNA (RT-PCR) Quality VTE Prophylaxis VTE prophylaxis: pharmacologic ordered (Eliquis but will renally dose)
[2024-11-07 14:00] VITALS: BP 155/64; PULSE 64; RESP 20; TEMP 36.3; O2SAT 97
[2024-11-07] MEDS: DULoxetine HCL 60 MG CAPSULE.DR PO (17:32)
[2024-11-07] MEDS: GABAPENTIN 400 MG CAPSULE PO ×2 (17:32→20:20)
[2024-11-07] MEDS: TAMSULOSIN HCL 0.4 MG CAPSULE PO (17:32)
[2024-11-07] MEDS: SENNOSIDES 8.6 MG TABLET PO (20:20)
[2024-11-07 20:45] VITALS: BP 211/94; PULSE 69; RESP 20; TEMP 36.9; O2SAT 99
[2024-11-08 05:00] VITALS: BP 135/57; BP 162/81; BP 162/82; PULSE 68; PULSE 73; PULSE 74; RESP 18; RESP 20; TEMP 36.4; O2SAT 97; O2SAT 98; O2SAT 99
[2024-11-08] MEDS: MIRTAZAPINE 30 MG TABLET PO (05:57)
[2024-11-08 06:00] VITALS: BP 162/82; PULSE 68; RESP 18; TEMP 36.4; O2SAT 98
[2024-11-08 06:21] LABS: Basophils Percent Auto 0.4 % (0.2-1.2); Eosinophils Absolute Auto 0.3 K/mm3 (0-0.3); Eosinophils Percent Auto 3.6 % (0-4.4); Hematocrit 31.7 % (42.0-52.0); Hemoglobin 10.2 g/dL (14.0-18.0); Immature Granulocyte Absolute 0.06 K/mm3 (0.00-0.031); Immature Granulocyte Percent A 0.7 % (0-0.5); Lymphocytes Absolute Auto 1.91 K/mm3 (0.9-3.2); Lymphocytes Percent Auto 20.9 % (18.3-44.2); Mean Corpuscular HGB Conc 32.2 g/dl (32-36); Mean Corpuscular Hemoglobin 30.8 pg (26-34); Mean Corpuscular Volume 95.8 fl (80-100); Monocytes Absolute Auto 1.4 K/mm3 (0.1-0.6); Monocytes Percent Auto 14.8 % (2.6-8.5); Neutrophils Absolute Auto 5.5 K/mm3 (1.3-6.7); Neutrophils Percent Auto 59.6 % (45.5-73.1); Nucleated Red Blood Cells Perc 0.2 % (0.0-0.2); Platelet Count Result 150 k/mm3 (150-375); Red Blood Count 3.31 M/mm3 (4.6-6.20); Red Cell Distribution Width 18.8 % (11.5-14.5); White Blood Count 9.1 K/mm3 (4.5-10.0)
[2024-11-08 06:30] LABS: Alanine Aminotransferase 14 U/L (6-50); Albumin Level 3.5 g/dL (3.5-5.1); Alkaline Phosphatase 74 U/L (38-126); Anion Gap 8 mmol/L (4-12); Aspartate Amino Transferase 20 U/L (17-59); Bilirubin,Total 0.7 mg/dL (0.2-1.3); Blood Urea Nitrogen 21 mg/dL (9-20); Calcium 8.5 mg/dL (8.4-10.2); Carbon Dioxide 20 mmol/L (22-30); Chloride 111 mmol/L (98-107); Estimated CRCL calculation 50 ml/min; Estimated Glomerular Filt Rate > 60; Glucose 90 mg/dL (65-110); Sodium 139 mmol/L (137-145)
--- NOTE | 2024-11-08 06:53 | PC.NURSE ---
11/07 2199 Zithromax and rocephin given. OCT difficulties
[2024-11-08 07:59] VITALS: BP 208/83; PULSE 83; RESP 16; TEMP 36.4; O2SAT 98
[2024-11-08 08:01] VITALS: PULSE 83
[2024-11-08] MEDS: OLANZapine 5 MG TABLET 10 MG PO (08:01)
[2024-11-08] MEDS: ATORVASTATIN 40 MG TABLET PO (08:01)
[2024-11-08] MEDS: TAMSULOSIN HCL 0.4 MG CAPSULE PO (08:01)
[2024-11-08] MEDS: GABAPENTIN 400 MG CAPSULE PO ×2 (08:01→12:14)
[2024-11-08] MEDS: lisinopriL 10 MG TABLET PO (08:01)
[2024-11-08] MEDS: AMIODARONE HCL 100 MG TABLET PO (08:01)
[2024-11-08] MEDS: APIXABAN 2.5 MG TABLET PO (08:01)
[2024-11-08] MEDS: DULoxetine HCL 60 MG CAPSULE.DR PO (08:02)
[2024-11-08] MEDS: FINASTERIDE 5 MG TABLET PO (08:02)
[2024-11-08 09:43] VITALS: BP 168/68
--- NOTE | 2024-11-08 12:45 | P.DS_ITS ---
DS: Admitting Diagnosis Discharge Date 11/08/2024 Admitting Diagnosis Fall with laceration found to have pneumonia DS: Discharge Diagnosis Discharge Diagnosis (1) Elbow laceration: Qualifiers: Encounter type: initial encounter Laterality: left Qualified Code(s): S51.012A - Laceration without foreign body of left elbow, initial encounter Code(s): S51.019A - Laceration without foreign body of unspecified elbow, initial encounter Status: Acute Assessment and Plan: * Dressing wrapped with no drainage. Sutures to lacerations. * Pain control. (2) Pneumonia: Qualifiers: Laterality: right Lung location: middle lobe of lung Pneumonia type: due to unspecified organism Qualified Code(s): J18.9 - Pneumonia, unspecified organism Code(s): J18.9 - Pneumonia, unspecified organism Status: Acute Assessment and Plan: * Azithromycin 500 mg IVPB daily and Ceftriaxone 1 gram IVPB daily. * Duoneb q 6 PRN. * WBC improving 12.4>10.5. (3) Acute on chronic kidney failure: Qualifiers: Acute renal failure type: unspecified Chronic kidney disease stage: stage 3 (moderate) Chronic kidney disease stage 3 subtype: stage 3a (GFR 45-59) Qualified Code(s): N17.9 - Acute kidney failure, unspecified; N18.31 - Chronic kidney disease, stage 3a Code(s): N17.9 - Acute kidney failure, unspecified; N18.9 - Chronic kidney disease, unspecified Status: Acute Assessment and Plan: * Creatinine improving from 2.51>1.53. * Received IV Normal saline. * Monitor levels. (4) Fall: Qualifiers: Encounter type: initial encounter Qualified Code(s): W19.XXXA - Unspecified fall, initial encounter Code(s): W19.XXXA - Unspecified fall, initial encounter Status: Acute Assessment and Plan: * PT/OT DS: Summary Hospital Course Hospital Course: Patient is an 84-year-old male with a past medical history of dementia, bipolar disorder, AFib, lung cancer, CVA, hypertension, BPH who presented to the ED with complaints of a fall. Patient was ambulating with his walker when he fell a [place]. Upon arrival to the ED patient was noted to have laceration on the elbow which was fixed with sutures in the ED. chest x-ray was performed and showed early infiltrate within the right middle lobe. Upon arrival to the ED white count was noted to be elevated at 12.4 and is currently 9.1. Patient was initiated on ceftriaxone and azithromycin for treatment of pneumonia. Creatinine was also elevated at 2.51 however has been better at 1.08. Patient was given IV fluids. Electrolytes all appear find patient is stable for discharge for labs and vital signs. Patient has been up walking with nurse. Currently patient denies any chest pain, shortness a breath, nausea, vomiting, diarrhea constipation. At this time patient will discharge with oral antibiotics and will follow-up with his primary care provider in 1 week. Status at Discharge Functional status at discharge: uses cane/walker Overall status at discharge: patient is progressing back to baseline Time Spent with Patient Time attestation: Total time spent providing and/or coordinating discharge services:38 minutes Time spent: Greater than 30 minutes Exam Narrative: General: well-nourished, well-appearing 84-year-old female, sitting up in bed, comfortable, NARD Neuro: awake, alert and oriented x4, speech clear, no focal neuro deficits noted HEENMT: normocephalic, atraumatic, EOMI, sclerae anicteric, moist oral mucosa Respiratory: Clear to auscultation bilaterally without crackles, rhonchi or wheezes, nonlabored breathing Cardio: regular rate, regular rhythm with S1-S2 Abdomen: nondistended, normoactive bowel sounds, soft, nontender to palpation Extremities: no edema, erythema, or tenderness to palpation, DP pulses 2+ bilaterally Skin: no rashes or lesions, warm and dry Psych: appropriate mood and affect, judgment and insight intact DS: Data Data Completed and Pending Labs on day of discharge: Labs from last 24 hours 11/08/24 05:54 WBC 9.1 RBC 3.31 L Hgb 10.2 L Hct 31.7 L MCV 95.8 MCH 30.8 MCHC 32.2 RDW 18.8 H Plt Count 150 MPV 11.0 H Immature Gran % (Auto) 0.7 H Neut % (Auto) 59.6 Lymph % (Auto) 20.9 [place] % (Auto) 14.8 H Eos % (Auto) 3.6 Baso % (Auto) 0.4 Lymph # (Auto) 1.91 [place]itchie # (Auto) 1.4 H Eos # (Auto) 0.3 Baso # (Auto) 0.0 Abs Immat Gran (auto) 0.06 H Absolute Neuts (auto) 5.5 Absolute Nucleated RBC 0.020 H Nucleated RBC % 0.2 Sodium 139 Potassium 4.0 Chloride 111 H Carbon Dioxide 20 L Anion Gap 8 BUN 21 H Creatinine 1.08 Estim Creat Clear Calc 50 Estimated GFR > 60 Glucose 90 Calcium 8.5 Magnesium 2.0 Total Bilirubin 0.7 AST 20 ALT 14 Alkaline Phosphatase 74 Total Protein 6.0 L Albumin 3.5 Preliminary micro results at discharge 11/06/24 22:11 Blood Culture - Preliminary Blood 11/06/24 22:10 Blood Culture - Preliminary Blood Discharge Plan Discharge Attending physician on discharge: Sudheer Yun Discharging Clinician: Gumaro Crouch Patient Disposition: Home, Self-Care Activity: may shower, unlimited and as tolerated Diet: heart healthy Discharge Instructions: * Take medications as prescribed * Maintain a cardiac diet, 2 g sodium * complete the full course of antibiotics * Remain active * Monitor urine output * Daily weights, if you gain more than 3 lb within 1 day or 5 lb in 1 week notify your primary care provider * If you develop chest pain, shortness breath, fever greater than 101, nausea, or vomiting notify a clinician or come to the emergency department * Follow-up with primary care provider within 1-2 weeks * Thank you for [facility] for your healthcare needs Patient Instructions: Antibiotic Form, Fall Prevention for Older Adults (DC), Pneumonia (DC) Patient Language: American Stand Alone Forms: General Discharge Information Follow-up/Referrals: Travon Rojas MD [Primary Care Provider] - 1 Week Discharge Medications: New azithromycin 500 mg tablet 500 mg PO DAILY 3 Days Qty: 3 0RF cefdinir 300 mg capsule 300 mg PO Q12H Qty: 10 0RF Continued duloxetine 60 mg Capsule, Delayed Rel Sprinkle 60 mg PO BID acetaminophen 325 mg Tablet 650 mg PO Q6H PRN (Reason: Pain (Scale Score 1-3)) polyethylene glycol 3350 17 gram Powder In Packet 17 g PO DAILY PRN (Reason: Constipation) senna 8.6 mg Capsule 8.6 mg PO DAILY Eliquis 5 mg Tablet 5 mg PO BID tamsulosin 0.4 mg capsule 0.4 mg PO BID mirtazapine 30 mg tablet 30 mg PO DAILY@0630 finasteride 5 mg tablet 5 mg PO DAILY amiodarone 100 mg tablet 100 mg PO Q24H lisinopril 10 mg tablet 10 mg PO DAILY gabapentin 400 mg capsule 400 mg PO QID ergocalciferol (vitamin D2) [Vitamin D2] 1,250 mcg (50,000 unit) capsule 1,250 mcg PO WEEKLY Auvelity 45-105 mg tablet, IR and ER, biphasic 1 tablet PO DAILY olanzapine [Zyprexa] 2.5 mg tablet 10 mg PO DAILY atorvastatin 40 mg tablet 40 mg PO DAILY Qty: 30 0RF Date of admission: 11/07/24 09:35 Primary Care Provider: Travon Rojas Admitting Provider: Aisha Richey Attending physician on admission: Aisha Richey Condition: Stable Quality VTE Prophylaxis VTE prophylaxis: pharmacologic ordered (Eliquis but will renally dose) Hospitalist MIPS Heart Failure (Exclusion) Patient has history of Heart Transplant or Left Ventricular Assistive Device?: No IF YES, STOP HERE Heart Failure (Qualifier) Patient has current or prior documentation of LVEF less than or equal to 40%, or mod/servere depressed LVSF?: No IF NO, STOP HERE If Yes, Heart Failure (Qualifier) Patient was prescribed or already taking an Angiotensin-Converting Enzyme (VEL) Inhibitor, or Antiotensin Receptor Samreen (ARB): Yes Patient was prescribed or already taking bisoprolol, carvedilol, or sustained release metoprolol succinate: No If Medications not prescribed/taking Reason patient not prescribed/taking bisoprolol, carvedilol, or sustained realease metoprolol succinate: Patient reasons: pt declined or other pt reason
[2024-11-09 02:58] LABS: Legionella pneumophila Ag Ur NOT DETECTED
[2024-11-09 14:19] LABS: Pneumococcal Antigen Urine NOT DETECTED
== END 2024-11-08 13:30 | disposition home or self-care (01) | DRG 682 ==
LOC: ANHED 22:12 → ANH3MEDSUR 23:03
PROVIDERS: Nurse Practitioner Family; Admitting Provider Internal Medicine; Emergency Provider Emergency Medicine; PCP Family Medicine; Visit Provider Nurse Practitioner
DX: N17.9 Acute kidney failure, unspecified (principal); J18.9 Pneumonia, unspecified organism; I12.9 Hypertensive chronic kidney disease with stage 1 through stage 4 chronic kidney disease, or unspecified chronic kidney disease; I71.21 Aneurysm of the ascending aorta, without rupture; I35.0 Nonrheumatic aortic (valve) stenosis; I27.20 Pulmonary hypertension, unspecified; I48.0 Paroxysmal atrial fibrillation; N18.31 Chronic kidney disease, stage 3a; E87.5 Hyperkalemia; E55.9 Vitamin D deficiency, unspecified; K21.9 Gastro-esophageal reflux disease without esophagitis; R56.9 Unspecified convulsions; S51.012A Laceration without foreign body of left elbow, initial encounter; F41.9 Anxiety disorder, unspecified; F32.A Depression, unspecified; F03.90 Unspecified dementia, unspecified severity, without behavioral disturbance, psychotic disturbance, mood disturbance, and anxiety; W19.XXXA Unspecified fall, initial encounter; Z20.822 Contact with and (suspected) exposure to COVID-19; Z23 Encounter for immunization; Z79.01 Long term (current) use of anticoagulants; Z85.118 Personal history of other malignant neoplasm of bronchus and lung; Z86.73 Personal history of transient ischemic attack (TIA), and cerebral infarction without residual deficits
CPT/HCPCS: 12002; 36415; 70450; 71046; 80048; 80053; 81001; 83735; 84484; 85025; 87040; 87086; 87449; 87637; 87899; 90471; 90715; 93005; 96361; 96365; 96367; 96375; 99285; A9270; G0378; J0456; J0696; J2004; J2060; J7030

== ENCOUNTER 2025-08-06 10:23 | Outpatient (CLI) | payer MEDICARE, SELFPAY ==
--- NOTE | ~2025-08-06 | CT_ITS ---
EXAMINATION: CT diagnostic chest wo con DATE: 08/06/2025 10:40 INDICATION: Malignant neoplasm of lower lobe TECHNIQUE: Computed tomography (CT) of the chest was performed without intravenous contrast. Additional 3D reconstructions utilizing coronal maximum intensity projection (MIP) were performed. Automated exposure control and iterative reconstruction technique were employed. The dose-length product was 37 4.47 mGy-cm. COMPARISON: 08/03/2022 FINDINGS: Very small right pleural effusion with peripheral smooth pleural thickening suggesting a chronic exudative effusion. Small regions of peripheral round atelectasis at the basilar left right lower lobes and lingula demonstrating associated volume loss and architectural distortion. There are numerous tiny foci of high attenuation within these regions of round atelectasis as well as associated with surrounding small regions of tree-in-bud opacity which could represent either sequela of old granulomatous disease or aspirated barium. There are some calcified pleural plaques along the anterior right upper and middle lobes. There is a new 1.2 cm spiculated nodule at the apical segment right upper lobe which is concerning for primary bronchogenic carcinoma. No pulmonary edema. Change of prior thoracotomy at the posterior left lower chest. Heart size is normal. Atherosclerotic coronary artery calcifications. Prominent aortic valve calcifications which raises concern for potential aortic stenosis. Thoracic aorta is normal in caliber. Enlargement of the central pulmonary arteries consistent with pulmonary arterial hypertension. Interval increase in size of a now 1.7 x 1.6 cm precarinal lymph node which could be reactive or metastatic. There are prominent cysts at the upper poles of both kidneys the larger on the right, partially visualized but measuring at least 6.9 cm. Bilateral gynecomastia. Severe thoracic spondylosis. IMPRESSION: 1. New 1.2 cm spiculated right apical nodule which is concerning for primary bronchogenic carcinoma. Could consider percutaneous CT-guided biopsy for pathologic correlation. 2. No significant interval change in regions of round atelectasis and adjacent tree-in-bud opacities with associated multiple foci of high attenuation in the bilateral lower lobes and lingula which could represent sequela of chronic infection/granulomatous disease or aspirated barium. 3. Very small right pleural effusion with adjacent smooth pleural thickening and unilateral right-sided calcified pleural plaques suggestive of chronic exudative effusion. 4. Enlarged precarinal lymph node measuring 1.6 cm short axis diameter which could be reactive or metastatic. 5. Densely calcified aortic valve raising concern for possible aortic stenosis. 6. Enlargement of the central pulmonary arteries consistent with pulmonary arterial hypertension. Reviewed, dictated and finalized at location A. [employer] IMPRESSION: 1. New 1.2 cm spiculated right apical nodule which is concerning for primary br onchogenic carcinoma. Could consider percutaneous CT-guided biopsy for patholog ic correlation. 2. No significant interval change in regions of round atelectasis and adjacent tree-in-bud opacities with associated multiple foci of high attenuation in the bilateral lower lobes and lingula which could represent sequela of chronic infe ction/granulomatous disease or aspirated barium. 3. Very small right pleural effusion with adjacent smooth pleural thickening an d unilateral right-sided calcified pleural plaques suggestive of chronic exudat ranjit effusion. 4. Enlarged precarinal lymph node measuring 1.6 cm short axis diameter which co uld be reactive or metastatic. 5. Densely calcified aortic valve raising concern for possible aortic stenosis. 6. Enlargement of the central pulmonary arteries consistent with pulmonary mellissa rial hypertension.
== END 2025-08-06 10:24 | disposition home or self-care (01) ==
LOC: MICIMG 10:24
PROVIDERS: PCP Family Medicine; Visit Provider Radiology Radiation Oncology
DX: R91.8 Other nonspecific abnormal finding of lung field (principal); C34.32 Malignant neoplasm of lower lobe, left bronchus or lung
CPT/HCPCS: 71250